=== PATIENT | female | born 1965 | race Two or more races ===

== ENCOUNTER 2024-01-15 12:31 | Inpatient (IN) | payer OTHER, SELFPAY ==
[2024-01-15] VITALS (27 sets, daily range): BP systolic 135–255; BP diastolic 64–137; PULSE 67–133; RESP 14–33; TEMP 35–39; O2SAT 97–100; BMI 29.5
--- NOTE | 2024-01-15 | ECG_ITS ---
Test Reason : Rhythm Change Blood Pressure : / mmHG Vent. Rate : 109 BPM Atrial Rate : 109 BPM P-R Int : 132 ms QRS Dur : 074 ms QT Int : 320 ms P-R-T Axes : 076 -44 078 degrees QTc Int : 430 ms Sinus tachycardia Left axis deviation Minimal voltage criteria for LVH, may be normal variant ( R in aVL ) Inferior infarct , age undetermined Anterolateral infarct , age undetermined Abnormal ECG When compared to the previous EKG of No significant changes seen Referred By: Genoveva Steele Electronically Signed By:Sunny Solorzano
--- NOTE | ~2024-01-15 | CT_ITS ---
EXAMINATION: CT GI BLEED ABDOMEN/PELVIS WITHOUT/WITH IV CONTRAST CLINICAL INFORMATION: Hematemesis. COMPARISON: None. TECHNIQUE: Initially, noncontrast imaging of the abdomen/pelvis is performed. Then, imaging is repeated in arterial and venous phases after intravenous administration of 80 mL Omnipaque 350. Note that no image postprocessing was performed on any three-dimensional workstations. This CT examination was performed using dose optimization techniques as appropriate, variously including the following: *Automated exposure control *Adjustment of mA and/or kV according to patient size (this includes techniques or standardized protocols for targeted exams where dose is matched to indication/reason for exam; i.e. extremities or head) *Use of iterative reconstruction technique DLP: 1636 mGy-cm. FINDINGS: LUNG BASES: Mild centrilobular emphysema. A solid, noncalcified nodule of 0.7 cm average diameter is present in the right lower lobe. 0.4 cm, 0.2 cm and 0.5 cm nodules are present in the left lower lobe. No pleural effusion. LIVER, GALLBLADDER, AND BILIARY TREE: The liver has normal size, shape, and attenuation. No focal hepatic lesion. The gallbladder is grossly normal; no radiopaque gallstones, wall thickening, or pericholecystic fluid. No intrahepatic or extrahepatic bile duct dilatation. PANCREAS: Normal. No evidence of pancreatic mass, edema or ductal dilatation. SPLEEN: Normal. ADRENAL GLANDS: Normal. KIDNEYS AND URETERS: The kidneys have normal size, shape, and attenuation. No hydroureteronephrosis, urolithiasis or perinephric edema. BLADDER: Normal. BOWEL AND PERITONEUM: Small sliding-type hiatal hernia. Immediately distal to the esophagogastric junction and region of proximal lesser curvature of the stomach, there is active extravasation of contrast from the gastric wall into the lumen of the proximal stomach. There is no visible gastric mass or overtly visible ulcerative lesion, although recommend correlation with upper endoscopy. The perigastric fat planes are maintained. No fluid or inflammation in the surrounding perigastric fat. No pneumoperitoneum. There are no dilated loops of bowel. The appendix is normal. Multiple diverticula of the colon without evidence of diverticulitis. An old small focus of circumscribed fat anterior to the proximal sigmoid colon likely represents old fat necrosis or sequela of remote epiploic appendagitis. ABDOMINAL WALL: Unremarkable. LYMPH NODES: No pathologic sized lymph nodes in the abdomen or pelvis. No inguinal lymphadenopathy. VASCULATURE: There is atherosclerotic calcification of the abdominal aorta and iliac arteries without aneurysm or dissection. The celiac trunk and superior mesenteric arteries are widely patent. Calcified atherosclerotic plaque causes mild stenosis at origins of each renal artery. There appears to be moderate stenosis of the origin of the patent inferior mesenteric artery. PELVIC VISCERA: No uterine or adnexal mass. No pelvic free fluid. MUSCULOSKELETAL: Levoscoliosis of lumbar spine. Degenerative disc disease of L3-L4, L4-5 [address] L5-S1. CT/CT gi bleed abd pel wo/w IVcon IMPRESSION: * Small hiatal hernia. * There is active contrast extravasation from the region of the proximal lesser curvature of the stomach and into the lumen of the proximal stomach. Consider correlation with upper endoscopy. * Colonic diverticulosis without evidence of diverticulitis. * A few nonspecific solid, noncalcified nodules are detected within both lower lobes, largest in the right lower lobe 0.7 cm average diameter. If the patient does not have any known malignancy, then the Fleischner Society guidelines would suggest chest CT follow-up at 3-6 months, then at 18-24 months for unknown risk or high risk patient (but for low risk patient, CT at 18-24 months is considered optional).
--- NOTE | ~2024-01-15 | XR_ITS ---
EXAMINATION: XR FOOT, LEFT CLINICAL INFORMATION: Fall, left foot pain COMPARISON: None available. TECHNIQUE: AP, lateral, and oblique views of the left foot. FINDINGS: The bones are intact. No fracture. Alignment is anatomic. Joint spaces are maintained. XR/XR foot LT 2V IMPRESSION: No acute bony abnormality.
--- NOTE | ~2024-01-15 | XR_ITS ---
EXAMINATION: PORTABLE CHEST 1 VIEW CLINICAL INFORMATION: tube placement. COMPARISON: No recent pertinent prior studies are available for comparison. TECHNIQUE: Portable frontal view of the chest was obtained. FINDINGS: Endotracheal tube tip approximately 1 cm above the power. Nasogastric tube below level the diaphragm. Lungs are hypoexpanded with some basilar atelectatic change. The lateralmost left costophrenic sulcus is not included on this film. No significant effusion, edema, or pneumothorax. Cardiac and mediastinal silhouettes within normal limits for size for this technique with vascular calcification seen in the aorta XR/XR chest 1V IMPRESSION: Hypoexpanded with tubes and lines as described. Basilar markings more likely due to atelectasis in this setting.
--- NOTE | 2024-01-15 12:49 | ECG_ITS ---
Test Reason : TACHY Blood Pressure : / mmHG Vent. Rate : 111 BPM Atrial Rate : 111 BPM P-R Int : 152 ms QRS Dur : 070 ms QT Int : 346 ms P-R-T Axes : 073 -09 064 degrees QTc Int : 470 ms Sinus tachycardia Low voltage QRS Cannot rule out Anterior infarct , age undetermined Abnormal ECG No previous ECGs available Referred By: Generic ED Physician Electronically Signed By:Sunny Solorzano
[2024-01-15 13:01] LABS: MANUAL DIFF FLAG NO
[2024-01-15] MEDS: ondansetron HCL 4 MG/2 ML VIAL IVPUSH (13:04)
[2024-01-15] MEDS: Pantoprazole Sodium 40 MG/10 ML VIAL 80 MG IVPUSH (13:04)
[2024-01-15] MEDS: 0.9 % Sodium Chloride 1,000 ML 999 ML IV (13:05)
[2024-01-15 13:23] LABS: Basophils Absolute Auto 0.1 X10*3/uL (0.0-0.2); Basophils Percent Auto 0.4 % (0-2); Eosinophils Absolute Auto 0.2 X10*3/uL (0.0-0.4); Eosinophils Percent Auto 1.1 % (0-4); Hematocrit 30.5 % (37.0-47.0); Imm Gran Abs Auto 0.17 X10*3/uL (0.00-0.03); Imm Gran Pct Auto 0.9 % (0.0-0.4); Lymphocytes Absolute Auto 3.9 X10*3/uL (1.2-4.9); Lymphocytes Percent Auto 21.6 % (20-40); Mean Corpuscular HGB Conc 32.8 g/dl (31.0-35.0); Mean Corpuscular Hemoglobin 28.8 pg (27.0-33.0); Mean Corpuscular Volume 87.9 fL (80.0-98.0); Mean Platelet Volume 9.6 fL (9.4-12.3); Monocytes Absolute Auto 0.9 X10*3/uL (0.1-1.2); Monocytes Percent Auto 5.2 % (2-11); Neutrophils Absolute Auto 12.8 x10*3/uL (2.0-8.3); Neutrophils Percent Auto 70.8 % (45-73); Platelet Count 283 X10*3/uL (160-400); Red Blood Count 3.47 X10*6/uL (4.20-5.50); Red Cell Distribution Width 13.1 % (11.0-16.0); White Blood Count 18.1 X10*3/uL (4.8-10.8)
[2024-01-15] MEDS: iohexoL 350 MG/ML 100 ML INFUS..BTL IV (13:24)
[2024-01-15 13:37] LABS: Alanine Aminotransferase 21 U/L (0-31); Albumin Level 3.5 g/dL (3.5-5.0); Alkaline Phosphatase 96 U/L (39-117); Anion Gap 16 (12-20); Aspartate Amino Transferase 15 U/L (5-31); Bilirubin Total 0.6 mg/dL (0.0-1.0); Blood Urea Nitrogen 43 mg/dL (9-16); Calcium 8.8 mg/dL (8.4-10.2); Carbon Dioxide 21 mmol/L (22-29); Chloride 106 mmol/L (96-108); Creatinine Clr Calc Pharmacy 89.5; Estimated Glomerular Filt Rate > 60; Glucose Random 184 mg/dL (60-115); Sodium 139 mmol/L (135-145); Total Protein 6.2 g/dL (6.5-8.0)
--- NOTE | 2024-01-15 14:01 | ED.GENADULT ---
HPI - General Adult General Chief complaint: General Medical Stated complaint: VOMITING SINCE 2 AM LETHARGIC Time Seen by Provider: 01/15/24 12:52 Source: patient and family () Mode of arrival: ambulatory History of Present Illness HPI narrative: This is a 58-year-old female with significant past medical history of CAD/stent placement and completed a course of anticoagulation July 2023. Patient also has a significant past medical history of brain aneurysm with coiling and presents with repeated hematemesis since 0200 this morning. Patient also has complaints epigastric discomfort, symptoms all started after leaving a restaurant last night where she had initial episode of vomiting and felt dizzy. She denies any melena/bright red blood per rectum. [place]. Related Data Allergies Allergy/AdvReac Type Severity Reaction Status Date / Time amitriptyline Allergy Blurry Verified 01/15/24 12:48 Vision latex Allergy Rash Verified 01/15/24 12:48 Review of Systems Review of Systems: Pertinent positives and negatives as stated in HPI [facility] Past Medical History Source: nursing notes reviewed Social History Social History Advance Directives: No Physical Exam ED Vital Signs: Vital Signs - 24 hr 01/15/24 12:46 01/15/24 13:38 01/15/24 14:00 Temperature 98.8 F 97.8 F Pulse Rate 120 H 113 H 118 H Respiratory Rate 22 H 29 H 22 H Blood Pressure 153/64 H 144/80 H 140/105 H Pulse Oximetry 100 01/15/24 14:20 Temperature 97.8 F Pulse Rate 118 H Respiratory Rate 22 H Blood Pressure 140/105 H Pulse Oximetry BMI result Body Mass Index 29.5 VITAL SIGNS: Reviewed. GENERAL: Well developed, well nourished, in no acute distress. HEAD: Normocephalic/atraumatic, EYES: PERRLA, EOMI, pale conjunctiva EARS: Ext canals without abnormality NOSE: Nares patent bilateral OROPHARYNX: no oral lesions noted, posterior pharynx clear, pale mucosa NECK: Supple, no adenopathy LUNGS: Normal breath sounds. No adventitious sounds or accessory muscle use. SpO2<100> CARDIOVASCULAR: Regular rate and rhythm without noted murmurs, no JVD or lower extremity edema. ABDOMEN: Soft, epigastric discomfort without rebound, non-distended with bowel sounds. MUSCULOSKELETAL: No tenderness, deformities, or effusions noted on gross inspection. EXTREMITIES: No cyanosis, clubbing or edema. SKIN: Inspection of the skin reveals no rashes, +pallor NEUROLOGIC: Alert and oriented x 4. Strength and sensation to light touch were grossly intact x 4. Medications Administered Discontinued Medications Generic Name Dose Route Start Last Admin Trade Name Freq PRN Reason Stop Dose Admin Sodium Chloride 1,000 mls @ 999 mls/hr 01/15/24 13:00 01/15/24 13:05 Ns IV 01/15/24 14:00 999 mls/hr .Q1H1M PUNEET Administration Iohexol 100 ml 01/15/24 13:23 01/15/24 13:24 Iohexol 350 Mg/Ml 100 Ml Infus..Btl IV 01/15/24 13:24 85 ml ONCE ONE Administration Ondansetron HCl 4 mg 01/15/24 12:51 01/15/24 13:04 Ondansetron Hcl 4 Mg/2 Ml Vial IVPUSH 01/15/24 12:52 4 mg ONCE ONE Administration Pantoprazole Sodium 80 mg 01/15/24 12:51 01/15/24 13:04 Pantoprazole Sodium 40 Mg/10 Ml Vial IVPUSH 01/15/24 12:52 80 mg ONCE ONE Administration Procedures Intubation Intubation Type:: Emergency Endotracheal Intubation Intubation Date:: 01/15/24 Intubation Time:: 14:20 Time out performed: No sedative: Etomidate Mg Given: 20 paralytic: Rocuronium Mg Given: 100 Assist Device Used: fiber optic device ET Tube Size: 7.5 ET Tube Uncuffed: No Tube Secured Depth (cm): 25 Tube Secured Location: lips Tube Placement Confirmation: visualized tube passing through cords, equal breath sounds bilaterally, no breath sounds over epigastrium and confirmation by capnometry Patient Tolerated Procedure: well Intubation Complications: none Medical Decision Making Medical Decision Making MDM Narrative: 58-year-old female with history and clinical presentation, DDX: Upper GI bleed, esophageal from vomiting. INTERVENTION: Blood transfusion, IV fluids, antiemetics, Protonix, 2 g of Rocephin, Holloway catheter, NG tube after intubation, intubation I reviewed all investigations and hematologic indices are significant for noninfectious leukocytosis, normocytic anemia and no thrombocytopenia. Chemistry indices are negative for LEONELA/electrolyte or liver enzyme derangements. Patient continues to have hematemesis. 1344: Discussed case with mirror department supervisor. I discussed with the patient concerns for airway protection and that if she begins having uncontrolled vomiting that will become more dangerous to intubate her in that setting, and she is agreeable for intubation for airway protection. 1400: Discussed the case with the motion picture projectionist apprentice regarding the need for intubation for airway protection. 1420: Intubated, Dr. Miller at bedside and requesting NGT lavage as well as 250 mg erythromycin for gastric emptying. Patient successfully intubated. CT scan: There is active contrast extravasation from the region of the proximal lesser curvature of the stomach and into the lumen of the proximal stomach. Consider correlation with upper endoscopy. Differential Diagnosis Differential Diagnoses: The differential diagnosis associated with the presentation includes Please see the discussion above Admission/Observation Consideration of admission/observation: Escalation of care including admission/observation considered Please see the discussion above Consult Healthcare Provider Management of the patient was discussed with: Heat Treatment Technician Please see the discussion above Lab Data MDM Lab Attestation statement: I reviewed the patient's lab results. Please see the discussion above 01/15/24 12:57 01/15/24 12:57 Labs: Lab Results 01/15/24 Range/Units 12:57 WBC 18.1 H (4.8-10.8) X10*3/uL RBC 3.47 L (4.20-5.50) X10*6/uL Hgb 10.0 L (12.0-16.0) g/dl Hct 30.5 L (37.0-47.0) % MCV 87.9 (80.0-98.0) fL MCH 28.8 (27.0-33.0) pg MCHC 32.8 (31.0-35.0) g/dl RDW 13.1 (11.0-16.0) % Plt Count 283 (160-400) X10*3/uL MPV 9.6 (9.4-12.3) fL Immature Gran % (Auto) 0.9 H (0.0-0.4) % Neut % (Auto) 70.8 (45-73) % Lymph % (Auto) 21.6 (20-40) % [place] % (Auto) 5.2 (2-11) % Eos % (Auto) 1.1 (0-4) % Baso % (Auto) 0.4 (0-2) % Lymph # (Auto) 3.9 (1.2-4.9) X10*3/uL [place] # (Auto) 0.9 (0.1-1.2) X10*3/uL Eos # (Auto) 0.2 (0.0-0.4) X10*3/uL Baso # (Auto) 0.1 (0.0-0.2) X10*3/uL Abs Immat Gran (auto) 0.17 H (0.00-0.03) X10*3/uL Absolute Neuts (auto) 12.8 H (2.0-8.3) x10*3/uL Absolute Nucleated RBC 0.000 (0.0-0.012) X10*3/uL Nucleated RBC % (auto) 0.0 (0.0-0.2) /100WBC Sodium 139 (135-145) mmol/L Potassium 4.0 (3.3-5.1) mmol/L Chloride 106 (96-108) mmol/L Carbon Dioxide 21 L (22-29) mmol/L Anion Gap 16 (12-20) BUN 43 H (9-16) mg/dL Creatinine 0.76 (0.5-1.4) mg/dL Estim Creat Clear Calc 89.5 Estimated GFR > 60 Random Glucose 184 H (60-115) mg/dL Calcium 8.8 (8.4-10.2) mg/dL Total Bilirubin 0.6 (0.0-1.0) mg/dL AST 15 (5-31) U/L ALT 21 (0-31) U/L Alkaline Phosphatase 96 (39-117) U/L Total Protein 6.2 L (6.5-8.0) g/dL Albumin 3.5 (3.5-5.0) g/dL Blood Type O Positive Antibody Screen NEGATIVE Crossmatch See Detail Independent Interpretation I performed an independent interpretation of an: EKG Interpretation: Sinus tachycardia, HR-111, no STEMI, AR/QRS/QTC is within normal limits. Radiology Impression Discussion of test interpretation with radiology: I have reviewed the radiologist's reading. Radiologist Impression: Please see the discussion above Chronic Conditions CAD Critical Care Time Critical Care Time Critical Care Time: Yes Total Critical Care Time: 90 Attestation: I personally attest to this time spent taking care of the patient. Discharge Plan Discharge Clinical Impression: Acute blood loss anemia, Acute upper GI bleed Patient Disposition: Admitted As Inpatient Print Language: Danish
[2024-01-15] MEDS: Etomidate 20 MG/10 ML VIAL IVPUSH (14:17)
[2024-01-15] MEDS: Rocuronium Bromide 50 MG/5 ML VIAL 100 MG IVPUSH (14:18)
[2024-01-15] MEDS: propofoL 1,000 MG/100 ML VIAL 15.39 MG IVCONT (14:34)
--- NOTE | 2024-01-15 14:36 | P.HPCC_ITS ---
History of Present Illness Date of Service: 01/15/24 Chief Complaint: Upper GI bleed 58-year-old lady with underlying history of CAD status post stent placement, brain aneurysm with coiling, [place] had hematemesis starting in the evening of the day prior to the admission. On ER evaluation patient with repeat kira hematemesis intubated for airway protection. Started on PPI and received 2 units of packed red blood cells. Gastroenterology service consulted and patient is being planned for an urgent EGD. Review of Systems 2 Review of Systems: Yes unobtainable due to endotracheal tube, Unobtainable due to mental condition and Unobtainable due to mental status [facility] Social History Social History Advance Directives: No Meds Allergies Allergy/AdvReac Type Severity Reaction Status Date / Time amitriptyline Allergy Blurry Verified 01/15/24 12:48 Vision latex Allergy Rash Verified 01/15/24 12:48 Active Medications: Current Medications Chlorhexidine Gluconate (Chlorhexidine Gluc Oral Rinse 15 Ml Mouthwash) 15 ml BUCCAL Q8H [facility] Propofol (Diprivan) 1,000 mg in 100 mls @ 0 mls/hr IVCONT .Q0M [facility]; Protocol Erythromycin Lactobionate 250 (mg/ Sodium Chloride) 100 mls @ 100 mls/hr IV ONCE ONE Stop: 01/15/24 15:21 Pantoprazole Sodium 40 mg/ (Sodium Chloride) 110 mls @ 400 mls/hr IV BID PUNEET Physical Exam 2 Vital Signs: Vital Signs: Last Vital Signs Temp 97.8 F 01/15/24 14:20 Pulse 118 H 01/15/24 14:20 Resp 22 H 01/15/24 14:20 BP 140/105 H 01/15/24 14:20 Pulse Ox 100 01/15/24 12:46 BMI result Body Mass Index 29.5 Const: General: no acute distress and other (Sedated on the vent) Eyes: Sclerae: sclerae normal EOM: EOMs intact bilaterally Neck: Neck: Yes no lymphadenopathy, Yes trachea midline and Yes supple Resp: Effort & Inspection: normal respiratory effort and no respiratory distress Auscultation: clear to auscultation bilaterally Cardio: Rate: tachycardic Rhythm: regular rhythm Heart sounds: no gallops, no murmurs and no rubs GI: Palpation (GI): Soft to palpation and Other GI palpation findings present ( Nontender) Auscultation: normal bowel sounds Extrem: General: Yes no pedal edema, No clubbing and No cyanosis Results Labs 01/15/24 12:57 01/15/24 12:57 Labs: Laboratory Results - last 24 hr 01/15/24 12:57 MCV 87.9 MCH 28.8 MCHC 32.8 RDW 13.1 Plt Count 283 MPV 9.6 Immature Gran % (Auto) 0.9 H Neut % (Auto) 70.8 Lymph % (Auto) 21.6 [place] % (Auto) 5.2 Eos % (Auto) 1.1 Baso % (Auto) 0.4 Lymph # (Auto) 3.9 [place] # (Auto) 0.9 Eos # (Auto) 0.2 Baso # (Auto) 0.1 Abs Immat Gran (auto) 0.17 H Absolute Neuts (auto) 12.8 H Absolute Nucleated RBC 0.000 Nucleated RBC % (auto) 0.0 Anion Gap 16 Estim Creat Clear Calc 89.5 Estimated GFR > 60 Random Glucose 184 H Calcium 8.8 Total Bilirubin 0.6 AST 15 ALT 21 Alkaline Phosphatase 96 Total Protein 6.2 L Albumin 3.5 Blood Type O Positive Antibody Screen NEGATIVE Crossmatch See Detail Imaging Radiologist's Impressions: Impressions Abdomen/Pelvis CT 01/15/24 13:29 IMPRESSION: * Small hiatal hernia. * There is active contrast extravasation from the region of the proximal lesser curvature of the stomach and into the lumen of the proximal stomach. Consider correlation with upper endoscopy. * Colonic diverticulosis without evidence of diverticulitis. * A few nonspecific solid, noncalcified nodules are detected within both lower lobes, largest in the right lower lobe 0.7 cm average diameter. If the patient does not have any known malignancy, then the Fleischner Society guidelines would suggest chest CT follow-up at 3-6 months, then at 18-24 months for unknown risk or high risk patient (but for low risk patient, CT at 18-24 months is considered optional). Assessment and Plan (1) Upper GI bleed: Status: Acute (2) CAD (coronary artery disease): Status: Acute Plan Assessment: 58-year-old lady admitted with acute upper GI bleed requiring intubation for airway protection, now planned for an EGD. Plan: Neuro: No acute issues. Cardiac: No acute issues. Pulmonary: Intubated for airway protection, continue to titrate off as tolerated. Renal: No acute issues. Endo: No acute issues. GI: Upper GI bleed with CT angio showing active extravasation from lesser curvature of the stomach. Gastroenterology service care appreciated. Patient is being planned for an urgent EGD. Continue PPI. ID: No acute issues Heme/Onc: Acute blood loss anemia, status post 2 units of packed red blood cells. Continue to monitor hemoglobin level. Psych: No acute issues. Miscellaneous: No acute issues. Prophylaxis: Pneumatic compression, ppi Diet: NPO Critical care time spent: 60 minutes
[2024-01-15 14:43] LABS: INTERNATIONAL NORM RATIO 1.1 (0.9-1.1); Prothrombin Time 12.8 SEC (11.1-13.3)
[2024-01-15] MEDS: cefTRIAXone sodium 2 GM in 0.9 % Sodium Chloride 50 ML IV (14:44)
--- NOTE | 2024-01-15 14:44 | PC.RT ---
Pt successfully intubated in ER by 7.5 ETT 24 cm @lip line. Tube confirmed with ETCO2 change, colormetric, positive breath sounds, increase in O2 SATs, and X-Ray ordered. Tube secured with ETAD and pt placed on mechanical ventilation with settings appropriate for documented height. No acute complications noted.
--- NOTE | 2024-01-15 14:46 | P.CNGI_ITS ---
History of Present Illness Data of Consult Service Date: 01/15/24 Requesting physician: Mirian Blair Primary Care Provider: Unknown Physician HPI Reason for consult: UGI bleeding 58 YF with history of CAD/stent placement 1.5 years ago and completed a course of anticoagulation July 2023. Patient also has a history of brain aneurysm with coiling (2013) and was brought to [facility] by EMT with repeated episodes of hematemesis since 0200 this morning. Patient complained of epigastric discomfort and denied any melena/bright red blood per rectum. Hx obtained from pt's , Reno [place], unable to provide history after being intubated in the ED. reports symptoms started after leaving a restaurant last night where she had initial episode of vomiting and felt dizzy. She went to her hotel room and woke up at 2 am and felt sweaty with nausea. She vomited a large amount of blood with clots. She went back to sleep, woke up at 11:30 am with nausea, vomiting and dizziness followed by hematemesis. She had a ? syncopal episode after vomiting. called 911. Per , pt has a hiatal hernia and used to take pantoprazole in the past. denies past hx of PUD or GI bleeding. Pt takes a baby aspirin intermittently Pt takes a Thyroid medication, atorvastatin, Renaxa, oxycodone 10 mg prn for ABREU and back pain. She takes an Ambien and Xanax 5 mg at night She had a Toradol injection yesterday for ABREU. Patient does not smoke or drink. She lives in [facility] and is visiting her sister and brother (with advanced cancer) in [place] for Mother's Day ABD/PELVIC CTA SHOWED: Small hiatal hernia. * There is active contrast extravasation from the region of the proximal lesser curvature of the stomach and into the lumen of the proximal stomach. Consider correlation with upper endoscopy. * Colonic diverticulosis without evidence of diverticulitis. Review of Systems 2 Review of Systems: Yes unobtainable due to endotracheal tube, Unobtainable due to mental condition and Unobtainable due to mental status [facility] Past Medical History Medical History (Updated 01/28/24 @ 00:01 by Background Daemlatoya) CAD (coronary artery disease) Meds Allergies Allergy/AdvReac Type Severity Reaction Status Date / Time amitriptyline Allergy Blurry Verified 01/15/24 12:48 Vision latex Allergy Rash Verified 01/15/24 12:48 Active Medications: Current Medications Chlorhexidine Gluconate (Chlorhexidine Gluc Oral Rinse 15 Ml Mouthwash) 15 ml BUCCAL Q8H [facility] Propofol (Diprivan) 1,000 mg in 100 mls @ 0 mls/hr IVCONT .Q0M [facility]; Protocol Erythromycin Lactobionate 250 (mg/ Sodium Chloride) 100 mls @ 100 mls/hr IV ONCE ONE Stop: 01/15/24 15:21 Pantoprazole Sodium 80 mg/ (Sodium Chloride) 100 mls @ 10 mls/hr IV .Q10H [facility] Home Medications ?Medication ?Instructions ?Recorded ?Confirmed ?Last Taken ?Type albuterol sulfate 90 mcg/actuation 2 puff inhalation QID PRN 01/15/24 01/15/24 Unknown History aerosol inhaler Shortness Of Breath Or Wheezing alprazolam 1 mg tablet 1 mg PO QID 01/15/24 01/15/24 Unknown History amlodipine 5 mg tablet 5 mg PO DAILY 01/15/24 01/15/24 Unknown History aspirin 81 mg tablet,delayed 81 mg PO DAILY 01/15/24 01/15/24 Unknown History release atorvastatin 80 mg tablet 80 mg PO DAILY 01/15/24 01/15/24 Unknown History ergocalciferol (vitamin D2) 1,250 1,250 mcg PO QWEEK 01/15/24 01/15/24 Unknown History mcg (50,000 unit) capsule fremanezumab-vfrm 225 mg/1.5 mL 225 mg subcut QMONTH 01/15/24 01/15/24 Unknown History subcutaneous auto-injector (Ajovy) icosapent ethyl 1 gram capsule 2 g PO BID 01/15/24 01/15/24 Unknown History (Vascepa) levothyroxine 112 mcg tablet 112 mcg PO DAILY@0600 01/15/24 01/15/24 Unknown History metoprolol succinate 50 mg 50 mg PO DAILY 01/15/24 01/15/24 Unknown History tablet,extended release 24 hr nystatin 100,000 unit/gram topical 1 appl topical BID 01/15/24 01/15/24 Unknown History powder (Klayesta) ondansetron 4 mg disintegrating 4 mg PO TID PRN Nausea And Vomiting 01/15/24 01/15/24 Unknown History tablet oxycodone 10 mg tablet 10 mg PO BID-TID 01/15/24 01/15/24 Unknown History pregabalin 100 mg capsule 100 mg PO BID-TID 01/15/24 01/15/24 Unknown History ranolazine 1,000 mg 1,000 mg PO BID 01/15/24 01/15/24 Unknown History tablet,extended release,12 hr tizanidine 4 mg tablet 4 mg PO TID PRN Muscle Spasm 01/15/24 01/15/24 Unknown History triamcinolone acetonide 0.1 % 1 appl topical BID PRN Rash 01/15/24 01/15/24 Unknown History topical cream zolpidem 10 mg tablet 10 mg PO BEDTIME 01/15/24 01/15/24 Unknown History Physical Exam 2 Vital Signs: Vital Signs: Last Vital Signs Temp 97.8 F 01/15/24 14:20 Pulse 118 H 01/15/24 14:20 Resp 22 H 01/15/24 14:20 BP 140/105 H 01/15/24 14:20 Pulse Ox 100 01/15/24 12:46 FiO2 100 01/15/24 14:34 BMI result Body Mass Index 29.5 Const: General: no acute distress and other (Sedated on the vent) Eyes: Sclerae: sclerae normal EOM: EOMs intact bilaterally Neck: Neck: Yes no lymphadenopathy, Yes trachea midline and Yes supple Resp: Effort & Inspection: normal respiratory effort and no respiratory distress Auscultation: clear to auscultation bilaterally Cardio: Rate: tachycardic Rhythm: regular rhythm Heart sounds: no gallops, no murmurs and no rubs GI: Palpation (GI): Soft to palpation and Other GI palpation findings present ( Nontender) Auscultation: normal bowel sounds Extrem: General: Yes no pedal edema, No clubbing and No cyanosis Results Labs 01/19/24 06:32 01/19/24 06:32 Labs: Short CBC 01/15/24 Range/Units 12:57 WBC 18.1 H (4.8-10.8) X10*3/uL Hgb 10.0 L (12.0-16.0) g/dl Hct 30.5 L (37.0-47.0) % Plt Count 283 (160-400) X10*3/uL BMP 01/15/24 12:57 Sodium 139 Potassium 4.0 Chloride 106 Carbon Dioxide 21 L BUN 43 H Creatinine 0.76 Calcium 8.8 Liver Function 01/15/24 Range/Units 12:57 Total Bilirubin 0.6 (0.0-1.0) mg/dL AST 15 (5-31) U/L ALT 21 (0-31) U/L Alkaline Phosphatase 96 (39-117) U/L Albumin 3.5 (3.5-5.0) g/dL Assessment and Plan (1) Upper GI bleed: Status: Acute Plan 58 YF with history of CAD/stent placement 1.5 years ago and completed a course of anticoagulation July 2023. PatiENT was brought to [facility] by EMT with repeated episodes of hematemesis since 0200 this morning. CTA showed active contrast extravasation from the region of the proximal lesser curvature of the stomach and into the lumen of the proximal stomach. Pt was intubated for airway protection. 2 Units of PRBC were transfused. UGI bleeding likely from PUD, upper GI AVM or Dieulafoy's. RECOMMENDATIONS: 1. Agree with IV PPI infusion 2. Pass nG tube and lavage with 500 cc of normal saline 3. Erythromycin 250 IV over 30 min to clear the stomach for improved visualization 4. Proceed with urgant EGD today. Procedures Date of Service Date of Service: 02/03/24
[2024-01-15 15:17] LABS: MANUAL DIFF FLAG NO
[2024-01-15 15:25] LABS: Basophils Absolute Auto 0.1 X10*3/uL (0.0-0.2); Basophils Percent Auto 0.3 % (0-2); Eosinophils Absolute Auto 0.1 X10*3/uL (0.0-0.4); Eosinophils Percent Auto 0.3 % (0-4); Hematocrit 34.8 % (37.0-47.0); Hemoglobin 12.1 g/dl (12.0-16.0); Imm Gran Abs Auto 0.28 X10*3/uL (0.00-0.03); Imm Gran Pct Auto 1.4 % (0.0-0.4); Lymphocytes Absolute Auto 3.8 X10*3/uL (1.2-4.9); Lymphocytes Percent Auto 19.2 % (20-40); Mean Corpuscular HGB Conc 34.8 g/dl (31.0-35.0); Mean Corpuscular Hemoglobin 29.5 pg (27.0-33.0); Mean Corpuscular Volume 84.9 fL (80.0-98.0); Mean Platelet Volume 9.8 fL (9.4-12.3); Monocytes Percent Auto 5.1 % (2-11); Neutrophils Absolute Auto 14.5 x10*3/uL (2.0-8.3); Neutrophils Percent Auto 73.7 % (45-73); Platelet Count 218 X10*3/uL (160-400); Red Cell Distribution Width 13.1 % (11.0-16.0); White Blood Count 19.7 X10*3/uL (4.8-10.8)
--- NOTE | 2024-01-15 15:39 | PHA.MEDREC ---
Pharmacy Consult ? Medication Reconciliation Pharmacy has completed the medication reconciliation. spoke with patients over the phone and was able to confirm her medications. The only one he did not recognize was nghia. He reported that her ranolazine was BID however prescription was written for once daily last picked up in July 2023. He said that she has the Ajovy injection at home but has not used it in a while. He reports that she stopped taking pantoprazole.
--- NOTE | 2024-01-15 15:42 | P.CONAN_ITS ---
HPI - Anesthesia Eval Consult details Narrative: GI bleed PMFSH Active Problems Active Problems: All Active Problems CAD (coronary artery disease) (Acute) Upper GI bleed (Acute) Family History Family history of problems with anesthesia: No Surgical History History of Problems with Anesthesia: No Social History Social History Advance Directives: No Meds Allergies Allergy/AdvReac Type Severity Reaction Status Date / Time amitriptyline Allergy Blurry Verified 01/15/24 12:48 Vision latex Allergy Rash Verified 01/15/24 12:48 Active Medications: Current Medications Chlorhexidine Gluconate (Chlorhexidine Gluc Oral Rinse 15 Ml Mouthwash) 15 ml BUCCAL Q8H PUNEET Propofol (Diprivan) 1,000 mg in 100 mls @ 0 mls/hr IVCONT .Q0M PUNEET; Protocol Last Titration: 01/15/24 15:32 Dose: 45 mcg/kg/min, 23.09 mls/hr Pantoprazole Sodium 80 mg/ (Sodium Chloride) 100 mls @ 10 mls/hr IV .Q10H PUNEET Lactated Ringer's (Lr) 1,000 mls @ 999 mls/hr IV .Q1H1M PUNEET Stop: 01/15/24 17:00 Home Medications ?Medication ?Instructions ?Recorded ?Confirmed ?Last Taken ?Type albuterol sulfate 90 mcg/actuation 2 puff inhalation QID PRN 01/15/24 01/15/24 Unknown History aerosol inhaler Shortness Of Breath Or Wheezing alprazolam 1 mg tablet 1 mg PO QID 01/15/24 01/15/24 Unknown History amlodipine 5 mg tablet 5 mg PO DAILY 01/15/24 01/15/24 Unknown History aspirin 81 mg tablet,delayed 81 mg PO DAILY 01/15/24 01/15/24 Unknown History release atorvastatin 80 mg tablet 80 mg PO DAILY 01/15/24 01/15/24 Unknown History ergocalciferol (vitamin D2) 1,250 1,250 mcg PO QWEEK 01/15/24 01/15/24 Unknown History mcg (50,000 unit) capsule fremanezumab-vfrm 225 mg/1.5 mL 225 mg subcut QMONTH 01/15/24 01/15/24 Unknown History subcutaneous auto-injector (Ajovy) icosapent ethyl 1 gram capsule 2 g PO BID 01/15/24 01/15/24 Unknown History (Vascepa) levothyroxine 112 mcg tablet 112 mcg PO QAM 01/15/24 01/15/24 Unknown History metoprolol succinate 50 mg 50 mg PO DAILY 01/15/24 01/15/24 Unknown History tablet,extended release 24 hr nystatin 100,000 unit/gram topical 1 appl topical BID 01/15/24 01/15/24 Unknown History powder (Klayesta) ondansetron 4 mg disintegrating 4 mg PO TID PRN Nausea And Vomiting 01/15/24 01/15/24 Unknown History tablet oxycodone 10 mg tablet 10 mg PO BID-TID 01/15/24 01/15/24 Unknown History pregabalin 100 mg capsule 100 mg PO BID-TID 01/15/24 01/15/24 Unknown History ranolazine 1,000 mg 1,000 mg PO BID 01/15/24 01/15/24 Unknown History tablet,extended release,12 hr tizanidine 4 mg tablet 4 mg PO TID PRN Muscle Spasm 01/15/24 01/15/24 Unknown History triamcinolone acetonide 0.1 % 1 appl topical BID PRN Rash 01/15/24 01/15/24 Unknown History topical cream zolpidem 10 mg tablet 10 mg PO BEDTIME 01/15/24 01/15/24 Unknown History Exam Height,Weight and Vital Signs: Height 5 ft 7 in Weight 85.5 kg Last Vital Signs Temp 98.2 F 01/15/24 14:59 Pulse 110 H 01/15/24 15:32 Resp 16 01/15/24 15:32 BP 135/93 H 01/15/24 15:32 Pulse Ox 100 01/15/24 15:21 O2 Del Method Mechanical Ventilation 01/15/24 14:59 FiO2 100 01/15/24 14:34 Pertinent Lab Results Pertinent Lab Results: Laboratory Tests 01/15/24 01/15/24 12:57 15:11 WBC 18.1 H 19.7 H RBC 3.47 L 4.10 L Hgb 10.0 L 12.1 D Hct 30.5 L 34.8 L MCV 87.9 84.9 MCH 28.8 29.5 MCHC 32.8 34.8 RDW 13.1 13.1 Plt Count 283 218 MPV 9.6 9.8 Immature Gran % (Auto) 0.9 H 1.4 H Neut % (Auto) 70.8 73.7 H Lymph % (Auto) 21.6 19.2 L [place] % (Auto) 5.2 5.1 Eos % (Auto) 1.1 0.3 Baso % (Auto) 0.4 0.3 Lymph # (Auto) 3.9 3.8 [place] # (Auto) 0.9 1.0 Eos # (Auto) 0.2 0.1 Baso # (Auto) 0.1 0.1 Abs Immat Gran (auto) 0.17 H 0.28 H Absolute Neuts (auto) 12.8 H 14.5 H Absolute Nucleated RBC 0.000 0.000 Nucleated RBC % (auto) 0.0 0.0 PT 12.8 INR 1.1 Sodium 139 Potassium 4.0 Chloride 106 Carbon Dioxide 21 L Anion Gap 16 BUN 43 H Creatinine 0.76 Estim Creat Clear Calc 89.5 Estimated GFR > 60 Random Glucose 184 H Calcium 8.8 Total Bilirubin 0.6 AST 15 ALT 21 Alkaline Phosphatase 96 Total Protein 6.2 L Albumin 3.5 Blood Type O Positive Antibody Screen NEGATIVE Crossmatch See Detail Airway Mallampati Class: Patient Non-Cooperative TM Dist: >3cm Heart: RRR Lungs: Ventilated Assessment and Plan Assessment Anesthesia Assessment: Anesthesia Plan Discussed and Chart Reviewed Final Anesthetic Review Family History of Problems with Anesthesia: No History of Problems with Anesthesia: No NPO: No ASA Class: III and Emergency Final Preanesthetic Review: No Changes in Pt Med Stat, Meds/Allgs Chart Reviewed, Consent Obtained/Reviewed and Anes Risks/Benef Reviewed Patient Risk: High Procedure Risk: Low Anesthetic Plan Anesthetic Plan: MAC: Disposition: Inp. Admit - ICU
[2024-01-15 15:57] LABS: Lactic Acid 2.7 mmol/L (0.5-2.0)
--- NOTE | 2024-01-15 16:23 | PC.RT ---
pt was trans to icu 252, placed on ordered vent settings. in for bedside endoscopy, pt placed on 100% fio2 for procedure per Dr. Prieto, RN aware.
--- NOTE | 2024-01-15 16:25 | PC.NURSE ---
late entry: assumed care of pt from COLT Verduzco at 1406. pt prepared for intubation with Dr. Blair. pre intubation vitals at 1410: BP 162/87 HR 115 RR 14 O2 99% on room air pt medicated with: 20mg etomidate at 1417 100mg rocuronium at 1418 started bagging at 1418 adnd sating 100% 7.5 et tube placed at 1420 measuring 24 at the lip propofol drip started at 1434 at 30/hr 16Fr temp sensing burrows placed with immediate output of 400cc clear yellow urine. pt with 18G IV placed to LAC and RAC. 22G IV placed to L hand. 2 units of packed RBCs hung and infused. pt vitals stable and updated in worklist. attempted to draw blood cultures with no success. pt began to get agitated, propofol drip titrated per nov. report given to COLT Devries in ICU. pt transferred to ICU.
[2024-01-15] MEDS: fentaNYL citrate/PF 100 MCG/2 ML VIAL IVPUSH ×2 (16:51→23:58)
--- NOTE | 2024-01-15 17:05 | W.PM.OPN ---
Operative Note Operative Note Date of Service: 01/15/24 Narrative: FLEXIBLE TRANSORAL UPPER GASTROINTESTINAL ENDOSCOPY WITH BIOPSIES, EPINEPHRINE INJECTION AND CAUTERY Pre-op diagnosis: UPPER GI BLEEDING Post-op diagnosis: Gastric ulcer with visible vessel, MW tear with clot and a visible vessel Endoscopist:Aliyah Miller MD Anesthesia: Pt was intubated and on propofol (Dr Chung) UPPER ENDOSCOPY Consent: Indications for the procedure and potential complications of bleeding, perforation, reaction to medications and missed diagnosis were discussed with the patient and informed consent was obtained. Instrument: Olympus GIF H 190 mid size upper endoscope Monitoring: Vital signs and clinical assessment, continuous EKG monitoring, Pulse oximetry, Carbon Dioxide monitoring and blood pressure monitoring were done throughout the procedure. Procedure: The patient was placed in the left lateral decubitis position and pre-procedure medications were administered and a bite block was placed. The endoscope was inserted into the mouth and advanced under direct vision to the third part of duodenum. A careful inspection was made as the upper endoscope was withdrawn including a retroflexed examination of the proximal stomach; Findings and interventions are described below. Findings: Larynx: ET tube in place Esophagus: GE junction at 38 cms. Large clot at GE junction with a MW tear with a nonbleeding visible vessel - treated with cautery with Gold probe Stomach: A 1 cms ulcer with a clot and visible vessel along the lesser curvature at 40 cms. Epinephrine 1: 10,000 was injected and visible vessel was treated with cautery using the heater probe Large clot obscuring the fundus on retroflexed examination of the cardia. Antral biopsies were obtained to check for H pylori Duodenum: Normal bulb and descending duodenum Intervention: Biopsies as noted above Impression and Post Procedure Diagnosis: Endoscopy Findings: ESOPHAGUS: GE junction at 38 cms. Large clot at GE junction with a MW tear with a nonbleeding visible vessel - treated with cautery with Gold probe STOMACH: A 1 cms ulcer with a clot and visible vessel along the lesser curvature at 40 cms. Epinephrine 1: 10,000 was injected and visible vessel was treated with cautery using the heater probe Large clot obscuring the fundus on retroflexed examination of the cardia. No active bleeding seen during EGD. Plan: 1. Continue IV PPI infusion x 72 hours 2. Repeat CBC tonight and tomorrow am 3. 2nd look EGD in case of rebleeding Above findings were reviewed with the patient's , Reno Matamoros ([phone]) ADDENDUM: Hospital course: UGIB: Due to acute blood loss from gastric ulcer with visible vessel, Rachel-Calvert tear with clot and visible vessel. Initially treated with IV PPI drip which was transitioned to oral PPI 40 mg BID. Status post endoscopy 01/15/24. S/p 3 units of PRBC. stable HH. Pt was discharged on 01/20/24 Tolerating regular diet. PT rec home with PT, however patient is visiting from [place]. Will need PCP to order home services. We will need outpatient follow-up with her primary appraiser irrigation tax. Recommended to avoid NSAIDs including ibuprofen, Motrin etc.. Recommend to hold aspirin for 2 weeks. H/H has remained stable, no further bleeding observed. Vital signs have remained stable.
[2024-01-15] MEDS: Pantoprazole Sodium 80 MG in 0.9 % Sodium Chloride 80 ML 10 MG IV (17:15)
[2024-01-15 17:16] LABS: Reflex Lactate? Lactic Acid Added
[2024-01-15] MEDS: Chlorhexidine Gluc Oral Rinse 15 ML MOUTHWASH BUCCAL ×2 (17:17→21:20)
[2024-01-15] MEDS: propofoL 1,000 MG/100 ML VIAL 25.65 MG IVCONT ×2 (17:19→21:02)
--- NOTE | 2024-01-15 17:26 | PC.RT ---
s/p bedside endoscopy. upon arrival, audible cuff leak noted. No Vt return on ventilator. No cuff pressure when checked with monometer. ETT exchanged by MD at bedside with same 7.5 size ETT. Secured at 22 at lip due to low position when intubated and secured at 24 at lip.
[2024-01-15] MEDS: Metoprolol Tartrate 5 MG/5 ML VIAL IVPUSH (17:42)
[2024-01-15 17:58] LABS: VBG Base Excess -2.9 mmol/L; VBG HCO3 19 mmol/L (22-26); VBG pCO2 27 mmHg; VBG pH 7.46 (7.32-7.43); VBG pO2 99 mmHg
[2024-01-15 18:00] LABS: Basophils Percent Auto 0.4 % (0-2); Eosinophils Percent Auto 0.1 % (0-4); Hemoglobin 12.9 g/dl (12.0-16.0); Neutrophils Absolute Auto 13.1 x10*3/uL (2.0-8.3); PLT CLUMP 1; SCAN SMEAR FLAG 1
[2024-01-15 18:02] LABS: Basophils Absolute Auto 0.1 X10*3/uL (0.0-0.2); Hematocrit 36.3 % (37.0-47.0); Imm Gran Abs Auto 0.15 X10*3/uL (0.00-0.03); Imm Gran Pct Auto 0.9 % (0.0-0.4); Lymphocytes Absolute Auto 2.2 X10*3/uL (1.2-4.9); Lymphocytes Percent Auto 13.4 % (20-40); MANUAL DIFF FLAG SCAN; Mean Corpuscular HGB Conc 35.5 g/dl (31.0-35.0); Mean Corpuscular Hemoglobin 30.2 pg (27.0-33.0); Mean Platelet Volume 9.6 fL (9.4-12.3); Monocytes Absolute Auto 0.9 X10*3/uL (0.1-1.2); Monocytes Percent Auto 5.6 % (2-11); NRBC Pct Auto 0.1 /100WBC (0.0-0.2); Neutrophils Percent Auto 79.6 % (45-73); Red Blood Count 4.27 X10*6/uL (4.20-5.50); Red Cell Distribution Width 13.3 % (11.0-16.0)
[2024-01-15 18:03] LABS: White Blood Count 16.5 X10*3/uL (4.8-10.8)
[2024-01-15 18:07] LABS: Venous Blood Gas Refer to POC result
[2024-01-15 18:13] LABS: Anion Gap 16 (12-20); Blood Urea Nitrogen 31 mg/dL (9-16); Calcium 8.8 mg/dL (8.4-10.2); Carbon Dioxide 16 mmol/L (22-29); Chloride 112 mmol/L (96-108); Estimated Glomerular Filt Rate > 60; Glucose Random 163 mg/dL (60-115); Potassium 4.3 mmol/L (3.3-5.1); Sodium 140 mmol/L (135-145)
--- NOTE | 2024-01-15 18:14 | PC.NURSE ---
Upon pt's admission to ICU, Leigh Ann Miller and Juliet performed EGD in patient's room. During the procedure at 1651, Dr Chung requested 100 mcg of fentanyl. This contract writer removed it from the pyxis, rohit it into a syringe and handed it to Dr. Chung, who administered the medication during the procedure. Dr. Chung did document this medication's administration in his paper charting, however this would have left a discrepancy in the Pyxis. Orders were added and the medication was scanned and noted to have been administered by physician.
[2024-01-15 18:27] LABS: ~Lactic Acid-LAB USE ONLY 2.3 mmol/L (0.5-2.0)
[2024-01-15 18:35] LABS: Platelet Count 212 X10*3/uL (160-400)
[2024-01-15 18:36] LABS: SLIDE REVIEW VERIFIED
[2024-01-15] MEDS: cloNIDine 0.1 MG PATCH.TDWK TRANSDERMA (19:03)
[2024-01-15 19:46] LABS: Reflex Lactate? 2 Y
[2024-01-15] MEDS: cefTRIAXone sodium 1 GM in 0.9 % Sodium Chloride 50 ML IV (19:49)
[2024-01-15 20:16] LABS: Cancel Lactic Acid Canceled
[2024-01-15] MEDS: Acetaminophen 1,000 MG/100 ML PIGGYBACK 400 MG IV (21:19)
[2024-01-15 22:25] LABS: Troponin-I High Sensitivity 504.7 ng/L (<3.5-17.0)
[2024-01-16] VITALS (30 sets, daily range): BP systolic 122–177; BP diastolic 67–101; PULSE 108–120; RESP 16–35; TEMP 35–39; O2SAT 94–100
--- NOTE | 2024-01-16 | ECG_ITS ---
Test Reason : tele chanages Blood Pressure : / mmHG Vent. Rate : 118 BPM Atrial Rate : 118 BPM P-R Int : 132 ms QRS Dur : 070 ms QT Int : 320 ms P-R-T Axes : 073 -46 083 degrees QTc Int : 448 ms Sinus tachycardia Left axis deviation Left ventricular hypertrophy with repolarization abnormality ( R in aVL ) Lateral infarct , age undetermined Inferior infarct , age undetermined Abnormal ECG When compared to the previous EKG of No significant changes seen Referred By: Genoveva Steele Electronically Signed By:Sunny Solorzano
[2024-01-16] MEDS: Pantoprazole Sodium 80 MG in 0.9 % Sodium Chloride 80 ML 10 MG IV ×3 (00:12→21:21)
[2024-01-16] MEDS: propofoL 1,000 MG/100 ML VIAL 25.65 MG IVCONT ×3 (00:47→07:38)
[2024-01-16 01:09] LABS: MANUAL DIFF FLAG NO
[2024-01-16 01:10] LABS: Basophils Absolute Auto 0.1 X10*3/uL (0.0-0.2); Basophils Percent Auto 0.3 % (0-2); Hematocrit 31.2 % (37.0-47.0); Hemoglobin 11.2 g/dl (12.0-16.0); Imm Gran Abs Auto 0.17 X10*3/uL (0.00-0.03); Imm Gran Pct Auto 0.8 % (0.0-0.4); Lymphocytes Absolute Auto 2.8 X10*3/uL (1.2-4.9); Lymphocytes Percent Auto 12.7 % (20-40); Mean Corpuscular HGB Conc 35.9 g/dl (31.0-35.0); Mean Corpuscular Hemoglobin 29.8 pg (27.0-33.0); Mean Platelet Volume 9.7 fL (9.4-12.3); Monocytes Absolute Auto 1.2 X10*3/uL (0.1-1.2); Monocytes Percent Auto 5.3 % (2-11); Neutrophils Absolute Auto 17.5 x10*3/uL (2.0-8.3); Neutrophils Percent Auto 80.9 % (45-73); Platelet Count 243 X10*3/uL (160-400); Red Blood Count 3.76 X10*6/uL (4.20-5.50); Red Cell Distribution Width 13.7 % (11.0-16.0); White Blood Count 21.6 X10*3/uL (4.8-10.8)
[2024-01-16 01:34] LABS: B Type Natriuretic Peptide 82 pg/mL (<100)
[2024-01-16 01:38] LABS: Troponin-I High Sensitivity 1014.7 ng/L (<3.5-17.0)
[2024-01-16 01:49] LABS: ABG HCO3 21 mmol/L (22-26); ABG pCO2 30 mmHg (32-45); ABG pH 7.46 (7.35-7.45); ABG pO2 91 mmHg (83-108)
[2024-01-16 02:55] LABS: ABG Refer to POC result
[2024-01-16 04:52] LABS: MANUAL DIFF FLAG NO
[2024-01-16 04:53] LABS: Basophils Absolute Auto 0.1 X10*3/uL (0.0-0.2); Basophils Percent Auto 0.4 % (0-2); Hematocrit 31.7 % (37.0-47.0); Hemoglobin 11.2 g/dl (12.0-16.0); Imm Gran Abs Auto 0.15 X10*3/uL (0.00-0.03); Imm Gran Pct Auto 0.7 % (0.0-0.4); Lymphocytes Absolute Auto 2.3 X10*3/uL (1.2-4.9); Lymphocytes Percent Auto 11.2 % (20-40); Mean Corpuscular HGB Conc 35.3 g/dl (31.0-35.0); Mean Corpuscular Hemoglobin 29.7 pg (27.0-33.0); Mean Corpuscular Volume 84.1 fL (80.0-98.0); Mean Platelet Volume 9.7 fL (9.4-12.3); Monocytes Percent Auto 4.8 % (2-11); Neutrophils Absolute Auto 16.8 x10*3/uL (2.0-8.3); Neutrophils Percent Auto 82.9 % (45-73); Platelet Count 238 X10*3/uL (160-400); Red Blood Count 3.77 X10*6/uL (4.20-5.50); Red Cell Distribution Width 13.9 % (11.0-16.0); White Blood Count 20.3 X10*3/uL (4.8-10.8)
[2024-01-16 04:56] LABS: VBG Base Excess -1.1 mmol/L; VBG HCO3 21 mmol/L (22-26); VBG pCO2 30 mmHg; VBG pH 7.46 (7.32-7.43); VBG pO2 54 mmHg
--- NOTE | 2024-01-16 05:00 | ECG_ITS ---
Test Reason : elevated trop Blood Pressure : / mmHG Vent. Rate : 117 BPM Atrial Rate : 117 BPM P-R Int : 136 ms QRS Dur : 070 ms QT Int : 318 ms P-R-T Axes : 078 -46 071 degrees QTc Int : 443 ms Sinus tachycardia Left axis deviation Inferior infarct , age undetermined Anterolateral infarct , age undetermined Abnormal ECG When compared to the previous EKG of No significant changes seen Referred By: Genoveva Steele Electronically Signed By:Sunny Solorzano
[2024-01-16 05:14] LABS: Venous Blood Gas Refer to POC result
[2024-01-16 05:19] LABS: Alanine Aminotransferase 17 U/L (0-31); Albumin Level 3.3 g/dL (3.5-5.0); Alkaline Phosphatase 86 U/L (39-117); Anion Gap 15 (12-20); Aspartate Amino Transferase 18 U/L (5-31); Bilirubin Total 0.3 mg/dL (0.0-1.0); Blood Urea Nitrogen 25 mg/dL (9-16); Calcium 8.4 mg/dL (8.4-10.2); Carbon Dioxide 19 mmol/L (22-29); Chloride 109 mmol/L (96-108); Creatinine Clr Calc Pharmacy 93.2; Estimated Glomerular Filt Rate > 60; Glucose Random 181 mg/dL (60-115); Magnesium 1.9 mg/dL (1.6-2.6); Phosphorus 3.2 mg/dL (2.7-4.5); Potassium 4.1 mmol/L (3.3-5.1); Sodium 139 mmol/L (135-145); Total Protein 5.9 g/dL (6.5-8.0)
[2024-01-16 05:29] LABS: Troponin-I High Sensitivity 840.8 ng/L (<3.5-17.0)
[2024-01-16] MEDS: Levothyroxine Sodium 100 MCG/5 ML VIAL 75 MCG IVPUSH (05:33)
[2024-01-16] MEDS: Chlorhexidine Gluc Oral Rinse 15 ML MOUTHWASH BUCCAL (05:33)
--- NOTE | 2024-01-16 10:04 | PM.CCPN ---
Subjective Subjective Date of Service: 01/16/24 Interval History: Continues to be on ventilator support this morning Underwent emergent upper GI endoscopy yesterday and bleeding source controlled Hemoglobin remained stable overnight Critical Care Time (minutes): 45 Physical Exam Vital Signs: Vital Signs: Last Vital Signs Temp 101.3 F H 01/16/24 09:49 Pulse 119 H 01/16/24 09:49 Resp 20 01/16/24 09:49 BP 162/89 H 01/16/24 09:49 Pulse Ox 97 01/16/24 09:49 O2 Del Method Mechanical Ventil ation 01/16/24 09:49 FiO2 30 01/16/24 09:49 BMI result Body Mass Index 30.0 Const: General: in distress, anxious, combative and confusion Nutritional Appearance: well nourished Orientation/consciousness: confusion HEENT: Head: Yes normal to inspection and Yes No palpable skull fracture present Eyes: General: appearance normal, both eyes and all related structures Alignment and Position: alignment normal and position normal Chest: Chest palpation & inspection: normal inspection of the chest and normal palpation of entire chest wall Resp: Other: Bilateral air entry equal no added sounds Cardio: Other: S1-S2 normal, no murmur heard GI: Other: Abdomen slightly distended, no organomegaly Neuro: Other: Currently on propofol for sedation, moving all 4 extremities General: confusion Objective Data Labs 01/17/24 05:13 01/17/24 05:13 Labs: Laboratory Results - last 24 hr 01/15/24 01/15/24 01/15/24 12:57 15:11 17:42 WBC 18.1 H 19.7 H 16.5 H RBC 3.47 L 4.10 L 4.27 Hgb 10.0 L 12.1 D 12.9 Hct 30.5 L 34.8 L 36.3 L MCV 87.9 84.9 85.0 MCH 28.8 29.5 30.2 MCHC 32.8 34.8 35.5 H RDW 13.1 13.1 13.3 Plt Count 283 218 212 MPV 9.6 9.8 9.6 Immature Gran % (Auto) 0.9 H 1.4 H 0.9 H Neut % (Auto) 70.8 73.7 H 79.6 H Lymph % (Auto) 21.6 19.2 L 13.4 L [place] % (Auto) 5.2 5.1 5.6 Eos % (Auto) 1.1 0.3 0.1 Baso % (Auto) 0.4 0.3 0.4 Lymph # (Auto) 3.9 3.8 2.2 [place] # (Auto) 0.9 1.0 0.9 Eos # (Auto) 0.2 0.1 0.0 Baso # (Auto) 0.1 0.1 0.1 Abs Immat Gran (auto) 0.17 H 0.28 H 0.15 H Absolute Neuts (auto) 12.8 H 14.5 H 13.1 H Absolute Nucleated RBC 0.000 0.000 0.020 H Nucleated RBC % (auto) 0.0 0.0 0.1 Smear Tech's Comments VERIFIED PT 12.8 INR 1.1 O2 Saturation ABG pH at Pt Temp ABG pCO2 at Pt Temp ABG pO2 at Pt Temp ABG HCO3 ABG Base Excess (Actual) VBG pH VBG pCO2 VBG pO2 VBG HCO3 VBG O2 Saturation VBG Base Excess Sodium 139 140 Potassium 4.0 4.3 Chloride 106 112 H Carbon Dioxide 21 L 16 L Anion Gap 16 16 BUN 43 H 31 H Creatinine 0.76 0.68 Estim Creat Clear Calc 89.5 100.0 Estimated GFR > 60 > 60 Random Glucose 184 H 163 H Lactic Acid 2.7 H* Lactic Acid F/U @ 2Hr 2.3 H* Calcium 8.8 8.8 Phosphorus Magnesium Total Bilirubin 0.6 AST 15 ALT 21 Alkaline Phosphatase 96 Troponin I High Sens B-Natriuretic Peptide Total Protein 6.2 L Albumin 3.5 Blood Type O Positive Antibody Screen NEGATIVE Crossmatch See Detail 01/15/24 01/15/24 01/16/24 17:46 21:29 01:01 WBC RBC Hgb Hct MCV MCH MCHC RDW Plt Count MPV Immature Gran % (Auto) Neut % (Auto) Lymph % (Auto) [place] % (Auto) Eos % (Auto) Baso % (Auto) Lymph # (Auto) [place] # (Auto) Eos # (Auto) Baso # (Auto) Abs Immat Gran (auto) Absolute Neuts (auto) Absolute Nucleated RBC Nucleated RBC % (auto) Smear Tech's Comments PT INR O2 Saturation ABG pH at Pt Temp ABG pCO2 at Pt Temp ABG pO2 at Pt Temp ABG HCO3 ABG Base Excess (Actual) VBG pH 7.46 H VBG pCO2 27 VBG pO2 99 VBG HCO3 19 L VBG O2 Saturation 99.0 VBG Base Excess -2.9 Sodium Potassium Chloride Carbon Dioxide Anion Gap BUN Creatinine Estim Creat Clear Calc Estimated GFR Random Glucose Lactic Acid 2.0 Lactic Acid F/U @ 2Hr Calcium Phosphorus Magnesium Total Bilirubin AST ALT Alkaline Phosphatase Troponin I High Sens 504.7 H* 1014.7 H* D B-Natriuretic Peptide 82 Total Protein Albumin Blood Type Antibody Screen Crossmatch 01/16/24 01/16/24 01/16/24 01:05 01:40 04:42 WBC 21.6 H 20.3 H RBC 3.76 L 3.77 L Hgb 11.2 L 11.2 L Hct 31.2 L 31.7 L MCV 83.0 84.1 MCH 29.8 29.7 MCHC 35.9 H 35.3 H RDW 13.7 13.9 Plt Count 243 238 MPV 9.7 9.7 Immature Gran % (Auto) 0.8 H 0.7 H Neut % (Auto) 80.9 H 82.9 H Lymph % (Auto) 12.7 L 11.2 L [place] % (Auto) 5.3 4.8 Eos % (Auto) 0.0 0.0 Baso % (Auto) 0.3 0.4 Lymph # (Auto) 2.8 2.3 [place] # (Auto) 1.2 1.0 Eos # (Auto) 0.0 0.0 Baso # (Auto) 0.1 0.1 Abs Immat Gran (auto) 0.17 H 0.15 H Absolute Neuts (auto) 17.5 H 16.8 H Absolute Nucleated RBC 0.000 0.000 Nucleated RBC % (auto) 0.0 0.0 Smear Tech's Comments PT INR O2 Saturation 99.0 ABG pH at Pt Temp 7.46 H ABG pCO2 at Pt Temp 30 L ABG pO2 at Pt Temp 91 ABG HCO3 21 L ABG Base Excess (Actual) -1.0 VBG pH VBG pCO2 VBG pO2 VBG HCO3 VBG O2 Saturation VBG Base Excess Sodium 139 Potassium 4.1 Chloride 109 H Carbon Dioxide 19 L Anion Gap 15 BUN 25 H Creatinine 0.73 Estim Creat Clear Calc 93.2 Estimated GFR > 60 Random Glucose 181 H Lactic Acid Lactic Acid F/U @ 2Hr Calcium 8.4 Phosphorus 3.2 Magnesium 1.9 Total Bilirubin 0.3 AST 18 ALT 17 Alkaline Phosphatase 86 Troponin I High Sens 840.8 H* B-Natriuretic Peptide Total Protein 5.9 L Albumin 3.3 L Blood Type Antibody Screen Crossmatch 01/16/24 04:47 WBC RBC Hgb Hct MCV MCH MCHC RDW Plt Count MPV Immature Gran % (Auto) Neut % (Auto) Lymph % (Auto) [place] % (Auto) Eos % (Auto) Baso % (Auto) Lymph # (Auto) [place] # (Auto) Eos # (Auto) Baso # (Auto) Abs Immat Gran (auto) Absolute Neuts (auto) Absolute Nucleated RBC Nucleated RBC % (auto) Smear Tech's Comments PT INR O2 Saturation ABG pH at Pt Temp ABG pCO2 at Pt Temp ABG pO2 at Pt Temp ABG HCO3 ABG Base Excess (Actual) VBG pH 7.46 H VBG pCO2 30 VBG pO2 54 VBG HCO3 21 L VBG O2 Saturation 88.0 VBG Base Excess -1.1 Sodium Potassium Chloride Carbon Dioxide Anion Gap BUN Creatinine Estim Creat Clear Calc Estimated GFR Random Glucose Lactic Acid Lactic Acid F/U @ 2Hr Calcium Phosphorus Magnesium Total Bilirubin AST ALT Alkaline Phosphatase Troponin I High Sens B-Natriuretic Peptide Total Protein Albumin Blood Type Antibody Screen Crossmatch Progress Note: A&P Assessment and plan (1) CAD (coronary artery disease): Status: Acute (2) Upper GI bleed: Status: Acute (3) Acute hypoxemic respiratory failure: Status: Acute (4) Acute blood loss anemia: Status: Acute Plan Genny Matamoros is a 58-year-old lady residing in [facility] with past medical history of coronary artery disease status post stent placement on aspirin, brain aneurysm status post coiling, thyroid cancer status post thyroidectomy, fibromyalgia admitted to the hospital with multiple episodes of upper and lower GI bleeding needing intubation and currently on ventilator support. CTA showed active extravasation through the lesser curvature of the stomach, underwent emergent upper GI endoscopy and bleeding source controlled. Neuro: Acute encephalopathy: Currently on propofol for sedation We will wean propofol and switch to Precedex for weaning from ventilator Has chronic fibromyalgia needing multiple pain medications at home Cardiac: Blood pressure stable, not on pressors Respiratory: Acute hypoxemic respiratory failure secondary to aspiration pneumonia Currently on ventilator support FiO2 30%, peep 5, tidal volume 400, rate 20 We will switch the patient to pressor support for weaning trials Ventilator management bundle, head did not elevation, chlorhexidine mouthwash, daily awakening trials, daily spontaneous breathing trials GI: Upper GI bleeding: Possibly secondary to chronic aspirin, off of anticoagulation since 2022 CTA showed active extravasation in the lesser curvature of stomach underwent emergent upper GI endoscopy and control of the source Hemoglobin remained stable overnight, continue pantoprazole Renal: Normal renal function Closely monitor I's and O's Heme: Acute blood loss anemia: Secondary to massive upper GI bleed needing multiple transfusions Continue to closely monitor hemoglobin ID: No infection Endocrine: Blood sugars under control Possibly needs thyroid supplementation as she has a history of thyroidectomy for thyroid cancer Prophylaxis: SCD, pantoprazole Quality Stroke Does the patient have a stroke diagnosis?: No VTE Prior VTE?: No VTE Risk Level:: Medical - moderate - high VTE Device Contraindication: N/A - Device Ordered VTE Drug Contraindication: Treatment Not Indicated
[2024-01-16] MEDS: dexmedeTOMIDidine HCL/NS 400 MCG/100 ML INFUS..BTL 21.75 MCG IVCONT (10:12)
--- NOTE | 2024-01-16 11:09 | PC.NURSE ---
Sedation vacation initiated at 1015. propofol titrated per NOV. Precedex started per NOV. MD ordered extubation. Performed at 1100 with RT and poem writer at bedside. No complications, oral suction provided. Pt placed on 4L o2 via NC.
--- NOTE | 2024-01-16 11:47 | MHC.CM.PN ---
Pt presently intubated for airway protection following an UGIB: Information obtained from EMR and spouse who is with pt. Pt resides in [place] w/spouse and is in [place] visiting family for the weekend. Pt is independent w/care needs and has no services or DME. HCP w/provider, Dr. Junior (?) in [place]. pouse to transport pt when d/c'd. CM to follow for any changes in d/c plan.
[2024-01-16] MEDS: HYDROmorphone HCl 0.5 MG/0.5 ML SYRINGE IVPUSH ×2 (13:25→20:18)
[2024-01-16] MEDS: ondansetron HCL 4 MG/2 ML VIAL IVPUSH ×2 (14:25→20:18)
[2024-01-16] MEDS: LORazepam 2 MG/ML VIAL 0.5 MG IVPUSH (15:11)
--- NOTE | 2024-01-16 15:25 | HO.POSTANES ---
Post Anesthesia Evaluation Post Anesthesia Evaluation Date of Service: 01/16/24 Vital Signs: Vital Signs Temp Pulse Resp BP Pulse Ox O2 Del Method O2 Flow Rate 01/16/24 14:59 99.3 F 110 H 20 136/85 97 Nasal Cannula 4 01/16/24 14:00 98.1 F 118 H 31 H 160/82 H 97 Nasal Cannula 4 01/16/24 13:25 21 H 01/16/24 13:00 100.4 F 112 H 27 H 127/72 98 Nasal Cannula 4 01/16/24 11:41 101.3 F H 114 H 32 H 146/84 H 97 Nasal Cannula 4 01/16/24 11:00 101.1 F H 112 H 35 H 122/77 96 Nasal Cannula 4 01/16/24 10:37 01/16/24 09:49 101.3 F H 119 H 20 162/89 H 97 Mechanical Ventilation 01/16/24 09:00 101.3 F H 119 H 17 144/70 H 97 Mechanical Ventilation 01/16/24 08:00 101.3 F H 119 H 28 H 149/89 H 97 Mechanical Ventilation 01/16/24 07:40 01/16/24 07:14 01/16/24 07:00 101.5 F H 114 H 17 164/89 H 97 Mechanical Ventilation 01/16/24 06:00 101.5 F H 116 H 19 149/89 H 98 Mechanical Ventilation 01/16/24 05:00 100.4 F 117 H 19 168/86 H 97 Mechanical Ventilation 01/16/24 04:52 01/16/24 04:00 102.0 F H 120 H 21 H 145/91 H 98 Mechanical Ventilation 01/16/24 04:00 FiO2 01/16/24 14:59 01/16/24 14:00 01/16/24 13:25 01/16/24 13:00 01/16/24 11:41 01/16/24 11:00 01/16/24 10:37 30 01/16/24 09:49 30 01/16/24 09:00 30 01/16/24 08:00 30 01/16/24 07:40 30 01/16/24 07:14 30 01/16/24 07:00 30 01/16/24 06:00 30 01/16/24 05:00 30 01/16/24 04:52 30 01/16/24 04:00 30 01/16/24 04:00 30 Anesthesia: Monitored Mental Status: Awake Pain Control: Satisfactory Nausea/Vomiting: None Hydration: Adequate Anesthesia-Related Issues: No Anes. Related Issues
[2024-01-16] MEDS: Prochlorperazine Edisylate 10 MG/2 ML VIAL IM (16:51)
[2024-01-16] MEDS: cefTRIAXone sodium 1 GM in 0.9 % Sodium Chloride 50 ML IV (19:51)
[2024-01-16 20:08] LABS: Hematocrit 27.5 % (37.0-47.0); Hemoglobin 9.6 g/dl (12.0-16.0); Mean Corpuscular HGB Conc 34.9 g/dl (31.0-35.0); Mean Corpuscular Hemoglobin 29.4 pg (27.0-33.0); Mean Corpuscular Volume 84.1 fL (80.0-98.0); Mean Platelet Volume 9.9 fL (9.4-12.3); NRBC Pct Auto 0.1 /100WBC (0.0-0.2); Platelet Count 217 X10*3/uL (160-400); Red Blood Count 3.27 X10*6/uL (4.20-5.50); Red Cell Distribution Width 13.8 % (11.0-16.0)
[2024-01-16] MEDS: LORazepam 2 MG/ML VIAL 1 MG IVPUSH (23:04)
[2024-01-17] VITALS (17 sets, daily range): BP systolic 135–173; BP diastolic 63–85; PULSE 97–115; RESP 15–25; TEMP 36.8–38.2; O2SAT 94–99; BMI 29.2
--- NOTE | 2024-01-17 | ECG_ITS ---
Test Reason : ELEVATED TROPONINS Blood Pressure : / mmHG Vent. Rate : 103 BPM Atrial Rate : 103 BPM P-R Int : 142 ms QRS Dur : 074 ms QT Int : 338 ms P-R-T Axes : 062 -26 035 degrees QTc Int : 442 ms Sinus tachycardia Inferior infarct (cited on or before 15-JAN-2024) Cannot rule out Anterior infarct (cited on or before 15-JAN-2024) Abnormal ECG When compared with ECG of 16-JAN-2024 04:53, Questionable change in initial forces of Lateral leads Nonspecific T wave abnormality now evident in Inferior leads Referred By: Sorin Benites Electronically Signed By:AURELIO CHING MD
[2024-01-17] MEDS: ondansetron HCL 4 MG/2 ML VIAL IVPUSH ×4 (00:35→21:34)
[2024-01-17] MEDS: HYDROmorphone HCl 0.5 MG/0.5 ML SYRINGE IVPUSH ×3 (00:39→09:13)
[2024-01-17] MEDS: Levothyroxine Sodium 100 MCG/5 ML VIAL 75 MCG IVPUSH (05:19)
[2024-01-17 05:27] LABS: VBG Base Excess 4.7 mmol/L; VBG HCO3 28 mmol/L (22-26); VBG pCO2 37 mmHg; VBG pH 7.48 (7.32-7.43); VBG pO2 129 mmHg
[2024-01-17 05:28] LABS: Venous Blood Gas Refer to POC result
[2024-01-17 05:49] LABS: Basophils Absolute Auto 0.1 X10*3/uL (0.0-0.2); Basophils Percent Auto 0.4 % (0-2); Eosinophils Percent Auto 0.1 % (0-4); Hematocrit 25.3 % (37.0-47.0); Hemoglobin 8.7 g/dl (12.0-16.0); Imm Gran Pct Auto 1.2 % (0.0-0.4); Lymphocytes Absolute Auto 3.6 X10*3/uL (1.2-4.9); Lymphocytes Percent Auto 21.5 % (20-40); MANUAL DIFF FLAG SCAN; Mean Corpuscular HGB Conc 34.4 g/dl (31.0-35.0); Mean Corpuscular Hemoglobin 29.7 pg (27.0-33.0); Mean Corpuscular Volume 86.3 fL (80.0-98.0); Monocytes Absolute Auto 1.7 X10*3/uL (0.1-1.2); Monocytes Percent Auto 10.1 % (2-11); NRBC Pct Auto 0.3 /100WBC (0.0-0.2); Neutrophils Absolute Auto 11.2 x10*3/uL (2.0-8.3); Neutrophils Percent Auto 66.7 % (45-73); Platelet Count 211 X10*3/uL (160-400); Red Blood Count 2.93 X10*6/uL (4.20-5.50); Red Cell Distribution Width 13.8 % (11.0-16.0); SCAN SMEAR FLAG 1; White Blood Count 16.8 X10*3/uL (4.8-10.8)
[2024-01-17 06:08] LABS: Albumin Level 3.3 g/dL (3.5-5.0); Anion Gap 17 (12-20); Blood Urea Nitrogen 18 mg/dL (9-16); Calcium 8.8 mg/dL (8.4-10.2); Carbon Dioxide 23 mmol/L (22-29); Chloride 109 mmol/L (96-108); Creatinine Clr Calc Pharmacy 109.1; Estimated Glomerular Filt Rate > 60; Glucose Random 174 mg/dL (60-115); Phosphorus 2.8 mg/dL (2.7-4.5); Potassium 3.8 mmol/L (3.3-5.1); Sodium 145 mmol/L (135-145)
[2024-01-17 06:16] LABS: SLIDE REVIEW VERIFIED
[2024-01-17] MEDS: Pantoprazole Sodium 80 MG in 0.9 % Sodium Chloride 80 ML 10 MG IV ×2 (07:48→16:49)
--- NOTE | 2024-01-17 12:25 | P.PNCC_ITS ---
Subjective Subjective Date of Service: 01/17/24 Critical Care Time (minutes): 32 Comment: Had a stable night overnight, no further episodes of hematemesis Hemoglobin dropped slightly down to 8.7 this morning Physical Exam 2 Vital Signs: Vital Signs: Last Vital Signs Temp 99.3 F 01/17/24 12:00 Pulse 109 H 01/17/24 12:00 Resp 20 01/17/24 12:00 BP 158/73 H 01/17/24 12:00 Pulse Ox 97 01/17/24 12:00 O2 Del Method Nasal Cannula 01/17/24 12:00 O2 Flow Rate 1 01/17/24 12:00 FiO2 30 01/16/24 10:37 BMI result Body Mass Index 29.2 Const: General: awake and lethargic Orientation/consciousness: oriented to person, oriented to place and lethargic HEENT: Head: Yes normal to inspection, Yes No palpable skull fracture present, Yes normocephalic and Yes atraumatic Eyes: Visual Chu: normal visual chu by confrontation Alignment and Position: position normal Periorbital: periorbital findings normal Chest: Chest palpation & inspection: normal inspection of the chest and normal palpation of entire chest wall Resp: Effort & Inspection: normal respiratory effort Auscultation: clear to auscultation bilaterally Cardio: Rate: regular rate Rhythm: regular rhythm Heart sounds: S1 normal heart sound present and S2 normal heart sound present GI: Other: Soft, nontender, no organomegaly : General: Yes bladder normal to inspection and Yes bladder normal to palpation Bimanual exam- vagina & uterus: bladder normal to palpation Skin: General skin exam: no rashes or lesions noted and elasticity normal Neuro: General: oriented to person, oriented to place, moves all extremities and Normal light touch and pain sensation Objective Data Labs 01/17/24 05:13 01/17/24 05:13 Labs: Laboratory Results - last 24 hr 01/15/24 01/16/24 01/17/24 12:57 19:58 05:13 WBC 19.0 H 16.8 H RBC 3.27 L 2.93 L Hgb 9.6 L 8.7 L Hct 27.5 L 25.3 L MCV 84.1 86.3 MCH 29.4 29.7 MCHC 34.9 34.4 RDW 13.8 13.8 Plt Count 217 211 MPV 9.9 10.0 Immature Gran % (Auto) 1.2 H Neut % (Auto) 66.7 Lymph % (Auto) 21.5 [place] % (Auto) 10.1 Eos % (Auto) 0.1 Baso % (Auto) 0.4 Lymph # (Auto) 3.6 [place] # (Auto) 1.7 H Eos # (Auto) 0.0 Baso # (Auto) 0.1 Abs Immat Gran (auto) 0.20 H Absolute Neuts (auto) 11.2 H Absolute Nucleated RBC 0.020 H 0.050 H Nucleated RBC % (auto) 0.1 0.3 H Smear Tech's Comments VERIFIED VBG pH VBG pCO2 VBG pO2 VBG HCO3 VBG O2 Saturation VBG Base Excess Sodium 145 Potassium 3.8 Chloride 109 H Carbon Dioxide 23 Anion Gap 17 BUN 18 H Creatinine 0.62 Estim Creat Clear Calc 109.1 Estimated GFR > 60 Random Glucose 174 H Calcium 8.8 Phosphorus 2.8 Magnesium 2.0 Albumin 3.3 L Crossmatch See Detail 01/17/24 05:18 WBC RBC Hgb Hct MCV MCH MCHC RDW Plt Count MPV Immature Gran % (Auto) Neut % (Auto) Lymph % (Auto) [place] % (Auto) Eos % (Auto) Baso % (Auto) Lymph # (Auto) [place] # (Auto) Eos # (Auto) Baso # (Auto) Abs Immat Gran (auto) Absolute Neuts (auto) Absolute Nucleated RBC Nucleated RBC % (auto) Smear Tech's Comments VBG pH 7.48 H VBG pCO2 37 VBG pO2 129 VBG HCO3 28 H VBG O2 Saturation 100.0 VBG Base Excess 4.7 Sodium Potassium Chloride Carbon Dioxide Anion Gap BUN Creatinine Estim Creat Clear Calc Estimated GFR Random Glucose Calcium Phosphorus Magnesium Albumin Crossmatch Microbiology Microbiology Results: Microbiology 01/15/24 19:31 Blood - Venous Blood Culture - Preliminary No growth after 24 hours. 01/15/24 19:31 Blood - Venous Blood Culture - Preliminary No growth after 24 hours. Progress Note: A&P Assessment and plan (1) Acute blood loss anemia: Status: Acute (2) Upper GI bleed: Status: Acute (3) CAD (coronary artery disease): Status: Acute Plan Genny Matamoros is a 58-year-old lady residing in [facility] with past medical history of coronary artery disease status post stent placement on aspirin, brain aneurysm status post coiling, thyroid cancer status post thyroidectomy, fibromyalgia admitted to the hospital with multiple episodes of upper and lower GI bleeding needing intubation and ventilator support due to aspiration of blood on 01/15/2024. CTA showed active extravasation through the lesser curvature of the stomach, underwent emergent upper GI endoscopy and bleeding source controlled with cauterization. She was extubated on 01/16/2024, postextubation doing okay. Neuro: Doing well, no complaints Cardiac: Blood pressure stable, not on pressors Respiratory: Extubated yesterday, tolerating liberation from ventilator well. Saturations normal. GI: Upper GI bleeding: Possibly secondary to chronic aspirin, off of anticoagulation since 2022 CTA showed active extravasation in the lesser curvature of stomach underwent emergent upper GI endoscopy and cauterization of the bleeding source the lesser curvature Hemoglobin r slightly dropped overnight, 8.7 this morning. continue pantoprazole IV for a total of 72hrs; if the patient rebleeds GI we will do a repeat endoscope Clear liquid diet Renal: Normal renal function Closely monitor I's and O's Heme: Acute blood loss anemia: Secondary to massive upper GI bleed needing multiple transfusions Continue to closely monitor hemoglobin twice today ID: No infection Endocrine: Blood sugars under control On oral levothyroxine, history of thyroidectomy for thyroid cancer Prophylaxis: SCD, pantoprazole Quality Stroke Does the patient have a stroke diagnosis?: No VTE Prior VTE?: No VTE Risk Level:: Medical - moderate - high VTE Device Contraindication: N/A - Device Ordered VTE Drug Contraindication: Treatment Not Indicated
[2024-01-17] MEDS: ALPRAZolam 0.5 MG TABLET 1 MG PO ×3 (13:34→19:54)
[2024-01-17 13:36] LABS: Hematocrit 24.2 % (37.0-47.0); Hemoglobin 8.3 g/dl (12.0-16.0); Mean Corpuscular HGB Conc 34.3 g/dl (31.0-35.0); Mean Corpuscular Volume 87.4 fL (80.0-98.0); Mean Platelet Volume 9.7 fL (9.4-12.3); NRBC Pct Auto 0.3 /100WBC (0.0-0.2); Platelet Count 194 X10*3/uL (160-400); Red Blood Count 2.77 X10*6/uL (4.20-5.50); Red Cell Distribution Width 13.8 % (11.0-16.0); White Blood Count 15.5 X10*3/uL (4.8-10.8)
--- NOTE | 2024-01-17 13:49 | MHC.CM.PN ---
EMR REVIEWED. PT REMAINS IN ICU, EXTUBATED SUCCESSFULLY ON 01/16/24. CM WILL CONTINUE TO FOLLOW FOR DC PLANNING.
--- NOTE | 2024-01-17 13:49 | PM.EVENT ---
Event Note Date of Service: 01/17/24 Event Note: 58-year-old woman admitted to the ICU with upper GI bleed and hematemesis. Patient complained of epigastric pain but denied any bleeding per rectum. She had dinner and then started vomiting and felt dizzy. She went back to her hotel room and around 02:00 woke up diaphoretic and nauseous. Vomited a large amount of blood with clots. Went back to bed and woke up again around 11:30 with nausea vomiting dizziness followed by hematemesis. She had a possible syncopal episode after vomiting. Her called emergency services and she was brought to the ER further evaluation. Of note she is currently visiting from [place]. She was intubated in the ER, had upper endoscopy showing gastric ulcer and Rachel-Calvert tear. Ultimately extubated, not treated with pressors. ICU transfer to medical floor. Discussed with director media UGIB secondary to gastric ulcer with visible vessel, Rachel-Calvert tear with clot and visible vessel Treated with IV PPI Status post endoscopy Monitor H&H Asthma inhalers as needed HTN amlodipine Hypothyroidism Continue levothyroxine Mental health Continue home medications Time Spent With Patient Time: Total time managing care of this patient today ____ minutes.
[2024-01-17] MEDS: oxyCODONE HCl Immed Release 5 MG TABLET 10 MG PO ×3 (14:39→19:53)
[2024-01-17] MEDS: Pregabalin 100 MG CAPSULE PO ×2 (14:40→19:54)
--- NOTE | 2024-01-17 15:08 | PC.NURSE ---
Pt transferred to [facility], [place] cath removed at 1500, due to void at 2100. Report given to COLT Duenas
[2024-01-17] MEDS: cefTRIAXone sodium 1 GM in 0.9 % Sodium Chloride 50 ML IV (17:47)
[2024-01-17 20:27] LABS: MANUAL DIFF FLAG NO
[2024-01-17 20:30] LABS: Basophils Absolute Auto 0.1 X10*3/uL (0.0-0.2); Basophils Percent Auto 0.3 % (0-2); Eosinophils Absolute Auto 0.1 X10*3/uL (0.0-0.4); Eosinophils Percent Auto 0.5 % (0-4); Hematocrit 23.1 % (37.0-47.0); Hemoglobin 7.8 g/dl (12.0-16.0); Imm Gran Abs Auto 0.16 X10*3/uL (0.00-0.03); Imm Gran Pct Auto 0.9 % (0.0-0.4); Lymphocytes Absolute Auto 3.9 X10*3/uL (1.2-4.9); Lymphocytes Percent Auto 22.2 % (20-40); Mean Corpuscular HGB Conc 33.8 g/dl (31.0-35.0); Mean Corpuscular Hemoglobin 29.7 pg (27.0-33.0); Mean Corpuscular Volume 87.8 fL (80.0-98.0); Mean Platelet Volume 9.5 fL (9.4-12.3); Monocytes Absolute Auto 1.3 X10*3/uL (0.1-1.2); Monocytes Percent Auto 7.2 % (2-11); NRBC Pct Auto 0.3 /100WBC (0.0-0.2); Neutrophils Percent Auto 68.9 % (45-73); Platelet Count 183 X10*3/uL (160-400); Red Blood Count 2.63 X10*6/uL (4.20-5.50); Red Cell Distribution Width 13.9 % (11.0-16.0); White Blood Count 17.5 X10*3/uL (4.8-10.8)
[2024-01-17] MEDS: LORazepam 2 MG/ML VIAL 1 MG IVPUSH (21:34)
[2024-01-18] VITALS (9 sets, daily range): BP systolic 117–155; BP diastolic 56–67; PULSE 82–106; RESP 16–20; TEMP 36–37.2; O2SAT 93–100
[2024-01-18] MEDS: Pantoprazole Sodium 80 MG in 0.9 % Sodium Chloride 80 ML 10 MG IV ×3 (01:15→22:51)
[2024-01-18] MEDS: Levothyroxine Sodium 100 MCG/5 ML VIAL 75 MCG IVPUSH (05:30)
[2024-01-18] MEDS: Atorvastatin Calcium 80 MG TABLET PO (07:50)
[2024-01-18] MEDS: amLODIPine Besylate 5 MG TABLET PO (07:50)
[2024-01-18] MEDS: ondansetron HCL 4 MG/2 ML VIAL IVPUSH (07:50)
[2024-01-18] MEDS: oxyCODONE HCl Immed Release 5 MG TABLET 10 MG PO ×3 (07:50→20:11)
[2024-01-18] MEDS: ALPRAZolam 0.5 MG TABLET 1 MG PO ×3 (07:50→20:11)
[2024-01-18] MEDS: Pregabalin 100 MG CAPSULE PO ×3 (07:50→22:51)
--- NOTE | 2024-01-18 08:08 | HO.PM.IMPN ---
Subjective Subjective Date of Service: 01/18/24 Review of Systems Follow up GI bleed nausea and episode of vomiting this morning Physical Exam Vital Signs: Vital Signs: Last Vital Signs Temp 97.9 F 01/18/24 07:21 Pulse 100 01/18/24 07:21 Resp 18 01/18/24 07:21 BP 132/61 01/18/24 07:21 Pulse Ox 98 01/18/24 07:21 O2 Del Method Nasal Cannula 01/18/24 07:21 O2 Flow Rate 2 01/18/24 07:21 FiO2 30 01/16/24 10:37 BMI result Body Mass Index 29.2 Appearing in no acute distress lung sounds are clear to auscultation heart regular rate rhythm, clear S1, S2 positive bowel sounds, abdomen is soft, nontender neuro patient is alert x3, no focal deficits Objective Data Active Medications Alprazolam (Alprazolam 0.5 Mg Tablet) [address] [facility] Last Admin: 01/18/24 07:50 Dose: 1 mg Documented By: KESHAV Amlodipine Besylate (Amlodipine Besylate 5 Mg Tablet) [address] [facility]; Protocol Last Admin: 01/18/24 07:50 Dose: 5 mg Documented By: KESHAV Atorvastatin Calcium (Atorvastatin Calcium 80 Mg Tablet) [address] [facility] Last Admin: 01/18/24 07:50 Dose: 80 mg Documented By: KESHAV Hydromorphone HCl (Hydromorphone Hcl 0.5 Mg/0.5 Ml Syringe) 0.5 mg IVPUSH Q4H PRN; Protocol PRN Reason: Pain, Severe (Pain Scale 7-10) Last Admin: 01/17/24 09:13 Dose: 0.5 mg Documented By: CALEB Ceftriaxone Sodium 1 gm/ (Sodium Chloride) 50 mls @ 100 mls/hr IV Q24H [facility] Last Infusion: 01/17/24 18:25 Dose: Infused Documented By: ADRIAN Dexmedetomidine HCl (Precedex) 400 mcg in 100 mls @ 0 mls/hr IVCONT .Q0M [facility]; Protocol Last Titration: 01/16/24 14:14 Dose: Infused Documented By: MARIA DEL CARMEN Pantoprazole Sodium 80 mg/ (Sodium Chloride) 100 mls @ 10 mls/hr IV .Q10H [facility] Last Admin: 01/18/24 01:15 Dose: 8 mg/hr, 10 mls/hr Documented By: ANTJOEL Levothyroxine Sodium (Levothyroxine Sodium 100 Mcg/5 Ml Vial) 75 mcg IVPUSH DAILY@0600 [facility] Last Admin: 01/18/24 05:30 Dose: 75 mcg Documented By: ANTOIC Lorazepam (Lorazepam 2 Mg/Ml Vial) 1 mg IVPUSH BEDTIME PRN PRN Reason: Insomnia Last Admin: 01/17/24 21:34 Dose: 1 mg Documented By: ADRIAN Ondansetron HCl (Ondansetron Hcl 4 Mg/2 Ml Vial) 4 mg IVPUSH Q4H PRN PRN Reason: Nausea Last Admin: 01/18/24 07:50 Dose: 4 mg Documented By: KESHAV Oxycodone HCl (Oxycodone Hcl Immed Release 5 Mg Tablet) [address] [facility] Last Admin: 01/18/24 07:50 Dose: 10 mg Documented By: KESHAV Pregabalin (Pregabalin 100 Mg Capsule) [address] [facility] Last Admin: 01/18/24 07:50 Dose: 100 mg Documented By: KESHAV Tizanidine HCl (Tizanidine Hcl 4 Mg Tablet) 4 mg PO TID PRN PRN Reason: Muscle Spasm Labs 01/18/24 08:23 01/17/24 05:13 Labs: Laboratory Results - last 24 hr 01/17/24 01/17/24 13:21 20:22 MCV 87.4 87.8 MCH 30.0 29.7 MCHC 34.3 33.8 RDW 13.8 13.9 Plt Count 194 183 MPV 9.7 9.5 Immature Gran % (Auto) 0.9 H Neut % (Auto) 68.9 Lymph % (Auto) 22.2 [place] % (Auto) 7.2 Eos % (Auto) 0.5 Baso % (Auto) 0.3 Lymph # (Auto) 3.9 [place] # (Auto) 1.3 H Eos # (Auto) 0.1 Baso # (Auto) 0.1 Abs Immat Gran (auto) 0.16 H Absolute Neuts (auto) 12.0 H Absolute Nucleated RBC 0.050 H 0.060 H Nucleated RBC % (auto) 0.3 H 0.3 H Troponin I High Sens 323.0 H* D Microbiology Microbiology Results: Microbiology 01/15/24 19:31 Blood Culture - Preliminary Blood - Venous No growth after 48 hours. 01/15/24 19:31 Blood Culture - Preliminary Blood - Venous No growth after 48 hours. Assessment and Plan (1) Acute blood loss anemia: Status: Acute Plan 58-year-old woman admitted to the ICU with upper GI bleed and hematemesis. Patient complained of epigastric pain but denied any bleeding per rectum. She had dinner and then started vomiting and felt dizzy. She went back to her hotel room and around 02:00 woke up diaphoretic and nauseous. Vomited a large amount of blood with clots. Went back to bed and woke up again around 11:30 with nausea vomiting dizziness followed by hematemesis. She had a possible syncopal episode after vomiting. Her called emergency services and she was brought to the ER further evaluation. Of note she is currently visiting from [place]. She was intubated in the ER, had upper endoscopy showing gastric ulcer and Rachel-Calvert tear. Ultimately extubated, not treated with pressors. ICU transfer to medical floor 01/17/24. Discussed with change analyst Nausea and vomiting one episode this morning after taking her pills on an empty stomach no blood noted to vomitus UGIB secondary to gastric ulcer with visible vessel, Rachel-Calvert tear with clot and visible vessel IV PPI drip Status post endoscopy 01/15/24 HH low today, will order 1 unit of PRBC Asthma inhalers as needed HTN amlodipine Hypothyroidism Continue levothyroxine Mental health Continue home medications fibromyalgia continue lyrica HLD statin DVT prophylaxis with Attending Dr. Crane Full code Quality Stroke Does the patient have a stroke diagnosis?: No VTE Prior VTE?: No VTE Risk Level:: Medical - moderate - high VTE Device Contraindication: N/A - Device Ordered VTE Drug Contraindication: Treatment Not Indicated
[2024-01-18 08:34] LABS: Hematocrit 22.8 % (37.0-47.0); Hemoglobin 7.7 g/dl (12.0-16.0); Mean Corpuscular HGB Conc 33.8 g/dl (31.0-35.0); Mean Corpuscular Hemoglobin 29.6 pg (27.0-33.0); Mean Corpuscular Volume 87.7 fL (80.0-98.0); Mean Platelet Volume 9.7 fL (9.4-12.3); NRBC Pct Auto 0.3 /100WBC (0.0-0.2); Platelet Count 193 X10*3/uL (160-400); Red Cell Distribution Width 13.8 % (11.0-16.0); White Blood Count 15.3 X10*3/uL (4.8-10.8)
[2024-01-18] MEDS: HYDROmorphone HCl 0.5 MG/0.5 ML SYRINGE IVPUSH (08:47)
[2024-01-18] MEDS: ALPRAZolam 0.5 MG TABLET PO (11:42)
--- NOTE | 2024-01-18 15:59 | P.CDIM_ITS ---
PROVIDER RESPONSE TEXT: To clarify, the appropriate diagnosis supported by the clinical indicators: Acute on chronic QUERY TEXT: PHYSICIAN'S DOCUMENTATION REQUEST Date of Query: 01/18/2024 09:37 AM EDT Patient Name: Genny Matamoros Admit Date: 01/15/2024 Dear Sofie Hernandez, A review of the medical record indicates additional documentation may be needed. Please review below and update the documentation accordingly. Clinical Indicators: Per Event Note 01/17/24: UGIB secondary to gastric ulcer with visible vessel Treated with IV PPI Clarify which of the following accurately represents the acuity of the Gastric Ulcer. Possible options might include: Acute Acute on chronic Compensated Chronic stable condition Remission Other (explain) Clinically unable to determine (explain) Thank you, Kisha Byrd RN Use of terms such as suspected, likely, concern for, or probable (associated with a specific diagnosi s that is being evaluated, monitored, or treated as if it exists) are acceptable and can be coded in the inpatient se tting, when documented at the time of discharge. Please use your independent medical judgment in providing your response. THIS QUERY IS PART OF THE PERMANENT MEDICAL RECORD
[2024-01-18] MEDS: LORazepam 2 MG/ML VIAL 1 MG IVPUSH (20:12)
[2024-01-18] MEDS: cefTRIAXone sodium 1 GM in 0.9 % Sodium Chloride 50 ML IV (20:12)
[2024-01-19] VITALS (8 sets, daily range): BP systolic 106–132; BP diastolic 56–63; PULSE 86–104; RESP 16–20; TEMP 36.1–37.2; O2SAT 93–99; BMI 30.7
[2024-01-19] MEDS: HYDROmorphone HCl 0.5 MG/0.5 ML SYRINGE IVPUSH ×2 (00:20→16:20)
[2024-01-19] MEDS: Levothyroxine Sodium 100 MCG/5 ML VIAL 75 MCG IVPUSH (05:34)
[2024-01-19 06:48] LABS: Hematocrit 25.5 % (37.0-47.0); Hemoglobin 8.7 g/dl (12.0-16.0); Mean Corpuscular HGB Conc 34.1 g/dl (31.0-35.0); Mean Corpuscular Hemoglobin 30.9 pg (27.0-33.0); Mean Corpuscular Volume 90.4 fL (80.0-98.0); Mean Platelet Volume 9.4 fL (9.4-12.3); NRBC Pct Auto 0.2 /100WBC (0.0-0.2); Platelet Count 190 X10*3/uL (160-400); Red Blood Count 2.82 X10*6/uL (4.20-5.50); Red Cell Distribution Width 13.3 % (11.0-16.0); White Blood Count 12.4 X10*3/uL (4.8-10.8)
[2024-01-19 07:04] LABS: Anion Gap 12 (12-20); Blood Urea Nitrogen 9 mg/dL (9-16); Calcium 8.5 mg/dL (8.4-10.2); Carbon Dioxide 27 mmol/L (22-29); Chloride 104 mmol/L (96-108); Creatinine Clr Calc Pharmacy 106.7; Estimated Glomerular Filt Rate > 60; Glucose Random 127 mg/dL (60-115); Potassium 3.3 mmol/L (3.3-5.1); Sodium 140 mmol/L (135-145)
[2024-01-19] MEDS: Pregabalin 100 MG CAPSULE PO ×3 (09:31→20:42)
[2024-01-19] MEDS: ALPRAZolam 0.5 MG TABLET 1 MG PO ×4 (09:31→20:41)
[2024-01-19] MEDS: oxyCODONE HCl Immed Release 5 MG TABLET 10 MG PO ×3 (09:32→20:41)
[2024-01-19] MEDS: amLODIPine Besylate 5 MG TABLET PO (09:32)
[2024-01-19] MEDS: Pantoprazole Sodium 80 MG in 0.9 % Sodium Chloride 80 ML 10 MG IV (09:33)
--- NOTE | 2024-01-19 11:03 | P.PNIM_ITS ---
Subjective Subjective Date of Service: 01/19/24 Review of Systems Follow up GI bleed nausea and episode of vomiting this morning Physical Exam 2 Vital Signs: Vital Signs: Last Vital Signs Temp 97.8 F 01/19/24 07:21 Pulse 102 H 01/19/24 07:21 Resp 20 01/19/24 07:21 BP 122/58 L 01/19/24 07:21 Pulse Ox 98 01/19/24 07:21 O2 Del Method Nasal Cannula 01/19/24 07:21 O2 Flow Rate 2 01/19/24 07:21 FiO2 30 01/16/24 10:37 BMI result Body Mass Index 30.7 Appearing in no acute distress lung sounds are clear to auscultation heart regular rate rhythm, clear S1, S2 positive bowel sounds, abdomen is soft, nontender neuro patient is alert x3, no focal deficits Objective Data Active Medications Alprazolam (Alprazolam 0.5 Mg Tablet) 1 mg PO QID [facility] Last Admin: 01/19/24 09:31 Dose: 1 mg Documented By: TJ Amlodipine Besylate (Amlodipine Besylate 5 Mg Tablet) 5 mg PO DAILY [facility]; Protocol Last Admin: 01/19/24 09:32 Dose: 5 mg Documented By: TJ Atorvastatin Calcium (Atorvastatin Calcium 80 Mg Tablet) 80 mg PO DAILY [facility] Last Admin: 01/19/24 09:39 Dose: Not Given Documented By: TJ Non-Admin Reason: Patient Refused Hydromorphone HCl (Hydromorphone Hcl 0.5 Mg/0.5 Ml Syringe) 0.5 mg IVPUSH Q4H PRN; Protocol PRN Reason: Pain, Severe (Pain Scale 7-10) Last Admin: 01/19/24 00:20 Dose: 0.5 mg Documented By: DEB Ceftriaxone Sodium 1 gm/ (Sodium Chloride) 50 mls @ 100 mls/hr IV Q24H [facility] Last Infusion: 01/18/24 20:53 Dose: Infused Documented By: DEB Pantoprazole Sodium 80 mg/ (Sodium Chloride) 100 mls @ 10 mls/hr IV .Q10H [facility] Last Admin: 01/19/24 09:33 Dose: 8 mg/hr, 10 mls/hr Documented By: TJ Levothyroxine Sodium (Levothyroxine Sodium 100 Mcg/5 Ml Vial) 75 mcg IVPUSH DAILY@0600 [facility] Last Admin: 01/19/24 05:34 Dose: 75 mcg Documented By: DEB Lorazepam (Lorazepam 2 Mg/Ml Vial) 1 mg IVPUSH BEDTIME PRN PRN Reason: Insomnia Last Admin: 01/18/24 20:12 Dose: 1 mg Documented By: DEB Ondansetron HCl (Ondansetron Hcl 4 Mg/2 Ml Vial) 4 mg IVPUSH Q4H PRN PRN Reason: Nausea Last Admin: 01/18/24 07:50 Dose: 4 mg Documented By: KESHAV Oxycodone HCl (Oxycodone Hcl Immed Release 5 Mg Tablet) 10 mg PO TID [facility] Last Admin: 01/19/24 09:32 Dose: 10 mg Documented By: TJ Pregabalin (Pregabalin 100 Mg Capsule) 100 mg PO TID [facility] Last Admin: 01/19/24 09:31 Dose: 100 mg Documented By: TJ Tizanidine HCl (Tizanidine Hcl 4 Mg Tablet) 4 mg PO TID PRN PRN Reason: Muscle Spasm Labs 01/19/24 06:32 01/19/24 06:32 Labs: Laboratory Results - last 24 hr 01/15/24 01/19/24 12:57 06:32 MCV 90.4 MCH 30.9 MCHC 34.1 RDW 13.3 Plt Count 190 MPV 9.4 Absolute Nucleated RBC 0.020 H Nucleated RBC % (auto) 0.2 Anion Gap 12 Estim Creat Clear Calc 106.7 Estimated GFR > 60 Random Glucose 127 H Calcium 8.5 Blood Type O Positive Antibody Screen NEGATIVE Crossmatch See Detail Assessment and Plan (1) Acute blood loss anemia: Status: Acute Plan 58-year-old woman admitted to the ICU with upper GI bleed and hematemesis. Patient complained of epigastric pain but denied any bleeding per rectum. She had dinner and then started vomiting and felt dizzy. She went back to her hotel room and around 02:00 woke up diaphoretic and nauseous. Vomited a large amount of blood with clots. Went back to bed and woke up again around 11:30 with nausea vomiting dizziness followed by hematemesis. She had a possible syncopal episode after vomiting. Her called emergency services and she was brought to the ER further evaluation. Of note she is currently visiting from [place]. She was intubated in the ER, had upper endoscopy showing gastric ulcer and Rachel-Calvert tear. Ultimately extubated, not treated with pressors. ICU transfer to medical floor 01/17/24. Discussed with public health engineer UGIB secondary to gastric ulcer with visible vessel, Rachel-Calvert tear with clot and visible vessel IV PPI drip> transition to oral PPI BID Status post endoscopy 01/15/24 s/p 1 unit of PRBC 01/18/24, stable HH start regular diet OOB ambulating and to the chair PT rec home with PT Nausea and vomiting. resolved one episode this morning after taking her pills on an empty stomach no blood noted to vomitus Asthma inhalers as needed HTN amlodipine Hypothyroidism Continue levothyroxine Mental health Continue home medications fibromyalgia continue lyrica HLD statin DVT prophylaxis with SCD boots Attending Dr. Crane Full code Quality Stroke Does the patient have a stroke diagnosis?: No VTE Prior VTE?: No VTE Risk Level:: Medical - moderate - high VTE Device Contraindication: N/A - Device Ordered VTE Drug Contraindication: Treatment Not Indicated
[2024-01-19] MEDS: Metoprolol Succinate ER 50 MG TAB.ER.24H PO (12:25)
--- NOTE | 2024-01-19 12:29 | MHC.CM.PN ---
EMR reviewed and per MD rounds, pt is not medically cleared for discharge due to management of GI bleed.
--- NOTE | 2024-01-19 15:47 | MHC.CM.PN ---
Pt and her sister requested to speak to this CM. Pt is concerned about her insurance and worried about getting a bill. This CM advised that they call the health insurance plan to inquire. Pt states she lives in [place] and was visiting here with her sister (to see their brother who is not doing well with stage 4 CA in a nearby fci) when she got sick and was brought to the hospital. Pts sister has invited the pt and her to live with her here in [place]. Referral sent to financial counselors. HCP completed with pt, now on file.
[2024-01-19] MEDS: Omeprazole 40 MG CAPSULE.DR PO (16:20)
[2024-01-19] MEDS: cefTRIAXone sodium 1 GM in 0.9 % Sodium Chloride 50 ML IV (19:45)
[2024-01-19] MEDS: Zolpidem Tartrate 5 MG TABLET 10 MG PO (20:41)
[2024-01-19] MEDS: Ranolazine 500 MG TAB.ER.12H 1000 MG PO (20:41)
[2024-01-20 03:19] VITALS: BP 125/60; PULSE 91; RESP 19; TEMP 36.1; O2SAT 96
[2024-01-20 07:31] VITALS: BP 116/59; PULSE 89; RESP 18; TEMP 36; O2SAT 95
[2024-01-20] MEDS: ondansetron HCL 4 MG/2 ML VIAL IVPUSH ×2 (10:04→14:25)
[2024-01-20] MEDS: Omeprazole 40 MG CAPSULE.DR PO ×2 (10:34→16:45)
[2024-01-20] MEDS: Lidocaine 4 % Patch ADH..PATCH 1 PATCH TRANSDERMA (11:09)
[2024-01-20] MEDS: Levothyroxine Sodium 112 MCG TABLET PO (11:09)
[2024-01-20] MEDS: oxyCODONE HCl Immed Release 5 MG TABLET 10 MG PO ×2 (11:35→14:32)
[2024-01-20 11:37] VITALS: BP 116/59; PULSE 89
[2024-01-20] MEDS: Metoprolol Succinate ER 50 MG TAB.ER.24H PO (11:37)
[2024-01-20] MEDS: Ranolazine 500 MG TAB.ER.12H 1000 MG PO (11:38)
[2024-01-20 11:39] VITALS: BP 116/59
[2024-01-20] MEDS: amLODIPine Besylate 5 MG TABLET PO (11:39)
[2024-01-20] MEDS: ALPRAZolam 0.5 MG TABLET 1 MG PO ×2 (11:40→16:45)
[2024-01-20 11:51] VITALS: BP 128/62; PULSE 90; RESP 18; TEMP 36.2; O2SAT 96
--- NOTE | 2024-01-20 14:21 | P.DS_ITS ---
DS: Providers Provider Date of Service: 01/20/24 Date of admission: 01/15/24 14:24 Date of discharge: 01/20/24 Primary care physician: Unknown Physician Attending physician on discharge: Emory Crane Discharging clinician: Yady Arita DS: Diagnosis Discharge Diagnosis (1) Acute blood loss anemia: Status: Acute DS: Summary Hospital Course Hospital Course: From H&P on the day of admission 58-year-old lady with underlying history of CAD status post stent placement, brain aneurysm with coiling, [place] from [place] of [place] had hematemesis starting in the evening of the day prior to the a dmission. On ER evaluation patient with repeat kira hematemesis intubated for airway protection. Started on PPI and received 2 units of packed red blood cells. Gastroenterology service consulted and patient is being planned for an urgent EGD. UGIB Due to acute blood loss from gastric ulcer with visible vessel, Rachel-Calvert tear with clot and visible vessel. Initially treated with IV PPI drip which was transitioned to oral PPI 40 mg BID. Status post endoscopy 01/15/24 s/p 3 units of PRBC. stable HH. Tolerating regular diet. PT rec home with PT, however patient is visiting from [place]. Will need PCP to order home services. 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 Recommended to avoid NSAIDs including ibuprofen, Motrin etc.. Recommend to hold aspirin for 2 weeks. H/H has remained stable, no further bleeding observed. Vital signs have remained stable. Left foot pain, there was no bruising, swelling appreciated, x-ray of the foot was negative. She was continued on baseline pain medication. Elevated cardiac enzymes likely due to demand in setting of active bleeding and anemia. No chest pain. Continued on all other baseline medications. Will need outpatient follow-up with primary supervisor painting department for follow-up EGD in 4-6 weeks. Time Attestation Discharge Coordination Time (in mins): 40 Quality: Safe Use of Opioids Does Pt have an Active Cancer Diagnosis on the Problem List?: No Quality: Stroke Does the patient have a stroke diagnosis?: No Physical Exam Vital Signs: Vital Signs: Last Vital Signs Temp 97.1 F 01/20/24 11:51 Pulse 90 01/20/24 11:51 Resp 18 01/20/24 11:51 BP 128/62 01/20/24 11:51 Pulse Ox 96 01/20/24 11:51 O2 Del Method Room Air 01/20/24 11:51 O2 Flow Rate 2 01/19/24 07:21 FiO2 30 01/16/24 10:37 BMI result Body Mass Index 30.7 Const: General: cooperative, comfortable, alert and awake Nutritional Appearance: overweight Orientation/consciousness: patient oriented x3 Cardio: Rate: regular rate GI: Inspection: No distended Palpation (GI): Soft to palpation and nontender Neuro: General: patient oriented x3, moves all extremities and CN's II-XI int act bilaterally Extrem: Other: left foot pain, no erythema, no bruising noted DS: Data Data Completed and Pending Completed studies during hospitalization [Text1]: Pending at discharge 01/15/24 17:23 Surgical [PTH] Routine Labs on day of discharge: Preliminary micro results at discharge 01/15/24 19:31 Blood Culture - Preliminary Blood - Venous No growth after 48 hours. 01/15/24 19:31 Blood Culture - Preliminary Blood - Venous No growth after 48 hours. Discharge Plan Discharge Anticipated Discharge Date/Time: 01/20/24 14:29 Patient Disposition: Home, Self-Care Discharge Diagnosis: Upper GI bleeding Referrals: Janey Miller MD [Physician] - 1 Week Physician,Unknown J [Primary Care Provider] - 1 Week Discharge Medications: New omeprazole 40 mg capsule,delayed release(DR/EC) 40 mg PO BID 90 Days Qty: 180 0RF lidocaine [Lidocaine Pain Relief] 4 % Adhesive Patch,Medicated 1 patch transdermal DAILY Qty: 15 0RF Protocol: Apply to: Apply to: left ankle Continued atorvastatin 80 mg tablet 80 mg PO DAILY alprazolam 1 mg tablet 1 mg PO QID tizanidine 4 mg tablet 4 mg PO TID PRN (Reason: Muscle Spasm) metoprolol succinate 50 mg tablet extended release 24 hr 50 mg PO DAILY amlodipine 5 mg tablet 5 mg PO DAILY triamcinolone acetonide 0.1 % cream 1 appl topical BID PRN (Reason: Rash) ergocalciferol (vitamin D2) 1,250 mcg (50,000 unit) capsule 1,250 mcg PO QWEEK nystatin [Klayesta] 100,000 unit/gram powder 1 appl topical BID zolpidem 10 mg tablet 10 mg PO BEDTIME albuterol sulfate 90 mcg/actuation HFA aerosol inhaler 2 puff inhalation QID PRN (Reason: Shortness Of Breath Or Wheezing) ondansetron 4 mg tablet,disintegrating 4 mg PO TID PRN (Reason: Nausea And Vomiting) levothyroxine 112 mcg tablet 112 mcg PO DAILY@0600 pregabalin 100 mg capsule 100 mg PO BID-TID ranolazine 1,000 mg tablet extended release 12 hr 1,000 mg PO BID Patient Comments: says twice daily oxycodone 10 mg tablet 10 mg PO BID-TID icosapent ethyl [Vascepa] 1 gram capsule 2 g PO BID Ajovy Autoinjector 225 mg/1.5 mL auto-injector 225 mg subcut QMONTH Held aspirin 81 mg tablet,delayed release (DR/EC) 81 mg PO DAILY Hold Instructions: do not take for two weeks. discuss with PCP Discharge Orders: Discharge Order (Routine); Ordered 01/20/24 Ordered By: Yady Arita Activity on Discharge: As tolerated Stand Alone Forms: Patient Portal Discharge page Print Language: Dominican Care Plan Goals: See below Health Concerns: Upper GI bleeding due to gastric ulcer with visible vessel, Rachel-Calvert tear with clot and visible vessel Plan of Treatment: Do not take aspirin for 2 weeks avoid other NSAIDs (motrin, ibuprofen etc) take omeprazole as prescribed Call to schedule follow-up appointment with PCP, and your primary supervisor painting department - will need repeat EGD in 4-6 weeks Physical therapy has recommended home physical therapy services however we are unable to set this up as you are out of state. call your PCP to discuss setting up home PT services Assessment: See discharge summary
[2024-01-20] MEDS: Pregabalin 100 MG CAPSULE PO (14:31)
[2024-01-20 15:32] VITALS: BP 136/83; PULSE 88; RESP 18; TEMP 36.7; O2SAT 98
--- NOTE | 2024-01-20 16:10 | MHC.CM.PN ---
Patient medically cleared for dc home self care. Will visit PCP upon return to [place] and request referral to outpatient PT. is at beside to transport. They will return to their local hotel room tonight before returning to [place]. Patient reported to CM and primary RN that she was dx w/ CA by her ENTERPRISE ARCHITECT and has a follow up plan in place with ENTERPRISE ARCHITECT upon return. Patient tearful and expressed anxiety. CM provided emotional support and encouragement.
[2024-01-20] MEDS: oxyCODONE HCl Immed Release 5 MG TABLET PO (16:45)
== END 2024-01-20 17:22 | disposition home or self-care (01) | DRG 377 ==
LOC: HO.ED 14:38 → HO.EDOVER 14:45 → HO.ICU 15:16 → HO.IMC 01-17 14:33 → HO.S3 01-19 13:58
PROVIDERS: Internal Medicine Critical Care Medicine; Internal Medicine Gastroenterology; Nurse Practitioner Acute Care; Registered Nurse Community Health; Admitting Provider Internal Medicine Pulmonary Disease; Emergency Provider Student in an Organized Health Care Education/Training Program; Visit Provider Physician Assistant Medical
PROC: 0DJ08ZZ Inspection of Upper Intestinal Tract, Via Natural or Artificial Opening Endoscopic (ICD-10-PCS; CPT 43235; principal; 2024-01-15 16:00)
DX: K25.0 Acute gastric ulcer with hemorrhage (principal); J69.0 Pneumonitis due to inhalation of food and vomit; J96.02 Acute respiratory failure with hypercapnia; D62 Acute posthemorrhagic anemia; G93.40 Encephalopathy, unspecified; I25.10 Atherosclerotic heart disease of native coronary artery without angina pectoris; K22.6 Gastro-esophageal laceration-hemorrhage syndrome; T39.015A Adverse effect of aspirin, initial encounter; E03.9 Hypothyroidism, unspecified; J45.909 Unspecified asthma, uncomplicated; M79.7 Fibromyalgia; E78.5 Hyperlipidemia, unspecified; K25.4 Chronic or unspecified gastric ulcer with hemorrhage; Z91.040 Latex allergy status; Z95.5 Presence of coronary angioplasty implant and graft; Z79.82 Long term (current) use of aspirin; Z79.890 Hormone replacement therapy; Z79.899 Other long term (current) drug therapy
CPT/HCPCS: 36415; 36600; 71045; 73620; 74178; 80048; 80053; 82040; 82803; 83605; 83735; 83880; 84100; 84484; 85025; 85027; 85610; 86850; 86900; 86901; 86920; 86923; 87040; 88305; 88313; 88342; 93005; 94002; 94003; 94799; 97116; 97162; 97530; 99285; C1758; C9113; J0131; J0651; J0696; J0737; J1170; J2060; J2405; J2704; J3010; P9016; Q9967

== ENCOUNTER → 2024-01-15 12:49 | Outpatient (BNV) | payer OTHER, SELFPAY | PROVIDERS: Admitting Provider Internal Medicine Pulmonary Disease; Emergency Provider Student in an Organized Health Care Education/Training Program; Visit Provider Internal Medicine Cardiovascular Disease | DX: R00.0 Tachycardia, unspecified (principal); I44.4 Left anterior fascicular block | CPT/HCPCS: 93010 ==

== ENCOUNTER → 2024-01-15 13:16 | Outpatient (BNV) | payer OTHER, SELFPAY | PROVIDERS: Emergency Provider Student in an Organized Health Care Education/Training Program; Visit Provider Internal Medicine Pulmonary Disease | DX: K92.2 Gastrointestinal hemorrhage, unspecified (principal); I25.10 Atherosclerotic heart disease of native coronary artery without angina pectoris | CPT/HCPCS: 99291 ==

== ENCOUNTER 2024-01-15 14:24 | Outpatient (BNV) | payer OTHER, SELFPAY | END 2024-01-16 01:01 | PROVIDERS: Admitting Provider Internal Medicine Pulmonary Disease; Emergency Provider Student in an Organized Health Care Education/Training Program; Visit Provider Internal Medicine Cardiovascular Disease | DX: R00.0 Tachycardia, unspecified (principal); I45.9 Conduction disorder, unspecified | CPT/HCPCS: 93010 ==

== ENCOUNTER 2024-01-15 14:24 | Outpatient (BNV) | payer OTHER, SELFPAY | END 2024-01-17 12:26 | PROVIDERS: Admitting Provider Internal Medicine Pulmonary Disease; Emergency Provider Student in an Organized Health Care Education/Training Program; Visit Provider Internal Medicine Cardiovascular Disease | DX: R00.0 Tachycardia, unspecified (principal) | CPT/HCPCS: 93010 ==

== ENCOUNTER → 2024-01-15 14:24 | Outpatient (BNV) | payer OTHER, SELFPAY | PROVIDERS: Admitting Provider Internal Medicine Pulmonary Disease; Emergency Provider Student in an Organized Health Care Education/Training Program; Visit Provider Internal Medicine Critical Care Medicine | DX: I25.10 Atherosclerotic heart disease of native coronary artery without angina pectoris (principal); K92.2 Gastrointestinal hemorrhage, unspecified; J96.01 Acute respiratory failure with hypoxia; D62 Acute posthemorrhagic anemia | CPT/HCPCS: 99291 ==

== ENCOUNTER → 2024-01-15 14:24 | Outpatient (BNV) | payer OTHER, SELFPAY | PROVIDERS: Admitting Provider Internal Medicine Pulmonary Disease; Emergency Provider Student in an Organized Health Care Education/Training Program; Visit Provider Nurse Practitioner Acute Care | DX: D62 Acute posthemorrhagic anemia (principal) | CPT/HCPCS: 99232; 99239; 99499 ==

== ENCOUNTER → 2024-01-15 14:24 | Outpatient (BNV) | payer OTHER, SELFPAY | PROVIDERS: Admitting Provider Internal Medicine Pulmonary Disease; Emergency Provider Student in an Organized Health Care Education/Training Program; Visit Provider Internal Medicine Gastroenterology | DX: K92.2 Gastrointestinal hemorrhage, unspecified (principal); K25.9 Gastric ulcer, unspecified as acute or chronic, without hemorrhage or perforation; K22.6 Gastro-esophageal laceration-hemorrhage syndrome | CPT/HCPCS: 43239; 43270; 99222 ==

== ENCOUNTER 2024-11-11 20:08 | Emergency (ER) | payer OTHER, SELFPAY ==
--- NOTE | ~2024-11-11 | CT_ITS ---
CLINICAL HISTORY: HTNsive, headache CT head without contrast Comparison: None Findings: No intra-axial mass, midline shift, hydrocephalus, or acute hemorrhage. Mild age-appropriate cerebral atrophy. There is a metallic structure in the region of the anterior communicating artery, likely a coil pack from previous aneurysm treatment. There is a stent within the intracranial left internal carotid artery. There is no sinus or mastoid fluid. The orbits are unremarkable. No skull fracture. IMPRESSION: 1. No acute intracranial findings. 2. 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 Stent in the intracranial left internal carotid artery. This document has been electronically signed by: Hugo Miller MD on 11/11/2024 22:05:42
--- NOTE | ~2024-11-11 | XR_ITS ---
CLINICAL HISTORY: chest pain 2 view chest x-ray Comparison: 01/15/2024 03:20 PM EDT: CR Findings: No consolidation or effusion. Normal size heart. No acute fracture. IMPRESSION: 1. No acute findings. This document has been electronically signed by: Hugo Miller MD on 11/11/2024 21:31:06
--- NOTE | 2024-11-11 20:11 | ECG_ITS ---
Test Reason : CHEST PAIN Blood Pressure : */* mmHG Vent. Rate : 57 BPM Atrial Rate : 57 BPM P-R Int : 180 ms QRS Dur : 82 ms QT Int : 408 ms P-R-T Axes : 65 -10 32 degrees QTcB Int : 397 ms Sinus bradycardia Otherwise normal ECG When compared with ECG of 17-Jan-2024 12:26, Vent. rate has decreased by 46 bpm Criteria for Inferior infarct are no longer Present Nonspecific T wave abnormality, improved in Inferior leads Referred By: Generic ED Physician Electronically Signed By: AURELIO CHING MD
[2024-11-11 20:17] VITALS: BP 180/82; PULSE 51; RESP 18; TEMP 36.6; O2SAT 97; BMI 28.5
[2024-11-11 20:37] LABS: MANUAL DIFF FLAG NO
[2024-11-11 20:40] LABS: Basophils Percent Auto 0.3 % (0-2); Eosinophils Absolute Auto 0.2 X10*3/uL (0.0-0.4); Eosinophils Percent Auto 2.1 % (0-4); Hematocrit 37.2 % (37.0-47.0); Hemoglobin 12.1 g/dl (12.0-16.0); Imm Gran Abs Auto 0.04 X10*3/uL (0.00-0.03); Imm Gran Pct Auto 0.4 % (0.0-0.4); Lymphocytes Absolute Auto 2.9 X10*3/uL (1.2-4.9); Lymphocytes Percent Auto 26.9 % (20-40); Mean Corpuscular HGB Conc 32.5 g/dl (31.0-35.0); Mean Corpuscular Hemoglobin 26.7 pg (27.0-33.0); Mean Corpuscular Volume 81.9 fL (80.0-98.0); Mean Platelet Volume 8.8 fL (9.4-12.3); Monocytes Absolute Auto 0.7 X10*3/uL (0.1-1.2); Monocytes Percent Auto 6.2 % (2-11); Neutrophils Percent Auto 64.1 % (45-73); Platelet Count 238 X10*3/uL (160-400); Red Blood Count 4.54 X10*6/uL (4.20-5.50); White Blood Count 10.9 X10*3/uL (4.8-10.8)
[2024-11-11 21:09] LABS: Alanine Aminotransferase 52 U/L (0-31); Albumin Level 4.2 g/dL (3.5-5.0); Alkaline Phosphatase 87 U/L (39-117); Anion Gap 14 (12-20); Aspartate Amino Transferase 40 U/L (5-31); Bilirubin Total 0.3 mg/dL (0.0-1.0); Blood Urea Nitrogen 11 mg/dL (9-16); Calcium 9.6 mg/dL (8.4-10.2); Carbon Dioxide 24 mmol/L (22-29); Chloride 107 mmol/L (96-108); Creatinine Clr Calc Pharmacy 91.7; Estimated Glomerular Filt Rate > 60; Glucose Random 97 mg/dL (60-115); Magnesium 2.2 mg/dL (1.6-2.6); Potassium 3.7 mmol/L (3.3-5.1); Sodium 141 mmol/L (135-145); Total Protein 7.9 g/dL (6.5-8.0)
[2024-11-11 21:17] LABS: Troponin-I High Sensitivity < 2.7 ng/L (<3.5-17.0)
[2024-11-11 21:18] LABS: Influenza A PCR NEGATIVE (Negative); Influenza B PCR NEGATIVE (Negative); Resp Syncy Virus RNA Qual PCR NEGATIVE (Negative); SARS COV2 PCR INHOUSE NEGATIVE (Negative)
[2024-11-11 21:29] LABS: B Type Natriuretic Peptide 22 pg/mL (<100)
--- OUTSIDE RECORDS SUMMARY | 2024-11-11 22:46 | XMS_ITS ---
Author Organization [facility] Address [address] [place] [address] Care Team Providers Care Magnetic Tape Composer Operator Name Role Phone CHRISTINA FAN Primary Care Provider EN HANNAH [phone] REASON FOR VISIT med not covered Encounters Encounter Location Date Provider Diagnosis [facility] [address] [place] [address] 11/10/2024 EN HANNAH Plan Of Treatment Next Appt Details Provider Name:FRANCOIS CANDELARIO, 06/2025 05:30:00 PM, [address], [place], [address], Provider Name:ADINA ISABEL, 11/14/2024 08:00:00 AM, [place], [address], Provider Name:CHRISTINA FAN, 11/14/2024 01:15:00 PM, [address], [place], [address], Provider Name:CHANELLE VERA, 11/15/2024 01:00:00 PM, [address], [place], [address], Provider Name:JESSICA GUEVARA, 11/16/2024 06:30:00 PM, [address], [place], [address], Provider Name:JESSICA GUEVARA, 11/17/2024 08:00:00 AM, [address] [place], [address], Provider Name:CLAUDIA SHERIDAN, 11/17/2024 12:15:00 PM, [address] [place], [address], Provider Name:FRANCOIS CANDELARIO, 04:30:00 PM, [address], [place], [address], Provider Name:RONDA ROLLINS, 11/23/2024 01:15:00 PM, [address] [place], [address], Provider Name:FRANCOIS CANDELARIO, 05:15:00 PM, [address], [place], [address], Provider Name:JESSICA GUEVARA, 12/06/2024 02:00:00 PM, [address] [place], [address], Provider Name:CHRISTINA FAN, 12/08/2024 01:15:00 PM, [address], [place], [address], Provider Name:EN HANNAH, 12/11/2024 12:00:00 PM, [address] [place] [address], [id number], Provider Name:GREER STANLEY, 0 01/16/2025 01:15:00 PM, [address] [place], [place], [phone], Progress Notes * Ej ESCAMILLA:1965 ( 59 yo F)Acc No.[id number]:11/10/2024 Patient:?Genny ESCAMILLA :1965???Age:59 Y???Sex:Female Address:[facility] [address], [place], [address] * * Date:?
--- OUTSIDE RECORDS SUMMARY | 2024-11-11 22:46 | XMS_ITS ---
Author Organization [facility] Address [address] [place] [address] Care Team Providers Care Mechanist Name Role Phone MAURI FAN Primary Care Provider [phone] Allergies Allergen (clinical drug ingredient) Drug/Non Drug Allergy documented on EMR Reaction Allergy Type Onset Date Status nortriptyline Nortriptyline rash Drug Allergy Active Latex Latex rash & coello Allergy Active REASON FOR VISIT results of X-ray scan, Oxycodone, Ambien, Xanax, Lyrica, Lidocaine patches, Symbicort, Synthroid, Tizanidine. [facility], Requesting rebecca boyce for cough, Diabetic: Yes, Patient Summary For Last One Year:, - - - - - - - - - - - - - - - - - - - -, Ophthalmology Visit : Yes (09/11/2024 JAROD BAUGH), Podiatry Visit : No, Cardiology Visit : Yes (10/31/2024 FRANCOIS CANDELARIO), Sleep Study : No Results Found, Hemoglobin A1C : 6.3 BH (09/01/2024), BP : No Results Found, US FATIMAH/PVR Test : Yes (08/01/2024), Imm : Due for pneumonia vaccine, - - - - - - - - - - - - - - - - - - - - Medications Medication SIG (Take, Route, Frequency, Duration) Notes Start Date End Date Status Vitamin D3 1.25 MG (51303 UT) TAKE 1 CAPSULE BY MOUTH WEEKLY for 28 Active Vitamin D (Ergocalciferol) 1.25 MG (52705 UT) take 1 capsule by mouth every week for 90 days 12/13/2024 Active Vitamin B6 50 MG 1 tablet Orally once a day for 90 days 06/09/2024 06/04/2025 Active Ventolin HFA 108 (90 Base) MCG/ACT 2 puffs as needed Inhalation four times a day for 30 days 12/23/2022 Active Xanax 1 MG 1 tablet Orally four times a day for 30 days 11/10/2024 Active Omeprazole 40 MG 1 Orally twice a day for 30 days Active Vascepa 1 GM TAKE 2 CAPSULES BY MOUTH TWICE A DAY WITH MEALS FOR 30 DAYS for 30 Active Repatha 140 MG/ML 1 mL Subcutaneous every two weeks for 90 days 06/06/2024 01/29/2025 Active Ranexa 1000 MG 1 tablet Orally Twice a day for 90 days Active Ondansetron 8 MG 1 tablet on the tongue and allow to dissolve as needed Orally three times a day for 90 days 08/06/2023 Active Nyamyc 784481 UNIT/GM apply to affected area twice a day for 30 days Active Nurtec 75 MG take 1 tablet at the onset of headache Orally once a day prn headache for 30 days 10/09/2024 04/07/2025 Active Nitroglycerin 0.4 MG 1 TABLET BY MOUTH SUBLIGUALLY NEEDED SUBLINGUAL NEEDED FOR CHEST PAIN MAX DOSE 4 TABS 20minutes for 25 days Active Nitro-Dur 0.6 MG/HR 1 patch to skin remove after 12 hours Transdermal Once a day ON AM OFF PM for 90 days Active tiZANidine HCl 4 MG 1 TABLET BY MOUTH THREE TIMES A DAY PRN for 30 days 12/10/2024 Active Naloxone HCl 4 MG/0.1ML as directed Nasally for 30 days Active Mupirocin 2 % 1 application Externally Twice a day for 60 days Active oxyCODONE HCl 10 MG 1 tablet Orally three times a day for 30 days 11/10/2024 12/10/2024 Active Symbicort 160-4.5 MCG/ACT 1 puff as needed Inhalation every 4 hrs for 30 days Active Montelukast Sodium 10 MG TAKE 1 TABLET BY MOUTH ONCE DAILY IN THE EVENING 30 for 30 Active Lasix 20 MG 1 tablet Orally Once a day for 30 day(s) prn 08/05/2022 Active Lancets Ultra Thin - as directed subcutaneous three times a day for 90 days 11/01/2024 Active Lyrica 100 MG 1 capsule Orally Three times a day for 30 days 11/10/2024 12/10/2024 Active Metoprolol Succinate ER 50 MG 1 tablet Orally once a day for 30 days Active Memantine HCl 10 MG 1 tablet Orally Twice a day for 30 day(s) 04/09/2022 Active Ketoconazole 2 % 1 application Externally Twice a day for 14 days 09/25/2024 11/20/2024 Active Isosorbide Mononitrate ER 30 MG take 1 tablet by mouth every morning Orally Once a day for 90 days Active Levothyroxine Sodium 125 MCG TAKE 1 TABLET BY MOUTH EVERY MORNING ON AN EMPTY STOMACH 90 DAYS for 90 Active Lidocaine 5 % apply 1 patch TO THE AFFECTED AREA DAILY. LEAVE ON FOR 12 HOURS AND THEN OFF FOR 12 HOURS. for 30 days Active Isoniazid 300 MG 1 tablet Orally Once a day for 90 days 06/09/2024 Active Ambien 10 MG 1 tablet at bedtime as needed Orally once before bedtime for 30 days 11/10/2024 12/10/2024 Active Iron (Ferrous Sulfate) 325 (65 Fe) MG 1 tablet Orally once a day for 30 days infusion 06/30/2024 Active Folic Acid 1 MG TAKE 1 TABLET BY MOUTH EVERY DAY FOR 90 DAYS for 90 Active Benzonatate 200 MG 1 capsule Orally Three times a day for 7 days 09/18/2024 11/17/2024 Active DULoxetine HCl 60 MG TAKE 1 CAPSULE BY MOUTH TWICE A DAY for 90 Active Blood Glucose Test - as directed In Vitr o three times a day for 90 days 11/01/2024 Active Blood Glucose Meter n/a check sugars for 365 days 11/01/2024 11/01/2025 Active Atorvastatin Calcium 80 MG TAKE 1 TABLET BY MOUTH EVERY DAY for 90 Active Ajovy 225 MG/1.5ML Inject 225 milligrams Subcutaneous once a month for 30 days havent started 10/09/2024 04/07/2025 Active Vital Signs Height 67 in 11/10/2024 Weight 185 lbs 11/10/2024 Weight-kg 83.92 kg 11/10/2024 BMI 28.97 kg/m2 11/10/2024 Encounters Encounter Location Date Provider Diagnosis [facility] [id number] [place] [id number] 11/10/2024 MAURI FAN Insomnia G47.00 ; Acquired hypothyroidism E03.9 ; Lumbago with sciatica, right side M54.41 ; Lumbago with sciatica, left side M54.42 ; Allergic asthma, mild intermittent, with acute exacerbation J45.21 ; Anxiety F41.9 ; Persistent cough R05.3 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 Cautioned about potential drowsiness and sleepwalking.I mportance of adherence: to ensure sleep quality.Non-ph armacological strategies: sleep hygiene, relaxation techniques. This is a 59-year-old female patient presenting via telemedicine for management of multiple chronic conditions, including insomnia, hypothyroidism, lumbago with sciatica, allergic asthma, and anxiety. She requests refills for several medications: Oxycodone for pain management, Ambien for insomnia, Xanax for anxiety, Lyrica for neuropathic pain, Lidocaine patches, Symbicort for asthma, Synthroid for hypothyroidism, and Tizanidine for muscle spasms. She reports effective management with these medications and denies any side effects. The patient also requested Tessalon perles to manage a cough, a symptom not previously noted. A chest X-ray from October 03 showed no acute abnormal findings. She asks for an extension letter for her job due to ongoing musculoskeletal pain. Blood work from 10/03 showed Hgb at 12.0, WBC at 13.2, and elevated platelet count at 504. She offers no other complaint today. Denies any significant complaints of chest pain, palpitation, shortness of breath, or dizziness today. Medical Decision Making and Differential Diagnoses: For insomnia, differential diagnoses include anxiety, depression, and primary insomnia. Current regimen appears effective. Hypothyroidism management is straightforward with Synthroid; differential considerations might involve other endocrine disorders if symptoms were atypical. Lumbago with sciatica could imply other lumbar pathologies like herniated disc or spinal stenosis. Allergic asthma management includes monitoring for exacerbations and controlling triggers; differential diagnoses might consider chronic obstructive pulmonary disease (COPD). Anxiety management continues to involve pharmacotherapy, with differentiation from acute stress reactions. The cough, given the clear chest X-ray, might be due to upper respiratory tract irritation or allergic reaction Treatment Plan: Refills were authorized for all requested medications, having confirmed their efficacy and lack of adverse side effects reported by the patient. Detailed results of the chest X-ray were discussed, confirming the absence of acute abnormalities, alleviating concerns about the cough. The Tessalon perles were also refilled to assist with this symptom. A letter was provided to extend work absence given ongoing pain and functional limitations. The importance of adherence to all prescribed medications was underscored, emphasizing the role in managing chronic conditions effectively. Side effects of controlled substances such as Oxycodone and Xanax were reviewed, noting potential sedation, dependency, and the necessity of regular follow-up for assessing ongoing need and potential tapering. Non-pharmacologi adria support, including cognitive-behavi oral strategies for insomnia and anxiety, as well as physical therapy for lumbago and sciatica, were highlighted as complementary to drug therapy. Advised to see Hematology for elevated WBC Follow-up Discussion: Scheduled follow-up visits were recommended to monitor the efficacy of current treatment, particularly for ongoing pain and asthma management, and to reassess the need for medication adjustments. The patient was advised to promptly report any exacerbation of symptoms or new symptoms arising. Further coordination with specialists was suggested for thyroid management and upcoming procedures. 11/10/2024 Acquired hypothyroidism (ICD-10 - E03.9) Synthroid continued as thyroid hormone replacement.Po tential interactions with certain supplements were reviewed.Impor tance of monitoring thyroid levels regularly. This is a 59-year-old female patient presenting via telemedicine for management of multiple chronic conditions, including insomnia, hypothyroidism, lumbago with sciatica, allergic asthma, and anxiety. She requests refills for several medications: Oxycodone for pain management, Ambien for insomnia, Xanax for anxiety, Lyrica for neuropathic pain, Lidocaine patches, Symbicort for asthma, Synthroid for hypothyroidism, and Tizanidine for muscle spasms. She reports effective management with these medications and denies any side effects. The patient also requested Tessalon perles to manage a cough, a symptom not previously noted. A chest X-ray from October 03 showed no acute abnormal findings. She asks for an extension letter for her job due to ongoing musculoskeletal pain. Blood work from 10/03 showed Hgb at 12.0, WBC at 13.2, and elevated platelet count at 504. She offers no other complaint today. Denies any significant complaints of chest pain, palpitation, shortness of breath, or dizziness today. Medical Decision Making and Differential Diagnoses: For insomnia, differential diagnoses include anxiety, depression, and primary insomnia. Current regimen appears effective. Hypothyroidism management is straightforward with Synthroid; differential considerations might involve other endocrine disorders if symptoms were atypical. Lumbago with sciatica could imply other lumbar pathologies like herniated disc or spinal stenosis. Allergic asthma management includes monitoring for exacerbations and controlling triggers; differential diagnoses might consider chronic obstructive pulmonary disease (COPD). Anxiety management continues to involve pharmacotherapy, with differentiation from acute stress reactions. The cough, given the clear chest X-ray, might be due to upper respiratory tract irritation or allergic reaction Treatment Plan: Refills were authorized for all requested medications, having confirmed their efficacy and lack of adverse side effects reported by the patient. Detailed results of the chest X-ray were discussed, confirming the absence of acute abnormalities, alleviating concerns about the cough. The Tessalon perles were also refilled to assist with this symptom. A letter was provided to extend work absence given ongoing pain and functional limitations. The importance of adherence to all prescribed medications was underscored, emphasizing the role in managing chronic conditions effectively. Side effects of controlled substances such as Oxycodone and Xanax were reviewed, noting potential sedation, dependency, and the necessity of regular follow-up for assessing ongoing need and potential tapering. Non-pharmacologi adria support, including cognitive-behavi oral strategies for insomnia and anxiety, as well as physical therapy for lumbago and sciatica, were highlighted as complementary to drug therapy. Advised to see Hematology for elevated WBC Follow-up Discussion: Scheduled follow-up visits were recommended to monitor the efficacy of current treatment, particularly for ongoing pain and asthma management, and to reassess the need for medication adjustments. The patient was advised to promptly report any exacerbation of symptoms or new symptoms arising. Further coordination with specialists was suggested for thyroid management and upcoming procedures. 11/10/2024 Lumbago with sciatica, right side (ICD-10 - M54.41) Medications like Lyrica, Oxycodone, and Lidocaine patch were continued.Risk s: dependency on opioids.Physic al therapy recommended to support pain management and functional improvement. This is a 59-year-old female patient presenting via telemedicine for management of multiple chronic conditions, including insomnia, hypothyroidism, lumbago with sciatica, allergic asthma, and anxiety. She requests refills for several medications: Oxycodone for pain management, Ambien for insomnia, Xanax for anxiety, Lyrica for neuropathic pain, Lidocaine patches, Symbicort for asthma, Synthroid for hypothyroidism, and Tizanidine for muscle spasms. She reports effective management with these medications and denies any side effects. The patient also requested Tessalon perles to manage a cough, a symptom not previously noted. A chest X-ray from October 03 showed no acute abnormal findings. She asks for an extension letter for her job due to ongoing musculoskeletal pain. Blood work from 10/03 showed Hgb at 12.0, WBC at 13.2, and elevated platelet count at 504. She offers no other complaint today. Denies any significant complaints of chest pain, palpitation, shortness of breath, or dizziness today. Medical Decision Making and Differential Diagnoses: For insomnia, differential diagnoses include anxiety, depression, and primary insomnia. Current regimen appears effective. Hypothyroidism management is straightforward with Synthroid; differential considerations might involve other endocrine disorders if symptoms were atypical. Lumbago with sciatica could imply other lumbar pathologies like herniated disc or spinal stenosis. Allergic asthma management includes monitoring for exacerbations and controlling triggers; differential diagnoses might consider chronic obstructive pulmonary disease (COPD). Anxiety management continues to involve pharmacotherapy, with differentiation from acute stress reactions. The cough, given the clear chest X-ray, might be due to upper respiratory tract irritation or allergic reaction Treatment Plan: Refills were authorized for all requested medications, having confirmed their efficacy and lack of adverse side effects reported by the patient. Detailed results of the chest X-ray were discussed, confirming the absence of acute abnormalities, alleviating concerns about the cough. The Tessalon perles were also refilled to assist with this symptom. A letter was provided to extend work absence given ongoing pain and functional limitations. The importance of adherence to all prescribed medications was underscored, emphasizing the role in managing chronic conditions effectively. Side effects of controlled substances such as Oxycodone and Xanax were reviewed, noting potential sedation, dependency, and the necessity of regular follow-up for assessing ongoing need and potential tapering. Non-pharmacologi adria support, including cognitive-behavi oral strategies for insomnia and anxiety, as well as physical therapy for lumbago and sciatica, were highlighted as complementary to drug therapy. Advised to see Hematology for elevated WBC Follow-up Discussion: Scheduled follow-up visits were recommended to monitor the efficacy of current treatment, particularly for ongoing pain and asthma management, and to reassess the need for medication adjustments. The patient was advised to promptly report any exacerbation of symptoms or new symptoms arising. Further coordination with specialists was suggested for thyroid management and upcoming procedures. 11/10/2024 Lumbago with sciatica, left side (ICD-10 - M54.42) This is a 59-year-old female patient presenting via telemedicine for management of multiple chronic conditions, including insomnia, hypothyroidism, lumbago with sciatica, allergic asthma, and anxiety. She requests refills for several medications: Oxycodone for pain management, Ambien for insomnia, Xanax for anxiety, Lyrica for neuropathic pain, Lidocaine patches, Symbicort for asthma, Synthroid for hypothyroidism, and Tizanidine for muscle spasms. She reports effective management with these medications and denies any side effects. The patient also requested Tessalon perles to manage a cough, a symptom not previously noted. A chest X-ray from October 03 showed no acute abnormal findings. She asks for an extension letter for her job due to ongoing musculoskeletal pain. Blood work from 10/03 showed Hgb at 12.0, WBC at 13.2, and elevated platelet count at 504. She offers no other complaint today. Denies any significant complaints of chest pain, palpitation, shortness of breath, or dizziness today. Medical Decision Making and Differential Diagnoses: For insomnia, differential diagnoses include anxiety, depression, and primary insomnia. Current regimen appears effective. Hypothyroidism management is straightforward with Synthroid; differential considerations might involve other endocrine disorders if symptoms were atypical. Lumbago with sciatica could imply other lumbar pathologies like herniated disc or spinal stenosis. Allergic asthma management includes monitoring for exacerbations and controlling triggers; differential diagnoses might consider chronic obstructive pulmonary disease (COPD). Anxiety management continues to involve pharmacotherapy, with differentiation from acute stress reactions. The cough, given the clear chest X-ray, might be due to upper respiratory tract irritation or allergic reaction Treatment Plan: Refills were authorized for all requested medications, having confirmed their efficacy and lack of adverse side effects reported by the patient. Detailed results of the chest X-ray were discussed, confirming the absence of acute abnormalities, alleviating concerns about the cough. The Tessalon perles were also refilled to assist with this symptom. A letter was provided to extend work absence given ongoing pain and functional limitations. The importance of adherence to all prescribed medications was underscored, emphasizing the role in managing chronic conditions effectively. Side effects of controlled substances such as Oxycodone and Xanax were reviewed, noting potential sedation, dependency, and the necessity of regular follow-up for assessing ongoing need and potential tapering. Non-pharmacologi adria support, including cognitive-behavi oral strategies for insomnia and anxiety, as well as physical therapy for lumbago and sciatica, were highlighted as complementary to drug therapy. Advised to see Hematology for elevated WBC Follow-up Discussion: Scheduled follow-up visits were recommended to monitor the efficacy of current treatment, particularly for ongoing pain and asthma management, and to reassess the need for medication adjustments. The patient was advised to promptly report any exacerbation of symptoms or new symptoms arising. Further coordination with specialists was suggested for thyroid management and upcoming procedures. 11/10/2024 Allergic asthma, mild intermittent, with acute exacerbation (ICD-10 - J45.21) Symbicort inhaler refilled. Regular usage reinforced.Non -pharmacologic al strategies: avoidance of known allergens. This is a 59-year-old female patient presenting via telemedicine for management of multiple chronic conditions, including insomnia, hypothyroidism, lumbago with sciatica, allergic asthma, and anxiety. She requests refills for several medications: Oxycodone for pain management, Ambien for insomnia, Xanax for anxiety, Lyrica for neuropathic pain, Lidocaine patches, Symbicort for asthma, Synthroid for hypothyroidism, and Tizanidine for muscle spasms. She reports effective management with these medications and denies any side effects. The patient also requested Tessalon perles to manage a cough, a symptom not previously noted. A chest X-ray from October 03 showed no acute abnormal findings. She asks for an extension letter for her job due to ongoing musculoskeletal pain. Blood work from 10/03 showed Hgb at 12.0, WBC at 13.2, and elevated platelet count at 504. She offers no other complaint today. Denies any significant complaints of chest pain, palpitation, shortness of breath, or dizziness today. Medical Decision Making and Differential Diagnoses: For insomnia, differential diagnoses include anxiety, depression, and primary insomnia. Current regimen appears effective. Hypothyroidism management is straightforward with Synthroid; differential considerations might involve other endocrine disorders if symptoms were atypical. Lumbago with sciatica could imply other lumbar pathologies like herniated disc or spinal stenosis. Allergic asthma management includes monitoring for exacerbations and controlling triggers; differential diagnoses might consider chronic obstructive pulmonary disease (COPD). Anxiety management continues to involve pharmacotherapy, with differentiation from acute stress reactions. The cough, given the clear chest X-ray, might be due to upper respiratory tract irritation or allergic reaction Treatment Plan: Refills were authorized for all requested medications, having confirmed their efficacy and lack of adverse side effects reported by the patient. Detailed results of the chest X-ray were discussed, confirming the absence of acute abnormalities, alleviating concerns about the cough. The Tessalon perles were also refilled to assist with this symptom. A letter was provided to extend work absence given ongoing pain and functional limitations. The importance of adherence to all prescribed medications was underscored, emphasizing the role in managing chronic conditions effectively. Side effects of controlled substances such as Oxycodone and Xanax were reviewed, noting potential sedation, dependency, and the necessity of regular follow-up for assessing ongoing need and potential tapering. Non-pharmacologi adria support, including cognitive-behavi oral strategies for insomnia and anxiety, as well as physical therapy for lumbago and sciatica, were highlighted as complementary to drug therapy. Advised to see Hematology for elevated WBC Follow-up Discussion: Scheduled follow-up visits were recommended to monitor the efficacy of current treatment, particularly for ongoing pain and asthma management, and to reassess the need for medication adjustments. The patient was advised to promptly report any exacerbation of symptoms or new symptoms arising. Further coordination with specialists was suggested for thyroid management and upcoming procedures. 11/10/2024 Anxiety (ICD-10 - F41.9) Treatment Plan: -Refill prescriptions for Xanax, Ambien, vitamin D, oxycodone, and Symbicort. -Schedule an in-person evaluation with Jessica Fry for the vaginal ulcer. -Continue follow-up with bullet slugs inspector for the chest X-ray findings. -Attend the upcoming neurology appointment to address migraines and facial numbness. -Follow up with an admission specialist as recommended. Follow-up Discussion: The patient will see Jessica Fry on the for an in-person evaluation of the vaginal ulcer. She is encouraged to attend her neurology appointment to further investigate her migraines and facial numbness. Continued follow-up with her bullet slugs inspector is advised to monitor the chest X-ray findings. The patient should maintain her current medication regimen and report any new symptoms or side effects. Coordination with her healthcare team will ensure comprehensive management of her conditions. Xanax refilled. Potential for dependence discussed, with emphasis on adherence to dosing schedule.Compl ementary therapies: cognitive-beha vioral therapy. This is a 59-year-old female patient presenting via telemedicine for management of multiple chronic conditions, including insomnia, hypothyroidism, lumbago with sciatica, allergic asthma, and anxiety. She requests refills for several medications: Oxycodone for pain management, Ambien for insomnia, Xanax for anxiety, Lyrica for neuropathic pain, Lidocaine patches, Symbicort for asthma, Synthroid for hypothyroidism, and Tizanidine for muscle spasms. She reports effective management with these medications and denies any side effects. The patient also requested Tessalon perles to manage a cough, a symptom not previously noted. A chest X-ray from October 03 showed no acute abnormal findings. She asks for an extension letter for her job due to ongoing musculoskeletal pain. Blood work from 10/03 showed Hgb at 12.0, WBC at 13.2, and elevated platelet count at 504. She offers no other complaint today. Denies any significant complaints of chest pain, palpitation, shortness of breath, or dizziness today. Medical Decision Making and Differential Diagnoses: For insomnia, differential diagnoses include anxiety, depression, and primary insomnia. Current regimen appears effective. Hypothyroidism management is straightforward with Synthroid; differential considerations might involve other endocrine disorders if symptoms were atypical. Lumbago with sciatica could imply other lumbar pathologies like herniated disc or spinal stenosis. Allergic asthma management includes monitoring for exacerbations and controlling triggers; differential diagnoses might consider chronic obstructive pulmonary disease (COPD). Anxiety management continues to involve pharmacotherapy, with differentiation from acute stress reactions. The cough, given the clear chest X-ray, might be due to upper respiratory tract irritation or allergic reaction Treatment Plan: Refills were authorized for all requested medications, having confirmed their efficacy and lack of adverse side effects reported by the patient. Detailed results of the chest X-ray were discussed, confirming the absence of acute abnormalities, alleviating concerns about the cough. The Tessalon perles were also refilled to assist with this symptom. A letter was provided to extend work absence given ongoing pain and functional limitations. The importance of adherence to all prescribed medications was underscored, emphasizing the role in managing chronic conditions effectively. Side effects of controlled substances such as Oxycodone and Xanax were reviewed, noting potential sedation, dependency, and the necessity of regular follow-up for assessing ongoing need and potential tapering. Non-pharmacologi adria support, including cognitive-behavi oral strategies for insomnia and anxiety, as well as physical therapy for lumbago and sciatica, were highlighted as complementary to drug therapy. Advised to see Hematology for elevated WBC Follow-up Discussion: Scheduled follow-up visits were recommended to monitor the efficacy of current treatment, particularly for ongoing pain and asthma management, and to reassess the need for medication adjustments. The patient was advised to promptly report any exacerbation of symptoms or new symptoms arising. Further coordination with specialists was suggested for thyroid management and upcoming procedures. 11/10/2024 Persistent cough (ICD-10 - R05.3) Tessalon perles refilled. Instructions given to report persistent coughing.Follo w-up if symptoms change or worsen despite treatment. This is a 59-year-old female patient presenting via telemedicine for management of multiple chronic conditions, including insomnia, hypothyroidism, lumbago with sciatica, allergic asthma, and anxiety. She requests refills for several medications: Oxycodone for pain management, Ambien for insomnia, Xanax for anxiety, Lyrica for neuropathic pain, Lidocaine patches, Symbicort for asthma, Synthroid for hypothyroidism, and Tizanidine for muscle spasms. She reports effective management with these medications and denies any side effects. The patient also requested Tessalon perles to manage a cough, a symptom not previously noted. A chest X-ray from October 03 showed no acute abnormal findings. She asks for an extension letter for her job due to ongoing musculoskeletal pain. Blood work from 10/03 showed Hgb at 12.0, WBC at 13.2, and elevated platelet count at 504. She offers no other complaint today. Denies any significant complaints of chest pain, palpitation, shortness of breath, or dizziness today. Medical Decision Making and Differential Diagnoses: For insomnia, differential diagnoses include anxiety, depression, and primary insomnia. Current regimen appears effective. Hypothyroidism management is straightforward with Synthroid; differential considerations might involve other endocrine disorders if symptoms were atypical. Lumbago with sciatica could imply other lumbar pathologies like herniated disc or spinal stenosis. Allergic asthma management includes monitoring for exacerbations and controlling triggers; differential diagnoses might consider chronic obstructive pulmonary disease (COPD). Anxiety management continues to involve pharmacotherapy, with differentiation from acute stress reactions. The cough, given the clear chest X-ray, might be due to upper respiratory tract irritation or allergic reaction Treatment Plan: Refills were authorized for all requested medications, having confirmed their efficacy and lack of adverse side effects reported by the patient. Detailed results of the chest X-ray were discussed, confirming the absence of acute abnormalities, alleviating concerns about the cough. The Tessalon perles were also refilled to assist with this symptom. A letter was provided to extend work absence given ongoing pain and functional limitations. The importance of adherence to all prescribed medications was underscored, emphasizing the role in managing chronic conditions effectively. Side effects of controlled substances such as Oxycodone and Xanax were reviewed, noting potential sedation, dependency, and the necessity of regular follow-up for assessing ongoing need and potential tapering. Non-pharmacologi adria support, including cognitive-behavi oral strategies for insomnia and anxiety, as well as physical therapy for lumbago and sciatica, were highlighted as complementary to drug therapy. Advised to see Hematology for elevated WBC Follow-up Discussion: Scheduled follow-up visits were recommended to monitor the efficacy of current treatment, particularly for ongoing pain and asthma management, and to reassess the need for medication adjustments. The patient was advised to promptly report any exacerbation of symptoms or new symptoms arising. Further coordination with specialists was suggested for thyroid management and upcoming procedures. 11/10/2024 [facility] current use of opiate analgesic (ICD-10 - Z79.891) Patient made aware of drug addictive potential. Patient advised not to take medication, drink, drive or operate heavy machinery. Advised patient can from respiratory depression. Patient voiced understanding. This is a 59-year-old female patient presenting via telemedicine for management of multiple chronic conditions, including insomnia, hypothyroidism, lumbago with sciatica, allergic asthma, and anxiety. She requests refills for several medications: Oxycodone for pain management, Ambien for insomnia, Xanax for anxiety, Lyrica for neuropathic pain, Lidocaine patches, Symbicort for asthma, Synthroid for hypothyroidism, and Tizanidine for muscle spasms. She reports effective management with these medications and denies any side effects. The patient also requested Tessalon perles to manage a cough, a symptom not previously noted. A chest X-ray from October 03 showed no acute abnormal findings. She asks for an extension letter for her job due to ongoing musculoskeletal pain. Blood work from 10/03 showed Hgb at 12.0, WBC at 13.2, and elevated platelet count at 504. She offers no other complaint today. Denies any significant complaints of chest pain, palpitation, shortness of breath, or dizziness today. Medical Decision Making and Differential Diagnoses: For insomnia, differential diagnoses include anxiety, depression, and primary insomnia. Current regimen appears effective. Hypothyroidism management is straightforward with Synthroid; differential considerations might involve other endocrine disorders if symptoms were atypical. Lumbago with sciatica could imply other lumbar pathologies like herniated disc or spinal stenosis. Allergic asthma management includes monitoring for exacerbations and controlling triggers; differential diagnoses might consider chronic obstructive pulmonary disease (COPD). Anxiety management continues to involve pharmacotherapy, with differentiation from acute stress reactions. The cough, given the clear chest X-ray, might be due to upper respiratory tract irritation or allergic reaction Treatment Plan: Refills were authorized for all requested medications, having confirmed their efficacy and lack of adverse side effects reported by the patient. Detailed results of the chest X-ray were discussed, confirming the absence of acute abnormalities, alleviating concerns about the cough. The Tessalon perles were also refilled to assist with this symptom. A letter was provided to extend work absence given ongoing pain and functional limitations. The importance of adherence to all prescribed medications was underscored, emphasizing the role in managing chronic conditions effectively. Side effects of controlled substances such as Oxycodone and Xanax were reviewed, noting potential sedation, dependency, and the necessity of regular follow-up for assessing ongoing need and potential tapering. Non-pharmacologi adria support, including cognitive-behavi oral strategies for insomnia and anxiety, as well as physical therapy for lumbago and sciatica, were highlighted as complementary to drug therapy. Advised to see Hematology for elevated WBC Follow-up Discussion: Scheduled follow-up visits were recommended to monitor the efficacy of current treatment, particularly for ongoing pain and asthma management, and to reassess the need for medication adjustments. The patient was advised to promptly report any exacerbation of symptoms or new symptoms arising. Further coordination with specialists was suggested for thyroid management and upcoming procedures. 11/10/2024 Other By signing my name below, I, Bess Gan, attest that this documentation has been prepared under the direction and in the presence of Mauri Fan MD IMauri personally performed the services described in this documentation. All medical record entries made by the scribe were at my direction and in my presence. I have reviewed the chart and discharge instructions and agree that the record reflects my personal performance and is accurate and completed. Electronically Signed: Mauri Fan MD By signing my name below, I, Mayra Fish, attest that this documentation has been supervised by me under the direction and in the presence of Mauri Fan MD Electronically Signed: Mayra Fish This is a 59-year-old female patient presenting via telemedicine for management of multiple chronic conditions, including insomnia, hypothyroidism, lumbago with sciatica, allergic asthma, and anxiety. She requests refills for several medications: Oxycodone for pain management, Ambien for insomnia, Xanax for anxiety, Lyrica for neuropathic pain, Lidocaine patches, Symbicort for asthma, Synthroid for hypothyroidism, and Tizanidine for muscle spasms. She reports effective management with these medications and denies any side effects. The patient also requested Tessalon perles to manage a cough, a symptom not previously noted. A chest X-ray from October 03 showed no acute abnormal findings. She asks for an extension letter for her job due to ongoing musculoskeletal pain. Blood work from 10/03 showed Hgb at 12.0, WBC at 13.2, and elevated platelet count at 504. She offers no other complaint today. Denies any significant complaints of chest pain, palpitation, shortness of breath, or dizziness today. Medical Decision Making and Differential Diagnoses: For insomnia, differential diagnoses include anxiety, depression, and primary insomnia. Current regimen appears effective. Hypothyroidism management is straightforward with Synthroid; differential considerations might involve other endocrine disorders if symptoms were atypical. Lumbago with sciatica could imply other lumbar pathologies like herniated disc or spinal stenosis. Allergic asthma management includes monitoring for exacerbations and controlling triggers; differential diagnoses might consider chronic obstructive pulmonary disease (COPD). Anxiety management continues to involve pharmacotherapy, with differentiation from acute stress reactions. The cough, given the clear chest X-ray, might be due to upper respiratory tract irritation or allergic reaction Treatment Plan: Refills were authorized for all requested medications, having confirmed their efficacy and lack of adverse side effects reported by the patient. Detailed results of the chest X-ray were discussed, confirming the absence of acute abnormalities, alleviating concerns about the cough. The Tessalon perles were also refilled to assist with this symptom. A letter was provided to extend work absence given ongoing pain and functional limitations. The importance of adherence to all prescribed medications was underscored, emphasizing the role in managing chronic conditions effectively. Side effects of controlled substances such as Oxycodone and Xanax were reviewed, noting potential sedation, dependency, and the necessity of regular follow-up for assessing ongoing need and potential tapering. Non-pharmacologi adria support, including cognitive-behavi oral strategies for insomnia and anxiety, as well as physical therapy for lumbago and sciatica, were highlighted as complementary to drug therapy. Advised to see Hematology for elevated WBC Follow-up Discussion: Scheduled follow-up visits were recommended to monitor the efficacy of current treatment, particularly for ongoing pain and asthma management, and to reassess the need for medication adjustments. The patient was advised to promptly report any exacerbation of symptoms or new symptoms arising. Further coordination with specialists was suggested for thyroid management and upcoming procedures. Plan Of Treatment Medication Medication Name Sig Start Date Stop Date Notes Xanax 1 MG 1 tablet Orally four times a day for 30 days 11/10/2024 tiZANidine HCl 4 MG 1 TABLET BY MOUTH TH REE TIMES A DAY PRN for 30 days 12/10/2024 oxyCODONE HCl 10 MG 1 tablet Orally thre e times a day for 30 days 11/10/2024 12/10/2024 Symbicort 160-4.5 MCG/ACT 1 puff as need ed Inhalation every 4 hrs for 30 days Lyrica 100 MG 1 capsule Orally Thr ee times a day for 30 days 11/10/2024 12/10/2024 Levothyroxine Sodium 125 MCG TAKE 1 TABL ET BY MOUTH EVERY MORNING ON AN EMPTY STOMACH 90 DAYS for Lidocaine 5 % apply 1 patch TO THE AFFECTED AREA DAILY. LEAVE ON FOR 12 HOURS AND THEN OFF FOR 12 HOURS. for 30 days Ambien 10 MG 1 tablet at bedtime as needed Orally once before bedtime for 30 days 11/10/2024 12/10/2024 Benzonatate 200 MG 1 capsule Orally Thr ee times a day for 7 days 09/18/2024 11/17/2024 Treatment Notes Assessment Notes Insomnia Refills for Ambien m aintained. Cautioned about potential drowsiness and sleepwalking.Importance of adherence: to ensure sleep quality.Non-pharmacological strategies: sleep hygiene, relaxation techniques. Acquired hypothyroidism Synthroid contin ued as thyroid hormone replacement.Potential interactions with certain supplements were reviewed.Importance of monitoring thyroid levels regularly. Lumbago with sciatica, right side Medica tions like Lyrica, Oxycodone, and Lidocaine patch were continued.Risks: dependency on opioids.Physical therapy recommended to support pain management and functional improvement. Allergic asthma, mild interm ittent, with acute exacerbation Symbicort inhaler refilled. Regular usag e reinforced.Non-pharmacological strategies: avoidance of known allergens. Anxiety Xanax refilled. Pote ntial for dependence discussed, with emphasis on adherence to dosing schedule.Complementary therapies: cognitive-behavioral therapy. Persistent cough Tessalon perles refi lled. Instructions given to report persistent coughing.Follow-up if symptoms change or worsen despite treatment. 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 Patient advised not to take medication, drink, drive or operate heavy machinery. Advised patient can from respiratory depression. Patient voiced understanding. Other By signing my name below, I, Bess Gan, attest that this documentation has been prepared under the direction and in the presence of Mauri Fan MD I, Rajan Gulati personally performed the services described in this documentation. All medical record entries made by the scribe were at my direction and in my presence. I have reviewed the chart and discharge instructions and agree that the record reflects my personal performance and is accurate and completed. Electronically Signed: aMuri Fan MD Next Appt Details Follow Up: 1 month, Reason: Provider Name:FRANCOIS CANDELARIO, 06/2025 05:30:00 PM, [address], [place], [address], Provider Name:ADINA ISABEL, 11/14/2024 08:00:00 AM, [place] [place], [address], Provider Name:MAURI FAN, 11/14/2024 01:15:00 PM, [place] [place], [address], Provider Name:CHANELLE VERA, 11/15/2024 01:00:00 PM, [address], [place], [address], Provider Name:JESSICA FRY, 11/16/2024 06:30:00 PM, [address], [place], [address], Provider Name:JESSICA FRY, 11/17/2024 08:00:00 AM, [facility] [place], [address], Provider Name:CLAUDIA SHERIDAN, 11/17/2024 12:15:00 PM, [facility] [place], [address], Provider Name:FRANCOIS CANDELRAIO, 04:30:00 PM, [address], [place], [address], Provider Name:RONDA ROLLINS, 11/23/2024 01:15:00 PM, [facility] [place], [address], Provider Name:FRANCOIS CANDELARIO, 05:15:00 PM, [address], [place], [address], Provider Name:JESSICA FRY, 12/06/2024 02:00:00 PM, [facility] [place], [address], Provider Name:MAURI FAN, 12/08/2024 01:15:00 PM, [address], [place], [address], Provider Name:EN HANNAH, 12/11/2024 12:00:00 PM, [address] [place], [place], [id number], Provider Name:GREER STANLEY, 0 01/16/2025 01:15:00 PM, [address] [place] [address], [id number], Progress Notes * Genny ESCAMILLADOB:1965 ( 59 yo F)Acc No.[id number]:11/10/2024 progress notes Patient:Genny GOLDMAN Provider:?MAURI FAN MD :1965???Age:59 Y???Sex:Female D ate:11/10/2024 Address:[address] [place] [address] [address], [address], [id number] Check Out:02:20 PM EST Subjective: * Chief Complaints: * ???1. results of X-ray scan. 2. Oxycodone, Ambien, Xanax, Lyrica, Lidocaine patches, Symbicort, Synthroid, Tizanidine. [facility]. 3. Requesting tessalon perls for cough. 4. Diabetic: Yes. 5. Patient Summary For Last One Year:. 6. - - - - - - - - - - - - - - - - - - - -. 7. Ophthalmology Visit : Yes (09/11/2024 JAROD BAUGH). 8. Podiatry Visit : No. 9. Cardiology Visit : Yes (10/31/2024 FRANCOIS CANDELARIO). 10. Sleep Study : No Results Found. 11. Hemoglobin A1C : 6.3 BH (09/01/2024). 12. BP : No Results Found. 13. US FATIMAH/PVR Test : Yes (08/01/2024). 14. Imm : Due for pneumonia vaccine. 15. - - - - - - - - - - - - - - - - - - - -. * HPI: ???Today's Visit:? This is a 59-year-old female patient presenting via telemedicine for management of multiple chronic conditions, including insomnia, hypothyroidism, lumbago with sciatica, allergic asthma, and anxiety. She requests refills for several medications: Oxycodone for pain management, Ambien for insomnia, Xanax for anxiety, Lyrica for neuropathic pain, Lidocaine patches, Symbicort for asthma, Synthroid for hypothyroidism, and Tizanidine for muscle spasms. She reports effective management with these medications and denies any side effects. The patient also requested Tessalon perles to manage a cough, a symptom not previously noted. A chest X-ray from October 03 showed no acute abnormal findings. She asks for an extension letter for her job due to ongoing musculoskeletal pain. Blood work from 10/03 showed Hgb at 12.0, WBC at 13.2, and elevated platelet count at 504. She offers no other complaint today. Denies any significant complaints of chest pain, palpitation, shortness of breath, or dizziness today. PLAN: -Refills were authorized for all requested medications, having confirmed their efficacy and lack of adverse side effects reported by the patient. NUMEROLOGIST I-STOP reviewed with the patient during the visit. -Detailed results of the chest X-ray were discussed, confirming the absence of acute abnormalities, alleviating concerns about the cough. The Tessalon perles were also refilled to assist with this symptom. A letter was provided to extend work absence given ongoing pain and functional limitations. -The importance of adherence to all prescribed medications was underscored, emphasizing the role in managing chronic conditions effectively. Side effects of controlled substances such as Oxycodone and Xanax were reviewed, noting potential sedation, dependency, and the necessity of regular follow-up for assessing ongoing need and potential tapering.? -Non-pharmacological support, including cognitive-behavioral strategies for insomnia and anxiety, as well as physical therapy for lumbago and sciatica, were highlighted as complementary to drug therapy. -Advised to see hematology for elevated WBC count. * Medical History:?Migraine, I nsomnia, Anxiety, Depression, GERD (gastroesophageal reflux disease), Vitamin D deficiency, Hypothyroidism, Cerebral aneurysm, nonruptured, Essential hypertension. 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 04/17/2022, [facility] 03/03/24. * Hospitalization/Major Diagno stic Procedure:?[facility], seen in ED for headache and BP 04/10/2016, see above , [facility]- Chest pain 07/13/22, [facility] 01/15/24. * Family History:?Migrated Fam jerrell Hx: Niece maternal: Cancer - Breast ; self: Aneurysm ; Sister: Cancer; Gallbladder ; Sister: Cancer ;.?Siblings: diagnosed with Cancer.?4 brother(s) , 4 sister(s) . 2 son(s) - healthy. .? 2 brothers & sisters Patient Hypertension. * Social History:?non-smoker. * Medications:?Taking Ajovy 22 5 MG/1.5ML Solution Auto-injector Inject 225 milligrams Subcutaneous once a month , stop date 04/07/2025, Notes to Pharmacist: havent started, Taking Ambien 10 MG Tablet 1 tablet at bedtime as needed Orally once before bedtime , stop date 11/15/2024, Taking Atorvastatin Calcium 80 MG Tablet TAKE 1 TABLET BY MOUTH EVERY DAY , Taking Blood Glucose Meter n/a n/a check sugars , stop date 11/01/2025, Taking Blood Glucose Test - Strip as directed In [facility]itro three times a day , Taking DULoxetine HCl 60 MG Capsule Delayed Release Particles TAKE 1 CAPSULE BY MOUTH TWICE A DAY , Taking Folic Acid 1 MG Tablet TAKE 1 TABLET BY MOUTH EVERY DAY FOR 90 DAYS , Taking Iron (Ferrous Sulfate) 325 (65 Fe) MG Tablet 1 tablet Orally once a day , Notes to Pharmacist: infusion, Taking Isoniazid 300 MG Tablet 1 tablet Orally Once a day , Taking Isosorbide Mononitrate ER 30 MG Tablet Extended Release 24 Hour take 1 tablet by mouth every morning Orally Once a day , Taking Ketoconazole 2 % Cream 1 application Externally Twice a day , stop date 11/20/2024, Taking Lancets Ultra Thin - Miscellaneous as directed subcutaneous three times a day , Taking Lasix 20 MG Tablet 1 tablet Orally Once a day , Notes to Pharmacist: prn, Taking Levothyroxine Sodium 125 MCG Tablet TAKE 1 TABLET BY MOUTH EVERY MORNING ON AN EMPTY STOMACH 90 DAYS , Taking Lidocaine 5 % Patch apply 1 patch TO THE AFFECTED AREA DAILY. LEAVE ON FOR 12 HOURS AND THEN OFF FOR 12 HOURS. , Taking Lyrica 100 MG Capsule 1 capsule Orally Three times a day , stop date 11/15/2024, Taking Memantine HCl 10 MG Tablet 1 tablet Orally Twice a day , Taking Metoprolol Succinate ER 50 MG Tablet Extended Release 24 Hour 1 tablet Orally once a day , Taking Montelukast Sodium 10 MG Tablet TAKE 1 TABLET BY MOUTH ONCE DAILY IN THE EVENING 30 , Taking Mupirocin 2 % Ointment 1 application Externally Twice a day , Taking Naloxone HCl 4 MG/0.1ML Liquid as directed Nasally , Taking Nitro-Dur 0.6 MG/HR Patch 24 Hour 1 patch to skin remove after 12 hours Transdermal Once a day ON AM OFF PM , Taking Nitroglycerin 0.4 MG Tablet Sublingual 1 TABLET BY MOUTH SUBLIGUALLY NEEDED SUBLINGUAL NEEDED FOR CHEST PAIN MAX DOSE 4 TABS 20minutes , Taking Nurtec 75 MG Tablet Disintegrating take 1 tablet at the onset of headache Orally once a day prn headache , stop date 04/07/2025, Taking Nyamyc 273657 UNIT/GM Powder apply to affected area twice a day , Taking Omeprazole 40 MG Capsule Delayed Release 1 Orally twice a day , Taking Ondansetron 8 MG Tablet Disintegrating 1 tablet on the tongue and allow to dissolve as needed Orally three times a day , Taking oxyCODONE HCl 10 MG Tablet 1 tablet Orally three times a day , stop date 11/15/2024, Taking Ranexa 1000 MG Tablet Extended Release 12 Hour 1 tablet Orally Twice a day , Taking Repatha 140 MG/ML Solution Prefilled Syringe 1 mL Subcutaneous every two weeks , stop date 01/29/2025, Taking Symbicort 160-4.5 MCG/ACT Aerosol 1 puff as needed Inhalation every 4 hrs , Taking tiZANidine HCl 4 MG Tablet 1 TABLET BY MOUTH THREE TIMES A DAY PRN , Taking Vascepa 1 GM Capsule TAKE 2 CAPSULES BY MOUTH TWICE A DAY WITH MEALS FOR 30 DAYS , Taking Ventolin HFA 108 (90 Base) MCG/ACT Aerosol Solution 2 puffs as needed Inhalation four times a day , Taking Vitamin B6 50 MG Tablet 1 tablet Orally once a day , stop date 06/04/2025, Taking Vitamin D (Ergocalciferol) 1.25 MG (84397 UT) Capsule take 1 capsule by mouth every week , stop date 12/13/2024, Taking Vitamin D3 1.25 MG (86588 UT) Capsule TAKE 1 CAPSULE BY MOUTH WEEKLY , Taking Xanax 1 MG Tablet 1 tablet Orally four times a day * Allergies:?Nortriptyline: ra sh - Allergy, Latex: rash & coello. Objective: * Vitals:?Ht: 67, Wt-lb:185, ( Wt-kg): 83.92, BMI:28.97. Assessment: * Assessment: 1.?Insomnia - G47.00???2.?Ac quired hypothyroidism - E03.9???3.?Lumbago with sciatica, right side - M54.41???4.?Lumbago with sciatica, left side - M54.42???5.?Allergic asthma, mild intermittent, with acute exacerbation - J45.21???6.?Persistent cough - R05.3???7.?Anxiety - F41.9???Notes :Treatment Plan:-Refill prescriptions for Xanax, Ambien, vitamin D, oxycodone, and Symbicort.-Schedule an in-person evaluation with Jessica Fry for the vaginal ulcer.-Continue follow-up with bullet slugs inspector for the chest X-ray findings.-Attend the upcoming neurology appointment to address migraines and facial numbness.-Follow up with an admission specialist as recommended.Follow-up Discussion:The patient will see Jessica Fry on the for an in-person evaluation of the vaginal ulcer.She is encouraged to attend her neurology appointment to further investigate her migraines and facial numbness.Continued follow-up with her bullet slugs inspector is advised to monitor the chest X-ray findings.The patient should maintain her current medication regimen and report any new symptoms or side effects.Coordination with her healthcare team will ensure comprehensive management of her conditions.???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 This is a 59-year-old female patient presenting via telemedicine for management of multiple chronic conditions, including insomnia, hypothyroidism, lumbago with sciatica, allergic asthma, and anxiety. She requests refills for several medications: Oxycodone for pain management, Ambien for insomnia, Xanax for anxiety, Lyrica for neuropathic pain, Lidocaine patches, Symbicort for asthma, Synthroid for hypothyroidism, and Tizanidine for muscle spasms. She reports effective management with these medications and denies any side effects. The patient also requested Tessalon perles to manage a cough, a symptom not previously noted. A chest X-ray from October 03 showed no acute abnormal findings. She asks for an extension letter for her job due to ongoing musculoskeletal pain.? Blood work from 10/03 showed Hgb at 12.0, WBC at 13.2, and elevated platelet count at 504. She offers no other complaint today. Denies any significant complaints of chest pain, palpitation, shortness of breath, or dizziness today. Medical Decision Making and Differential Diagnoses: For insomnia, differential diagnoses include anxiety, depression, and primary insomnia. Current regimen appears effective. Hypothyroidism management is straightforward with Synthroid; differential considerations might involve other endocrine disorders if symptoms were atypical. Lumbago with sciatica could imply other lumbar pathologies like herniated disc or spinal stenosis. Allergic asthma management includes monitoring for exacerbations and controlling triggers; differential diagnoses might consider chronic obstructive pulmonary disease (COPD). Anxiety management continues to involve pharmacotherapy, with differentiation from acute stress reactions. The cough, given the clear chest X-ray, might be due to upper respiratory tract irritation or allergic reaction Treatment Plan: Refills were authorized for all requested medications, having confirmed their efficacy and lack of adverse side effects reported by the patient. Detailed results of the chest X-ray were discussed, confirming the absence of acute abnormalities, alleviating concerns about the cough. The Tessalon perles were also refilled to assist with this symptom. A letter was provided to extend work absence given ongoing pain and functional limitations. The importance of adherence to all prescribed medications was underscored, emphasizing the role in managing chronic conditions effectively. Side effects of controlled substances such as Oxycodone and Xanax were reviewed, noting potential sedation, dependency, and the necessity of regular follow-up for assessing ongoing need and potential tapering. Non-pharmacological support, including cognitive-behavioral strategies for insomnia and anxiety, as well as physical therapy for lumbago and sciatica, were highlighted as complementary to drug therapy. Advised to see Hematology for elevated WBC Follow-up Discussion:? Scheduled follow-up visits were recommended to monitor the efficacy of current treatment, particularly for ongoing pain and asthma management, and to reassess the need for medication adjustments. The patient was advised to promptly report any exacerbation of symptoms or new symptoms arising. Further coordination with specialists was suggested for thyroid management and upcoming procedures. Plan: * Treatment: 2.?Acquired hypothyroidism? Refill Levothyroxine Sodium Tablet, 125 MCG, TAKE 1 TABLET BY MOUTH EVERY MORNING ON AN EMPTY STOMACH 90 DAYS, 90, 90 Tablet, Refills 0.?? Notes: Synthroid continued as thyroid hormone replacement.Potential interactions with certain supplements were reviewed.Importance of monitoring thyroid levels regularly. ?? 3.?Lumbago with sciatica, ri ght side? Refill Lidocaine Patch, 5 %, apply 1 patch TO THE AFFECTED AREA DAILY. LEAVE ON FOR 12 HOURS AND THEN OFF FOR 12 HOURS., 30 days, 30 patch.?? Notes: Medications like Lyrica, Oxycodone, and Lidocaine patch were continued.Risks: dependency on opioids.Physical therapy recommended to support pain management and functional improvement. ?? 4.?Lumbago with sciatica, le ft side? Refill Lyrica Capsule, 100 MG, 1 capsule, Orally, Three times a day, 30 days, 90, Refills 0;?Refill oxyCODONE HCl Tablet, 10 MG, 1 tablet, Orally, three times a day, 30 days, 90, Refills 0;?Refill tiZANidine HCl Tablet, 4 MG, 1 TABLET BY MOUTH THREE TIMES A DAY PRN, 30 days, 90, Refills 0.?? 5.?Allergic asthma, mild int ermittent, with acute exacerbation? Refill Symbicort Aerosol, 160-4.5 MCG/ACT, 1 puff as needed, Inhalation, every 4 hrs, 30 days, 1, Refills 3.?? Notes: Symbicort inhaler refilled. Regular usage reinforced.Non-pharmacological strategies: avoidance of known allergens.?? 6.?Persistent cough? Refill Benzonatate Capsule, 200 MG, 1 capsule, Orally, Three times a day, 7 days, 21 Capsule, Refills 0.?? Notes: Rebecca patterson refilled. Instructions given to report persistent coughing.Follow-up if symptoms change or worsen despite treatment. ?? 7.?Anxiety? Refill Xanax Tablet, 1 MG, 1 tablet, Orally, four times a day, 30 days, 120, Refills 0.?? Notes: Xanax refilled. Potential for dependence discussed, with emphasis on adherence to dosing schedule.Complementary therapies: cognitive-behavioral therapy.?? 8.?penitentiary current use of opiate analgesic? Notes: Patient made aware of drug addictive potential. Patient advised not to take medication, drink, drive or operate heavy machinery. Advised patient can from respiratory depression. Patient voiced understanding.?? 9.?Others? Notes:By signing my name below, IBess, attest that this documentation has been prepared under thedirection and in the presence of Mauri Fan MD I, Rajan Gulatipersonally performed the services described in this documentation. All medicalrecord entries made by the scribe were at my direction and in my presence. Ihave reviewed the chart and discharge instructions and agree that the recordreflects my personal performance and is accurate and completed. Electronically Signed: Mauri Fan MD ?? Clinical Notes: By signing my name below, IMayra, attest that this documentation has been supervised by me under the direction and in the presence of Mauri Fan MD Electronically Signed: Mayra Fish?? * Follow Up:?1 month * * Electronic signature of ES FAN MD, [id number] on 11/11/2024 at 10:46 PM EST Sign off status: Pending * Provider:?MAURI FAN MD Date:? 025 Generated for Seema marshall/Luis Alberto/eTransmitting on:?11/11/2024 10:46 PM EST History and Physical Notes * HPI (History of Present Illness) Category Sub-Category Detail Notes Category Not es Today's Visit This is a 59-year-old female patient presenting via telemedicine for management of multiple chronic conditions, including insomnia, hypothyroidism, lumbago with sciatica, allergic asthma, and anxiety. She requests refills for several medications: Oxycodone for pain management, Ambien for insomnia, Xanax for anxiety, Lyrica for neuropathic pain, Lidocaine patches, Symbicort for asthma, Synthroid for hypothyroidism, and Tizanidine for muscle spasms. She reports effective management with these medications and denies any side effects. The patient also requested Tessalon perles to manage a cough, a symptom not previously noted. A chest X-ray from October 03 showed no acute abnormal findings. She asks for an extension letter for her job due to ongoing musculoskeletal pain. Blood work from 10/03 showed Hgb at 12.0, WBC at 13.2, and elevated platelet count at 504. She offers no other complaint today. Denies any significant complaints of chest pain, palpitation, shortness of breath, or dizziness today. PLAN: -Refills were authorized for all requested medications, having confirmed their efficacy and lack of adverse side effects reported by the patient. NUMEROLOGIST I-STOP reviewed with the patient during the visit. -Detailed results of the chest X-ray were discussed, confirming the absence of acute abnormalities, alleviating concerns about the cough. The Tessalon perles were also refilled to assist with this symptom. A letter was provided to extend work absence given ongoing pain and functional limitations. -The importance of adherence to all prescribed medications was underscored, emphasizing the role in managing chronic conditions effectively. Side effects of controlled substances such as Oxycodone and Xanax were reviewed, noting potential sedation, dependency, and the necessity of regular follow-up for assessing ongoing need and potential tapering. -Non-pharmacological support, including cognitive-behavioral strategies for insomnia and anxiety, as well as physical therapy for lumbago and sciatica, were highlighted as complementary to drug therapy. -Advised to see hematology for elevated WBC count
--- OUTSIDE RECORDS SUMMARY | 2024-11-11 22:46 | XMS_ITS | Encounter Summary ---
Author Organization [facility] Address [address] [place] [address] Care Team Providers Care Coloring Machine Operator Name Role Phone Mauri Singh MD Primary Care Provider [phone] Encounter Details Date Type Department Care Team (Late st Contact Info) Description 02/25/2021 Orders Only [facility] Periopor[facility] [address], [place] [id number] Rich Crane MD [address] [place] [address] [phone] GERD (gastroesophageal reflux disease) (Primary Dx) Social History Tobacco Use Types Packs/Day Years Used Date Smoking Tobacco: Never Smokeless Tobacco: Never Alcohol Use Standard Drinks/Week Comments No 0 (1 standard drink = 0.6 oz pur e alcohol) Comments No Sex and Gender Information Value Date Recorded Sex Assigned at Female 02/24/2021 11:23 AM EDT Legal Sex Female 3:50 AM EST Gender Identity Female 02/24/2021 11:23 AM EDT Sexual Orientation Not on file documented as of this encounter Functional Status * Is the person deaf or does he/she have serious difficulty hearing? Answer Date of Assessment Author Status No 04/10/2016 3:22 PM EDT Shira Andre RN Active * Is this person blind or does he/she have serious difficulty seeing even when wearing glasses? Answer Date of Assessment Author Status No 04/10/2016 3:22 PM EDT Shira Andre RN Active * Does this person have serious difficulty walking or climbing stairs? Answer Date of Assessment Author Status No 04/10/2016 3:22 PM EDT Shira Andre RN Active * Does this person have difficulty dressing or bathing? Answer Date of Assessment Author Status No 04/10/2016 3:22 PM EDT Shira Andre R N Active * Because of a physical, mental, or emotional condition, does this person have difficulty doing errands alone such as visiting a doctor's office or shopping? Answer Date of Assessment Author Status No 04/10/2016 3:22 PM EDT Shira Andre RN Active documented as of this encounter Mental Status * Because of a physical, mental, or emotional condition, does this person have serious difficulty concentrating, remembering, or making decisions? Answer Entry Date Author Status No 04/10/2016 3:22 PM EDT Shira Andre RN Active documented in this encounter Plan of Treatment Upcoming Encounters Date Type Department Care Team (Latest Contact Info) Description 11/22/2024 7:30 AM EDT Hospital Encounter [facility] Endoscopy [address] [place] [address] Michael Fitzgerald MD [address] [place] [phone] 11/22/2024 7:30 AM EDT - 11/22/2024 8:00 AM EDT Surgery [facility] Endoscopy [address] [place] [address] Michael Fitzgerald MD [address] [place] [phone] EGD (ESOPHAGOGASTRODUOD ENOSCOPY) Scheduled Procedures Name Priority Associated Diagnoses Date/Ti me EGD (ESOPHAGOGASTRODUODENOSCOPY ) Abdominal pain Screen for colon cancer 11/22/2024 7:30 AM EDT COLONOSCOPY Abdominal pain Screen for colon cancer 11/22/2024 7:30 AM EDT documented as of this encounter Results * Esophageal Manometry with Impedance (03/04/2021 8:00 AM EDT) Narrative Swati Romero RN - 03/04/2021 8:00 AM Swati Ni RN ? 03/04/2021 ??8:37 AM [facility] High Resolution Esophageal Manometry Procedure Note 03/04/2021 Genny Matamoros 1965 NPO after midnight: ??yes referral: Rich Crane MD ?H & P available: ??yes Allergies: ?? Allergies Allergen Reactions ? ? Nortriptyline Rash ??Allergic to Xylocaine: ??no Vitals: Wt Readings from Last 1 Encounters: 02/20/21 196 lb (88.9 kg) BP Readings from Last 1 Encounters: 03/30/19 126/69 Temp Readings from Last 1 Encounters: 02/27/21 98 ??F (36.7 ??C) Pulse Readings from Last 1 Encounters: 03/30/19 64 Resp Readings from Last 1 Encounters: 03/30/19 14 Time in room: ??0757 Time procedure began: 811 Nare catheter was placed: ??left Time procedure completed: ??0833 Staff in room: ??Swati Romero Any complications: ??none Patient tolerance: ??well Discharge time: ??0837 ??Via ambulatory Discharge instructions received: ??yes Electronically signed Swati Romero Rich Crane MD GI PROCEDURE ORDERABLES Final Result documented in this encounter Visit Diagnoses Diagnosis GERD (gastroesophageal reflux disease)- Primary Esophageal reflux Abdominal pain Screen for colon cancer Special screening for malignant neoplasms, colon documented in this encounter Care Teams Coloring Machine Operator Relationship Specialty Start Date End Date Mauri Singh MD [facility] [place] [address] [place] [phone] PCP - General 11/23/12 documented as of this encounter
--- OUTSIDE RECORDS SUMMARY | 2024-11-11 22:46 | XMS_ITS | Referral Summary ---
Author Organization [facility] Address [address] [place] [address] Care Team Providers Care Bottle Machine Operator Name Role Phone Mauri Singh MD Primary Care Provider [phone] Allergies Active Allergy Reactions Criticality Noted Date Comments Latex Rash Low 04/17/2022 Nortriptyline Rash Low 10/17/2013 Medications vitamin D, ergocalciferol, (DRISDOL) 61471 UNIT CAPS Take 50,000 Units by mouth once a week. On Tuesdays Active zolpidem (AMBIEN) 10 MG tablet Take 10 mg by mouth nightly as needed. Active alprazolam (XANAX) 0.25 MG tablet Take 0.25 mg by mouth 3 (three) times daily as needed. Active butalbital-acet aminophen-caffe ine (FIORICET, ESGIC) per tablet Take 1 tablet by mouth every 8 (eight) hours as needed. Active levothyroxine (SYNTHROID, LEVOTHROID) 125 MCG tablet Take 125 mcg by mouth in the morning. Active tizanidine (ZANAFLEX) 4 MG capsule Take 4 mg by mouth 3 (three) times daily as needed. Active aspirin 81 MG EC tablet Take 81 mg by mouth daily. Active polyethylene glycol (MIRALAX, GLYCOLAX) packet Take 17 g by mouth daily. Active albuterol (PROVENTIL HFA;VENTOLIN HFA) 108 (90 BASE) MCG/ACT inhaler Inhale 2 puffs into the lungs every 6 (six) hours as needed for Wheezing. Active ranolazine (RANEXA) 1000 MG SR tablet Take 1,000 mg by mouth 2 (two) times daily. Active Icosapent Ethyl 1 g CAPS Take 2,000 mg by mouth 2 (two) times daily. Active nitroGLYCERIN (NITRODUR) 0.6 MG/HR Place 1 patch onto the skin daily. Active doxepin (SINEQUAN) 25 MG capsule Take 25 mg by mouth nightly. Active ondansetron (ZOFRAN) 4 MG tablet Take 4 mg by mouth every 8 (eight) hours as needed for Nausea. Active nitroGLYCERIN (NITROSTAT) 0.[address] 0.4 mg under the tongue every 5 (five) minutes as needed for Chest pain. Active duloxetine (CYMBALTA) 30 MG capsule Take 30 mg by mouth 2 (two) times daily. Active lidocaine (LIDODERM) 5 % Place 3 patches onto the skin daily. Apply to back Active CYANOCOBALAMIN PO Take 1 tablet by mouth daily. Pt was not sure of dose Active oxycodone-aceta minophen (LYNOX) 7.5-300 MG per tablet Take 1 tablet by mouth every 4 (four) hours as needed for Pain. Active atorvastatin (LIPITOR) 40 MG tablet Take 40 mg by mouth daily. Active pregabalin (LYRICA) 50 MG capsule Take 50 mg by mouth 2 (two) times daily. Active metoprolol tartrate (LOPRESSOR) 25 MG tablet Take 25 mg by mouth in the morning. 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 Thyroid cancer 05/11/2012 Migraine 05/11/2012 Lung nodules 05/11/2012 Brain aneurysm 05/11/2012 Resolved Problems Problem Noted Date Diagnosed Date Resolved Date Chest pain, unspecified 02/21/2015 11/0 04/2022 Syncope and collapse 04/11/2014 015 Chest pain, unspecified 03/27/2014 11/0 04/2022 Overview (03/29/2014): S/p cardiac cath 03/28/2014:75 % mid LAD obstruction s/p stent,EF=45% Dizziness 07/06/2013 01/08/2014 Palpitations 07/06/2013 01/08/2014 Headache(784.0) 04/03/2013 03/28/2014 Cervical radiculopathy 12/10/201203/28 PMB (postmenopausal bleeding) 06/01/2012 03/28/2014 Thickened endometrium 06/01/20122013 Social History Tobacco Use Types Packs/Day Years Used Date Smoking Tobacco: Never Smokeless Tobacco: Never Alcohol Use Standard Drinks/Week Comments No 0 (1 standard drink = 0.6 oz pur e alcohol) Food Insecurity Answer Date Recorded Worried About Running Out of Food in the Last Ye ar Not on file 04/17/2022 Ran Out of Food in the Last Year Not on file 04/17/2022 Do you have any concerns reg arding your ability to purchase food for yourself and/or your family? Never true 04/17/2022 Comments No Sex and Gender Information Value Date Recorded Sex Assigned at Female 02/24/2021 11:23 AM EDT Legal Sex Female 3:50 AM EST Gender Identity Female 02/24/2021 11:23 AM EDT Sexual Orientation Not on file Last Filed Vital Signs Vital Sign Reading Time Taken Comments Blood Pressure 160/81 07/14/2022 7:59 AM EST Pulse 91 07/14/2022 7:59 AM EST Temperature 36.8 ??C (98.2 ??F) 07/14/2022 7:59 AM ES T Respiratory Rate 16 07/14/2022 7:59 AM EST Oxygen Saturation 95% 07/14/2022 7:59 AM EST Inhaled Oxygen Concentration - - Weight 83.9 kg (185 lb) 07/13/2022 10:58 AM EST Height 170.2 cm (5' 7 ) 07/13/2022 10:58 AM EST Body Mass Index 28.98 07/13/2022 10:58 AM EST Functional Status * Is the person deaf or does he/she have serious difficulty hearing? Answer Date of Assessment Author Status No 07/13/2022 1:52 PM Adeline Allen RN Active * Is this person blind or does he/she have serious difficulty seeing even when wearing glasses? Answer Date of Assessment Author Status No 07/13/2022 1:52 PM Adeline Allen RN Active * Does this person have serious difficulty walking or climbing stairs? Answer Date of Assessment Author Status No 07/13/2022 1:52 PM Adeline Allen RN Active * Does this person have difficulty dressing or bathing? Answer Date of Assessment Author Status No 07/13/2022 1:52 PM Adeline Allen RN Active * Because of a physical, mental, or emotional condition, does this person have difficulty doing errands alone such as visiting a doctor's office or shopping? Answer Date of Assessment Author Status No 07/13/2022 1:52 PM Adeline Allen RN Active Mental Status * Because of a physical, mental, or emotional condition, does this person have serious difficulty concentrating, remembering, or making decisions? Answer Entry Date Author Status No 07/13/2022 1:52 PM Adeline Allen RN Active Plan of Treatment Upcoming Encounters Date Type Department Care Team (Latest Contact Info) Description 11/22/2024 7:30 AM EDT Hospital Encounter [facility] Endoscopy [address] [place] [address] Michael Fitzgerald MD [address] [place] [phone] 11/22/2024 7:30 AM EDT - 11/22/2024 8:[address] [facility] Endoscopy [address] [place] [address] Michael Fitzgerald MD [address] [place] [phone] EGD (ESOPHAGOGASTRODUOD ENOSCOPY) Scheduled Procedures Name Priority Associated Diagnoses Date/Ti me EGD (ESOPHAGOGASTRODUODENOSCOPY ) Abdominal pain Screen for colon cancer 11/22/2024 7:30 AM EDT COLONOSCOPY Abdominal pain Screen for colon cancer 11/22/2024 7:30 AM EDT Procedures Procedure Name Priority Date/Time Associated Diagnosis Comments MA DIGITAL MAMMO PAVITHRA DIAGNOSTIC Routine 12/26/2014 2:44 PM EDT Breast pain from Last 3 Months or Most Recently Relevant to Health Maintenance Results * MA Digital Mammo Pavithra Diagnostic (12/26/2014 2:44 PM EDT) Anatomical Region Laterality Modality Breast Mammography 12/26/2014 Impressions 12/26/2014 3:59 PM EDT IMPRESSION: There is no mammographic or sonographic evidence of malignancy. A return to screening in 1 year is recommended. ??Routine follow-up mammogram in 1 year is recommended. RISK: Based on the information you provided during your exam visit, your lifetime risk of developing Invasive breast carcinoma as determined by the National Cancer [place] is, 7.5%. ??The BRCAPRO risk model, is 11.8%. If your lifetime risk score is over 20% the [place] Cancer Society recommends an annual breast MRI, along with an annual clinical breast exam, mammography and breast ultrasound as needed. In addition, genetic counseling may be recommended. Please discuss your options with your physician. BI-RADS Category 1: Negative Narrative 12/26/2014 3:59 PM EDT HISTORY: Patient is 49 years old and is seen for diagnostic and pain in both breasts. The patient's last clinical breast exam was on 2013. The patient has a history of left stereotactic core biopsy in 2011 - benign. ??The patient has a history of thyroid cancer in June,. ??The patient has the following family history of breast cancer: ??niece, at age 35, breast cancer, premenopausal. FILMS COMPARED: The present examination has been compared to prior imaging studies performed at [place] on 09/30/2012 and 10/17/2013. MAMMOGRAM FINDINGS: The following mammographic views were obtained: bilateral craniocaudal, bilateral mediolateral oblique, left 90 degree lateral. ??Computer-aided detection was utilized by the radiologist in the interpretation of this examination. There are scattered fibroglandular densities. No suspicious masses, microcalcifications or other abnormalities are seen in either breast. There is no mammographic or sonographic correlate to the site of clinical symptoms. As such, management based on clinical findings is suggested. ULTRASOUND FINDINGS: There is no evidence of any solid mass or abnormal cystic elements. Procedure Note Chetan Lopez MD - 12/26/2014 HISTORY: Patient is 49 years old and is seen for diagnostic and pain in bothbreasts. The patient's last clinical breast exam was on 2013. The patient has a history of leftstereotactic core biopsy in 2011 - benign. The patient has a history of thyroid cancer in . The patient has the following family history of breast cancer: niece, at age 35, breastcancer, premenopausal. FILMS COMPARED: The present examination has been compared to prior imaging studiesperformed at [facility] on 09/30/2012 and 10/17/2013. MAMMOGRAM FINDINGS: The following mammographic views were obtained: bilateral craniocaudal,bilateral mediolateral oblique, left 90 degree lateral. Computer-aided detection was utilized bythe radiologist in the interpretation of this examination. There are scattered fibroglandular densities. No suspicious masses, microcalcifications or other abnormalities are seenin either breast. There is no mammographic or sonographic correlate to the site of clinicalsymptoms. As such, management based on clinical findings is suggested. ULTRASOUND FINDINGS: There is no evidence of any solid mass or abnormal cystic elements. IMPRESSION: There is no mammographic or sonographic evidence of malignancy. A return to screening in 1 year is recommended. Routine follow-upmammogram in 1 year is recommended. RISK: Based on the information you provided during your exam visit, yourlifetime risk of developing Invasive breast carcinoma as determined by the National Cancer Instituteis, 7.5%. The BRCAPRO risk model, is 11.8%. If your lifetime risk score is over 20% the AmericanCancer Society recommends an annual breast MRI, along with an annual clinical breastexam, mammography and breast ultrasound as needed. In addition, genetic counseling may be recommended.Please discuss your options with your physician. BI-RADS Category 1: Negative Mauri Singh MD [facility] ORDERABLES Final Result from Last 3 Months or Most Recently Relevant to Health Maintenance Insurance [facility] BLUE [place] [facility] BLUE [facility] Advance Directives For more information, please contact: [phone] * Full Code (Latest Code Status on File) Date Activated Date Inactivated Comments 07/13/2022 1:33 PM 07/14/2022 2:09 PM * Full Code Date Activated Date Inactivated Comments 02/11/2016 7:06 PM 02/11/2016 11:47 PM * Full Code Date Activated Date Inactivated Comments 02/21/2015 8:15 PM 02/22/2015 3:48 PM * Full Code Date Activated Date Inactivated Comments 02/19/2015 10:01 PM 02/20/2015 1:26 AM * Full Code Date Activated Date Inactivated Comments 08/23/2014 11:02 PM 08/24/2014 9:41 PM Healthcare Agents on File Name Relationship Healthcare Agent [facility] Communication Reno Matamoros Spouse Health Care Agent Care Teams Bottle Machine Operator Relationship Specialty Start Date End Date Mauri Singh MD [facility] [place] [phone] PCP - General 11/23/12
--- OUTSIDE RECORDS SUMMARY | 2024-11-11 22:46 | XMS_ITS ---
Author Organization [facility] Address [address] [place] [address] Care Team Providers Care Underwriting Analyst Name Role Phone Mauri Singh MD Primary Care Provider [phone] Active Problems Problem Noted Date Diagnosed Date [...] 05/11/2012 Lung nodules 05/11/2012 Brain aneurysm 05/11/2012 Current Oncology Plans No current plan information found. Past Plans No past plan information found. Radiation Treatments * No radiation treatments are documented for this patient in [facility]. Treatments may have been administered in another system. Lifetime Dose Tracking * Chemical Lifetime Dose Automatic Entry Manual Entr y Fluoro Time 8 Minutes 0 Minutes 8 Minutes Air Kerma 207 mGy 0 mGy 207 mGy Resolved Problems Problem Noted Date Diagnosed Date Resolved Date Chest pain, unspecified 02/21/201504/2022 Syncope and collapse 04/11/201402/22/ 015 Chest pain, unspecified 03/27/201404/2022 Overview (03/29/2014): S/p cardiac cath 03/28/2014:75 % mid LAD obstruction s/p stent,EF=45% Dizziness 07/06/2013 01/08/2014 Palpitations 07/06/2013 01/08/2014 Headache(784.0) 04/03/2013 03/28/2014 Cervical radiculopathy 12/10/201203/28 PMB (postmenopausal bleeding) 06/01/2012 03/28/2014 Thickened endometrium 06/01/20122013
--- OUTSIDE RECORDS SUMMARY | 2024-11-11 22:46 | XMS_ITS | Clinical Summary ---
Author Organization [employer] Address [address] [place] [address] Care Team Providers Care Retort Condenser Attendant Name Role Phone Mauri Singh MD Primary Care Provider [phone] Allergies Active Allergy Reactions Criticality Noted Date Comments Latex Rash Low 04/17/2022 Nortriptyline Rash Low 10/17/2013 Medications vitamin D, ergocalciferol, (DRISDOL) 48730 UNIT CAPS Take 50,000 Units by mouth [...] (postmenopausal bleeding) 06/01/2012 03/28/2014 Thickened endometrium 06/01/20122013 Family History Medical History Relation Comments COPD Father Heart disease Mother Cancer Sister Relation Status Comments Father Mother Sister Alive Social History Tobacco Use Types Packs/Day Years [...] Mass Index 28.98 07/13/2022 10:58 AM EST Plan of Treatment Upcoming Encounters Date Type Department Care Team (Latest Contact Info) Description 11/22/2024 7:30 AM EDT Hospital Encounter [facility] Endoscopy [address] [place], [place] [phone] Michael Fitzgerald MD [address] [place] [phone] 11/22/2024 7:30 AM EDT - 11/22/2024 8:00 AM EDT Surgery [facility] Endoscopy [address] [place], [place] [id number] Michael Fitzgerald MD [address] [place] [phone] EGD (ESOPHAGOGASTRODUOD ENOSCOPY) Scheduled Procedures Name Priority Associated Diagnoses Date/Ti me EGD (ESOPHAGOGASTRODUODENOSCOPY ) Abdominal pain Screen for colon cancer 11/22/2024 7:30 AM EDT COLONOSCOPY Abdominal pain Screen for colon cancer 11/22/2024 7:30 AM EDT Health Maintenance Due Date Last Done Comments Cervical Cancer Screening 5 Year 1965 MMR Vaccines (1 of 1 - Standard series) 1965 DTaP/Tdap/Td Vaccines (1 - Tdap) 1983 Zoster Vaccine (1 of 2) 2014 BREAST CANCER SCREENING EVERY 2 YEARS 12/26/2016 12/26/2014, 10/17/2013, 09/30/2012, Additional history exists Influenza Vaccine (#1) 2024 COLON CANCER SCREENING 10 YEAR COLONOSCOPY 04/17/2032 04/17/2022 RSV Vaccine , or 60 years and older (1 - 1-dose 75+ series) 2039 HIB Vaccines Aged Out No longer eligi ble based on patient's age to complete this topic HPV Vaccines Aged Out No longer eligi ble based on patient's age to complete this topic Hepatitis A Vaccines Aged Out No long er eligible based on patient's age to complete this topic Hepatitis B Vaccines Aged Out No long er eligible based on patient's age to complete this topic IPV Vaccines Aged Out No longer eligi ble based on patient's age to complete this topic Meningococcal B Vaccine Aged Out No l onger eligible based on patient's age to complete this topic Meningococcal Vaccine Aged Out No joann yesenia eligible based on patient's age to complete this topic Pneumococcal Vaccine: Pediatrics (0 to 5 Years) and At-Risk Patients (6 to 64 Years) Aged Out No longer eligible based on patient's age to complete this topic Rotavirus Vaccine Aged Out No longer eligible based on patient's age to complete this topic Procedures Procedure Name Priority Date/Time Associated Diagnosis [...] carcinoma as determined by the National Cancer [place] is, 7.5%. ??The BRCAPRO risk model, is 11.8%. If your lifetime risk score is over 20% the [place] Cancer Society recommends an annual breast MRI, [...] compared to prior imaging studies performed at [place] on 09/30/2012 and 10/17/2013. MAMMOGRAM FINDINGS: The [...] been compared to prior imaging studiesperformed at [place] on 09/30/2012 and 10/17/2013. MAMMOGRAM FINDINGS: The [...] physician. BI-RADS Category 1: Negative Mauri Singh MD, MA IMG ORDERABLES Final Result from Last 3 Months or Most Recently Relevant to Health Maintenance Insurance [facility] Central Desktop [facility] Advance Directives For more information, please contact: [phone] * Full Code (Latest Code Status on [...] Agents on File Name Relationship Healthcare Agent Relationshi p Communication Reno Escamilla Spouse Health Care Agent Care Teams Retort Condenser Attendant Relationship Specialty Start Date End Date Mauri Singh MD [facility] [place] [phone] PCP - General 11/23/12
[2024-11-11 22:52] VITALS: BP 173/81; PULSE 55; RESP 19; TEMP 36.7; O2SAT 97
--- NOTE | 2024-11-11 22:52 | MHC.EDTECH ---
Assumed care of pt at this time, pt changed into hospital attire,placed on the playground monitor,vitals taken, BP is elevated CHG RN aware, warm blanket and pillow given ,call breaux in reach
[2024-11-12 00:55] VITALS: BP 176/76; PULSE 65; RESP 18; TEMP 36.8; O2SAT 95
[2024-11-12] MEDS: Prochlorperazine Edisylate 10 MG/2 ML VIAL IVPUSH (01:49)
[2024-11-12] MEDS: diphenhydrAMINE HCL 50 MG/ML VIAL 25 MG IVPUSH (01:50)
[2024-11-12] MEDS: LORazepam 2 MG/ML VIAL 1 MG IVPUSH (01:51)
[2024-11-12] MEDS: Ketorolac Tromethamine 15 MG/ML VIAL IVPUSH (01:52)
--- NOTE | 2024-11-12 03:34 | ED_ITS ---
HPI - Chest Pain General Chief Complaint: Chest Pain Stated Complaint: chest pain/left side numbness/high blood pressure Time Seen by Provider: 11/12/24 00:10 Source: patient Limitations: no limitations History of Present Illness ED Provider: Bettina Holloway PA-C HPI narrative: 59-year-old female with a history of migraine, asthma, hypertension, hyperlipidemia, hypothyroidism, GERD, who presents with multiple complaints. Patient is complaining of acute onset left anterior chest discomfort that radiates to the left upper extremity and neck. Associated migraine type headache that is generalized. Associated photophobia, nausea, vomiting, dizziness. Lastly patient also complains of full body pain. Denies recent cough or cold symptoms, no fever. Denies abdominal pain. Related Data Home Medications ?Medication ?Instructions ?Recorded ?Confirmed albuterol sulfate 90 mcg/actuation 2 puff inhalation QID PRN 01/15/24 01/15/24 aerosol inhaler Shortness Of Breath Or Wheezing alprazolam 1 mg tablet 1 mg PO QID 01/15/24 01/15/24 amlodipine 5 mg tablet 5 mg PO DAILY 01/15/24 01/15/24 aspirin 81 mg tablet,delayed 81 mg PO DAILY 01/15/24 01/15/24 release atorvastatin 80 mg tablet 80 mg PO DAILY 01/15/24 01/15/24 ergocalciferol (vitamin D2) 1,250 1,250 mcg PO QWEEK 01/15/24 01/15/24 mcg (50,000 unit) capsule fremanezumab-vfrm 225 mg/1.5 mL 225 mg subcut QMONTH 01/15/24 01/15/24 subcutaneous auto-injector (Ajovy) icosapent ethyl 1 gram capsule 2 g PO BID 01/15/24 01/15/24 (Vascepa) levothyroxine 112 mcg tablet 112 mcg PO DAILY@0600 01/15/24 01/15/24 metoprolol succinate 50 mg 50 mg PO DAILY 01/15/24 01/15/24 tablet,extended release 24 hr nystatin 100,000 unit/gram topical 1 appl topical BID 01/15/24 01/15/24 powder (Klayesta) ondansetron 4 mg disintegrating 4 mg PO TID PRN Nausea And Vomiting 01/15/24 01/15/24 tablet oxycodone 10 mg tablet 10 mg PO BID-TID 01/15/24 01/15/24 pregabalin 100 mg capsule 100 mg PO BID-TID 01/15/24 01/15/24 ranolazine 1,000 mg 1,000 mg PO BID 01/15/24 01/15/24 tablet,extended release,12 hr tizanidine 4 mg tablet 4 mg PO TID PRN Muscle Spasm 01/15/24 01/15/24 triamcinolone acetonide 0.1 % 1 appl topical BID PRN Rash 01/15/24 01/15/24 topical cream zolpidem 10 mg tablet 10 mg PO BEDTIME 01/15/24 01/15/24 Previous Rx's ?Medication ?Instructions ?Recorded lidocaine 4 % topical patch 1 patch transdermal DAILY #15 ea 01/20/24 (Lidocaine Pain Relief) omeprazole 40 mg capsule,delayed 40 mg PO BID 90 days #180 caps 01/20/24 release Allergies Allergy/AdvReac Type Severity Reaction Status Date / Time amitriptyline Allergy Blurry Verified 11/11/24 20:23 Vision latex Allergy Rash Verified 11/11/24 20:23 Review of Systems 2 Review of Systems: Yes all other systems are reviewed and are negative Constitutional: Constitutional: Reports fatigue, Denies fever(s), Reports headache(s) and Reports malaise ENT: Reports dizziness and Reports headache(s) Cardiovascular: Cardiovascular: Reports chest pain and Denies dyspnea Respiratory: Respiratory: Denies cough and Denies dyspnea Gastrointestinal: Gastrointestinal: Denies abdominal pain, Reports nausea and Reports vomiting Musculoskeletal: Musculoskeletal: Reports myalgias Neurologic: Reports dizziness and Reports headache(s) Endocrine: Endocrine: Reports fatigue PMFSH Past Medical History Attestation statement: The following information was validated with the patient. Medical History (Updated 11/13/24 @ 00:02 by Brionna Saeed) CAD (coronary artery disease) Social History Social History Advance Directives: No Advance Directives Information Provided: No Do you have a plan to hurt others: No Plan Physical Exam 2 Vital Signs: Vital Signs: Last Vital Signs Temp 98.2 F 11/12/24 04:53 Pulse 65 11/12/24 04:53 Resp 18 11/12/24 04:53 BP 176/76 H 11/12/24 04:53 Pulse Ox 95 11/12/24 04:53 O2 Del Method Room Air 11/12/24 04:53 BMI result Body Mass Index 28.5 Const: Other: Alert Orientation/consciousness: patient oriented x3 Resp: Effort & Inspection: normal respiratory effort Cardio: Other: Normal peripheral perfusion Skin: Other: Warm dry no rash Neuro: General: patient oriented x3, no focal motor deficits and CN's II-XI intact bilaterally Psych: Other: Cooperative, dramatic Course Reevaluation(s) Reevaluation #1: Headache resolved after treatment Medications Administered Discontinued Medications Generic Name Dose Route Start Last Admin Trade Name Freq PRN Reason Stop Dose Admin Diphenhydramine HCl 25 mg 11/12/24 01:37 11/12/24 01:50 Diphenhydramine Hcl 50 Mg/Ml Vial IVPUSH 11/12/24 01:38 25 mg ONCE ONE Administration Ketorolac Tromethamine 15 mg 11/12/24 01:37 11/12/24 01:52 Ketorolac Tromethamine 15 Mg/Ml Vial IVPUSH 11/12/24 01:38 15 mg ONCE ONE Administration Lorazepam 1 mg 11/12/24 01:37 11/12/24 01:51 Lorazepam 2 Mg/Ml Vial IVPUSH 11/12/24 01:38 1 mg STAT STA Administration Prochlorperazine Edisylate 10 mg 11/12/24 01:37 11/12/24 01:49 Prochlorperazine Edisylate 10 Mg/2 Ml Vial IVPUSH 11/12/24 01:38 10 mg ONCE ONE Administration Medical Decision Making Medical Decision Making MDM Narrative: 59-year-old female with a history of migraine, asthma, hypertension, hyperlipidemia, hypothyroidism, GERD, who presents with multiple complaints. Patient is complaining of acute onset left anterior chest discomfort that radiates to the left upper extremity and neck. Associated migraine type headache that is generalized. Associated photophobia, nausea, vomiting, dizziness. Lastly patient also complains of full body pain. Denies recent cough or cold symptoms, no fever. Denies abdominal pain. Problem: Migraine, hypertension, hyperlipidemia, known coronary artery disease History: Per patient and her has been I have considered the following differential diagnoses: Migraine, intracranial hemorrhage, viral syndrome, ACS Plan: In regard to the headache, the patient has no migraines, she has many features of a migraine type headache, we will give a migraine cocktail. CT scan of the brain was ordered from triage, it was normal. Given her complaint of full body pain, considered viral syndrome, a viral panel was ordered. Included in her full body pain, she has chest pain with radiation to the arm, ACS clearly considered given she has known coronary artery disease. Screening labs including an EKG chest x-ray and cardiac enzymes were obtained. I have independently reviewed the following tests: Labs: No leukocytosis, not anemic, no electrolyte abnormality troponin negative viral panel negative EKG: Sinus bradycardia, rate of 57, no ischemic changes no ectopy, QTC 397 Chest x-ray:Findings: No consolidation or effusion. Normal size heart. No acute fracture. IMPRESSION: 1. No acute findings. CT brain:MPRESSION: 1. No acute intracranial findings. 2. 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 Stent in the intracranial left internal carotid artery. Lab Data 11/11/24 20:29 11/11/24 20:29 Labs: Lab Results 11/11/24 11/11/24 Range/Units 20:29 20:32 WBC 10.9 H (4.8-10.8) X10*3/uL RBC 4.54 D (4.20-5.50) X10*6/uL Hgb 12.1 D (12.0-16.0) g/dl Hct 37.2 D (37.0-47.0) % MCV 81.9 (80.0-98.0) fL MCH 26.7 L (27.0-33.0) pg MCHC 32.5 (31.0-35.0) g/dl RDW 19.0 H (11.0-16.0) % Plt Count 238 D (160-400) X10*3/uL MPV 8.8 L (9.4-12.3) fL Immature Gran % (Auto) 0.4 (0.0-0.4) % Neut % (Auto) 64.1 (45-73) % Lymph % (Auto) 26.9 (20-40) % [place] % (Auto) 6.2 (2-11) % Eos % (Auto) 2.1 (0-4) % Baso % (Auto) 0.3 (0-2) % Lymph # (Auto) 2.9 (1.2-4.9) X10*3/uL [place] # (Auto) 0.7 (0.1-1.2) X10*3/uL Eos # (Auto) 0.2 (0.0-0.4) X10*3/uL Baso # (Auto) 0.0 (0.0-0.2) X10*3/uL Abs Immat Gran (auto) 0.04 H (0.00-0.03) X10*3/uL Absolute Neuts (auto) 7.0 (2.0-8.3) x10*3/uL Absolute Nucleated RBC 0.000 (0.0-0.012) X10*3/uL Nucleated RBC % (auto) 0.0 (0.0-0.2) /100WBC Sodium 141 (135-145) mmol/L Potassium 3.7 (3.3-5.1) mmol/L Chloride 107 (96-108) mmol/L Carbon Dioxide 24 (22-29) mmol/L Anion Gap 14 (12-20) BUN 11 (9-16) mg/dL Creatinine 0.72 (0.5-1.4) mg/dL Estim Creat Clear Calc 91.7 Estimated GFR > 60 Random Glucose 97 (60-115) mg/dL Calcium 9.6 D (8.4-10.2) mg/dL Magnesium 2.2 (1.6-2.6) mg/dL Total Bilirubin 0.3 (0.0-1.0) mg/dL AST 40 H (5-31) U/L ALT 52 H (0-31) U/L Alkaline Phosphatase 87 (39-117) U/L Troponin I High Sens < 2.7 D (<3.5-17.0) ng/L B-Natriuretic Peptide 22 (<100) pg/mL Total Protein 7.9 (6.5-8.0) g/dL Albumin 4.2 (3.5-5.0) g/dL Influenza Type A (PCR) NEGATIVE (Negative) Influenza Type B (PCR) NEGATIVE (Negative) RSV RNA Qual (PCR) NEGATIVE (Negative) SARS-CoV-2 RNA (RT-PCR) NEGATIVE (Negative) Discharge Plan Discharge Clinical Impression: Migraine, Chest pain Patient Disposition: Home, Self-Care Instructions: Migraine Headache (ED), Noncardiac Chest Pain (ED) Additional Instructions: You were treated for a migraine type headache that improved prior to discharge. In regard to your chest discomfort, screening labs including a cardiac enzyme and a viral panel were obtained, everything was negative. There were no concerning changes on the EKG and the chest x-ray is clear. The CT scan of your brain was normal. Follow up with your primary care provider as needed. Prescriptions: No Action atorvastatin 80 mg tablet 80 mg PO DAILY alprazolam 1 mg tablet 1 mg PO QID tizanidine 4 mg tablet 4 mg PO TID PRN (Reason: Muscle Spasm) metoprolol succinate 50 mg tablet extended release 24 hr 50 mg PO DAILY amlodipine 5 mg tablet 5 mg PO DAILY aspirin 81 mg tablet,delayed release (DR/EC) 81 mg PO DAILY triamcinolone acetonide 0.1 % cream 1 appl topical BID PRN (Reason: Rash) ergocalciferol (vitamin D2) 1,250 mcg (50,000 unit) capsule 1,250 mcg PO QWEEK nystatin [Klayesta] 100,000 unit/gram powder 1 appl topical BID zolpidem 10 mg tablet 10 mg PO BEDTIME albuterol sulfate 90 mcg/actuation HFA aerosol inhaler 2 puff inhalation QID PRN (Reason: Shortness Of Breath Or Wheezing) ondansetron 4 mg tablet,disintegrating 4 mg PO TID PRN (Reason: Nausea And Vomiting) levothyroxine 112 mcg tablet 112 mcg PO DAILY@0600 pregabalin 100 mg capsule 100 mg PO BID-TID ranolazine 1,000 mg tablet extended release 12 hr 1,000 mg PO BID Patient Comments: says twice daily oxycodone 10 mg tablet 10 mg PO BID-TID icosapent ethyl [Vascepa] 1 gram capsule 2 g PO BID Ajovy Autoinjector 225 mg/1.5 mL auto-injector 225 mg subcut QMONTH omeprazole 40 mg capsule,delayed release(DR/EC) 40 mg PO BID 90 Days Qty: 180 0RF lidocaine [Lidocaine Pain Relief] 4 % Adhesive Patch,Medicated 1 patch transdermal DAILY Qty: 15 0RF Protocol: Apply to: Apply to: left ankle Interventions: ED Discharge Assessment Last Done: 11/12/24 04:53 Discharge Date/Time: 11/12/24 05:11 Print Language: Maltese
[2024-11-12 04:53] VITALS: BP 176/76; PULSE 65; RESP 18; TEMP 36.8; O2SAT 95
== END 2024-11-12 05:11 | disposition home or self-care (01) ==
PROVIDERS: Physician Assistant Medical; Emergency Provider Emergency Medicine Emergency Medical Services
DX: G43.909 Migraine, unspecified, not intractable, without status migrainosus (principal); R07.9 Chest pain, unspecified; R00.1 Bradycardia, unspecified; I10 Essential (primary) hypertension; E78.5 Hyperlipidemia, unspecified; E03.9 Hypothyroidism, unspecified; J45.909 Unspecified asthma, uncomplicated; Z79.899 Other long term (current) drug therapy; Z03.818 Encounter for observation for suspected exposure to other biological agents ruled out
CPT/HCPCS: 0241U; 36415; 70450; 71046; 80053; 83735; 83880; 84484; 85025; 93005; 96374; 96375; 99284; 99285; J0737; J1200; J1885; J2060

== ENCOUNTER → 2024-11-11 20:11 | Outpatient (BNV) | payer OTHER, SELFPAY | PROVIDERS: Emergency Provider Emergency Medicine Emergency Medical Services; Visit Provider Internal Medicine Cardiovascular Disease | DX: R00.1 Bradycardia, unspecified (principal) | CPT/HCPCS: 93010 ==

== ENCOUNTER → 2024-11-11 20:21 | Outpatient (BNV) | payer OTHER, SELFPAY | PROVIDERS: Visit Provider Radiology Diagnostic Radiology | DX: R51.9 Headache, unspecified (principal); I10 Essential (primary) hypertension | CPT/HCPCS: 70450; 71046 ==

== ENCOUNTER 2025-03-20 11:32 | Emergency (ER) | payer MEDICAID, SELFPAY ==
--- OUTSIDE RECORDS SUMMARY | 2025-03-19 16:08 | XMS_ITS | Encounter Summary ---
Author Organization [employer] Address [address] [place] [address] Care Team Providers Care Director Wholesale Name Role Phone Physician, Pcp Unknown Primary Care Provider Ewa vailable Reason for Visit * Reason Comments Knee Pain Chest Pain Encounter Details Date Type Department Care Team (Late st Contact Info) Description 03/19/2025 4:08 PM EDT - 03/19/2025 10:57 PM EDT Emergency [facility] Emergency [address] [place] [address] Discharge Disposition: Home or Self [...] Procedure Name Priority Date/Time Associated Diagnosis Comments TROPONIN I HIGH SENSITIVITY STAT 03/19/2025 7:27 [...] EDT documented in this encounter Results * Troponin I high sensitivity (03/19/2025 7:27 PM EDT) [facility] Signature High Sensitivity Troponin I 3 <=54 ng/L LAB CHEMISTRY METHOD 03/19/2025 8:15 PM EDT [facility] Blood Venous blood specimen / Unknown Venipuncture / Unknown 03/19/2025 7:27 PM EDT 03/19/2025 7:37 PM EDT Narrative [facility] - 03/19/2025 8:15 PM EDT High levels of biotin in samples may falsely decrease hsTroponin values. Use caution when interpreting hsTroponin results in patients taking biotin who exhibit renal impairment (eGFR <60) or in patients taking more than 20 mg/day of biotin. Tello Mercedes MD LAB BLOOD ORDERABLES Final Result [facility] [address] [place] [address], * (ABNORMAL) CBC auto differential (03/19/2025 5:36 PM EDT) WBC 10.3 4.8 - 10.8 K/mcL LAB HEMETOLOGY METHOD 03/19/2025 6:50 PM EDT [facility] RBC 4.70 3.80 - 4.80 M/mcL LAB HEMETOLOGY METHOD 03/19/2025 6:50 PM EDT [facility] Hemoglobin 12.5 11.5 - 16.0 g/dL LAB HEMETOLOGY METHOD 03/19/2025 6:50 PM EDT [facility] Hematocrit 40.2 35.0 - 47.0 % LAB HEMETOLOGY METHOD 03/19/2025 6:50 PM EDT [facility] MCV 86.1 79.0 - 98.0 FL LAB HEMETOLOGY METHOD 03/19/2025 6:50 PM EDT [facility] MCH 26.8(L) 27.0 - 32.0 pcg LAB HEMETOLOGY METHOD 03/19/2025 6:50 PM EDT [facility] MCHC 31.1(L) 32.0 - 37.0 g/dL LAB HEMETOLOGY METHOD 03/19/2025 6:50 PM EDT [facility] RDW 13.4 11.0 - 15.0 % LAB HEMETOLOGY METHOD 03/19/2025 6:50 PM EDT [facility] Platelets 299 130 - 400 K/mcL LAB HEMETOLOGY METHOD 03/19/2025 6:50 PM EDT [facility] MPV 9.9 7.0 - 11.0 FL LAB HEMETOLOGY METHOD 03/19/2025 6:50 PM EDT [facility] NRBC 0.0 <1.0 % LAB HEMETOLOGY METHOD 03/19/2025 6:50 PM EDT [facility] NRBC Absolute 0.00 <0.10 K/mcL LAB HEMETOLOGY METHOD 03/19/2025 6:50 PM EDT [facility] Neutrophils Relative 55.1 % LAB HEMETOLOGY METHOD 03/19/2025 6:50 PM [facility] Lymphocytes Relative 31.5 % LAB HEMETOLOGY METHOD 03/19/2025 6:50 PM EDT [facility] Monocytes Relative 7.9 % LAB HEMETOLOGY METHOD 03/19/2025 6:50 PM EDT [facility] Eosinophils Relative 4.3 % LAB HEMETOLOGY METHOD 03/19/2025 6:50 PM [facility] Basophils Relative 0.9 % LAB HEMETOLOGY METHOD 03/19/2025 6:50 PM EDT [facility] Immature Granulocytes Relative 0.3 % LAB HEMETOLOGY METHOD 03/19/2025 6:50 PM EDT [facility] Neutrophils Absolute 5.69 1.50 - 7.00 K/mcL LAB HEMETOLOGY METHOD 03/19/2025 6:50 PM EDT [facility] Lymphocytes Absolute 3.25 1.00 - 5.00 K/mcL LAB HEMETOLOGY METHOD 03/19/2025 6:50 PM EDT [facility] Monocytes Absolute 0.82 0.20 - 1.00 K/mcL LAB HEMETOLOGY METHOD 03/19/2025 6:50 PM EDT [facility] Eosinophils Absolute 0.44 0.00 - 0.50 K/[facility] LAB HEMETOLOGY METHOD 03/19/2025 6:50 PM EDT [facility] Basophils Absolute 0.09 0.00 - 0.20 K/[facility] LAB HEMETOLOGY METHOD 03/19/2025 6:50 PM EDT [facility] Immature Granulocytes Absolute 0.03 0.00 - 0.03 K/[facility] LAB HEMETOLOGY METHOD 03/19/2025 6:50 PM EDT [facility] Blood Venous blood specimen / Unknown Venipuncture / Unknown 03/19/2025 5:36 PM EDT 03/19/2025 6:41 PM EDT Tello Mercedes MD LAB BLOOD ORDERABLES Final Result Performing Organization Address City/[facility]/ZIP Co de Phone Number [facility] [address] [place] [address], [place] [phone] * B-type natriuretic peptide (03/19/2025 5:36 PM EDT) [facility] BNP 15 <=100 pcg/mL LAB CHEMISTRY METHOD 03/19/2025 7:56 PM EDT [facility] Blood Venous blood specimen / Unknown Venipuncture / Unknown 03/19/2025 5:36 PM EDT 03/19/2025 6:41 PM EDT Tello Mercedes MD LAB BLOOD ORDERABLES Final Result [facility] [address] [place] [address], [place] [phone] * Magnesium (03/19/2025 5:36 PM EDT) Magnesium 2.0 1.9 - 2.6 mg/dL LAB CHEMISTRY METHOD 03/19/2025 7:17 PM EDT [facility] Blood Venous blood specimen / Unknown Venipuncture / Unknown 03/19/2025 5:36 PM EDT 03/19/2025 6:41 PM EDT Tello Mercedes MD LAB BLOOD ORDERABLES Final Result Performing Organization Address City/[facility]/ZIP Co de Phone Number [facility] [address] [place] [address], [place] [phone] * Lipase (03/19/2025 5:36 PM EDT) [facility] Lipase 19 13 - 75 unit/L LAB CHEMISTRY METHOD 03/19/2025 7:17 PM EDT [facility] Blood Venous blood specimen / Unknown Venipuncture / Unknown 03/19/2025 5:36 PM EDT 03/19/2025 6:41 PM EDT Tello Mercedes MD LAB BLOOD ORDERABLES Final Result Performing Organization Address [facility] de Phone Number [facility] [address] [place] [address], [place] [phone] * (ABNORMAL) Comprehensive metabolic panel (03/19/2025 5:36 PM EDT) [facility] Sodium 138 133 - 145 mmol/L LAB CHEMISTRY METHOD 03/19/2025 7:18 PM EDT [facility] Potassium 4.0 3.5 - 5.5 mmol/L LAB CHEMISTRY METHOD 03/19/2025 7:18 PM EDT [facility] Chloride 103 96 - 110 mmol/L LAB CHEMISTRY METHOD 03/19/2025 7:18 PM EDT [facility] CO2 31 21 - 32 mmol/L LAB CHEMISTRY METHOD 03/19/2025 7:18 PM EDT [facility] Anion Gap 4 3 - 11 LAB CHEMISTRY METHOD 03/19/2025 7:18 PM [facility] Glucose 110(H) 70 - 100 mg/dL LAB CHEMISTRY METHOD 03/19/2025 7:18 PM [facility] BUN 11 5 - 25 mg/dL LAB CHEMISTRY METHOD 03/19/2025 7:18 PM [facility] Creatinine 0.67 0.50 - 1.10 mg/dL LAB CHEMISTRY METHOD 03/19/2025 7:18 PM [facility] eGFR 100 >=60 mL/min/1. 73m2 LAB CHEMISTRY METHOD 03/19/2025 7:18 PM [facility] Comment:Calculation based on the Chronic Kidney Disease Epidemiology Collaboration (CKD-EPI) equation refit without adjustment for race. BUN/Creatinine Ratio 16.4 LAB CHEMISTRY METHOD 03/19/2025 7:18 PM [facility] Calcium 9.7 8.5 - 10.5 mg/dL LAB CHEMISTRY METHOD 03/19/2025 7:18 PM [facility] AST (SGOT) 94(H) 10 - 42 unit/L LAB CHEMISTRY METHOD 03/19/2025 7:18 PM [facility] ALT (SGPT) 75(H) 10 - 60 unit/L LAB CHEMISTRY METHOD 03/19/2025 7:18 PM [facility] Alkaline Phosphatase 104 42 - 121 unit/L LAB CHEMISTRY METHOD 03/19/2025 7:18 PM [facility] Total Protein 7.0 6.0 - 8.0 g/dL LAB CHEMISTRY METHOD 03/19/2025 7:18 PM [facility] Albumin 3.5 3.2 - 5.0 g/dL LAB CHEMISTRY METHOD 03/19/2025 7:18 PM [facility] Total Bilirubin 0.3 0.0 - 1.4 mg/dL LAB CHEMISTRY METHOD 03/19/2025 7:18 PM EDT [facility] Blood Venous blood specimen / Unknown Venipuncture / Unknown 03/19/2025 5:36 PM EDT 03/19/2025 6:41 PM EDT Tello Mercedes MD LAB BLOOD ORDERABLES Final Result Performing Organization Address [facility] de Phone Number [facility] [address] [place] [address], [place] [phone] * Troponin I high sensitivity (03/19/2025 5:36 PM EDT) [facility] High Sensitivity Troponin I 3 <=54 ng/L LAB CHEMISTRY METHOD 03/19/2025 7:14 PM EDT [facility] Blood Venous blood specimen / Unknown Venipuncture / Unknown 03/19/2025 5:36 PM EDT 03/19/2025 6:41 PM EDT Narrative [facility] - 03/19/2025 7:14 PM EDT High levels of biotin in samples may falsely decrease hsTroponin values. Use caution when interpreting hsTroponin results in patients taking biotin who exhibit renal impairment (eGFR <60) or in patients taking more than 20 mg/day of biotin. Tello Mercedes MD LAB BLOOD ORDERABLES Final Result Performing Organization Address [facility] de Phone Number [facility] [address] [place] [address], [place] [phone] * ECG 12 lead (03/19/2025 5:25 PM EDT) [facility] Ventricular Rate ECG 90 BPM GEMUSE Atrial Rate 90 BPM GEMUSE P-R Interval 150 ms GEMUSE QRS Duration 78 ms GEMUSE Q-T Interval 366 ms GEMUSE QTc 447 ms GEMUSE P Wave [place] 71 degrees GEMUSE R [place] -35 degrees GEMUSE T [place] 49 degrees GEMUSE ECG Interpretation Normal sinus [...] on filedocumented in this encounter Care Teams Director Wholesale Relationship Specialty Start Date End Date Physician, Pcp Unknown PCP - General 03/19/25 documented as of this encounter
--- NOTE | ~2025-03-20 | US_ITS ---
CLINICAL HISTORY: pain, SWELLING Venous duplex ultrasound left lower extremity Comparison: None provided Findings: The visualized deep veins are fully compressible with normal Doppler color flow and spectral tracings. There is a 4.8 x 1.1 x 2.2 cm complex popliteal cyst. IMPRESSION: 1. Negative for left lower extremity deep vein thrombosis. 2. 4.8 cm complex popliteal cyst. This document has been electronically signed by: Andrew Benoit MD on 03/20/2025 19:51:34
--- NOTE | ~2025-03-20 | XR_ITS ---
EXAMINATION: XR LUMBOSACRAL SPINE CLINICAL INFORMATION: low back pain, LE weakness COMPARISON: None available. TECHNIQUE: Three views of the lumbosacral spine. FINDINGS: There is moderate calcification of the abdominal aorta. There are 5 nonrib-bearing lumbar segments. There is 17 degrees levoscoliosis with apex at L2-3. L2-3 demonstrates mild disc space narrowing and endplate sclerosis. L3-4 demonstrates severe disc space narrowing, endplate sclerosis, left lateral listhesis, and osteophytes. L4-5 demonstrates mild to moderate disc space narrowing with endplate sclerosis and osteophytes. There is mild facet sclerosis. L5-S1 demonstrates mild space narrowing with vacuum phenomena, endplate sclerosis, and osteophytes. XR/XR lumbar spine 2-3V IMPRESSION: Multilevel degenerative disc disease and mild levoscoliosis. Electronically signed by: Filemon Cabrera MD 03/20/2025 12:31 PM EDT
--- NOTE | ~2025-03-20 | XR_ITS ---
CLINICAL HISTORY: pain 4 view left knee Comparison: None provided Findings: No fractures or dislocations. Mild tricompartmental degenerative change. Small joint effusion suggested. No radiopaque foreign body. IMPRESSION: Mild tricompartmental degenerative change. Small joint effusion suggested. This document has been electronically signed by: Andrew Benoit MD on 03/20/2025 19:01:33
[2025-03-20 11:48] VITALS: BP 119/69; PULSE 98; RESP 16; TEMP 36.1; O2SAT 94; BMI 29.0
--- NOTE | 2025-03-20 11:48 | ED.GENADULT ---
HPI - General Adult General Chief complaint: Weakness Stated complaint: leg swelling Time Seen by Provider: 03/20/25 17:45 Source: patient, family, RN notes reviewed and old records reviewed Mode of arrival: ambulatory Limitations: no limitations History of Present Illness ED Provider: Mayelin HPI narrative: 15-year-old female with past medical history significant for coronary artery disease status post stenting, brain aneurysm with coiling, GERD, previous gastric ulcer with Rachel-Calvert tear presenting for evaluation of left knee pain and weakness. Patient reports leg pain behind her left knee into the left calf starting about 2 weeks ago. She reports that she recently relocated to the area a few months ago 3 times over the last 1-2 weeks so and complains of worsening left knee pain in addition to continue to pain to her left posterior lower leg. She also reports weakness to both legs but left greater than right Denies any chest pain, shortness of breath dental pain nausea vomiting Denies any headache, fevers, chills She reports taking oxycodone 10 mg and tizanidine without improvements in her symptoms Related Data Home Medications ?Medication ?Instructions ?Recorded ?Confirmed albuterol sulfate 90 mcg/actuation 2 puff inhalation QID PRN 01/15/24 01/15/24 aerosol inhaler Shortness Of Breath Or Wheezing alprazolam 1 mg tablet 1 mg PO QID 01/15/24 01/15/24 amlodipine 5 mg tablet 5 mg PO DAILY 01/15/24 01/15/24 aspirin 81 mg tablet,delayed 81 mg PO DAILY 01/15/24 01/15/24 release Held on 01/20/24. Instructions: do not take for two weeks. discuss with PCP atorvastatin 80 mg tablet 80 mg PO DAILY 01/15/24 01/15/24 ergocalciferol (vitamin D2) 1,250 1,250 mcg PO QWEEK 01/15/24 01/15/24 mcg (50,000 unit) capsule fremanezumab-vfrm 225 mg/1.5 mL 225 mg subcut QMONTH 01/15/24 01/15/24 subcutaneous auto-injector (Ajovy) icosapent ethyl 1 gram capsule 2 g PO BID 01/15/24 01/15/24 (Vascepa) levothyroxine 112 mcg tablet 112 mcg PO DAILY@0600 01/15/24 01/15/24 metoprolol succinate 50 mg 50 mg PO DAILY 01/15/24 01/15/24 tablet,extended release 24 hr nystatin 100,000 unit/gram topical 1 appl topical BID 01/15/24 01/15/24 powder (Klayesta) ondansetron 4 mg disintegrating 4 mg PO TID PRN Nausea And Vomiting 01/15/24 01/15/24 tablet oxycodone 10 mg tablet 10 mg PO BID-TID 01/15/24 01/15/24 pregabalin 100 mg capsule 100 mg PO BID-TID 01/15/24 01/15/24 ranolazine 1,000 mg 1,000 mg PO BID 01/15/24 01/15/24 tablet,extended release,12 hr tizanidine 4 mg tablet 4 mg PO TID PRN Muscle Spasm 01/15/24 01/15/24 triamcinolone acetonide 0.1 % 1 appl topical BID PRN Rash 01/15/24 01/15/24 topical cream zolpidem 10 mg tablet 10 mg PO BEDTIME 01/15/24 01/15/24 Previous Rx's ?Medication ?Instructions ?Recorded lidocaine 4 % topical patch 1 patch transdermal DAILY #15 ea 01/20/24 (Lidocaine Pain Relief) omeprazole 40 mg capsule,delayed 40 mg PO BID 90 days #180 caps 01/20/24 release Allergies Allergy/AdvReac Type Severity Reaction Status Date / Time amitriptyline Allergy Blurry Verified 03/20/25 11:52 Vision latex Allergy Rash Verified 03/20/25 11:52 Review of Systems Constitutional: Constitutional: Denies body ache(s), Denies chills, Denies fever(s) and Denies headache(s) Eyes: Eyes: Denies blurry vision ENT: Denies dizziness, Denies dry mouth and Denies headache(s) Cardiovascular: Cardiovascular: Denies chest pain and Denies dyspnea on exertion Respiratory: Respiratory: Denies cough and Denies dyspnea on exertion Gastrointestinal: Gastrointestinal: Denies abdominal pain, Denies nausea and Denies vomiting Musculoskeletal: Musculoskeletal: Reports arthralgias, Reports joint swelling and Reports limited range of motion Integumentary/Breasts: Skin/Breast: Denies rash Neurologic: Denies dizziness and Denies headache(s) Psychiatric: Psychiatric: Denies anxiety and Denies panic attacks PMFSH Past Medical History Medical History (Updated 03/20/25 @ 20:01 by Isaac Dick) CAD (coronary artery disease) Social History Social History Advance Directives: No Advance Directives Information Provided: No Do you have a plan to hurt others: No Plan Physical Exam ED Vital Signs: Vital Signs - 24 hr 03/20/25 11:48 03/20/25 14:46 03/20/25 16:29 Temperature 96.9 F 97.6 F 98.2 F Pulse Rate 98 88 91 Respiratory Rate 16 16 20 Blood Pressure 119/69 157/78 H 144/69 H Pulse Oximetry 94 95 96 Oxygen Delivery Method Room Air Room Air Room Air 03/20/25 19:49 Temperature 98.1 F Pulse Rate 82 Respiratory Rate 20 Blood Pressure 150/71 H Pulse Oximetry 98 Oxygen Delivery Method Room Air BMI result Body Mass Index 29.0 Const General: healthy appearing, comfortable, no acute distress, alert and awake Nutritional Appearance: well nourished Orientation/consciousness: patient oriented x3 HENMT Head: Yes normocephalic and Yes atraumatic Eyes Eyelids: Yes eyelids normal Conjunctivae: conjunctivae normal Sclerae: sclerae normal Corneas: corneas normal Pupils: Equal, round and reactive pupils present EOM: EOMs intact bilaterally Neck Neck: Yes full ROM Resp Effort & Inspection: normal respiratory effort, able to speak in complete sentences and not labored GI Inspection: No distended Palpation (GI): Soft to palpation, not firm, nontender, no guarding and not rigid Skin General skin exam: elasticity normal Neuro General: patient oriented x3 Cranial nerves: Yes Equal, round and reactive pupils present and Yes Bilaterally intact EOM present Cognition (Neuro): normal cognition Extrem Other: Left knee is edematous with an apparent small joint effusion. She is able to flex and extend the knee. She does have some posterior knee tenderness and calf tenderness. No palpable cords. DP and PT pulses are 2+ and equal. Course Course Course Narrative: 03/20/25 1148 [address] Rob[place]o This is a Rapid Medical Examination (RME) performed by Yanely Downs PA-C in triage. Full HPI, ROS, assessment and treatment plan per primary provider in the Main ED. Hx: 59 yo F here for increased weakness to b/l LEs w/ associated swelling/pain to legs (L>R) x1.5 wks. reports fall d/t this last week. hit her low back. no head strike or LOC. no thinners. Plan: labs, ekg, UA, xr Medications Administered Discontinued Medications Generic Name Dose Route Start Last Admin Trade Name [place] PRN Reason Stop Dose Admin Ibuprofen 600 mg 03/20/25 14:45 03/20/25 14:48 Ibuprofen 600 Mg Tablet PO 03/20/25 14:46 600 mg ONCE ONE Administration Morphine Sulfate 4 mg 03/20/25 18:02 03/20/25 18:42 Morphine Sulfate 4 Mg/Ml Cartridge IM 03/20/25 18:03 4 mg ONCE ONE Administration Protocol Ondansetron HCl 4 mg 03/20/25 18:38 03/20/25 18:41 Ondansetron Odt 4 Mg Tab.Rapdis TRANSLINGU 03/20/25 18:39 4 mg ONCE ONE Administration Medical Decision Making Medical Decision Making [facility] Narrative: [age] old female presents for evaluation of left knee pain and weakness. Fracture but this happened 1 week to 2 weeks ago, so fractures favored to be less likely. An ultrasound of the left lower extremity will be obtained as the patient reports atraumatic pain prior to her falls last week. No overlying skin changes to suggest infectious process. The patient does have a history of chronic pain syndrome, fibromyalgia. Her left knee pain may just be an exacerbation of chronic pain. She has no leukocytosis or significant anemia. No left shift. Chemistries without any concerning abnormalities warranting intervention. She has a slight elevation of AST and ALT Differential Diagnosis Differential Diagnoses: The differential diagnosis associated with the presentation includes Chronic pain syndrome Osteoarthritis DVT Alfred's cyst Septic joint less likely Radiculopathy Lab Data [facility] Lab Attestation statement: I reviewed the patient's lab results. No leukocytosis or anemia. Normal platelet count. No significant electrolyte abnormalities warranting intervention. Random glucose of 132. No evidence of DKA 03/20/25 12:02 03/20/25 12:02 Labs: Lab Results 03/20/25 03/20/25 Range/Units 12:02 16:58 WBC 7.2 (4.8-10.8) X10*3/uL RBC 4.58 (4.20-5.50) X10*6/uL Hgb 12.6 (12.0-16.0) g/dl Hct 37.9 (37.0-47.0) % MCV 82.8 (80.0-98.0) fL MCH 27.5 (27.0-33.0) pg MCHC 33.2 (31.0-35.0) g/dl RDW 13.4 (11.0-16.0) % Plt Count 242 (160-400) X10*3/uL MPV 8.8 L (9.4-12.3) fL Immature Gran % (Auto) 0.4 (0.0-0.4) % Neut % (Auto) 51.8 (45-73) % Lymph % (Auto) 31.5 (20-40) % Walsh % (Auto) 9.2 (2-11) % Eos % (Auto) 6.5 H (0-4) % Baso % (Auto) 0.6 (0-2) % Lymph # (Auto) 2.3 (1.2-4.9) X10*3/uL Walsh # (Auto) 0.7 (0.1-1.2) X10*3/uL Eos # (Auto) 0.5 H (0.0-0.4) X10*3/uL Baso # (Auto) 0.0 (0.0-0.2) X10*3/uL Abs Immat Gran (auto) 0.03 (0.00-0.03) X10*3/uL Absolute Neuts (auto) 3.7 (2.0-8.3) x10*3/uL Absolute Nucleated RBC 0.000 (0.0-0.012) X10*3/uL Nucleated RBC % (auto) 0.0 (0.0-0.2) /100WBC Sodium 140 (135-145) mmol/L Potassium 3.6 (3.3-5.1) mmol/L Chloride 105 (96-108) mmol/L Carbon Dioxide 29 (22-29) mmol/L Anion Gap 10 L (12-20) BUN 9 (9-16) mg/dL Creatinine 0.58 (0.5-1.4) mg/dL Estim Creat Clear Calc 114.8 Estimated GFR > 60 Random Glucose 132 H (60-115) mg/dL Calcium 9.5 (8.4-10.2) mg/dL Magnesium 1.8 (1.6-2.6) mg/dL Total Bilirubin 0.6 (0.0-1.0) mg/dL AST 84 H (5-31) U/L ALT 70 H (0-31) U/L Alkaline Phosphatase 83 (39-117) U/L Troponin I High Sens < 2.7 (<3.5-17.0) ng/L B-Natriuretic Peptide 11 (<100) pg/mL Total Protein 7.0 (6.5-8.0) g/dL Albumin 3.9 (3.5-5.0) g/dL Urine Color Yellow Urine Appearance Clear Urine pH 7.0 (5.0-9.0) Ur Specific [place] <= 1.005 (1.005-1.025) Urine Protein Negative (Neg-Trace) mg/dL Urine Glucose (UA) Negative (Negative) mg/dL Urine Ketones Negative (Negative) mg/dL Urine Blood Negative (Negative) Urine Nitrite Negative (Negative) Ur Leukocyte Esterase Negative (Negative) Radiology Impression Discussion of test interpretation with radiology: I have reviewed the radiologist's reading. Radiologist Impression: Findings: No fractures or dislocations. Mild tricompartmental degenerative change. Small joint effusion suggested. No radiopaque foreign body. IMPRESSION: Mild tricompartmental degenerative change. Small joint effusion suggested. This document has been electronically signed by: Andrew Benoit MD on 03/20/2025 19:01:33 Discharge Plan Discharge Clinical Impression: Acute pain of left knee, Alfred cyst Patient Disposition: Home, Self-Care Instructions: Alfred Cyst (ED) Additional Instructions: Your x-ray showed arthritis of your left knee. The ultrasound did not show any blood clots but did show a Alfred's cyst behind the left knee also known as a popliteal fossa cyst. You may follow up with Orthopedics at the number provided, call tomorrow to schedule an appointment Prescriptions: No Action atorvastatin 80 mg tablet 80 mg PO DAILY alprazolam 1 mg tablet 1 mg PO QID tizanidine 4 mg tablet 4 mg PO TID PRN (Reason: Muscle Spasm) metoprolol succinate 50 mg tablet extended release 24 hr 50 mg PO DAILY amlodipine 5 mg tablet 5 mg PO DAILY aspirin 81 mg tablet,delayed release (DR/EC) 81 mg PO DAILY triamcinolone acetonide 0.1 % cream 1 appl topical BID PRN (Reason: Rash) ergocalciferol (vitamin D2) 1,250 mcg (50,000 unit) capsule 1,250 mcg PO QWEEK nystatin [Klayesta] 100,000 unit/gram powder 1 appl topical BID zolpidem 10 mg tablet 10 mg PO BEDTIME albuterol sulfate 90 mcg/actuation HFA aerosol inhaler 2 puff inhalation QID PRN (Reason: Shortness Of Breath Or Wheezing) ondansetron 4 mg tablet,disintegrating 4 mg PO TID PRN (Reason: Nausea And Vomiting) levothyroxine 112 mcg tablet 112 mcg PO DAILY@0600 pregabalin 100 mg capsule 100 mg PO BID-TID ranolazine 1,000 mg tablet extended release 12 hr 1,000 mg PO BID Patient Comments: says twice daily oxycodone 10 mg tablet 10 mg PO BID-TID icosapent ethyl [Vascepa] 1 gram capsule 2 g PO BID Ajovy Autoinjector 225 mg/1.5 mL auto-injector 225 mg subcut QMONTH omeprazole 40 mg capsule,delayed release(DR/EC) 40 mg PO BID 90 Days Qty: 180 0RF lidocaine [Lidocaine Pain Relief] 4 % Adhesive Patch,Medicated 1 patch transdermal DAILY Qty: 15 0RF Protocol: Apply to: Apply to: left ankle Referrals: [facility]geons [Provider Group] Referral Note: large 4.8cm alfred's cyst Print Language: Sudanese
--- NOTE | 2025-03-20 11:50 | ECG_ITS ---
Test Reason : cp Blood Pressure : */* mmHG Vent. Rate : 94 BPM Atrial Rate : 94 BPM P-R Int : 154 ms QRS Dur : 82 ms QT Int : 362 ms P-R-T Axes : 57 -32 34 degrees QTcB Int : 452 ms Normal sinus rhythm Left axis deviation Anterolateral infarct , age undetermined Abnormal ECG When compared with ECG of 11-Nov-2024 20:12, Vent. rate has increased by 37 bpm Anterolateral infarct is now Present Referred By: Tiffany Downs Electronically Signed By: PRAKASH COLLADO
[2025-03-20 12:06] LABS: MANUAL DIFF FLAG NO
[2025-03-20 12:08] LABS: Hematocrit 37.9 % (37.0-47.0); Hemoglobin 12.6 g/dl (12.0-16.0); Imm Gran Abs Auto 0.03 X10*3/uL (0.00-0.03); Imm Gran Pct Auto 0.4 % (0.0-0.4); Lymphocytes Absolute Auto 2.3 X10*3/uL (1.2-4.9); Mean Corpuscular HGB Conc 33.2 g/dl (31.0-35.0); Mean Corpuscular Hemoglobin 27.5 pg (27.0-33.0); Mean Corpuscular Volume 82.8 fL (80.0-98.0); NRBC Abs Auto 0.000 X10*3/uL (0.0-0.012); NRBC Pct Auto 0.0 /100WBC (0.0-0.2); Platelet Count 242 X10*3/uL (160-400); Red Blood Count 4.58 X10*6/uL (4.20-5.50); White Blood Count 7.2 X10*3/uL (4.8-10.8)
[2025-03-20 12:22] LABS: Alanine Aminotransferase 70 U/L (0-31); Albumin Level 3.9 g/dL (3.5-5.0); Alkaline Phosphatase 83 U/L (39-117); Anion Gap 10 (12-20); Aspartate Amino Transferase 84 U/L (5-31); Blood Urea Nitrogen 9 mg/dL (9-16); Calcium 9.5 mg/dL (8.4-10.2); Carbon Dioxide 29 mmol/L (22-29); Chloride 105 mmol/L (96-108); Creatinine Clr Calc Pharmacy 114.8; Estimated Glomerular Filt Rate > 60; Magnesium 1.8 mg/dL (1.6-2.6); Potassium 3.6 mmol/L (3.3-5.1); Sodium 140 mmol/L (135-145); Total Protein 7.0 g/dL (6.5-8.0)
[2025-03-20 12:27] LABS: B Type Natriuretic Peptide 11 pg/mL (<100)
[2025-03-20 12:31] LABS: Troponin-I High Sensitivity < 2.7 ng/L (<3.5-17.0)
[2025-03-20 14:46] VITALS: BP 157/78; PULSE 88; RESP 16; TEMP 36.4; O2SAT 95
[2025-03-20 16:29] VITALS: BP 144/69; PULSE 91; RESP 20; TEMP 36.8; O2SAT 96
--- OUTSIDE RECORDS SUMMARY | 2025-03-20 16:50 | XMS_ITS | Clinical Summary ---
Author Organization [employer] Address [address] [place] [address] Care Team Providers Care Bush Hog Operator Name Role Phone Unavailable Primary Care Provider Unavailabl e Encounters Date Type Department Care Team Description 03/02/2025 Telephone [facility] MEDIC[facility] [address] [place] [address] Elmo Frank MD New Patient Request from Last 3 Months Social History Tobacco Use Types Packs/Day Years Used Date Smoking Tobacco: Never Assessed Comments Unknown Sex and Gender Information Value Date Recorded Sex Assigned at Not on file Legal Sex Female 10:54 AM EDT Gender Identity Not on file Sexual Orientation Not on file Plan of Treatment Upcoming Encounters Date Type Department Care Team (Late st Contact Info) Description 04/26/2025 10:45 AM EDT Office Visit [facility] [address] [place] [address] Yolanda Ojeda MD [address] [place] [address] Health Maintenance Due Date Last Done Comments CT Colonography 1964 Colonoscopy 1964 Colorectal Cancer Screening 1964 Depression Screening 1964 FIT DNA/Cologuard 1964 FIT 1964 FOBT 1964 HIV Screening 1964 SDOH Screening 1964 Sigmoidoscopy 1964 Disability Screening 1964 Alcohol/Substance Use Screening 1976 Tobacco Screening 1976 Hepatitis C Screening 1982 DTaP/Tdap/Td Vaccines (1 - Tdap) 1983 Pap Smear 1985 Cervical Cancer Screening 1994 HPV/Cotest 1994 Mammogram 2004 Pneumococcal Vaccine: 50+ Ye ars (1 of 1 - PCV) 2014 Zoster Vaccines (1 of 2) 2014 COVID-19 Vaccine (1 - 2023-2 5 season) 2024 Influenza Vaccine (#1) 2025 RSV Patients and Pa tients Aged 60 years or older (1 - 1-dose 75+ series) 2039 [...] on patient's age to complete this topic RSV under 20 months Aged Out No longe r eligible based on patient's age to complete this topic Rotavirus Vaccines Aged Out No longer eligible based on patient's age to complete this topic Insurance [facility] STANDARD
--- OUTSIDE RECORDS SUMMARY | 2025-03-20 16:50 | XMS_ITS ---
Author Organization [facility] Address [address] [place] [address] Care Team Providers Care Soda Clerk Name Role Phone Mauri Singh MD Primary Care Provider Active Problems Problem Noted Date Diagnosed Date Community acquired bilateral lower lobe pneumoni a 01/02/2025 CAD S/P percutaneous coronary angioplasty 2021 Gastritis [...] Lung nodules 05/11/2012 Brain aneurysm 05/11/2012 Current Treatment and Therapy Plans No current plan information found. Past Treatment and Therapy Plans No past plan information found. Lifetime Dose Tracking * Chemical Lifetime Dose Automatic Entry Manual Entr y Fluoro Time 13.7 Minutes 0 Minutes 13.7 Minutes Air Kerma 476 mGy 0 mGy 476 mGy Resolved Problems Problem Noted Date Diagnosed Date Resolved Date Chest pain, unspecified 02/21/201504/2022 Syncope and collapse 04/11/2014 015 Chest pain, unspecified 03/27/201404/2022 Overview (03/29/2014): S/p cardiac cath 03/28/2014:75 % mid LAD obstruction s/p stent,EF=45% Dizziness 07/06/2013 01/08/2014 Palpitations 07/06/2013 01/08/2014 Headache(784.0) 04/03/2013 03/28/2014 Cervical radiculopathy 12/10/201203/28 PMB (postmenopausal bleeding) 06/01/2012 03/28/2014 Thickened endometrium 06/01/20122013
[2025-03-20 17:18] LABS: Appearance Urine Clear; Glucose Urine UA Negative (Negative); PH 7.0 (5.0-9.0); Specific Gravity - Urine <= 1.005 (1.005-1.025)
[2025-03-20 19:49] VITALS: BP 150/71; PULSE 82; RESP 20; TEMP 36.7; O2SAT 98
[2025-03-20 20:15] VITALS: BP 150/71; PULSE 82; RESP 20; TEMP 36.7; O2SAT 98
== END 2025-03-20 20:16 | disposition home or self-care (01) ==
PROVIDERS: Physician Assistant Medical; Emergency Provider Emergency Medicine; PCP Family Medicine
DX: M71.22 Synovial cyst of popliteal space [Baker], left knee (principal); R60.0 Localized edema; R07.89 Other chest pain; I25.10 Atherosclerotic heart disease of native coronary artery without angina pectoris; M54.50 Low back pain, unspecified; M25.562 Pain in left knee; Z79.899 Other long term (current) drug therapy
CPT/HCPCS: 36415; 72100; 73562; 80053; 81003; 83735; 83880; 84484; 85025; 93005; 93971; 96372; 99284; J2270

== ENCOUNTER → 2025-03-20 11:50 | Outpatient (BNV) | payer MEDICAID, SELFPAY | PROVIDERS: Emergency Provider Emergency Medicine; PCP Family Medicine; Visit Provider Internal Medicine | DX: R94.31 Abnormal electrocardiogram [ECG] [EKG] (principal); R07.9 Chest pain, unspecified | CPT/HCPCS: 93010 ==

== ENCOUNTER → 2025-03-20 11:51 | Outpatient (BNV) | payer OTHER, SELFPAY | PROVIDERS: Visit Provider Radiology Diagnostic Radiology | DX: M71.22 Synovial cyst of popliteal space [Baker], left knee (principal); R22.42 Localized swelling, mass and lump, left lower limb; M79.605 Pain in left leg; M51.370 Other intervertebral disc degeneration, lumbosacral region with discogenic back pain only; M25.562 Pain in left knee | CPT/HCPCS: 72100; 73562; 93971 ==

== ENCOUNTER 2025-03-21 14:52 | Emergency (ER) | payer MEDICAID, SELFPAY ==
--- OUTSIDE RECORDS SUMMARY | 2025-03-19 16:08 | XMS_ITS | Encounter Summary ---
Author Organization [employer] Address [address] [place] [address] Care Team Providers Care Rubber Stamp Dies Inspector Name Role Phone Physician, Pcp Unknown Primary Care Provider Ewa vailable Reason for Visit * Reason Comments Knee Pain Chest Pain Encounter Details Date Type Department Care Team (Late st Contact Info) Description 03/19/2025 4:08 PM EDT - 03/19/2025 10:57 PM EDT Emergency [facility] Emergency [address] [place] [address] Discharge Disposition: Home or Self Care Social History Tobacco Use Types Packs/Day Years Used Date Smoking Tobacco: Never Assessed Comments Unknown Sex and Gender Information Value Date Recorded Sex Assigned at Not on file Legal Sex Female 4:08 PM EDT Gender Identity Not on file Sexual Orientation Not on file documented as of this encounter Last Filed Vital Signs Vital Sign Reading Time Taken Comments Blood Pressure 153/81 03/19/2025 7:40 PM EDT Pulse 92 03/19/2025 7:40 PM EDT Temperature 36.5 C (97.7 F) 03/19/2025 7:40 PM EDT Respiratory Rate 18 03/19/2025 5:18 PM EDT Oxygen Saturation 94% 03/19/2025 7:40 PM EDT Inhaled Oxygen Concentration - - Weight 83.9 kg (185 lb) 03/19/2025 5:18 PM EDT Height 170.2 cm (5' 7 ) 03/19/2025 5:18 PM EDT Body Mass Index 28.98 03/19/2025 5:18 PM EDT documented in this encounter Discharge Disposition Disposition Code Departure Means Destination Home or Self Care documented in this encounter Progress Notes * Kaylin Case RN - 03/19/2025 5:22 PM EDT Following triage, pt reports has been having chest pain more frequently and taking nitro at home * Kaylin Case RN - 03/19/2025 5:14 PM EDT Pt to ed with reports left knee pain, reports fall due to pain in left knee and back pain because of herniated disc. Pain worse with walking. documented in this encounter Plan of Treatment Not on file documented as of this encounter Procedures Procedure Name Priority Date/Time Associated Diagnosis Comments ECG ANNOTATED 03/21/2025 TROPONIN I HIGH SENSITIVITY STAT 03/19/2025 7:27 PM EDT TROPONIN I HIGH SENSITIVITY STAT 03/19/2025 5:36 PM EDT CBC WITH AUTO DIFFERENTIAL STAT 03/19/2025 5:36 PM EDT CBC AND DIFFERENTIAL STAT 03/19/2025 5:36 PM EDT B-TYPE NATRIURETIC PEPTIDE STAT 03/19/2025 5:36 PM EDT MAGNESIUM STAT 03/19/2025 5:36 PM EDT LIPASE STAT 03/19/2025 5:36 PM EDT COMPREHENSIVE METABOLIC PANEL STAT 03/19/2025 5:36 PM EDT ECG 12-LEAD STAT 03/19/2025 5:25 PM EDT documented in this encounter Results * ECG-Annotated (03/21/2025) us Provider Onbase MD ECG ORDERABLES Final Result * Troponin I high sensitivity (03/19/2025 7:27 PM EDT) [facility] High Sensitivity Troponin I 3 <=54 ng/L LAB CHEMISTRY METHOD 03/19/2025 8:15 PM EDT [facility] Blood Venous blood specimen / Unknown Venipuncture / Unknown 03/19/2025 7:27 PM EDT 03/19/2025 7:37 PM EDT Narrative [facility] - 03/19/2025 8:15 PM EDT High levels of biotin in samples may falsely decrease hsTroponin values. Use caution when interpreting hsTroponin results in patients taking biotin who exhibit renal impairment (eGFR <60) or in patients taking more than 20 mg/day of biotin. us Tello Mercedes MD LAB BLOOD ORDERABLES Final Result [facility] [address] [place] [address], [place] [phone] * (ABNORMAL) CBC auto differential (03/19/2025 5:36 PM EDT) WBC 10.3 4.8 - 10.8 K/mcL LAB HEMETOLOGY METHOD 03/19/2025 6:50 PM EDT [facility] RBC 4.70 3.80 - 4.80 M/mcL LAB HEMETOLOGY METHOD 03/19/2025 6:50 PM EDT [facility] Hemoglobin 12.5 11.5 - 16.0 g/dL LAB HEMETOLOGY METHOD 03/19/2025 6:50 PM EDT [facility] Hematocrit 40.2 35.0 - 47.0 % LAB HEMETOLOGY METHOD 03/19/2025 6:50 PM EDT [facility] MCV 86.1 79.0 - 98.0 FL LAB HEMETOLOGY METHOD 03/19/2025 6:50 PM EDT [facility] MCH 26.8(L) 27.0 - 32.0 pcg LAB HEMETOLOGY METHOD 03/19/2025 6:50 PM EDT [facility] MCHC 31.1(L) 32.0 - 37.0 g/dL LAB HEMETOLOGY METHOD 03/19/2025 6:50 PM EDT [facility] RDW 13.4 11.0 - 15.0 % LAB HEMETOLOGY METHOD 03/19/2025 6:50 PM EDT [facility] Platelets 299 130 - 400 K/mcL LAB HEMETOLOGY METHOD 03/19/2025 6:50 PM EDT [facility] MPV 9.9 7.0 - 11.0 FL LAB HEMETOLOGY METHOD 03/19/2025 6:50 PM EDT [facility] NRBC 0.0 <1.0 % [facility] NRBC Absolute 0.00 <0.10 K/mcL LAB HEMETOLOGY METHOD 03/19/2025 6:50 PM EDT [facility] Neutrophils Relative 55.1 % LAB HEMETOLOGY METHOD 03/19/2025 6:50 PM EDT [facility] Lymphocytes Relative 31.5 % LAB [facility]OLOGY [facility] Monocytes Relative 7.9 % LAB HEMETOLOGY METHOD 03/19/2025 6:50 PM [facility] Eosinophils Relative 4.3 % LAB HEMETOLOGY METHOD 03/19/2025 6:50 PM EDT [facility] Basophils Relative 0.9 % LAB HEMETOLOGY METHOD 03/19/2025 6:50 PM EDT [facility] Immature Granulocytes Relative 0.3 % LAB HEMETOLOGY METHOD 03/19/2025 6:50 PM EDT [facility] Neutrophils Absolute 5.69 1.50 - 7.00 K/mcL LAB HEMETOLOGY METHOD 03/19/2025 6:50 PM EDT [facility] Lymphocytes Absolute 3.25 1.00 - 5.00 K/mcL LAB HEMETOLOGY METHOD 03/19/2025 6:50 PM EDT [facility] Monocytes Absolute 0.82 0.20 - 1.00 K/[facility] LAB HEMETOLOGY METHOD 03/19/2025 6:50 PM EDT [facility] Eosinophils Absolute 0.44 0.00 - 0.50 K/[facility] LAB HEMETOLOGY METHOD 03/19/2025 6:50 PM EDT [facility] Basophils Absolute 0.09 0.00 - 0.20 K/[facility] LAB HEMETOLOGY METHOD 03/19/2025 6:50 PM EDT [facility] Immature Granulocytes Absolute 0.03 0.00 - 0.03 K/[facility] LAB HEMETOLOGY METHOD 03/19/2025 6:50 PM EDT [facility] Blood Venous blood specimen / Unknown Venipuncture / Unknown 03/19/2025 5:36 PM EDT 03/19/2025 6:41 PM EDT Tello Mercedes MD LAB BLOOD ORDERABLES Final Result Performing Organization Address City/[facility]/ZIP Co de Phone Number [facility] [address] [place] [address], * B-type natriuretic peptide (03/19/2025 5:36 PM EDT) BNP 15 <=100 pcg/mL LAB CHEMISTRY METHOD 03/19/2025 7:56 PM EDT [facility] Blood Venous blood specimen / Unknown Venipuncture / Unknown 03/19/2025 5:36 PM EDT 03/19/2025 6:41 PM EDT Tello Mercedes MD LAB BLOOD ORDERABLES Final Result [facility] [address] [place] [address], [place] [phone] * Magnesium (03/19/2025 5:36 PM EDT) [facility] Magnesium 2.0 1.9 - 2.6 mg/dL LAB CHEMISTRY METHOD 03/19/2025 7:17 PM EDT [facility] Blood Venous blood specimen / Unknown Venipuncture / Unknown 03/19/2025 5:36 PM EDT 03/19/2025 6:41 PM EDT Tello Mercedes MD LAB BLOOD ORDERABLES Final Result [facility] [address] [place] [address], [place] [phone] * Lipase (03/19/2025 5:36 PM EDT) [facility] Lipase 19 13 - 75 unit/L LAB CHEMISTRY METHOD 03/19/2025 7:17 PM EDT [facility] Blood Venous blood specimen / Unknown Venipuncture / Unknown 03/19/2025 5:36 PM EDT 03/19/2025 6:41 PM EDT Tello Mercedes MD LAB BLOOD ORDERABLES Final Result [facility] [address] [place] [address], [place] [phone] * (ABNORMAL) Comprehensive metabolic panel (03/19/2025 5:36 PM EDT) [facility] Sodium 138 133 - 145 mmol/L LAB CHEMISTRY METHOD 03/19/2025 7:18 PM EDT [facility] Potassium 4.0 3.5 - 5.5 mmol/L LAB CHEMISTRY METHOD 03/19/2025 7:18 PM EDT [facility] Chloride 103 96 - 110 mmol/L LAB CHEMISTRY METHOD 03/19/2025 7:18 PM [facility] CO2 31 21 - 32 mmol/L LAB CHEMISTRY METHOD 03/19/2025 7:18 PM [facility] Anion Gap 4 3 - 11 LAB CHEMISTRY METHOD 03/19/2025 7:18 PM [facility] Glucose 110(H) 70 - 100 mg/dL LAB CHEMISTRY METHOD 03/19/2025 7:18 PM [facility] BUN 11 5 - 25 mg/dL LAB CHEMISTRY METHOD 03/19/2025 7:18 PM [facility] Creatinine 0.67 0.50 - 1.10 mg/dL LAB CHEMISTRY METHOD 03/19/2025 7:18 PM [facility] eGFR 100 >=60 mL/min/1. 73m2 LAB CHEMISTRY METHOD 03/19/2025 7:18 PM [facility] Comment:Calculation based on the Chronic Kidney Disease Epidemiology Collaboration (CKD-EPI) equation refit without adjustment for race. BUN/Creatinine Ratio 16.4 LAB CHEMISTRY METHOD 03/19/2025 7:18 PM [facility] Calcium 9.7 8.5 - 10.5 mg/dL LAB CHEMISTRY METHOD 03/19/2025 7:18 PM [facility] AST (SGOT) 94(H) 10 - 42 unit/L LAB CHEMISTRY METHOD 03/19/2025 7:18 PM [facility] ALT (SGPT) 75(H) 10 - 60 unit/L LAB CHEMISTRY METHOD 03/19/2025 7:18 PM [facility] Alkaline Phosphatase 104 42 - 121 unit/L LAB CHEMISTRY METHOD 03/19/2025 7:18 PM [facility] Total Protein 7.0 6.0 - 8.0 g/dL LAB CHEMISTRY METHOD 03/19/2025 7:18 PM [facility] Albumin 3.5 3.2 - 5.0 g/dL LAB CHEMISTRY METHOD 03/19/2025 7:18 PM EDT [facility] Total Bilirubin 0.3 0.0 - 1.4 mg/dL LAB CHEMISTRY METHOD 03/19/2025 7:18 PM EDT [facility] Blood Venous blood specimen / Unknown Venipuncture / Unknown 03/19/2025 5:36 PM EDT 03/19/2025 6:41 PM EDT Tello Mercedes MD LAB BLOOD ORDERABLES Final Result Performing Organization Address [facility]/ZIP Co de Phone Number [facility] [address] [place] [address], [place] [phone] * Troponin I high sensitivity (03/19/2025 5:36 PM EDT) [facility] High Sensitivity Troponin I 3 <=54 ng/L LAB CHEMISTRY METHOD 03/19/2025 7:14 PM EDT [facility] Blood Venous blood specimen / Unknown Venipuncture / Unknown 03/19/2025 5:36 PM EDT 03/19/2025 6:41 PM EDT Narrative [facility] - 03/19/2025 7:14 PM EDT High levels of biotin in samples may falsely decrease hsTroponin values. Use caution when interpreting hsTroponin results in patients taking biotin who exhibit renal impairment (eGFR <60) or in patients taking more than 20 mg/day of biotin. Tello Mercedes MD LAB BLOOD ORDERABLES Final Result Performing Organization Address City/[facility]/ZIP Co de Phone Number [facility] [address] [place] [address], [place] [phone] * ECG 12 lead (03/19/2025 5:25 PM EDT) Ventricular Rate ECG 90 BPM GEMUSE Atrial Rate 90 BPM GEMUSE P-R Interval 150 ms GEMUSE QRS Duration 78 ms GEMUSE Q-T Interval 366 ms GEMUSE QTc 447 ms GEMUSE P Wave [place] 71 degrees GEMUSE R [place] -35 degrees GEMUSE T [place] 49 degrees GEMUSE ECG Interpretation Normal sinus rhythm Left axis deviation Low voltage QRS Inferior infarct , age undetermined Cannot rule out Anterior infarct , age undetermined No previous ECGs available Confirmed by JAQUELINE LYONS ([id number]) on 03/20/2025 7:16:13 AM GEMUSE 03/19/2025 5:25 PM EDT 03/20/2025 7:16 AM EDT us Tello Mercedes MD ECG ORDERABLES Final Resul t GEMUSE documented in this encounter Visit Diagnoses Not on filedocumented in this encounter Care Teams Rubber Stamp Dies Inspector Relationship Specialty Start Date End Date Physician, Pcp Unknown PCP - General 03/19/25 documented as of this encounter
[2025-03-21 15:15] VITALS: BP 133/67; PULSE 90; RESP 16; TEMP 36.3; O2SAT 95; BMI 29.0
--- OUTSIDE RECORDS SUMMARY | 2025-03-21 21:29 | XMS_ITS ---
Author Organization [employer] Address [address] [place] [address] Care Team Providers Care Ammonia Box Operator Name Role Phone Mauri Singh MD Primary Care Provider [phone] Active Problems Problem Noted Date Diagnosed Date [...]
--- OUTSIDE RECORDS SUMMARY | 2025-03-21 21:29 | XMS_ITS | Clinical Summary ---
Author Organization [employer] Address [address] [facility] [address] [place] [address] Care Team Providers Care Investigation Clerk Name Role Phone Unavailable Primary Care Provider Unavailabl e Encounters Date Type Department Care Team Description 03/02/2025 Telephone [facility] MEDICINE [address] [place] [address] Elmo Frank MD New Patient Request from [...] Description 04/26/2025 10:45 AM EDT Office Visit [facility] & PEDS [address] [place] [address] Yolanda Ojeda MD [address] [place] [address] Health Maintenance Due Date Last Done Comments [...] patient's age to complete this topic Insurance [facility] STANDARD
== END 2025-03-21 21:32 | disposition left against medical advice (07) ==
PROVIDERS: Emergency Provider Emergency Medicine; PCP Family Medicine
DX: M25.562 Pain in left knee (principal)
CPT/HCPCS: 99281

== ENCOUNTER 2025-07-13 12:51 | Outpatient (REF) | payer MEDICAID, SELFPAY ==
--- OUTSIDE RECORDS SUMMARY | 2025-07-13 11:15 | XMS_ITS | Encounter Summary ---
Author Organization [employer] [facility] Address [address] [place] [address] [address] [place] [address] Care Team Providers Care Air Traffic Control Manager Name Role Phone Yolanda Ojeda MD Primary Care Provider [phone] Reason for Referral * Imaging (Routine) - Pending Review Specialty Diagnoses / Procedures Referred By Britt santos Referred To Contact Radiology Diagnoses Dysphagia, unspecified type Procedures FL Esophagus Barium Swallow Yolanda Ojeda MD [address] [place] [address] Phone: tel: fax: [address] Phone: tel: fax: Referral ID Status Reason Start Date Expiration Date Visits Requested Visits Authorized [id number] Pending Review Perform Procedure 07/13/2025 07/13/2026 1 1 * Consultation (Routine) - Pending Review Specialty Diagnoses / Procedures Referred By Britt santos Referred To Contact Ophthalmology Diagnoses Cataract of both eyes, unspecified cataract type Yolanda Ojeda MD [address] [place] [address] Phone: tel: fax: Referral ID Status Reason Start Date Expiration Date Visits Requested Visits Authorized [id number] Pending Review Specialty Services Required 07/13/2025 07/13/2026 1 1 * Consultation (Routine) - Pending Review Specialty Diagnoses / Procedures Referred By Britt santos Referred To Contact Pulmonary Disease Diagnoses Pulmonary nodules Yolanda Ojeda MD [address] [place] [address] Phone: tel: fax: Referral ID Status Reason Start Date Expiration Date Visits Requested Visits Authorized [id number] Pending Review Specialty Services Required 07/13/2025 07/13/2026 1 1 * Consultation (Routine) - Pending Review Specialty Diagnoses / Procedures Referred By Contac t Referred To Contact Endocrinology Diagnoses Hypothyroidism, unspecified type Yolanda Ojeda MD [address] [place] [address] Phone: tel: fax: Referral ID Status Reason Start Date Expiration Date Visits Requested Visits Authorized [id number] Pending Review Specialty Services Required 07/13/2025 07/13/2026 1 1 * Imaging (Routine) - Closed Specialty Diagnoses / Procedures Referred By Conttory t Referred To Contact Radiology Diagnoses Breast cancer screening by mammogram Procedures BI Mammogram Screening Tomosynthesis Bilateral Yolanda Ojeda MD [address] [place] [address] Phone: tel: fax: [address] Phone: tel: fax: Referral ID Status Reason Start Date Expiration Date Visits Re quested Visits Authorized [id number] Closed 07/13/2025 07/13/2026 1 1 * Imaging (Routine) - Pending Review Specialty Diagnoses / Procedures Referred By Conttory t Referred To Contact Radiology Diagnoses Brain aneurysm Procedures MRA Head w/o Contrast Yolanda Ojeda MD [address] [place] [address] Phone: tel: fax: [address] Phone: tel: fax: Referral ID Status Reason Start Date Expiration Date V isits Requested Visits Authorized [id number] Pending Review 07/13/2025 07/13/2026 1 1 Reason for Visit * Reason Comments Follow-up Encounter Details Date Type Department Care Team ([facility] Contact Info) Description 07/13/2025 11:15 AM EST Office Visit [facility] [address] [place] [address] Yolanda Ojeda MD [address] [place] [address] Brain aneurysm (Primary Dx); Hypothyroidism, unspecified type; [...] with others, in a hotel, in a long-term, living outside on the street, on a [...] can proceed. Plan: - Order MRA (code 32380) for aneurysm evaluation - Send to [facility] [place] for aneurysm management - [...] for respiratory depression. Plan: - Refer to [facility] for psychiatry establishment at [address] in [place] - Patient needs both therapy and psychiatry [...] Description 07/19/2025 2:30 PM EST Clinical Support [facility] [address] [place] [address] Crystal Taylor, COLT [address] [place] [address] 07/31/2025 10:15 AM EST Office Visit [facility] [address] [place] [address] Name, MD Wesley [address] [place] [address] Pending Results Name Type Priority Associated Diagnoses Date /Time Urinalysis, Complete, with Reflex to Culture Lab Routine Dysuria 07/13/2025 12:00 AM EST Scheduled Orders Name Type Priority Associated Diagnoses [...] screening by mammogram Expected: 07/13/2025, Expires: 09/12/2026 Culture, Urine, Routine Microbiology Routine Dysuria Expected: 07/13/2025 (Approximate), Expires: 07/13/2026 FL Esophagus Barium Swallow Imaging Routine Dysphagia, [...] CULTURE Routine 07/13/2025 12:00 AM EST Dysuria documented [...] Media Lot # [id number] Lot# Expiration Date [id number] Urine (Urine, Random) 07/13/2025 12:03 PM EST Yolanda Ojeda MD POINT OF CARE TEST ENTER/EDIT ORDERABLES Final Result documented in this encounter [...] documented as of this encounter Care Teams Air Traffic Control Manager Relationship Specialty Start Date End Date Yolanda Ojeda MD [address] [place] [phone] PCP - General Family Medicine 04/26/25 documented as of this encounter
--- OUTSIDE RECORDS SUMMARY | 2025-07-13 13:40 | XMS_ITS | Encounter Summary ---
Author Organization [employer] Address 75 [facility] 7t [place] [address] Care Team Providers Care Autism Teacher Name Role Phone Yolanda Ojeda MD Primary Care Provider [phone] Reason for Referral * Consultation (Urgent) - Pending Review Specialty Diagnoses / Procedures Referred By Britt santos Referred To Contact Neurology Diagnoses Intractable chronic migraine with aura with status migrainosus Ilsa Rosales NP [address] [place] [address] Phone: tel: fax: Referral ID Status Reason Start Date Expiration Date Visits Requested Visits Authorized [id number] Pending Review Specialty Services Required 07/13/2025 07/13/2026 1 1 Reason for Visit * Reason Comments Headache Encounter Details Date Type Department Care Team ([facility] st Contact Info) Description 07/13/2025 1:40 PM EST Office Visit [facility] [address] [place], [place] [phone] Viral upper respiratory tract infection (Primary Dx); Intractable chronic migraine with aura with status migrainosus Social History Tobacco Use Types Packs/Day Years Used Date Smoking Tobacco: Unknown Tobacco Cessation:Counseling Given: Not Answered Depression Answer Date Recorded Patient Health Questionnaire-9 Score 04/26/2025 Patient Health Questionnaire-9 Score 04/26/2025 Last PHQ-9: Questionnaire Data Not on file 0 04/26/2025 Housing Stability Answer Date Recorded What is your housing situation today? I do not have housing (Staying with others, in a hotel, in a half-way, living outside on the street, on a [...] 11:11 AM EST documented in this encounter Plan of Treatment Upcoming Encounters Date Type Department Care Team (Late st Contact Info) Description 07/19/2025 2:30 PM EST Clinical Support [facility] 505 [place] [address] Crystal Taylor, COLT 505 [place] [address] 07/31/2025 10:15 AM EST Office Visit [facility] 230 [place] [address] Name, MD Wesley 230 [place] [address] Scheduled Referrals Name Type Priority Associated Diagnoses [...] NOW Rapid Molecular) (07/13/2025 2:47 PM EST) [facility] Influenza B Negative Negative, Indeterminate [facility] Swab 07/13/2025 2:47 PM EST Ilsa Rosales NP POINT OF CARE TEST ENTER/EDIT OR DERABLES Final Result [facility] [address] [place] [address] [phone] * Influenza A (ID NOW Rapid Molecular) (07/13/2025 2:47 PM EST) [facility] Influenza A Negative Negative, Indeterminate [facility] Swab 07/13/2025 2:47 PM EST Ilsa Rosales STABILIZER OPERATOR POINT OF CARE TEST ENTER/EDIT OR DERABLES Final Result [facility] [address] [place] [address] [phone] * POCT Rapid COVID Ag (07/13/2025 2:21 PM EST) Rapid COVID Ag Negative Swab 07/13/2025 2:21 PM EST us Ilsa Rosales STABILIZER OPERATOR POINT OF CARE TEST ENTER/EDIT OR DERABLES [...] documented as of this encounter Care Teams Autism Teacher Relationship Specialty Start Date End Date Yolanda Ojeda MD 505 [place] [address] PCP - General Family Medicine 04/26/25 documented as of this encounter
[2025-07-13 14:43] LABS: Appearance Urine Clear; Glucose Urine UA Negative (Negative); PH 6.0 (5.0-9.0); Specific Gravity - Urine 1.020 (1.005-1.025); UMIC TRIGGER UACC YES
--- OUTSIDE RECORDS SUMMARY | 2025-07-13 14:59 | XMS_ITS | Encounter Summary ---
Author Organization [employer] Address 75 [facility] 7t [place] [address] Care Team Providers Care Bursar Name Role Phone Yolanda Ojeda MD Primary Care Provider [phone] Reason for Visit * Reason Comments Med Change Request Encounter Details Date Type Department Care Team ([facility] Contact Info) Description 04/30/2025 Refill [facility] 505 [place], [place] [phone] Yolanda Ojeda MD 505 [place] [address] Intractable chronic migraine with aura with status [...] with others, in a hotel, in a senior care, living outside on the street, on a [...] AM EDT documented as of this encounter Plan of Treatment Upcoming Encounters Date Type Department Care Team (Late st Contact Info) Description 07/19/2025 2:30 PM EST Clinical Support [facility] [address] [place] [address] Crystal Taylor, COLT 505 [place] [address] 07/31/2025 10:15 AM EST Office Visit [facility] 230 [place] [address] Name, MD Wesley 230 [place] [address] documented as of this encounter Visit Diagnoses Diagnosis Intractable chronic migraine with aura with status migrainosus documented in this encounter Additional Health Concerns Assessment Noted Time PHQ-9 Depression Total Score: 21 025 10:36 AM EDT documented as of this encounter Care Teams Bursar Relationship Specialty Start Date End Date Yolanda Ojeda MD 505 [place] [address] PCP - General Family Medicine 04/26/25 documented as of this encounter
--- OUTSIDE RECORDS SUMMARY | 2025-07-13 14:59 | XMS_ITS | Encounter Summary ---
Author Organization [employer] Address 75 [facility] 7t [place] [address] Care Team Providers Care Bridge Painter Name Role Phone Yolanda Ojeda MD Primary Care Provider [phone] Reason for Visit * Reason Onset Date Comments Call Back Request 06/11/2025 Encounter Details Date Type Department Care Team ([facility] st Contact Info) Description 06/11/2025 Telephone [facility] 230 [place] [address] Yolanda Ojeda MD 505 [place], [place] [phone] Call Back Request Social History Tobacco Use Types Packs/Day Years Used Date Smoking Tobacco: Unknown Depression Answer Date Recorded Patient Health Questionnaire-9 Score 21 04/26/2025 Patient Health Questionnaire-9 Score 21 04/26/2025 Last PHQ-9: Questionnaire Data Not on file 0 04/26/2025 Housing Stability Answer Date Recorded What is your housing situation today? I do not have housing (Staying with others, in a hotel, in a chcf, living outside on the street, on a [...] AM EDT documented as of this encounter Miscellaneous Notes * Telephone Encounter - Valdemarmercedes Hernandez - 06/11/2025 11:37 AM EDT Tc from pt requesting a call back to discuss home nursing services that were recommended to her. Ptstates at the time she was not in a stable home but now that she is she would like to discuss. Please contact pt at [phone]. (Turkish Speaker) documented in this encounter Plan of Treatment Upcoming Encounters Date Type Department Care Team ([facility] st Contact Info) Description 07/19/2025 2:30 PM EST Clinical Support [facility] 505 [place] [address] Crystal Taylor, COLT 505 [place] [address] 07/31/2025 10:15 AM EST Office Visit [facility] MED[facility] [address] [place] [address] Name, MD Wesley 230 [place] [address] documented as of this encounter Visit Diagnoses Not on filedocumented in this encounter Additional Health Concerns Assessment Noted Time PHQ-9 Depression Total Score: 21 025 10:36 AM EDT documented as of this encounter Care Teams Bridge Painter Relationship Specialty Start Date End Date Yolanda Ojeda MD [address] [place] [address] PCP - General Family Medicine 04/26/25 documented as of this encounter
--- OUTSIDE RECORDS SUMMARY | 2025-07-13 14:59 | XMS_ITS | Encounter Summary ---
Author Organization [employer] Address 75 [facility] 7t [place] [address] Care Team Providers Care Cellophane Casting Machine Repairer Name Role Phone Yolanda Ojeda MD Primary Care Provider [phone] Reason for Visit * Reason Onset Date Comments Med Refill 06/08/2025 Encounter Details Date Type Department Care Team ([facility] st Contact Info) Description 06/08/2025 Telephone [facility] 230 [place] [address] Yolanda Ojeda MD 505 [place], [place] [phone] Med Refill Social History Tobacco Use Types Packs/Day Years [...] encounter Miscellaneous Notes * Telephone Encounter - Giovanna Isabel - 06/08/2025 12:56 PM EDT TC from pt requesting medication refill. Medications needing refill : oxyCODONE (Roxicodone) 10 MG immediate release tablet To be sent to: [facility]/pharmacy #[address] [place] [address] documented in this encounter Plan of Treatment Upcoming Encounters Date Type Department Care Team ([facility] st Contact Info) Description 07/19/2025 2:30 PM EST Clinical Support [facility] 505 [place] [address] Crystal Taylor, COLT 505 [place] [address] 07/31/2025 10:15 AM EST Office Visit [facility] 230 [place] [address] Name, MD Wesley [address] [place] [address] documented as of this encounter Visit Diagnoses Not on filedocumented in this encounter Additional Health Concerns Assessment Noted Time PHQ-9 Depression Total Score: 21 025 10:36 AM EDT documented as of this encounter Care Teams Cellophane Casting Machine Repairer Relationship Specialty Start Date End Date Yolanda Ojeda MD [address] [place] [address] PCP - General Family Medicine 04/26/25 documented as of this encounter
--- OUTSIDE RECORDS SUMMARY | 2025-07-13 14:59 | XMS_ITS | Encounter Summary ---
Author Organization [employer] Address 75 [facility] 7t [place] [address] Care Team Providers Care Plastic Molder Name Role Phone Yolanda Ojeda MD Primary Care Provider [phone] Encounter Details Date Type Department Care Team (Late st Contact Info) Description 05/11/2025 Orders Only [facility] 230 [place] [address] Provider, MD Olive Social History Tobacco Use Types Packs/Day Years [...] the past 12 months, has t he [employer] or [employer] threatened to shut off services in your [...] Description 07/19/2025 2:30 PM EST Clinical Support [facility] & [facility]S 505 [place] [address] Crystal Taylor, COLT 505 [place] [address] 07/31/2025 10:15 AM EST Office Visit [facility] 230 [place] [address] Name, MD Welsey 230 [place] [address] documented as of this encounter Procedures Procedure Name Priority Date/Time Associated Diagnosis Comments XR KNEE 1-2 VIEWS LEFT Routine 05/10/2025 11:42 AM EDT documented in this encounter Results * XR Knee 1-2 Views Left (05/10/2025 11:42 AM EDT) Anatomical Region Laterality Modality Lower Extremities, Knee Left Radiogra phic Imaging us Historical Provider MD MACK XR PROCEDURES Final R esult documented in this encounter Visit Diagnoses Not on filedocumented in this encounter Additional Health Concerns Assessment Noted Time PHQ-9 Depression Total Score: 21 025 10:36 AM EDT documented as of this encounter Care Teams Plastic Molder Relationship Specialty Start Date End Date Yolanda Ojeda MD 505 [place] [address] PCP - General Family Medicine 04/26/25 documented as of this encounter
--- OUTSIDE RECORDS SUMMARY | 2025-07-13 14:59 | XMS_ITS | Encounter Summary ---
Author Organization [employer] Address 75 [facility] 7t [place] [address] Care Team Providers Care Sports Nutritionist Name Role Phone Yolanda Ojeda MD Primary Care Provider Reason for Visit * Reason Comments Med Refill Encounter Details Date Type Department Care Team ([facility] st Contact Info) Description 05/15/2025 Refill [facility] 505 [place], [place] [phone] Yolanda Ojeda MD 505 [place] [address] Generalized anxiety disorder Social History Tobacco Use Types Packs/Day Years Used Date Smoking Tobacco: Unknown Depression Answer Date Recorded Patient Health Questionnaire-9 Score 21 04/26/2025 Patient Health Questionnaire-9 Score 21 04/26/2025 Last PHQ-9: Questionnaire Data Not on file 0 04/26/2025 Housing Stability Answer Date Recorded What is your housing situation today? I do not have housing (Staying with others, in a hotel, in a residential, living outside on the street, on a [...] encounter Miscellaneous Notes * Telephone Encounter - Crystal Taylor RN - 05/24/2025 11:34 AM EDT Tasha. TC to pt via S ID# [id number]. Initial STATISTICIAN APPLIED appt scheduled for 06/07/25 @ 1:30pm. documented in this encounter Plan of Treatment Upcoming Encounters Date Type Department Care Team (Late st Contact Info) Description 07/19/2025 2:30 PM EST Clinical Support [facility] 505 [place] [address] Crystal Taylor, COLT 505 [place] [address] 07/31/2025 10:15 AM EST Office Visit [facility] 230 [place] [address] Name, MD Wesley 230 [place] [address] documented as of this encounter Visit Diagnoses Diagnosis Generalized anxiety disorder documented in this encounter Additional Health Concerns Assessment Noted Time PHQ-9 Depression Total Score: 21 025 10:36 AM EDT documented as of this encounter Care Teams Sports Nutritionist Relationship Specialty Start Date End Date Yolanda Ojeda MD [address] [place] [address] PCP - General Family Medicine 04/26/25 documented as of this encounter
--- OUTSIDE RECORDS SUMMARY | 2025-07-13 14:59 | XMS_ITS | Encounter Summary ---
Author Organization [employer] Address 75 [facility] 7t [place] [address] Care Team Providers Care Information Receptionist Name Role Phone Yolanda Ojeda MD Primary Care Provider [phone] Reason for Visit * Reason Onset Date Comments Appointment Request 04/30/2025 Encounter Details Date Type Department Care Team ([facility] st Contact Info) Description 04/30/2025 Telephone [facility] MEDICINE 230 [place] [address] Yolanda Ojeda MD 505 [place], [place] [phone] Appointment Request Social History Tobacco Use Types Packs/Day [...] encounter Miscellaneous Notes * Telephone Encounter - Valdemar Hernandez - 04/30/2025 11:49 AM EDT Tc from Spouse (On HIPAA) requesting a call back to reschedule OV ext. Assistant Analyst is unable to scheduledue to limited availability. Please contact spouse at [phone]. (Uzbek Speaker) documented in this encounter Plan of Treatment Upcoming Encounters Date Type Department Care Team (Late st Contact Info) Description 07/19/2025 2:30 PM EST Clinical Support [facility] & PEDS 505 [place] [address] Crystal Taylor, RN 505 [place] [address] 07/31/2025 10:15 AM EST Office Visit [facility] 230 [place] [address] Name, MD Wesley 230 [place] [address] documented as of this encounter Visit Diagnoses Not on filedocumented in this encounter Additional Health Concerns Assessment Noted Time PHQ-9 Depression Total Score: 21 025 10:36 AM EDT documented as of this encounter Care Teams Information Receptionist Relationship Specialty Start Date End Date Yolanda Ojeda MD [address] [place] [address] PCP - General Family Medicine 04/26/25 documented as of this encounter
--- OUTSIDE RECORDS SUMMARY | 2025-07-13 15:00 | XMS_ITS | Encounter Summary ---
Author Organization [employer] Address 75 [facility] 7t [place] [address] Care Team Providers Care Printing Roller Handler Name Role Phone Yolanda Ojeda MD Primary Care Provider [phone] Reason for Visit * Reason Onset Date Comments Med Refill 07/04/2025 Encounter Details Date Type Department Care Team ([facility] st Contact Info) Description 07/04/2025 Telephone [facility] MED[facility] 230 [place] [address] Yolanda Ojeda MD 505 [place], [place] [phone] Med Refill Social History Tobacco Use Types Packs/Day Years Used Date Smoking Tobacco: Unknown Depression Answer Date Recorded Patient Health Questionnaire-9 Score 21 04/26/2025 Patient Health Questionnaire-9 Score 21 04/26/2025 Last PHQ-9: Questionnaire Data Not on file 0 04/26/2025 Housing Stability Answer Date Recorded What is your housing situation today? I do not have housing (Staying with others, in a hotel, in a fpc, living outside on the street, on a [...] encounter Miscellaneous Notes * Telephone Encounter - Huber Rey - 07/04/2025 4:33 PM EDT TC from pt requesting medication refill. Medications needing refill : oxyCODONE (Roxicodone) 10 MG immediate release tablet To be sent to: [facility]/pharmacy #[id number] documented in this encounter Plan of Treatment Upcoming Encounters Date Type Department Care Team (Late st Contact Info) Description 07/19/2025 2:30 PM EST Clinical Support [facility] 505 [place] [address] Crystal Taylor, COLT 505 [place] [address] 07/31/2025 10:15 AM EST Office Visit [facility] [address] [place] [address] Name, MD Wesley [address] [place] [address] documented as of this encounter Visit Diagnoses Not on filedocumented in this encounter Additional Health Concerns Assessment Noted Time PHQ-9 Depression Total Score: 21 025 10:36 AM EDT documented as of this encounter Care Teams Printing Roller Handler Relationship Specialty Start Date End Date Yolanda Ojeda MD [address] [place] [address] PCP - General Family Medicine 04/26/25 documented as of this encounter
--- OUTSIDE RECORDS SUMMARY | 2025-07-13 15:00 | XMS_ITS | Encounter Summary ---
Author Organization [email or web address] Address 75 [facility] 7t [place] [address] Care Team Providers Care Assistant Professor Sculpture Name Role Phone Yolanda Ojeda MD Primary Care Provider [phone] Encounter Details Date Type Department Care Team (Late st Contact Info) Description 07/04/2025 Telephone [facility] MEDICINE 230 [place] [address] Yolanda Ojeda MD [address] [place], [place] [phone] Social History Tobacco Use Types Packs/Day Years Used Date Smoking Tobacco: Unknown Depression Answer Date Recorded Patient Health Questionnaire-9 Score 21 04/26/2025 Patient Health Questionnaire-9 Score 21 04/26/2025 Last PHQ-9: Questionnaire Data Not on file 0 04/26/2025 Housing Stability Answer Date Recorded What is your housing situation today? I do not have housing (Staying with others, in a hotel, in a fdc, living outside on the street, on a [...] Upcoming Encounters Date Type Department Care Team ([facility] st Contact Info) Description 07/19/2025 2:30 PM EST Clinical Support [facility] MED & PEDS 505 [place] [address] Crystal Taylor RN 505 [place] [address] 07/31/2025 10:15 AM EST Office Visit [facility] MEDIC[facility] 230 [place] [address] Name, MD Wesley 230 [place] [address] documented as of this encounter Visit Diagnoses Not on filedocumented in this encounter Additional Health Concerns Assessment Noted Time PHQ-9 Depression Total Score: 21 025 10:36 AM EDT documented as of this encounter Care Teams Assistant Professor Sculpture Relationship Specialty Start Date End Date Yolanda Ojeda MD 505 [place] [address] PCP - General Family Medicine 04/26/25 documented as of this encounter
--- OUTSIDE RECORDS SUMMARY | 2025-07-13 15:00 | XMS_ITS | Encounter Summary ---
Author Organization [employer] Address 75 [facility] 7t [place] [address] Care Team Providers Care Motor Vehicles Supervisor Name Role Phone Yolanda Ojeda MD Primary Care Provider Encounter Details Date Type Department Care Team (Latest Contact Info) Description 07/13/2025 Travel Social History Tobacco Use Types Packs/Day Years [...] Description 07/19/2025 2:30 PM EST Clinical Support [facility] MED & PEDS 505 [place] [address] Crystal Taylor, COLT 505 [place] [address] 07/31/2025 10:15 AM EST Office Visit [facility] MEDICINE 230 [place] [address] Name, MD Wesley 230 [place] [address] documented as of this encounter Visit Diagnoses Not on filedocumented in this encounter Additional Health Concerns Assessment Noted Time PHQ-9 Depression Total Score: 21 025 10:36 AM EDT documented as of this encounter Care Teams Motor Vehicles Supervisor Relationship Specialty Start Date End Date Yolanda Ojeda MD 505 [place] [address] PCP - General Family Medicine 04/26/25 documented as of this encounter
--- OUTSIDE RECORDS SUMMARY | 2025-07-13 15:00 | XMS_ITS | Encounter Summary ---
Author Organization [employer] Address 75 [facility] 7t [place] [address] Care Team Providers Care Immunopathologist Name Role Phone Yolanda Ojeda MD Primary Care Provider [phone] Reason for Visit * Reason Onset Date Comments Med Refill 07/09/2025 Encounter Details Date Type Department Care Team ([facility] st Contact Info) Description 07/09/2025 Telephone [facility] MEDICINE 230 [place] [address] Yolanda Ojeda MD 505 [place], [place] [phone] Med Refill Social History Tobacco Use Types [...] others, in a hotel, in a senior living, living outside on the street, on a [...] * Telephone Encounter - Huber Rey - 07/09/2025 11:26 AM EST TC from pt requesting medication refill. Medications needing refill : ALPRAZolam (Xanax) 1 MG tablet oxyCODONE (Roxicodone) 10 MG immediate release tablet To be sent to: [facility]/pharmacy #[id number] documented in this encounter Plan of Treatment Upcoming Encounters Date Type Department Care Team ([facility] st Contact Info) Description 07/19/2025 2:30 PM EST Clinical Support [facility] MED [facility] PEDS 505 [place] [address] Crystal Taylor, COLT 505 [place] [address] 07/31/2025 10:15 AM EST Office Visit [facility] MEDICINE [address] [place] [address] Name, MD Wesley [address] [place] [address] documented as of this encounter Visit Diagnoses Not on filedocumented in this encounter Additional Health Concerns Assessment Noted Time PHQ-9 Depression Total Score: 21 025 10:36 AM EDT documented as of this encounter Care Teams Immunopathologist Relationship Specialty Start Date End Date Yolanda Ojeda MD [address] [place] [address] PCP - General Family Medicine 04/26/25 documented as of this encounter
--- OUTSIDE RECORDS SUMMARY | 2025-07-13 15:00 | XMS_ITS | Encounter Summary ---
Author Organization [employer] Address 75 [facility] 7t [place] [address] Care Team Providers Care Reel Hooker Name Role Phone Yolanda Ojeda MD Primary Care Provider [phone] Reason for Visit * Reason Comments Med Refill Encounter Details Date Type Department Care Team ([facility] st Contact Info) Description 06/11/2025 Refill C [facility] 505 [place], [place] [phone] Yolanda Ojeda MD 505 [place] [address] Generalized anxiety disorder Social History Tobacco Use [...] with others, in a hotel, in a skilled nursing, living outside on the street, on a [...] Upcoming Encounters Date Type Department Care Team ([facility] st Contact Info) Description 07/19/2025 2:30 PM EST Clinical Support [facility] CHC MED & PEDS 505 [place] [address] Crystal Taylor, COLT 505 [place] [address] 07/31/2025 10:15 AM EST Office Visit [facility] MEDICINE [address] [place] [address] Name, MD Wesley 230 [place] [address] documented as of this encounter Visit Diagnoses Diagnosis Generalized anxiety disorder documented in this encounter Additional Health Concerns Assessment Noted Time PHQ-9 Depression Total Score: 21 025 10:36 AM EDT documented as of this encounter Care Teams Reel Hooker Relationship Specialty Start Date End Date Yolanda Ojeda MD 505 [place] [address] PCP - General Family Medicine 04/26/25 documented as of this encounter
--- OUTSIDE RECORDS SUMMARY | 2025-07-13 15:00 | XMS_ITS ---
Author Organization [employer] Address [address] [place] [address] Care Team Providers Care Project Planner Name Role Phone Mauri Singh MD Primary [...]
--- OUTSIDE RECORDS SUMMARY | 2025-07-13 15:00 | XMS_ITS | Encounter Summary ---
Author Organization [facility] Address [address] [place] [address] Care Team Providers Care Fern Cutter Name Role Phone Mauri Singh MD Primary Care Provider [phone] Encounter Details Date Type Department Care Team (Late st Contact Info) Description 02/25/2021 Orders Only [facility] Perioporative Services [address] [place], [place] [phone] Rich Crane MD [address] [place] [address] [phone] GERD (gastroesophageal reflux disease) (Primary Dx) Social [...] as of this encounter Functional Status * Question Answer Date of Assessment Author Status Temp 98 02/27/2021 12:09 PM EDT Eligio Garrison LPN Active * Communicable Disease Screening Question Answer Date of Assessment Author Status Do you have any of the following symptoms? None of these 02/27/2021 11:52 AM EDT Shaye Rey ve * Social Gathering History Question Answer Date of Assessment Author Status Have you attended a social gathering with people outside your immediate household in the last 14 days where people were not wearing masks? No 02/27/2021 11:52 AM EDT Shaye Rey Activ e * Travel History Question Answer Date of Assessment Author Status Have you or anyone you're in contact with traveled out of state or out of the country in the last 14 days No 02/27/2021 11:52 AM EDT Shaye Rey Active * Is the person deaf or does he/she have serious difficulty hearing? Answer Date of Assessment Author Status No 04/10/2016 3:22 PM EDT Shira Andre RN Active * Is this person blind or does he/she have serious difficulty seeing even when wearing glasses? Answer Date of Assessment Author Status No 04/10/2016 3:22 PM SPENCERT Shira Andre RN Active * Does this person have serious difficulty walking or climbing stairs? Answer Date of Assessment Author Status No 04/10/2016 3:22 PM SPENCERT Shira Andre RN Active * Does this person have difficulty dressing or bathing? Answer Date of Assessment Author Status No 04/10/2016 3:22 PM EDT Shira Andre RN Active * Because of a physical, mental, or emotional condition, does this person have difficulty doing errands alone such as visiting a doctor's office or shopping? Answer Date of Assessment Author Status No 04/10/2016 3:22 PM SPENCERT Shira Adnre RN Active documented as of this encounter Mental Status * Question Answer Entry Date Author Status Temp 98 02/27/2021 12:09 PM EDT Eligio Garrison LPN Active * Because of a physical, mental, or emotional condition, does this person have serious difficulty concentrating, remembering, or making decisions? Answer Entry Date Author Status No 04/10/2016 3:22 PM EDT Shira Andre RN Active documented in this encounter Plan of Treatment Not on file documented as of this encounter Results * Esophageal Manometry with Impedance (03/04/2021 8:00 AM EDT) Narrative Swati Romero RN - 03/04/2021 8:00 AM EDT Swati Romero RN 03/04/2021 8:37 AM [facility] High Resolution Esophageal Manometry Procedure Note 03/04/2021 Genny Matamoros 1965 NPO after midnight: yes MD referral: Rich Crane MD H & P available: yes Allergies: Allergies Allergen Reactions Nortriptyline Rash Allergic to Xylocaine: no Vitals: Wt Readings from Last 1 Encounters: 02/20/21 196 lb (88.9 kg) BP Readings from Last 1 Encounters: 03/30/19 126/69 Temp Readings from Last 1 Encounters: 02/27/21 98 F (36.7 C) Pulse Readings from Last 1 Encounters: 03/30/19 64 Resp Readings from Last 1 Encounters: 03/30/19 14 Time in room: 0757 Time procedure began: 811 Nare catheter was placed: left Time procedure completed: 832 Staff in room: Swati Romero Any complications: none Patient tolerance: well Discharge time: 0837 Via ambulatory Discharge instructions received: yes Electronically signed Swati Romero Rich Crane MD GI PROCEDURE ORDERABLES Final Result documented in this encounter Visit Diagnoses Diagnosis GERD (gastroesophageal reflux disease)- Primary Esophageal reflux documented in this encounter Care Teams Fern Cutter Relationship Specialty Start Date End Date Mauri Singh MD [facility] [place] [address] [place] [address] PCP - General 11/23/12 documented as of this encounter
--- OUTSIDE RECORDS SUMMARY | 2025-07-13 15:00 | XMS_ITS | Encounter Summary ---
Author Organization [employer] Address [address] [facility] [address] [place] [address] Care Team Providers Care Cash Shortage Investigator Name Role Phone Yolanda Ojeda MD Primary Care Provider [phone] Reason for Visit * Reason Onset Date Comments Med Refill 06/13/2025 Encounter Details Date Type Department Care Team ([facility] st Contact Info) Description 06/13/2025 Telephone C [facility] [address], [place] [phone] Yolanda Ojeda MD [address] [place] [address] Med Refill Social History Tobacco Use Types Packs/Day Years Used Date Smoking Tobacco: Unknown Depression Answer Date Recorded Patient Health Questionnaire-9 Score 21 04/26/2025 Patient Health Questionnaire-9 Score 21 04/26/2025 Last PHQ-9: Questionnaire Data Not on file 0 04/26/2025 Housing Stability Answer Date Recorded What is your housing situation today? I do not have housing (Staying with others, in a hotel, in a nursing home, living outside on the street, on a [...] encounter Miscellaneous Notes * Telephone Encounter - Mary Lou Gonzales LPN - 06/13/2025 12:45 PM EDT Medication to soon for refill script sent on 04/26/25 90 day supply. * Telephone Encounter - Giovanna Isabel - 06/13/2025 12:36 PM EDT TC from pt requesting medication refill. Medications needing refill : ergocalciferol (Vitamin D2) 1.25 MG (58531 UT) capsule To be sent to: [facility]/pharmacy #[id number] documented in this encounter Plan of Treatment Upcoming Encounters Date Type Department Care Team (Late st Contact Info) Description 07/19/2025 2:30 PM EST Clinical Support [facility] [address] [place] [address] Crystal Taylor, RN [address] [place] [address] 07/31/2025 10:15 AM EST Office Visit [facility] [address] [place] [address] Name, MD Wesley [address] [place] [address] documented as of this encounter Visit Diagnoses Not on filedocumented in this encounter Additional Health Concerns Assessment Noted Time PHQ-9 Depression Total Score: 025 10:36 AM EDT documented as of this encounter Care Teams Cash Shortage Investigator Relationship Specialty Start Date End Date Yolanda Ojeda MD [address] [place] [id number] PCP - General Family Medicine 04/26/25 documented as of this encounter
--- OUTSIDE RECORDS SUMMARY | 2025-07-13 15:00 | XMS_ITS | Encounter Summary ---
Author Organization [employer] Address [address] [facility] [address] [place] [address] Care Team Providers Care Kaiako Kura Tuarua Name Role Phone Yolanda Ojeda MD Primary Care Provider [phone] Reason for Visit * Reason Onset Date Comments Chart Prep 07/12/2025 Encounter Details Date Type Department Care Team ([facility] st Contact Info) Description 07/12/2025 Telephone C [facility] [address] [place], [place] [phone] Yolanda Ojeda MD [address] [place], [place] [phone] Chart Prep Social History Tobacco Use Types Packs/Day Years [...] encounter Miscellaneous Notes * Telephone Encounter - Dary Rosas [place] - 07/12/2025 12:07 PM EST Chart Prep Labs: done Images: done Referrals: complete Vaccines due: Covid, Flu, PCV20, Tdap, RSV, and Zoster Screenings: colonoscopy, mammogram, and STI screening Overdue care gaps: Disability screen documented in this encounter Plan of Treatment Upcoming Encounters Date Type Department Care Team ([facility] st Contact Info) Description 07/19/2025 2:30 PM EST Clinical Support [facility] PEDS [address] [place] [address] Crystal Taylor, COLT [address] [place] [address] 07/31/2025 10:15 AM EST Office Visit [facility] [address] [place] [address] Name, MD Wesley [address] [place] [address] documented as of this encounter Visit Diagnoses Not on filedocumented in this encounter Additional Health Concerns Assessment Noted Time PHQ-9 Depression Total Score: 21 025 10:36 AM EDT documented as of this encounter Care Teams Kaiako Kura Tuarua Relationship Specialty Start Date End Date Yolanda Ojeda MD [address] [place] [address] PCP - General Family Medicine 04/26/25 documented as of this encounter
--- OUTSIDE RECORDS SUMMARY | 2025-07-13 15:00 | XMS_ITS | Clinical Summary ---
Author Organization [employer] Address [address] [place] [address] Support Name Relationship Address Phone Reno Escamilla Agent [address] [place] [address] Care Team Providers Care Boring Machine Set Up Operator Jig Name Role Phone Mauri Singh MD Primary Care Provider [phone] Allergies Active Allergy Reactions Criticality Noted Date Comments Latex Rash Low 04/17/2022 Nortriptyline Rash Low 10/17/2013 Medications zolpidem (AMBIEN) 10 MG tablet Take 10 mg by mouth nightly as needed. Active alprazolam (XANAX) 0.25 MG tablet Take 0.25 mg by mouth as needed in the morning and 0.25 mg as needed at noon and 0.25 mg as needed in the evening. Active levothyroxine (SYNTHROID, LEVOTHROID) 125 MCG tablet Take 125 mcg by mouth in the morning. Active tizanidine (ZANAFLEX) 4 MG capsule Take 4 mg by mouth as needed in the morning and 4 mg as needed at noon and 4 mg as needed in the evening. Active aspirin 81 MG EC tablet Take 81 mg by mouth in the morning. Active polyethylene glycol (MIRALAX, GLYCOLAX) packet Take 17 g by mouth in the morning. Active albuterol (PROVENTIL HFA;VENTOLIN HFA) 108 (90 BASE) MCG/ACT inhaler Inhale 2 puffs into the lungs every 6 (six) hours as needed for Wheezing. Active ranolazine (RANEXA) 1000 MG SR tablet Take 1,000 mg by mouth in the morning and 1,000 mg in the evening. Active ondansetron (ZOFRAN) 4 MG tablet Take 4 mg by mouth every 8 (eight) hours as needed for Nausea. Active nitroGLYCERIN (NITROSTAT) 0.[address] 0.4 mg under the tongue every 5 (five) minutes as needed for Chest pain. Active duloxetine (CYMBALTA) 30 MG capsule Take 60 mg by mouth in the morning and 60 mg in the evening. Active lidocaine (LIDODERM) 5 % Place 3 patches onto the skin in the morning. Apply to back Active atorvastatin (LIPITOR) 40 MG tablet Take 40 mg by mouth in the morning. Active pregabalin (LYRICA) 50 MG capsule Take 50 mg by mouth in the morning and 50 mg in the evening. Active budesonide-formoter ol (SYMBICORT) 160-4.5 MCG/ACT inhaler Inhale 2 puffs into the lungs in the morning and 2 puffs in the evening. Active isoniazid (NYDRAZID) 300 MG tablet Take 300 mg by mouth in the morning. Active furosemide (LASIX) 20 MG tablet Take 20 mg by mouth in the morning. Active rimegepant (NURTEC) [address] 75 mg under the tongue once. Active fremanezumab-vfrm (AJOVY) 225 MG/1.5ML SOAJ Inject 225 mg into the skin every 30 (thirty) days. Active isosorbide mononitrate (IMDUR) 30 MG 24 hr tablet Take 30 mg by mouth in the morning. Active memantine (NAMENDA) 10 MG tablet Take 10 mg by mouth in the morning and 10 mg in the evening. Active labetalol (NORMODYNE) 200 MG tablet Take 200 mg by mouth in the morning and 200 mg in the evening. Active montelukast (SINGULAIR) 10 MG tablet Take 10 mg by mouth nightly. Active oxycodone (OXY-IR) 5 MG capsule Take 10 mg by mouth every 6 (six) hours as needed for Pain. Active Icosapent Ethyl (VASCEPA) 1 g CAPS Take 2 tablets by mouth in the morning and 2 tablets in the evening. Active famotidine (PEPCID) 20 MG tablet Take 1 tablet by mouth in the morning and 1 tablet in the evening. 60 tablet 5 01/09/20 26 Active predniSONE (DELTASONE) 10 MG tablet Take 3 tablets daily for 3 days and then taper by 10 mg every 3 days. 18 tablet Active Active Problems Problem Noted Date Diagnosed [...] collapse 04/11/2014 015 Chest pain, unspecified 03/27/2014 110 04/2022 Overview (03/29/2014): S/p cardiac cath 03/28/2014:75 [...] drink = 0.6 oz pur e alcohol) [facility] Utilities Answer Date Recorded In the past 12 months has th e electric, gas, oil, or water company threatened to shut off services in your home? No 01/02/2025 PRAPARE - Transportation Answer Date Re corded In the past 12 months, has l ack of transportation kept you from medical appointments or from getting medications? No 12/06 In the past 12 months, has l ack of transportation kept you from meetings, work, or from getting things needed for daily living? No 01/02/2025 Housing Stability Vital Sign Answer Prabhakar e Recorded In the last 12 months, was t here a time when you were not able to pay the mortgage or rent on time? No 01/02/2025 In the past 12 months, how m any times have you moved where you were living? 1 01/02/2025 At any time in the past 12 m [place], were you homeless or living in a senior living (including now)? No 01/02/2025 Food Insecurity Answer Date Recorded Worried About [...] Sign Reading Time Taken Comments Blood Pressure 157/82 01/08/2025 4:23 PM EDT Pulse 87 01/08/2025 4:23 PM EDT Temperature 36.8 C (98.2 F) 01/08/2025 4:23 PM EDT Respiratory Rate 14 01/08/2025 4:23 PM EDT Oxygen Saturation 93% 01/08/2025 4:23 PM EDT Inhaled Oxygen Concentration - - Weight 79 kg (174 lb 2.6 oz) 01/08/2025 6:00 AM EDT Height 170.2 cm (5' 7 ) 01/01/2025 6:09 PM EDT Body Mass Index 27.28 01/01/2025 6:09 PM EDT Plan of Treatment Health Maintenance Due Date Last Done Comments Cervical Cancer Screening 5 Year 1965 FIT-DNA 1965 MMR Vaccines (1 of 1 - Standard series) 1965 DTaP/Tdap/Td Vaccines (1 - Tdap) 1983 Zoster Vaccine (1 of 2) 2014 BREAST CANCER SCREENING EVERY 2 YEARS 12/26/2016 12/26/2014, 10/17/2013, 09/30/2012, Additional history exists Influenza Vaccine (#1) 2025 COLON CANCER SCREENING 10 YEAR COLONOSCOPY 04/17/2032 04/17/2022 RSV Vaccine , or 60 years and older (1 - 1-dose 75+ series) 2039 HIB Vaccines Aged Out No longer eligi ble based on patient's age to complete this topic HPV Vaccine (No Doses Required) Completed Hepatitis A Vaccines Aged Out No long [...] screening in 1 year is recommended. Routine follow-up mammogram in 1 year is recommended. RISK: Based on the information you provided during your exam visit, your lifetime risk of developing Invasive breast carcinoma as determined by the National Cancer [place] is, 7.5%. The BRCAPRO risk model, is 11.8%. If your lifetime risk score is over 20% the [place] [employer] recommends an annual breast MRI, [...] stereotactic core biopsy in 2011 - benign. The patient has a history of thyroid cancer in June,. The patient has the following family history of breast cancer: niece, at age 35, breast cancer, premenopausal. FILMS COMPARED: The present examination has been compared to prior imaging studies performed at [place] [facility] on 09/30/2012 and 10/17/2013. MAMMOGRAM FINDINGS: The following mammographic views were obtained: bilateral craniocaudal, bilateral mediolateral oblique, left 90 degree lateral. Computer-aided detection was utilized by the radiologist in [...] been compared to prior imaging studiesperformed at [place] [facility] on 09/30/2012 and 10/17/2013. MAMMOGRAM FINDINGS: The [...] BI-RADS Category 1: Negative Mauri Singh MD ID IM ORDERABLES Final Result from Last 3 Months or Most Recently Relevant to Health Maintenance Insurance [facility] Advance Directives For more information, please contact: [phone] * Full Code (Latest Code Status on File) Date Activated Date Inactivated Comments 01/02/2025 1:02 AM 01/08/2025 8:54 PM * Full Code Date Activated Date Inactivated Comments 07/13/2022 1:33 PM 07/14/2022 2:09 PM * Full Code Date Activated Date Inactivated Comments 02/11/2016 7:06 PM 02/11/2016 11:47 PM * Full Code Date Activated Date Inactivated Comments 02/21/2015 8:15 PM 02/22/2015 3:48 PM * Full Code Date Activated Date Inactivated Comments 02/19/2015 10:01 PM 02/20/2015 1:26 AM Healthcare Agents on File Name Relationship Healthcare Agent Relationssd p Communication Reno Escamilla Spouse Health Care Agent Care Teams Boring Machine Set Up Operator Jig Relationship Specialty Start Date End Date Mauri Singh MD [address] [place] [address] PCP - General 11/23/12
--- OUTSIDE RECORDS SUMMARY | 2025-07-13 15:00 | XMS_ITS | Clinical Summary ---
Author Organization [employer] Address [address] [facility] [address] [place] [address] Care Team Providers Care Personnel Worker Name Role Phone Yolanda Ojeda MD Primary Care Provider [phone] Allergies Active Allergy Reactions Criticality Noted Date Comments Latex Rash Low 10/30/2024 Nortriptyline Other 10/30/2024 Vision problems Medications * This document contains information received from the source organization and may not represent a complete record from that organization. iron sucrose (Venofer) 20 MG/ML injection 20 mL. Active evolocumab (Repatha) 140 MG/ML injection Inject 140 mg under the skin every 14 (fourteen) days. Active fremanezumab (Ajovy) 225 MG/1.5ML auto-injector Active azelastine (Astelin) 0.1 % nasal spray Administer 1 spray into each nostril 2 times daily. Use in each nostril as directed 30 mL 3 025 2025 Active folic acid (Folvite) 1 MG tablet Take 1 tablet (1 mg) by mouth Once per day. 90 tablet 1 Active levothyroxine (Synthroid) 100 MCG tablet Take 1 tablet (100 mcg) by mouth before breakfast. 90 tablet 1 025 Active montelukast (Singulair) 10 MG tablet Take 1 tablet (10 mg) by mouth Once per day. 90 tablet 1 025 Active naloxone (Narcan) 4 mg/0.1 mL nasal spray Administer 1 spray (4 mg) into affected nostril(s) if needed for opioid reversal. May repeat every 2-3 minutes if needed, alternating nostrils, until medical assistance becomes available. 2 each 025 2025 Active nitroglycerin (Nitrostat) 0.[address] 1 tablet (0.4 mg) under the tongue every 5 (five) minutes if needed for chest pain. 30 tablet Active budesonide-formot rachel (Symbicort) 160-4.5 MCG/ACT inhaler Inhale 2 puffs in the morning and at bedtime. Rinse mouth with water after use to reduce aftertaste and incidence of candidiasis. Do not swallow. 1 each 11 025 2025 Active albuterol 108 (90 Base) MCG/ACT inhaler Inhale 2 puffs every 4 (four) hours if needed for wheezing. 18 g 025 2025 Active metoprolol succinate XL (Toprol XL) 50 MG 24 hr tablet Take 1 tablet (50 mg) by mouth Once per day. Do not crush or chew. 90 tablet 1 Active omeprazole (PriLOSEC) [address] capsule Take 1 capsule (40 mg) by mouth before breakfast. Do not crush or chew. 90 capsule 1 Active pregabalin (Lyrica) 100 MG capsule Take 1 capsule (100 mg) by mouth 3 times daily. 90 capsule 2 Active ranolazine (Ranexa) 1000 MG 12 hr tablet Take 1 tablet (1,000 mg) by mouth 2 times daily. Do not crush, chew, or split. 180 tablet 1 Active aspirin 81 MG EC tablet Take 81 mg by mouth Once per day. Active Icosapent Ethyl (Vascepa) 1 g capsule TAKE 2 CAPSULES (2 G) BY MOUTH WITH BREAKFAST AND WITH EVENING MEAL. 120 capsule 11 025 2025 Active zolpidem (Ambien) 10 MG tablet Take 1 tablet (10 mg) by mouth if needed at bedtime for sleep. 28 tablet 025 2024 Active ergocalciferol (Vitamin D2) 1.25 MG (88046 UT) capsuleIndication s:Vitamin D deficiency TAKE 1 CAPSULE BY MOUTH ONE TIME PER WEEK 12 capsule Active oxyCODONE (Roxicodone) 10 MG immediate release tabletIndications :Primary osteoarthritis of left knee,Lumbar disc disease Take 1 tablet (10 mg) by mouth 3 times daily for 14 days. 42 tablet 2024 Active ALPRAZolam (Xanax) 1 MG tabletIndications :Generalized anxiety disorder Take 1 tablet (1 mg) by mouth if needed in the morning, at noon, in the evening, and at bedtime for anxiety for up to 14 days. 56 tablet 2024 Active atorvastatin (Lipitor) 80 MG tablet Take 1 tablet by mouth Once per day. Active cholecalciferol (Vitamin D-3) 1.25 MG (01791 UT) capsule Take 1 capsule by mouth every 7 (seven) days. Active Diclofenac Sodium 1 % gel Apply 4 g topically 4 times daily. Active DULoxetine (Cymbalta) [address] capsule Take 1 capsule by mouth 2 times daily. Active nystatin (Mycostatin) 838040 UNIT/GM powder APPLY DAILY TO SKIN TO AFFECTED AREA TWICE A DAY FOR 2 WEEKS Active Blood Pressure kit 1 Units Once per day. 1 kit Active polyethylene glycol, PEG, 3350 (MiraLax) 17 GM/SCOOP powder Take 17 g by mouth Once per day. 527 g 2 Active amLODIPine (Norvasc) 10 MG tablet Take 1 tablet (10 mg) by mouth Once per day. 90 tablet 1 Active telmisartan (Micardis) 80 MG tablet Take 1 tablet (80 mg) by mouth Once per day. 90 tablet 1 Active cloNIDine (Catapres) 0.1 MG tablet Take 1 tablet (0.1 mg) by mouth at bedtime. 30 tablet 1 Active ondansetron (Zofran) 4 MG tablet Take 1 tablet (4 mg) by mouth if needed each day for nausea or vomiting. 20 tablet 2025 Active Rimegepant Sulfate (Nurtec) 75 MG tablet dispersibleIndica tions:Intractable chronic migraine with aura with status migrainosus Take 1 tablet (75 mg) by mouth if needed each day (Severe headaches). 18 tablet 3 Active nystatin (Mycostatin) 383513 units tablet 2024 Discontinued DULoxetine (Cymbalta) [address] capsule Take 3 capsules (60 mg) by mouth 2 times daily. Do not crush or chew. 60 capsule 2 2024 Discontinued losartan (Cozaar) 50 MG tablet Take 1 tablet (50 mg) by mouth Once per day. 90 tablet 1 2024 Discontinued(T herapy completed) amLODIPine (Norvasc) 5 MG tablet Take 5 mg by mouth Once per day. 2024 Discontinued ergocalciferol (Vitamin D2) 1.25 MG (06800 UT) capsuleIndication s:Vitamin D deficiency Take 1 capsule (1.25 mg) by mouth 1 (one) time per week. 12 capsule 2024 Discontinued Nurtec 75 MG tablet dispersibleIndica tions:Intractable chronic migraine with aura with status migrainosus TAKE 1 TABLET (75 MG) BY MOUTH IF NEEDED EACH DAY (SEVERE HEADACHES). 18 tablet 3 2024 Discontinued(R eorder (will not trigger notification to Pharmacy)) oxyCODONE (Roxicodone) 10 MG immediate release tabletIndications :Primary osteoarthritis of left knee,Lumbar disc disease Take 1 tablet (10 mg) by mouth 3 times daily for 14 days. Do not start before June 12, 2025. 42 tablet 2024 Discontinued(R eorder (will not trigger notification to Pharmacy)) ALPRAZolam (Xanax) 1 MG tabletIndications :Generalized anxiety disorder Take 1 tablet (1 mg) by mouth if needed in the morning, at noon, in the evening, and at bedtime for anxiety for up to 14 days. 56 tablet 025 2024 Discontinued(R eorder (will not trigger notification to Pharmacy)) oxyCODONE (Roxicodone) 10 MG immediate release tabletIndications :Primary osteoarthritis of left knee,Lumbar disc disease Take 1 tablet (10 mg) by mouth 3 times daily for 14 days. 42 tablet 025 2024 Discontinued(R eorder (will not trigger notification to Pharmacy)) ALPRAZolam (Xanax) 1 MG tabletIndications :Generalized anxiety disorder Take 1 tablet (1 mg) by mouth if needed in the morning, at noon, in the evening, and at bedtime for anxiety for up to 14 days. 56 tablet 025 2024 Discontinued(R eorder (will not trigger notification to Pharmacy)) Rimegepant Sulfate (Nurtec) 75 MG tablet dispersibleIndica tions:Intractable chronic migraine with aura with status migrainosus Take 1 tablet (75 mg) by mouth if needed each day (Severe headaches). 18 tablet 3 025 2024 Discontinued Hospital, Clinic, or Other Facility Administered Medication Ordered Dose Route Frequency Start Date End Date Status cloNIDine (Catapres) tablet 0.1 mgIndications:Brain aneurysm 0.1 mg PO Once 07/13/2025 07/13/2025 Ended ketorolac (Toradol) injection 30 mgIndications:Intractable chronic migraine with aura with status migrainosus 30 mg IM Once 07/13/2025 07/13/2025 E nded ondansetron ODT (Zofran-ODT) disintegrating tablet 4 mgIndications:Intractable chronic migraine with aura with status migrainosus 4 mg PO Once 07/13/2025 07/13/2025 E nded Active Problems Problem Noted Date Diagnosed Date Dysphagia 07/13/2025 Long-term current use of opiate analgesic 2024 Long-term current use of benzodiazepine 06/07/20 25 Coronary artery disease stat us post coronary stent insertion 04/26/2025 Brain aneurysm 04/26/2025 Rachel-Calvert tear 04/26/2025 Chronic gastric ulcer 04/26/2025 Lumbar disc disease 04/26/2025 Moderate major depression (CMS/HCC) 04/26/2025 Elevated white blood cell count, unspecified Essential (primary) hypertension 10/02/2024 Gastro-esophageal reflux disease without esophag itis 10/02/2024 Hypothyroidism, unspecified 10/02/2024 Iron deficiency anemia, unspecified 10/02/2024 Generalized anxiety disorder 10/02/2024 Anemia, unspecified 10/02/2024 Encounters * This document contains information received from the source organization and may not represent a complete record from that organization. Date Type Department Care Team Description 07/13/2025 1:40 PM EST Office Visit [facility] [address] [address] Viral upper respiratory tract infection (Primary Dx); Intractable chronic migraine with aura with status migrainosus 07/13/2025 11:15 AM EST Office Visit [facility] [address] [place] [address] Yolanda Ojeda MD Brain aneurysm (Primary Dx); Hypothyroidism, unspecified type; Encounter for health-related screening; Dysuria; Essential (primary) hypertension; Breast cancer screening by mammogram; Pulmonary nodules; Cataract of both eyes, unspecified cataract type; Dysphagia, unspecified type; Dietary counseling; Exercise counseling 07/13/2025 Travel 07/12/[address] [facility] [address] [place] [address] Yolanda Ojeda MD Chart Prep 07/10/[address] [address] Yolanda Ojeda MD call back 07/09/[address] [facility] [address] [place] [address] Yolanda Ojeda MD Generalized anxiety disorder 07/09/[address] [address] Yolanda Ojeda MD Med Refill 07/07/[address] [facility] [address] [place] [address] Yolanda Ojeda MD Generalized anxiety disorder; Primary osteoarthritis of left knee; Lumbar disc disease 07/05/2025 Patient Outreach [address] [address] Yolanda Ojeda MD Pre-visit Planning (SDOH screening completed on 04/26/25) 07/04/[address] [address] Yolanda Ojeda MD 07/04/[address] [facility] [address] [place] [address] Yolanda Ojeda MD Med Refill 07/03/[address] [address] Yolanda Ojeda MD Med Refill 07/03/[address] [address] Yolanda Ojeda MD Nurse Triage 07/02/[address] [facility] [address] [place] [address] Yolanda Ojeda MD Appointment Request 06/26/[address] [facility] [address] [place] [address] Yolanda Ojeda MD Change PCP 06/26/[address] [facility] [address] [place], [place] [phone] Yolanda Ojeda MD Med Refill 06/25/[address] [address] Yolanda Ojeda MD Med Refill 06/25/[address] [address] Yolanda Ojeda MD call back requested; Med Refill 06/23/[address] [facility] [address] [place], [place] [phone] Yolanda Ojeda MD Vitamin D deficiency; Generalized anxiety disorder 06/20/[address] [facility] [address] [place], [place] [phone] Yolanda Ojeda MD Primary osteoarthritis of left knee; Lumbar disc disease 06/20/[address] [facility] [address] [place], [place] [phone] Yolanda Ojeda MD Generalized anxiety disorder 06/13/[address] [facility] [address] [place], [place] [phone] Yolanda Ojeda MD Med Refill 06/13/[address] [facility] [address] [place] [address] Yoalnda Ojeda MD Referral 06/12/[address] [address] Yolanda Ojeda MD Referral 06/11/[address] [facility] [address] [place] [address] Yolanda Ojeda MD Generalized anxiety disorder 06/11/[address] [facility] [address] [place] [address] Yolanda Ojeda MD Generalized anxiety disorder 06/11/[address] [address] Yolanda Ojeda MD Call Back Request 06/08/[address] [address] Yolanda Ojeda MD Med Refill 06/07/2025 1:30 PM EDT Clinical Support [facility] [address] [place] [address] Crystal Taylor RN Primary osteoarthritis of both knees (Primary Dx); Long-term current use of opiate analgesic; Long-term current use of benzodiazepine 06/07/2025 Travel 05/28/[address] [facility] [address] [place] [address] Yolanda Ojeda MD Primary osteoarthritis of left knee; Lumbar disc disease 05/28/[address] [facility] [address] [place] [address] Yolanda Ojeda MD Primary osteoarthritis of left knee; Lumbar disc disease 05/24/[address] [facility] [address] [place] [address] Yolanda Ojeda MD 05/23/[address] [facility] [address] [place] [address] Yolanda Ojeda MD Generalized anxiety disorder 05/21/[address] [place] [address] Yolanda Ojeda MD GSSSI 05/16/[address] [facility] [address] [place] [address] Yolanda Ojeda MD Referral 05/15/[address] [facility] [address] [place], [place] [phone] Yolanda Ojeda MD Generalized anxiety disorder 05/11/2025 [facility] [address] [place] [address] Olive West MD 05/09/[address] [facility] [address] [place], [place] [phone] Yolanda Ojeda MD Primary osteoarthritis of left knee; Lumbar disc disease 05/02/[address] [facility] [address] [place] [address] Yolanda Ojeda MD FYI 04/30/[address] [facility] [address] [place] [address] Yolanda Ojeda MD Medication Question 04/30/[address] [facility] [address] [place] [address] Yolanda Ojeda MD Intractable chronic migraine with aura with status migrainosus 04/30/[address] [facility] [address] [place], [place] [phone] Yolanda Ojeda MD Intractable chronic migraine with aura with status migrainosus 04/30/[address] [facility] [address] [place] [address] Yolanda Ojeda MD Medication Question 04/30/[address] [facility] [address] [place] [phone] Yolanda Ojeda MD Appointment Request 04/28/[address] [facility] [address] [place], [place] [phone] Yolanda Ojeda MD Intractable chronic migraine with aura with status migrainosus 04/26/2025 10:45 AM EDT Office Visit [facility] [address] [place] [address] Yolanda Ojeda MD Coronary artery disease status post coronary stent insertion (Primary Dx); Brain aneurysm; Rachel-Calvert tear; Chronic gastric ulcer, unspecified whether gastric ulcer hemorrhage or perforation present; Transaminitis; Primary osteoarthritis of left knee; Insomnia due to other mental disorder; Intractable chronic migraine with aura and without status migrainosus; Vitamin D deficiency; History of thyroid cancer; Fibromyalgia; Intractable chronic migraine with aura with status migrainosus; Mixed hyperlipidemia; Synovial cyst of left popliteal space; Primary osteoarthritis of both knees; Colon cancer screening; Generalized anxiety disorder; Homelessness; Lumbar disc disease; Chronic pelvic pain in female 04/26/2025 Telephone [employer] [address] [place] [address] Yolanda Ojeda MD 04/26/[address] [facility] [address] [place], [place] [phone] Yolanda Ojeda MD Care Coordination (SDOH) 04/26/2025 Travel 04/18/[address] [facility] [address] [place] [address] Elmo Frank MD Pre-visit Planning (Pre visit planning unable to LVM ) 04/18/[address] [facility] [address] [place] [address] Yolanda Ojeda MD CHART PREP from Last 3 Months Immunizations Immunization Administration Dates Next Due Pfizer Covid-19 Vaccine 12+ Bivalent 12/05/2020 Social History Tobacco Use Types Packs/Day Years [...] with others, in a hotel, in a [facility], living outside on the street, on a [...] Orientation Straight 04/26/2025 9: 16 AM EDT Last Filed Vital Signs Vital Sign Reading Time Taken Comments Blood Pressure 168/90 07/13/2025 2:12 PM EST Pulse 75 07/13/2025 2:12 PM EST Temperature 36.6 C (97.9 F) 07/13/2025 2:12 PM EST Respiratory Rate 16 07/13/2025 2:12 PM EST Oxygen Saturation 97% 07/13/2025 2:12 PM EST Inhaled Oxygen Concentration - - Weight 78 kg (172 lb) 07/13/2025 2:12 PM EST Height 165.1 cm (5' 5 ) 07/13/2025 11:11 AM EST Body Mass Index 28.62 07/13/2025 11:11 AM EST Plan of Treatment Upcoming Encounters Date Type Department Care Team (Late st Contact Info) Description 07/19/2025 2:30 PM EST Clinical Support [facility] [address] [place] [address] Crystal Taylor, COLT [address] [place] [address] 07/31/2025 10:15 AM EST Office Visit [facility] [address] [place] [address] Name, MD Wesley [address] [place] [address] Health Maintenance Due Date Last Done Comments CT Colonography 1964 Colonoscopy 1964 Colorectal Cancer Screening 1964 FIT DNA/Cologuard 1964 FIT 1964 FOBT 1964 HIV Screening 1964 Lipid Panel 1964 Sigmoidoscopy 1964 Disability Screening 1964 Hepatitis C Screening 1982 DTaP/Tdap/Td Vaccines (1 - Tdap) 1983 Pneumococcal Vaccine: 50+ Years (1 of 2 - PCV) 1983 Pap Smear 1985 Cervical Cancer Screening 1994 HPV/Cotest 1994 Zoster Vaccines (1 of 2) 2014 Mammogram 12/26/2016 12/26/2014, 10/17/2013, 09/30/2012 RSV Patients and Patients Aged 60 years or older (1 - Risk 60-74 years 1-dose series) 2024 COVID-19 Vaccine (2 - 2024-2 6 season) 2025 12/05/2020 Influenza Vaccine (#1) 2025 Depression Monitoring 10/27/2025 04/26/2025 , 04/26/2025 Alcohol/Substance Use Screening 04/26/2026 04/26/2025 SDOH Screening 04/26/2026 04/26/2025 Tobacco Screening 07/13/2026 07/13/2025 HIB Vaccines Aged Out No longer eligi [...] EST Viral upper respiratory tract infection POCT URINALYSIS DIPSTICK Routine 07/13/2025 12:03 PM EST Dysuria URINALYSIS, COMPLETE, WITH REFLEX TO CULTURE Routine 07/13/2025 12:00 AM EST Dysuria POCT MANOJ-14 URINE DRUG SCREEN Routine 06/07/2025 1:53 PM EDT Primary osteoarthritis of both knees XR KNEE 1-2 VIEWS LEFT Routine 05/10/2025 11:42 AM EDT AMB REFERRAL TO ORTHOPAEDIC SURGERY Routine 05/10/2025 Synovial cyst of left popliteal space Primary osteoarthritis of both knees from Last 3 Months Results * Influenza B (ID NOW Rapid Molecular) (07/13/2025 2:47 PM EST) Influenza B Negative Negative, Indeterminate [facility] Swab 07/13/2025 2:47 PM EST Ilsa Rosales NP POINT OF CARE TEST ENTER/EDIT OR DERABLES Final Result [facility] [address] [place] [phone] * Influenza A (ID NOW Rapid Molecular) (07/13/2025 2:47 PM EST) Influenza A Negative Negative, Indeterminate [facility] Swab 07/13/2025 2:47 PM EST Result [facility] Ilsa Rosales NP POINT OF CARE TEST ENTER/EDIT OR DERABLES Final Result [facility] [address] [place] [address] [phone] * POCT Rapid COVID Ag (07/13/2025 2:21 PM EST) Pathologist [facility] Rapid COVID Ag Negative Swab 07/13/2025 2:21 PM EST Result [facility] Ilsa Rosales NP POINT OF CARE TEST ENTER/EDIT OR DERABLES Final Result * POCT Urinalysis (07/13/2025 12:03 PM EST) Pathologist [facility] Color, UA Yellow Clarity, UA Clear Glucose, UA Negative Bilirubin, UA Negative Ketones, UA Negative Spec Grav, UA 1.020 Blood, UA Negative Negative, None Detected pH, UA 6.0 Protein, UA Negative Urobilinogen, UA 0.2 Leukocytes, UA Negative Negative, Rare, Trace Nitrite, UA Negative Negative, None Detected Appearance, UA clear QC Media Lot # [id number] Lot# Expiration Date 644 Urine (Urine, Random) 07/13/2025 12:03 PM EST Result [facility] Yolanda Ojeda MD POINT OF CARE TEST ENTER/EDIT ORDERABLES Final Result * (ABNORMAL) POCT MANOJ-14 Urine Drug Screen (06/07/2025 1:53 PM EDT) Pathologist [facility] THC Negative Negative Cocaine Screen, Urine Negative Negative Opiate Screen, Urine Negative Negative Methamphetamine Screen Urine Negative Negative Amphetamine Screen, Urine Negative Negative Benzodiazepines Screen, Urine Positive Negative Barbiturate Screen, Urine Negative Negative Methadone Screen, Urine Negative Negative Buprenophine Screen, Urine Negative Negative TCA, Urine Negative Negative MDMA Urine Negative Negative ng/mL Oxycodone Screen, Urine Positive Negative Phencyclidine (PCP), Urine Negative Negative Propoxyphene, Urine Negative Negative Fentanyl, Urine Negative Negative Urine Urine specimen obtained by clean catch procedure / Unknown 06/07/2025 1:53 PM EDT Narrative Crystal Taylor, COLT - 06/07/2025 1:53 PM EDT . Internal Pass Control Lot# [id number] Exp: 07-06-26 us Yolanda Ojeda MD POINT OF CARE TEST ENTER/EDIT ORDERABLES Final Result * XR Knee 1-2 Views Left (05/10/2025 11:42 AM EDT) Anatomical Region Laterality Modality Lower Extremities, Knee Left Radiogra phic Imaging us Historical Provider IMG XR PROCEDURES Final R esult * Referral to Orthopaedic Surgery (05/10/2025) Yolanda Ojeda MD OUTPATIENT REFERRAL ORDERABLE S Final Result from Last 3 Months Insurance STANDARD Care Teams Personnel Worker Relationship Specialty Start Date End Date Yolanda Ojeda MD [address] [place] [phone] PCP - General Family Medicine 04/26/25
--- OUTSIDE RECORDS SUMMARY | 2025-07-13 15:00 | XMS_ITS | Encounter Summary ---
Author Organization [employer] Address [address] [facility] [address] [place] [address] Care Team Providers Care Cryptographic Technician Name Role Phone Yolanda Ojeda MD Primary Care Provider [phone] Reason for Visit * Reason Onset Date Comments call back 07/10/2025 Encounter Details Date Type Department Care Team ([facility] st Contact Info) Description 07/10/[address] [facility] [address] [place] [address] Yolanda Ojeda MD [address] [place], [place] [phone] call back Social History Tobacco Use Types Packs/Day Years [...] encounter Miscellaneous Notes * Telephone Encounter - Rita Germain - 07/10/2025 2:40 PM EST Tc from pt requesting an call back Contact pt at [phone] documented in this encounter Plan of Treatment Upcoming Encounters Date Type Department Care Team (Late st Contact Info) Description 07/19/2025 2:30 PM EST Clinical Support [facility] [address] [place] [address] Crystal Taylor, COLT [address] [place] [address] 07/31/2025 10:15 AM EST Office Visit [facility] [address] [place] [address] Name, MD Welsey [address] [place] [address] documented as of this encounter Visit Diagnoses Not on filedocumented in this encounter Additional Health Concerns Assessment Noted Time PHQ-9 Depression Total Score: 21 025 10:36 AM EDT documented as of this encounter Care Teams Cryptographic Technician Relationship Specialty Start Date End Date Yolanda Ojeda MD [address] [place] [address] PCP - General Family Medicine 04/26/25 documented as of this encounter
--- OUTSIDE RECORDS SUMMARY | 2025-07-13 15:00 | XMS_ITS | Encounter Summary ---
Author Organization [employer] Address [address] [facility] 7t [place] [address] Care Team Providers Care Academic Department Chair Name Role Phone Yolanda Ojeda MD Primary Care Provider [phone] Reason for Visit * Reason Comments Med Refill Encounter Details Date Type Department Care Team ([facility] st Contact Info) Description 07/09/2025 Refill [facility] MED & PEDS [address] [place], [place] [phone] Yolanda Ojeda MD [address] [place] [address] Generalized anxiety disorder Social History Tobacco Use [...] Upcoming Encounters Date Type Department Care Team ([facility] st Contact Info) Description 07/19/2025 2:30 PM EST Clinical Support [facility] CHC MED & PEDS [address] [place] [address] Crystal Taylor, COLT [address] [place] [address] 07/31/2025 10:15 AM EST Office Visit [facility] MEDICINE [address] [place] [phone] Name, MD Wesley [address] [place] [address] documented as of this encounter Visit Diagnoses Diagnosis Generalized anxiety disorder documented in this encounter Additional Health Concerns Assessment Noted Time PHQ-9 Depression Total Score: 21 025 10:36 AM EDT documented as of this encounter Care Teams Academic Department Chair Relationship Specialty Start Date End Date Yolanda Ojeda MD [address] [place] [address] PCP - General Family Medicine 04/26/25 documented as of this encounter
--- OUTSIDE RECORDS SUMMARY | 2025-07-13 15:00 | XMS_ITS | Encounter Summary ---
Author Organization [employer] Address [address] [facility] 7t [place] [address] Care Team Providers Care Operator Coating Furnace Name Role Phone Yolanda Ojeda MD Primary Care Provider [phone] Reason for Visit * Reason Onset Date Comments Med Refill 07/03/2025 Encounter Details Date Type Department Care Team ([facility] st Contact Info) Description 07/03/2025 Telephone [facility] MEDICINE [address] [place] [address] Yolanda Ojeda MD [address] [place], [place] [phone] Med Refill Social History Tobacco Use Types [...] encounter Miscellaneous Notes * Telephone Encounter - Misty Garirson - 07/03/2025 12:18 PM EDT TC from [place] requesting a refill oxyCODONE (Roxicodone) 10 MG immediate release tablet Pcp DR. Ojeda documented in this encounter Plan of Treatment Upcoming Encounters Date Type Department Care Team (Late st Contact Info) Description 07/19/2025 2:30 PM EST Clinical Support [facility] CHC MED & PEDS [address] [place] [address] Crystal Taylor, COLT [address] [place] [address] 07/31/2025 10:15 AM EST Office Visit [facility] MEDICINE [address] [place] [address] Name, MD Wesley [address] [place] [address] documented as of this encounter Visit Diagnoses Not on filedocumented in this encounter Additional Health Concerns Assessment Noted Time PHQ-9 Depression Total Score: 21 025 10:36 AM EDT documented as of this encounter Care Teams Operator Coating Furnace Relationship Specialty Start Date End Date Yolanda Ojeda MD [address] [place] [address] PCP - General Family Medicine 04/26/25 documented as of this encounter
--- OUTSIDE RECORDS SUMMARY | 2025-07-13 15:00 | XMS_ITS | Encounter Summary ---
Author Organization [employer] Address [address] [facility] 7t [place] [address] Care Team Providers Care Spanish Instructor Name Role Phone Yolanda Ojeda MD Primary Care Provider [phone] Reason for Visit * Reason Onset Date Comments Appointment Request 07/02/2025 Encounter Details Date Type Department Care Team ([facility] st Contact Info) Description 07/02/2025 Telephone [facility] CHC MED & PEDS [address] [place], [place] [phone] Yolanda Ojeda MD [address] [place], [place] [phone] Appointment Request Social History Tobacco Use Types Packs/Day Years Used Date Smoking Tobacco: Unknown Depression Answer Date Recorded Patient Health Questionnaire-9 Score 21 04/26/2025 Patient Health Questionnaire-9 Score 21 04/26/2025 Last PHQ-9: Questionnaire Data Not on file 0 04/26/2025 Housing Stability Answer Date Recorded What is your housing situation today? I do not have housing (Staying with others, in a hotel, in a fci, living outside on the street, on a [...] encounter Miscellaneous Notes * Telephone Encounter - Wesley Rodriguez - 07/02/2025 4:15 PM EDT Tc from spouse requesting a sooner apt than 07/13. Contact pt at [phone] documented in this encounter Plan of Treatment Upcoming Encounters Date Type Department Care Team (Late st Contact Info) Description 07/19/2025 2:30 PM EST Clinical Support [facility] CHC MED & PEDS [address] [place] [address] Crystal Taylor, RN [address] [place] [address] 07/31/2025 10:15 AM EST Office Visit [facility] MEDICINE [address] [place] [address] Name, MD Wesley [address] [place] [address] documented as of this encounter Visit Diagnoses Diagnosis Primary osteoarthritis of left knee Lumbar disc disease Other and unspecified disc disorder of lumbar region documented in this encounter Additional Health Concerns Assessment Noted Time PHQ-9 Depression Total Score: 21 025 10:36 AM EDT documented as of this encounter Care Teams Spanish Instructor Relationship Specialty Start Date End Date Yolanda Ojeda MD [address] [place] [address] PCP - General Family Medicine 04/26/25 documented as of this encounter
--- OUTSIDE RECORDS SUMMARY | 2025-07-13 15:00 | XMS_ITS | Encounter Summary ---
Author Organization [employer] Address [address] [facility] 7t [place] [address] Care Team Providers Care Automobile Body Customizer Name Role Phone Yolanda Ojeda MD Primary Care Provider [phone] Reason for Visit * Reason Comments Med Refill Encounter Details Date Type Department Care Team ([facility] st Contact Info) Description 07/07/2025 Refill C CHC MED & PEDS [address] [place], [place] [phone] Yolanda Ojeda MD [address] [place] [address] Generalized anxiety disorder; Primary osteoarthritis of left knee; Lumbar disc disease Social History Tobacco Use Types Packs/Day Years [...] Description 07/19/2025 2:30 PM EST Clinical Support [facility] CHC MED & PEDS [address] [place] [address] Crystal Taylor, COLT [address] [place] [address] 07/31/2025 10:15 AM EST Office Visit [facility] MEDICINE [address] [place] [address] Name, MD Wesley [address] [place] [address] documented as of this encounter Visit Diagnoses Diagnosis Generalized anxiety disorder Primary osteoarthritis of left knee Lumbar disc disease Other and unspecified disc disorder of lumbar region documented in this encounter Additional Health Concerns Assessment Noted Time PHQ-9 Depression Total Score: 21 025 10:36 AM EDT documented as of this encounter Care Teams Automobile Body Customizer Relationship Specialty Start Date End Date Yolanda Ojeda MD [address] [place] [address] PCP - General Family Medicine 04/26/25 documented as of this encounter
--- OUTSIDE RECORDS SUMMARY | 2025-07-13 15:00 | XMS_ITS | Patient Health Record ---
Author Organization [facility] Address [address] [place] [address] Care Team Providers Care Tariff Publishing Agent Name Role Phone NO, PCP Primary Care Provider Lori Blake Unavailable Reason For Referral No Information Social History Sex Assigned At : Social History Observation Description Sex Assigned At Female Encounters Encounter Location Date Provider Diagnosis [facility] [address] [place], [place] [phone] 03/22/2025 Lori Blake [facility] [address] [place], [place] [phone] 03/26/2025 Lori Blake [facility] [address] [place], [place] [phone] 03/07/2025 Lori Blake Plan Of Treatment No Information Insurance Providers Payer Name Payer Address Payer Phone Subscriber Number Group Number Insured Name Patient Relationship to Insured Coverage Start Date Coverage End Date [place] Standard [address] [place] [address] [id number] KEYLA ESCAMILLA Self - patient is the insured
--- OUTSIDE RECORDS SUMMARY | 2025-07-13 15:00 | XMS_ITS | Encounter Summary ---
Author Organization [employer] Address [address] [facility] 7t [place] [address] Care Team Providers Care Denial Resolution Specialist Name Role Phone Yolanda Ojeda MD Primary Care Provider [phone] Reason for Visit * Reason Onset Date Comments Med Refill 06/25/2025 Encounter Details Date Type Department Care Team ([facility] st Contact Info) Description 06/25/2025 Telephone [facility] MEDICINE [address] [place] [address] Yolanda Ojeda MD [address] [place], [place] [phone] Med Refill Social History Tobacco Use Types Packs/Day Years Used Date Smoking Tobacco: Unknown Depression Answer Date Recorded Patient Health Questionnaire-9 Score 21 04/26/2025 Patient Health Questionnaire-9 Score 21 04/26/2025 Last PHQ-9: Questionnaire Data Not on file 0 04/26/2025 Housing Stability Answer Date Recorded What is your housing situation today? I do not have housing (Staying with others, in a hotel, in a detention, living outside on the street, on a [...] * Telephone Encounter - Valdemar Hernandez - 06/25/2025 2:03 PM EDT TC from pt requesting medication refill. Medications needing refill: ALPRAZolam (Xanax) 1 MG tablet To be sent to: [facility]/pharmacy #[id number] documented in this encounter Plan of Treatment Upcoming Encounters Date Type Department Care Team (Late st Contact Info) Description 07/19/2025 2:30 PM EST Clinical Support [facility] CHC MED & PEDS [address] [place] [address] Crystal Taylor, COLT [address] [place] [address] 07/31/2025 10:15 AM EST Office Visit [facility] MEDICINE [address] [place] [address] Name, MD Wesley [address] [place] [address] documented as of this encounter Visit Diagnoses Not on filedocumented in this encounter Additional Health Concerns Assessment Noted Time PHQ-9 Depression Total Score: 21 025 10:36 AM EDT documented as of this encounter Care Teams Denial Resolution Specialist Relationship Specialty Start Date End Date Yolanda Ojeda MD [address] [place] [address] PCP - General Family Medicine 04/26/25 documented as of this encounter
--- OUTSIDE RECORDS SUMMARY | 2025-07-13 15:00 | XMS_ITS | Encounter Summary ---
Author Organization [employer] Address [address] [facility] 7t [place] [address] Care Team Providers Care Contact Lens Blocker Name Role Phone Yolanda Amin MD Primary Care Provider [phone] Reason for Visit * Reason Onset Date Comments call back requested 06/25/2025 Med Refill 06/25/2025 Encounter Details Date Type Department Care Team ([facility] st Contact Info) Description 06/25/2025 Telephone [facility] MEDICINE [address] [place] [address] Yolanda Amin MD [address] [place] [phone] call back requested; Med Refill Social History Tobacco Use Types Packs/Day Years Used Date Smoking Tobacco: Unknown Depression Answer Date Recorded Patient Health Questionnaire-9 Score 21 04/26/2025 Patient Health Questionnaire-9 Score 21 04/26/2025 Last PHQ-9: Questionnaire Data Not on file 0 04/26/2025 Housing Stability Answer Date Recorded What is your housing situation today? I do not have housing (Staying with others, in a hotel, in a jail, living outside on the street, on a [...] Encounter - Mary Lou Gonzales LPN - 06/25/2025 11:57 AM EDT Vitamin D2 pended to PCP for review. * Telephone Encounter - Misty Garrison - 06/25/2025 11:57 AM EDT TC from [place] requesting medicatin D3 not on med list. * Telephone Encounter - Misty Garrison - 06/25/2025 11:55 AM EDT Pt also requesting med refill on ergocalciferol (Vitamin D2) 1.25 MG (43562 UT) capsule . PCP DR. amin * Telephone Encounter - Misty Garrison - 06/25/2025 11:53 AM EDT TC from [place] requesting a call back regarding Alprazolam. PCP Dr. Amin documented in this encounter Plan of Treatment Upcoming Encounters Date Type Department Care Team (Late st Contact Info) Description 07/19/2025 2:30 PM EST Clinical Support [facility] CHC MED & PEDS [address] [place] [address] Crystal Taylor, RN [address] [place] [address] 07/31/2025 10:15 AM EST Office Visit [facility] MEDICINE [address] [place] [address] Name, MD Wesley [address] [place] [address] documented as of this encounter Visit Diagnoses Not on filedocumented in this encounter Additional Health Concerns Assessment Noted Time PHQ-9 Depression Total Score: 21 025 10:36 AM EDT documented as of this encounter Care Teams Contact Lens Blocker Relationship Specialty Start Date End Date Yolanda Amin MD [address] [place] [address] PCP - General Family Medicine 04/26/25 documented as of this encounter
[2025-07-13 15:03] LABS: UACC Culture Trigger YES
== END 2025-07-13 12:52 | disposition home or self-care (01) ==
LOC: HO.CHCLNP 12:51
PROVIDERS: Visit Provider Family Medicine
DX: R30.0 Dysuria (principal)
CPT/HCPCS: 81001; 87086

== ENCOUNTER 2025-07-15 14:12 | Emergency (ER) | payer MEDICAID, SELFPAY ==
--- OUTSIDE RECORDS SUMMARY | 2025-07-10 13:00 | XMS_ITS | Encounter Summary ---
Author Organization [facility] Address [id number] [place] [id number] Care Team Providers Care Waiter/Waitress Name Role Phone Yolanda Ojeda MD Primary Care Provider [phone] Reason for Referral * Orthopedic (Routine) - Pending Review Specialty Diagnoses / Procedures Referred By Contac t Referred To Contact Orthopedic Surgery / Orthopaedic Surgery Diagnoses Arthritis of both knees Procedures L Inj/Asp: bilateral knee Amber Isbell MD Phone: tel: fax: Referral ID Status Reason Start Date Expiration Date V isits Requested Visits Authorized [id number] Pending Review 07/11/2025 07/11/2026 1 1 Reason for Visit * Reason Comments Follow-up Bilateral knee arthr itis Encounter Details Date Type Department Care Team (Late st Contact Info) Description 07/10/2025 1:00 PM EST Office Visit Orthopedic Surgery - [place] [address] [phone] Amber Isbell MD [address] [address] Arthritis of both knees (Primary Dx) Social History Tobacco Use Types Packs/Day Years Used Date Smoking Tobacco: Never Assessed Comments Unknown Sex and Gender Information Value Date Recorded Sex Assigned at Not on file Legal Sex Female 4:08 PM EDT Gender Identity Not on file Sexual Orientation Not on file documented as of this encounter Last Filed Vital Signs Vital Sign Reading Time Taken Comments Blood Pressure - - Pulse - - Temperature - - Respiratory Rate - - Oxygen Saturation - - Inhaled Oxygen Concentration - - Weight - - Height 170.2 cm (5' 7.01 ) 07/10/2025 1:07 PM ES T Body Mass Index - - documented in this encounter Ordered Prescriptions Prescription Sig Dispense Quantity Refills Last Filled Start Date End Date diclofenac (VOLTAREN) 1 % topical gel Apply 4 g topically 4 (four) times a day. 480 g 3 07/10/2025 documented in this encounter Progress Notes * Amber Isbell MD - 07/10/2025 1:00 PM ESTAssociated Order(s): L Inj/Asp: bilateral knee Post-Procedure Diagnose(s): Arthritis of both knees Genny Matamoros CC: Chief Complaint Patient presents with Follow-up Bilateral knee arthritis HPI: Ms. Matamoros is here to follow-up with her bilateral knee pain. She is tearful as she states her pain is quite bad and she states physical therapy does not help and makes her pain worse. She does take oxycodone 4 times a day through a narcotic contract with her primary care provider. Her states that her neurology appointment is not actually until September. It does not sound like she has had a referral to physiatry or chronic pain management yet. ROS: Constitutional: no fever Eyes: negative for redness, drainage ENT: negative for ear pain or discharge Cardiovascular: negative for pain Respiratory: no cough GI: no vomiting or diarrhea, stomach ache, change in BMs : normal voiding Musculoskeletal: see HPI Skin: no rash Neurologic: negative for headache, dizziness The remainder of the systems is noncontributory PMH: There are no active problems to display for this patient. PSH: Surgical History[1] Medications: Current Medications[2] Allergies: Allergies[3] SHx: Social History Tobacco Use Smoking status: Not on file Smokeless tobacco: Not on file Substance Use Topics Alcohol use: Not on file FHx: Family History[4] Physical Exam: Visit Vitals Ht 1.702 m (67.01 ) BMI 26.93 kg/m?? BSA 1.9 m?? Gen: No acute distress. Pleasant Eyes: PERRL, EOMI ENT: Mucous membranes moist Resp:Normal respiratory effort Lymphatics: No noted lymphadenopathy MSK: Bilateral Inspection: No genu varus or valgus noted. No effusion. Slow unsteady gait with cane gait. Palpations: Pos joint line tenderness to palpation. Patella facets - Pos tenderness to palpation. MCL: nl. LCL: nl. Distal ITB: nl. Patella tendon: nl. Pes Anserine: tendons: nl, bursa: nl. Strength: 4/5. ROM-0-90 . Varus stress at 20 degree and full extension - nl. Valgus stress at at 20 degree and full extension - nl. Special testing: Ant. Drawer - nl. Post. Drawer - nl. Lachmen's - nl. . Quad. Activation - nl. Steve's - nl. Neurovascular: Sensation to light touch: Intact and symmetric. DTR: Intact and symmetric. Peripheral pulses: Intact and symmetric. Cap. Refill: brisk. Radiographic/Imagin bilateral weightbearing and left sunrise view Obtained and reviewed. There is mild to moderate medial and lateral joint space narrowing bilaterally. No evidence of fracture, osteochondral lesion or significant spurring noted All images are stored and permanently retrievable Assessment: 1) Bilateral knee osteoarthritis mild to moderate: Unfortunately she is not really able to toleratephysical therapy due to her diffuse musculoskeletal complaints. I did discuss trial of intra-articular corticosteroid injections for diagnostic and therapeutic purposes. Agrees and wishes to proceed L Inj/Asp: bilateral knee Indications: pain Details: 22 G needle, anterolateral approach Medications (Right): 4 mL lidocaine 1 %; 40 mg triamcinolone acetonide 40 mg/mL Medications (Left): 4 mL lidocaine 1 %; 40 mg triamcinolone acetonide 40 mg/mL Informed Consent: Laterality: Bilateral Relevant images/test results available and reviewed: yes Health status cleared: Yes Procedure/treatment, purpose, treatment alternatives, risks/potential complications and benefits explained: yes Risk/complications/benefits details: Risks include bleeding, infection, increase in pain Patient questions answered: yes Patient agrees, verbalizes understanding, and wants to proceed: yes Consent given by: Patient Informed consent discussion completed by Physician/JOSE with patient: Verbal Pre-procedure timeout performed: yes Plan: 1) Advised to take it easy for the next 24 to 48 hours. 2) May ice and use Tylenol or NSAIDs for postinjection soreness 3) Advised to call the office for any severe increase in pain, redness, swelling or bruising. 4) discussed trial of topical diclofenac cream may use up to 4 times a day as needed 5) discussed trial of viscosupplementation injections we will order Euflexxa for bilateral knee osteoarthritis. If symptoms do not improve with corticosteroid or gel consider obtaining an MRI for further evaluation of meniscus and articular cartilage as changes on x-ray are mild 6) recommend referral to physiatry or pain management for cervical and lumbar pain. Follow-up with neurology. Significant amount of additional work done and reevaluation of this patient including reviewing extensive medical records, discussing differential diagnosis and treatment options and performing bilateral knee corticosteroid injections. All of the patient's questions were answered. The patient understand and feels comfortable with thecurrent care plan. Thanks for allowing me to be a part of the patient's care team! Please feel free to contact me for any reason. Sincerely, Amber Isbell MD. ON 07/11/2025 at 11:21 AM EST [1] Past Surgical History: Procedure Laterality Date THYROIDECTOMY [2] Current Outpatient Medications: albuterol HFA (PROAIR HFA ; PROVENTIL HFA ; VENTOLIN HFA) 90 mcg/actuation inhaler, Inhale 2 puffs by mouth Every 4 hours as needed., Disp: , Rfl: ALPRAZolam (XANAX) 1 mg tablet, Take 1 tablet (1 mg total) by mouth 4 times daily as needed. Max Daily Amount: 4 mg, Disp: , Rfl: aspirin 81 mg EC tablet, Take 1 tablet (81 mg total) by mouth daily., Disp: , Rfl: azelastine (ASTELIN) 137 mcg (0.1 %) nasal spray, Administer 1 spray into each nostril 2 times daily., Disp: , Rfl: budesonide-formoteroL (SYMBICORT) 160-4.5 mcg/actuation inhaler, Inhale 2 puffs by mouth 2 times daily., Disp: , Rfl: DULoxetine (CYMBALTA) [address] capsule, Take 3 capsules (60 mg total) by mouth 2 times daily., Disp: , Rfl: ergocalciferol (VITAMIN D-2) 1,250 mcg (50,000 unit) capsule, Take 1.25 mg by mouth., Disp: , Rfl: evolocumab (Repatha Syringe) 140 mg/mL syringe, Inject 1 mL (140 mg total) under the skin every 14 days., Disp: , Rfl: folic acid (FOLVITE) 1 mg tablet, Take 1 tablet (1 mg total) by mouth daily., Disp: , Rfl: fremanezumab-vfrm (Ajovy Autoinjector) 225 mg/1.5 mL auto-injector, , Disp: , Rfl: icosapent ethyL (VASCEPA) 1 gram capsule, Take 2 capsules (2 g total) by mouth., Disp: , Rfl: levothyroxine (SYNTHROID, LEVOTHROID) 100 mcg tablet, Take 1 tablet (100 mcg total) by mouth., Disp: , Rfl: losartan (COZAAR) 50 mg tablet, Take 1 tablet (50 mg total) by mouth daily., Disp: , Rfl: montelukast (SINGULAIR) 10 mg tablet, Take 1 tablet (10 mg total) by mouth daily., Disp: , Rfl: naloxone (NARCAN) 4 mg/0.1 mL nasal spray, Administer 1 each (4 mg total) into affected nostril(s)., Disp: , Rfl: nitroglycerin (NITROSTAT) 0.4 mg SL tablet, Place 1 tablet (0.4 mg total) under the tongue., Disp: , Rfl: nystatin (MYCOSTATIN) 500,000 unit tablet, , Disp: , Rfl: omeprazole (PriLOSEC) [address] capsule, Take 1 capsule (40 mg total) by mouth., Disp: , Rfl: pregabalin (LYRICA) 100 mg capsule, Take 1 capsule (100 mg total) by mouth 3 times daily. Max DailyAmount: 300 mg, Disp: , Rfl: ranolazine (RANEXA) 1,000 mg 12 hr tablet, Take 1 tablet (1,000 mg total) by mouth 2 times daily., Disp: , Rfl: diclofenac (VOLTAREN) 1 % topical gel, Apply 4 g topically 4 (four) times a day., Disp: 480 g, Rfl:3 [3] Allergies Allergen Reactions Latex Nortriptyline [4] No family history on file. documented in this encounter Plan of Treatment Not on file documented as of this encounter Procedures Procedure Name Priority Date/Time Associated Diagnosis Comments NE ARTHROCENTESIS/ASPI RATION/INJECTION MAJOR JOINT/BURSA W/O U/S GUIDANCE Routine 07/10/2025 1:00 PM EST Arthritis of both knees documented in this encounter Results * NE ARTHROCENTESIS/ASPIRATION/INJECTION MAJOR JOINT/BURSA W/O U/S GUIDANCE (07/10/2025 1:00 PM EST) Amber Evans MD - 07/10/2025 1:00 PM EST Amber Isbell MD 07/11/2025 11:33 AM L Inj/Asp: bilateral knee Indications: pain Details: 22 G needle, anterolateral approach Medications (Right): 4 mL lidocaine 1 %; 40 mg triamcinolone acetonide 40 mg/mL Medications (Left): 4 mL lidocaine 1 %; 40 mg triamcinolone acetonide 40 mg/mL Informed Consent: Laterality: Bilateral Relevant images/test results available and reviewed: yes Health status cleared: Yes Procedure/treatment, purpose, treatment alternatives, risks/potential complications and benefits explained: yes Risk/complications/benefits details: Risks include bleeding, infection, increase in pain Patient questions answered: yes Patient agrees, verbalizes understanding, and wants to proceed: yes Consent given by: Patient Informed consent discussion completed by Physician/JOSE with patient: Verbal Pre-procedure timeout performed: yes us Amber Isbell MD IN CLINIC/BEDSIDE ORDERABLES F inal Result documented in this encounter Visit Diagnoses Diagnosis Arthritis of both knees- Primary documented in this encounter Administered Medications Inactive Administered Medications - up to 3 most recent administrations Medication Order MAR Action Action Date Dose Rate Site lidocaine (XYLOCAINE) 1 % injection 4 mL 4 mL, Once PRN Procedure, Starting on Wed07/10/25 at 1300, For 1 doseIndications:Arthritis of both knees Given 07/10/2025 1:00 PM EST 4 mL lidocaine (XYLOCAINE) 1 % injection 4 mL 4 mL, Once PRN Procedure, Starting on Wed07/10/25 at 1300, For 1 doseIndications:Arthritis of both knees Given 07/10/2025 1:00 PM EST 4 mL triamcinolone acetonide (KENALOG-40) 40 mg/mL injection 40 mg 40 mg, Once PRN Procedure, Starting on Wed07/10/25 at 1300, For 1 doseIndications:Arthritis of both knees Given 07/10/2025 1:00 PM EST 40 mg triamcinolone acetonide (KENALOG-40) 40 mg/mL injection 40 mg 40 mg, Once PRN Procedure, Starting on Wed07/10/25 at 1300, For 1 doseIndications:Arthritis of both knees Given 07/10/2025 1:00 PM EST 40 mg documented in this encounter Care Teams Waiter/Waitress Relationship Specialty Start Date End Date Yolanda Ojeda MD [address] [place] [id number] PCP - General Family Medicine 03/23/25 documented as of this encounter
--- OUTSIDE RECORDS SUMMARY | 2025-07-13 11:15 | XMS_ITS | Encounter Summary ---
Author Organization [facility] Address [address] [place] [address] [address] [place] [address] Care Team Providers Care Legal Archivist Name Role Phone Yolanda Ojeda MD Primary Care Provider [phone] Reason for Referral * Imaging (Routine) - Authorized Specialty Diagnoses / Procedures Referred By Britt santos Referred To Contact Radiology Diagnoses Dysphagia, unspecified type Procedures FL Esophagus Barium Swallow Yolanda Ojeda MD [address] [place] [address] Phone: tel: fax: [address] Phone: tel: fax: Referral ID Status Reason Start Date Expiration Date Visits Requested Visits Authorized [id number] Authorized Perform Procedure 07/13/2025 07/13/2026 1 1 * Consultation (Routine) - Pending Review Specialty Diagnoses / Procedures Referred By Britt santos Referred To Contact Ophthalmology Diagnoses Cataract of both eyes, unspecified cataract type Yolanda Ojeda MD [address] [place] [phone] Phone: tel: fax: Referral ID Status Reason Start Date Expiration Date Visits Requested Visits Authorized [id number] Pending Review Specialty Services Required 07/13/2025 07/13/2026 1 1 * Consultation (Routine) - Pending Review Specialty Diagnoses / Procedures Referred By Britt santos Referred To Contact Pulmonary Disease Diagnoses Pulmonary nodules Yolanda Ojeda MD [address] [place] [address] Phone: tel: fax: Referral ID Status Reason Start Date Expiration Date Visits Requested Visits Authorized [id number] Pending Review Specialty Services Required 07/13/2025 07/13/2026 1 1 * Consultation (Routine) - Pending Review Specialty Diagnoses / Procedures Referred By Conttory t Referred To Contact Endocrinology Diagnoses Hypothyroidism, unspecified type Yolanda Ojeda MD [address] [place] [address] Phone: tel: fax: Referral ID Status Reason Start Date Expiration Date Visits Requested Visits Authorized [id number] Pending Review Specialty Services Required 07/13/2025 07/13/2026 1 1 * Imaging (Routine) - Closed Specialty Diagnoses / Procedures Referred By Britt t Referred To Contact Radiology Diagnoses Breast cancer screening by mammogram Procedures BI Mammogram Screening Tomosynthesis Bilateral Yolanda Ojeda MD [address] [place] [address] Phone: tel: fax: [address] Phone: tel: fax: Referral ID Status Reason Start Date Expiration Date Visits Re quested Visits Authorized [id number] Closed 07/13/2025 07/13/2026 1 1 * Imaging (Routine) - Authorized Specialty Diagnoses / Procedures Referred By Conttory t Referred To Contact Radiology Diagnoses Brain aneurysm Procedures MRA Head w/o Contrast Yolanda Ojeda MD [address] [place] [address] Phone: tel: fax: [address] Phone: tel: fax: Referral ID Status Reason Start Date Expiration Date V isits Requested Visits Authorized [id number] Authorized 07/13/2025 07/13/2026 1 1 Reason for Visit * Reason Comments Follow-up Encounter Details Date Type Department Care Team ([facility] st Contact Info) Description 07/13/2025 11:15 AM EST Office Visit [facility] [address] [place] [address] Yolanda Ojeda MD [address] [place] [address] Brain aneurysm (Primary Dx); Hypothyroidism, unspecified type; Encounter for health-related screening; Dysuria; Essential (primary) hypertension; Breast cancer screening by mammogram; Pulmonary nodules; Cataract of both eyes, unspecified cataract type; Dysphagia, unspecified type; Dietary counseling; Exercise counseling Social History Tobacco Use Types Packs/Day Years Used Date Smoking Tobacco: Unknown Depression Answer Date Recorded Patient Health Questionnaire-9 Score 21 04/26/2025 Patient Health Questionnaire-9 Score 21 04/26/2025 Last PHQ-9: Questionnaire Data Not on file 0 04/26/2025 Housing Stability Answer Date Recorded What is your housing situation today? I do not have housing (Staying with others, in a hotel, in a halfway, living outside on the street, on a beach, in a car, or in a park 04/26/[address] you li ve. Do you have problems with any of the following? I am not sure 04/26/2025 Food Insecurity Answer Date Recorded Within the past 12 months, y ou worried that your food would run out before you got money to buy more: Often true 04/26/2025 Within the past 12 months,th e food you bought just didn't last and you didn't have enough money to get more: Often true Transportation Answer Date Recorded In the past 12 months, has l ack of transportation kept you from medical appts, meetings, work or from getting things needed for daily living? Yes, it has kept me from medical appointments or getting medications. 04/26/2025 Utilities Answer Date Recorded In the past 12 months, has t he electric, gas, oil or water company threatened to shut off services in your home? No 04/26/2025 Depression Answer Date Recorded Patient Health Questionnaire-2 Score 6 04/26/2025 Internet Access Answer Date Recorded Internet Access Q1 Yes 04/26/2025 Internet Access Q2 Not on file 04/26/2025 Comments Unknown Sex and Gender Information Value Date Recorded Sex Assigned at Female 04/26/2025 9:16 AM EDT Legal Sex Female 10:54 AM EDT Gender Identity Female 04/26/2025 9:16 AM EDT Sexual Orientation Straight 04/26/2025 9: 16 AM EDT documented as of this encounter Last Filed Vital Signs Vital Sign Reading Time Taken Comments Blood Pressure 202/108 07/13/2025 11:30 AM EST Pulse 72 07/13/2025 11:11 AM EST Temperature 37.1 C (98.7 F) 07/13/2025 11:11 AM EST Respiratory Rate 20 07/13/2025 11:11 AM EST Oxygen Saturation - - Inhaled Oxygen Concentration - - Weight 77.1 kg (170 lb) 07/13/2025 11:11 AM EST Height 165.1 cm (5' 5 ) 07/13/2025 11:11 AM EST Body Mass Index 28.29 07/13/2025 11:11 AM EST documented in this encounter Progress Notes * Yolanda Ojeda MD - 07/13/2025 11:15 AM EST Subjective Patient ID: Genny Matamoros is a 59 y.o. female who presents for Follow-up. Genny Matamoros is a female patient with a complex medical history including brain aneurysm, chest cancer, hypothyroidism, pulmonary nodules, and multiple chronic conditions who presents with severely elevated blood pressure of 202/108 mmHg and multiple pain complaints. The patient has been experiencing sleep disturbances, reporting being awake for 3 days. She also reports urinary discomfort that has been present for 2 weeks. Additionally, she describes difficulty swallowing both liquids and solids. Regarding her medical history, she mentions having intermittent episodes of chest c and receiving multiple medications. She recalls breaking 3 braces last year and being in a coma the year before. She is currently taking renexa 1000 milligrams and other medications twice daily at 500mg doses. The patient reports recent life stressors, including her mother's , and mentions falling before her mother . She has a brain aneurysm that requires neurosurgical evaluation. She missed a neurologist appointment on June 18, stating she never received notification, explaining she came to the clinic because her mother had . Medical History - Severe anxiety and depression - Brain aneurysm - Chest cancer - Hypothyroidism - Pulmonary nodules - Dysphagia to liquids and solids - Hypertension - History of coma - History of breaking 3 braces Family History - Mother: from brain aneurysm Social History - Living Situation: Lives with spouse, assists with activities of daily living including bathroom assistance - Caregiving: Provides care for spouse who requires assistance with mobility and bathroom needs Review of Systems Cardiovascular: Positive for chest pain. Gastrointestinal: Positive for dysphagia to both liquids and solids. Genitourinary: Positive for urinary discomfort for 2 weeks. Musculoskeletal: Positive for back pain, shoulder pain, neck pain, and right arm pain with difficulty handling right arm. Neurological: Positive for insomnia for 3 days. Review of Systems Objective BP (!) 202/108 (BP Location: Left arm, Patient Position: Sitting, BP Cuff Size: Adult) Pulse 72 Temp 98.7 ??F (37.1 ??C) (Oral) Resp 20 Ht 5' 5 (1.651 m) Wt 170 lb (77.1 kg) BMI 28.29 kg/m?? Physical Exam Constitutional: Appearance: She is ill-appearing. HENT: Head: Normocephalic and atraumatic. Pulmonary: Effort: Pulmonary effort is normal. Psychiatric: Mood and Affect: Mood is anxious and depressed. Affect is labile and tearful. Assessment/Plan Problem List Items Addressed This Visit Essential (primary) hypertension Relevant Medications cloNIDine (Catapres) tablet 0.1 mg (Completed) amLODIPine (Norvasc) 10 MG tablet telmisartan (Micardis) 80 MG tablet cloNIDine (Catapres) 0.1 MG tablet Other Relevant Orders CBC auto differential Comprehensive Metabolic Panel Lipid Panel, Standard Hypothyroidism, unspecified Relevant Medications atorvastatin (Lipitor) 80 MG tablet Other Relevant Orders TSH W/Reflex to FT4 Referral to Endocrinology Brain aneurysm - Primary Relevant Medications atorvastatin (Lipitor) 80 MG tablet cloNIDine (Catapres) tablet 0.1 mg (Completed) amLODIPine (Norvasc) 10 MG tablet telmisartan (Micardis) 80 MG tablet cloNIDine (Catapres) 0.1 MG tablet Other Relevant Orders MRA Head w/o Contrast Dysphagia Relevant Medications amLODIPine (Norvasc) 10 MG tablet Other Relevant Orders FL Esophagus Barium Swallow Other Visit Diagnoses Encounter for health-related screening Relevant Orders HIV-1/2 Antigen and Antibodies, Fourth Generation, with Reflexes Dysuria Relevant Medications DULoxetine (Cymbalta) [address] capsule Other Relevant Orders POCT Urinalysis (Completed) Urinalysis, Complete, with Reflex to Culture Culture, Urine, Routine Breast cancer screening by mammogram Relevant Orders BI Mammogram Screening Tomosynthesis Bilateral Pulmonary nodules Relevant Orders Referral to Pulmonology Cataract of both eyes, unspecified cataract type Relevant Orders Referral to Ophthalmology Dietary counseling Relevant Medications atorvastatin (Lipitor) 80 MG tablet Exercise counseling Relevant Medications atorvastatin (Lipitor) 80 MG tablet Genny Matamoros is a female patient with history of brain aneurysm, cancer, hypothyroidism, pulmonary nodules, and multiple chronic conditions presenting with severe hypertension (202/108), chest pain, dysphagia, urinary discomfort for 2 weeks, and new onset severe back/neck/shoulder pain with right arm weakness following a recent fall. Hypertensive crisis Assessment: Patient presents with severely elevated blood pressure of 202/108 mmHg accompanied by chest pain, representing a hypertensive emergency requiring immediate intervention. Current antihypertensive regimen appears inadequate for blood pressure control. Patient reports taking morning medication but pressure remains dangerously elevated. Plan: - Administer clonidine immediately via nursing - Start clonidine at bedtime tonight to assess blood pressure response - Change amlodipine to 10 mg - Change losartan to telmisartan for longer duration of action . Brain aneurysm Assessment: Patient has known brain aneurysm requiring neurosurgical evaluation. Missed neurology appointment on June 18. Patient reports recent fall prior to mother's , which may have clinical significance given aneurysm history. Requires imaging before neurosurgical consultation can proceed. Plan: - Order MRA (code [id number]) for aneurysm evaluation - [place] [facility] [place] - Neurology will not schedule until MRI completed - Patient needs to be seen by neurosurgeon after imaging . Dysphagia Assessment: Patient reports difficulty swallowing both liquids and solids. This represents a concerning symptom requiring further evaluation given patient's complex medical history including previouscancer. Plan: - Gastroenterology referral for evaluation - Schedule colonoscopy through gastroenterology - The patient expressed interest in nutritional supplementation. Due to the number of concerns raised during the visit, there was limited opportunity to fully discuss this request and assess its appropriateness. As she will soon transition to a new primary care provider, I have recommended that sheaddress this topic further with them. . Urinary discomfort Assessment: Patient reports 2 weeks of urinary discomfort. Rapid urine test was negative, but further urinalysis pending for complete evaluation. Plan: - Check urine analysis - Contact patient if positive findings in urine and prescribe antibiotic if indicated . Anxiety and depression Assessment: Patient has history of severe anxiety and depression. Currently on multiple medications. Concerning combination of opioid medications with Xanax creates risk for respiratory depression. Plan: - Refer to [facility] for psychiatry establishment at [address] in [place] - Patient needs both therapy and psychiatry services - Medication combination requires careful monitoring due to respiratory risk . Hypothyroidism Assessment: Patient has known hypothyroidism requiring endocrinology follow-up for ongoing management. Plan: - Follow up with endocrinology . Pulmonary nodules Assessment: Patient has history of pulmonary nodules requiring ongoing monitoring and follow-up care. Plan: - Continue monitoring . Preventive care needs Assessment: Patient requires routine preventive care including mammography and laboratory studies. Multiple specialist appointments scheduled for comprehensive care coordination. Plan: - Order mammography - Order lipids, CMP, CBC - Order ultrasound and TSH - Laboratory work to be completed before next visit - Follow-up appointment scheduled for the 25th - Patient to bring medication bottles (not list) to next appointment - Call patient with laboratory results when available . documented in this encounter Plan of Treatment Upcoming Encounters Date Type Department Care Team (Late st Contact Info) Description 07/19/2025 2:30 PM EST Clinical Support [facility] [address] [place] [address] Crystal Taylor, COLT [address] [place] [address] 07/31/2025 10:15 AM EST Office Visit [facility] [address] [place] [phone] Name, MD Wesley [address] [place] [address] Scheduled Orders Name Type Priority Associated Diagnoses Orde r Schedule MRA Head w/o Contrast Imaging Routine Brain aneurysm Expected: 07/13/2025, Expires: 07/13/2026 CBC auto differential Lab Routine Essential (primary) hypertension Expected: 07/13/2025 (Approximate), Expires: 07/13/2026 Comprehensive Metabolic Panel Lab Routine Essential (primary) hypertension Expected: 07/13/2025 (Approximate), Expires: 07/13/2026 Lipid Panel, Standard Lab Routine Essential (primary) hypertension Expected: 07/13/2025 (Approximate), Expires: 07/13/2026 HIV-1/2 Antigen and Antibodies, Fourth Generation, with Reflexes Lab Routine Encounter for health-related screening Expected: 07/13/2025 (Approximate), Expires: 07/13/2026 TSH W/Reflex to FT4 Lab Routine Hypothyroidism, unspecified type Expected: 07/13/2025 (Approximate), Expires: 07/13/2026 BI Mammogram Screening Tomosynthesis Bilateral Imaging Routine Breast cancer screening by mammogram Expected: 07/13/2025, Expires: 09/12/2026 FL Esophagus Barium Swallow Imaging Routine Dysphagia, unspecified type Expected: 07/13/2025, Expires: 07/13/2026 Scheduled Referrals Name Type Priority Associated Diagnoses Order Schedule Referral to Endocrinology Outpatient Referral Routine Hypothyroidism, unspecified type Expected: 07/13/2025 (Approximate), Expires: 07/13/2026 Referral to Pulmonology Outpatient Referral Routine Pulmonary nodules Expected: 07/13/2025 (Approximate), Expires: 07/13/2026 Referral to Ophthalmology Outpatient Referral Routine Cataract of both eyes, unspecified cataract type Expected: 07/13/2025 (Approximate), Expires: 07/13/2026 documented as of this encounter Procedures Procedure Name Priority Date/Time Associated Diagnosis Comments POCT URINALYSIS DIPSTICK Routine 07/13/2025 12:03 PM EST Dysuria URINALYSIS, COMPLETE, WITH REFLEX TO CULTURE Routine 07/13/2025 12:00 AM EST Dysuria CULTURE, URINE, ROUTINE Routine 07/13/2025 12:00 AM EST Dysuria documented in this encounter Results * POCT Urinalysis (07/13/2025 12:03 PM EST) Color, UA Yellow Clarity, UA Clear Glucose, UA Negative Bilirubin, UA Negative Ketones, UA Negative Spec Grav, UA 1.020 Blood, UA Negative Negative, None Detected pH, UA 6.0 Protein, UA Negative Urobilinogen, UA 0.2 Leukocytes, UA Negative Negative, Rare, Trace Nitrite, UA Negative Negative, None Detected Appearance, UA clear QC Media Lot # [id number] Lot# Expiration Date [id number] Urine (Urine, Random) 07/13/2025 12:03 PM EST Yolanda Ojeda MD POINT OF CARE TEST ENTER/EDIT ORDERABLES Final Result * Culture, Urine, Routine (07/13/2025 12:00 AM EST) Urine Urine specimen obtained by clean catch procedure / Unknown 07/13/2025 07/13/2025 Comment:UACC Narrative [facility] - 07/14/2025 1:47 PM EST Urine Culture Report Result Urine Culture < 10,000 cfu/ml Specimen Source: Urine clean catch Yolanda Ojeda MD LAB MICROBIOLOGY - GENERAL OR DERABLES Final Result [facility] [address] [place] [phone] * (ABNORMAL) Urinalysis, Complete, with Reflex to Culture (07/13/2025 12:00 AM EST) Color Urine Yellow [facility] Appearance Urine Clear [facility] PH 6.0 5.0 - 9.0 [facility] Glucose Urine UA Negative Negative mg/dL [facility] Urine Blood Negative Negative [facility] Specific [place] - Urine 1.020 1.005 - 1.025 [facility] Urine Protein Negative Neg-Trace mg/dL [facility] Urine Ketones Negative Negative mg/dL [facility] Nitrite Urine Negative Negative [facility] Leukocyte Esterase Urine Small (1+)(A) Negative [facility] RBC Urine 0-2 0 - 2 /HPF [facility] Urine WBC 0-5 0 - 5 /HPF [facility] Urine Squamous Epithelial Cell 0-2 0 - 2 /HPF [facility] Urine Bacteria None Seen None Seen [facility] Hyaline Casts, Urine 0-2 0 - 2 /LPF [facility] Urine 07/13/2025 07/13/2025 Narrative [facility] - 07/13/2025 3:04 PM EST [id number], Clean Catch us Yolanda Ojeda MD LAB URINE ORDERABLES Final Re sult [facility] [address] [place] [address] [phone] documented in this encounter Visit Diagnoses Diagnosis Brain aneurysm- Primary Cerebral aneurysm, nonruptured Hypothyroidism, unspecified type Encounter for health-related screening Dysuria Essential (primary) hypertension Unspecified essential hypertension Breast cancer screening by mammogram Pulmonary nodules Other diseases of lung, not elsewhere classified Cataract of both eyes, unspecified cataract type Dysphagia, unspecified type Dietary counseling Dietary surveillance and counseling Exercise counseling documented in this encounter Administered Medications Inactive Administered Medications - up to 3 most recent administrations Medication Order MAR Action Action Date Dose Rate Site cloNIDine (Catapres) tablet 0.1 mg 0.1 mg, Oral, Once, On Wed07/13/25 at 1145, For 1 doseIndications:Brain aneurysm Given 07/13/2025 11:45 AM EST 0.1 mg documented in this encounter Additional Health Concerns Assessment Noted Time PHQ-9 Depression Total Score: 21 025 10:36 AM EDT documented as of this encounter Care Teams Legal Archivist Relationship Specialty Start Date End Date Yolanda Ojeda MD [address] [place] [address] PCP - General Family Medicine 04/26/25 documented as of this encounter
--- OUTSIDE RECORDS SUMMARY | 2025-07-13 13:40 | XMS_ITS | Encounter Summary ---
Author Organization [employer] Address [address] [facility] [address] [place] [address] Care Team Providers Care Trademark Affixer Name Role Phone Yolanda Ojeda MD Primary Care Provider [phone] Reason for Referral * Consultation (Urgent) - Pending Review Specialty Diagnoses / Procedures Referred By Britt santos Referred To Contact Neurology Diagnoses Intractable chronic migraine with aura with status migrainosus Ilsa Rosales NP [address] [place] [address] Phone: tel: fax: Referral ID Status Reason Start Date Expiration Date Visits Requested Visits Authorized [id number] Pending Review Specialty Services Required 07/13/2025 07/13/2026 1 1 Reason for Visit * Reason Comments Headache Encounter Details Date Type Department Care Team ([facility] st Contact Info) Description 07/13/2025 1:40 PM EST Office Visit [facility] [address] [place], [place] [phone] Ilsa Rosales NP [address] [place] [address] Viral upper respiratory tract infection (Primary Dx); Intractable chronic migraine with aura with status migrainosus Social History Tobacco Use Types Packs/Day Years Used Date Smoking Tobacco: Unknown Tobacco Cessation:Counseling Given: Not Answered Depression Answer Date Recorded Patient Health Questionnaire-9 [...] Sign Reading Time Taken Comments Blood Pressure 168/90 07/13/2025 2:12 PM EST Pulse 75 07/13/2025 2:12 PM EST Temperature 36.6 C (97.9 F) 07/13/2025 2:12 PM EST Respiratory Rate 16 07/13/2025 2:12 PM EST Oxygen Saturation 97% 07/13/2025 2:12 PM EST Inhaled Oxygen Concentration - - Weight 78 kg (172 lb) 07/13/2025 2:12 PM EST Height - - Body Mass Index 28.62 07/13/2025 11:11 AM EST documented in this encounter Progress Notes * Ilsa Rosales NP - 07/13/2025 1:40 PM EST Genny Matamoros is a 59 y.o. female who presents to the office for Chief Complaint Patient presents with Headache Problem List[1] Medical History[2] Allergies[3] Genny Matamoros, 59-year-old female - History of fibromyalgia and chronic migraines - Head pain similar to previous migraines, described as severe - Receives trigger point injections for headache prevention, primarily for the back - Uses Adovia injections and previously tried Nurtec for migraines - Received Toradol injection for migraine three weeks ago, reported it was helpful - Took migraine medication today - Reports vomiting yesterday - Reports elevated blood pressure associated with migraine pain - Denies chest pain Review of Systems Gastrointestinal: Positive for nausea and vomiting. Neurological: Positive for headaches. BP (!) 168/90 (BP Location: Right arm, Patient Position: Sitting, BP Cuff Size: Adult) Pulse 75 Temp 97.9 ??F (36.6 ??C) (Oral) Resp 16 Wt 172 lb (78 kg) SpO2 97% BMI 28.62 kg/m?? Physical Exam Vitals reviewed. Constitutional: General: She is in acute distress. Appearance: She is obese. She is not ill-appearing or toxic-appearing. HENT: Head: Normocephalic and atraumatic. Nose: Nose normal. Eyes: Conjunctiva/sclera: Conjunctivae normal. Cardiovascular: Rate and Rhythm: Normal rate and regular rhythm. Pulmonary: Effort: Pulmonary effort is normal. Breath sounds: Normal breath sounds. Musculoskeletal: Cervical back: Normal range of motion and neck supple. Neurological: General: No focal deficit present. Mental Status: She is alert. - HEENT: Assessment of cranial region for migraine-related symptoms. No new symptoms reported. Results: Office Visit on 07/13/2025 Component Date Value Ref Range Status Influenza A 07/13/2025 Negative Negative, Indeterminate Final Influenza B 07/13/2025 Negative Negative, Indeterminate Final Rapid COVID Ag 07/13/2025 Negative Final Office Visit on 07/13/2025 Component Date Value Ref Range Status Color, UA 07/13/2025 Yellow Final Clarity, UA 07/13/2025 Clear Final Glucose, UA 07/13/2025 Negative Final Bilirubin, UA 07/13/2025 Negative Final Ketones, UA 07/13/2025 Negative Final Spec Grav, UA 07/13/2025 1.020 Final Blood, UA 07/13/2025 Negative Negative, None Detected Final pH, UA 07/13/2025 6.0 Final Protein, UA 07/13/2025 Negative Final Urobilinogen, UA 07/13/2025 0.2 Final Leukocytes, UA 07/13/2025 Negative Negative, Rare, Trace Final Nitrite, UA 07/13/2025 Negative Negative, None Detected Final Appearance, UA 07/13/2025 clear Final QC Media Lot # 07/13/2025 [id number] Final Lot# Expiration Date 07/13/2025 [id number] Final Color Urine 07/13/2025 Yellow Final Appearance Urine 07/13/2025 Clear Final PH 07/13/2025 6.0 5.0 - 9.0 Final Glucose Urine UA 07/13/2025 Negative Negative mg/dL Final Urine Blood 07/13/2025 Negative Negative Final Specific [place] - Urine 07/13/2025 1.020 1.005 - 1.025 Final Urine Protein 07/13/2025 Negative Neg-Trace mg/dL Final Urine Ketones 07/13/2025 Negative Negative mg/dL Final Nitrite Urine 07/13/2025 Negative Negative Final Leukocyte Esterase Urine 07/13/2025 Small (1+) (A) Negative Final Assessment & Plan Viral upper respiratory tract infection Orders: Influenza A (ID NOW Rapid Molecular) Influenza B (ID NOW Rapid Molecular) POCT Rapid COVID Ag Intractable chronic migraine with aura with status migrainosus Orders: ketorolac (Toradol) injection 30 mg ondansetron ODT (Zofran-ODT) disintegrating tablet 4 mg Rimegepant Sulfate (Nurtec) 75 MG tablet dispersible; Take 1 tablet (75 mg) by mouth if needed eachday (Severe headaches). Referral to Neurology; Future Assessment & Plan Intractable chronic migraine with aura with status migrainosus: - Chronic migraine with aura and status migrainosus, currently experiencing severe headache and associated nausea. Breakthrough migraine managed with trigger point injections and Adovia injections. Toradol injection administered three weeks ago (June 22, 2025). No new symptoms reported. Blood pressure elevated due to pain. - Administered 30 mg Ketorolac and 4 mg sublingual Zofran in clinic for acute migraine and nausea. Prescribed sublingual Zofran and Ketorolac tablets for breakthrough migraine. Advised to avoid ibuprofen and Motrin for the rest of the week. Hold aspirin for two days, may resume on Wednesday (July 16, 2025). Recommended increased oral hydration. Offered acupuncture as adjunctive therapy for chronic headache and stress management. Instructed to seek hospital care if symptoms worsen or if headache feels different than usual migraine. Prescription - Ketorolac 30 mg injection in clinic now, prescription for additional doses as needed for breakthrough migraine - Ondansetron (Zofran) 4 mg sublingual tablet now, prescription for nausea related to migraine Current Medications[4] Based on our discussion, I have outlined the following instructions for you: - You have been given medicine in the clinic today for your severe headache and nausea. - You have been given prescriptions for Zofran (to help with nausea) and Ketorolac (for pain) to use if you get another bad migraine. - Do not take ibuprofen or Motrin for the rest of this week. - Do not take aspirin for the next two days. You can start taking aspirin again on Wednesday, 2024. - Drink more water than usual to help your body stay hydrated. - You can try acupuncture to help with your headaches and stress if you are interested. - Go to the hospital if your symptoms get worse or if your headache feels different than your usualmigraine. Thank you again for your visit, and we look forward to supporting you in your journey to better health. This note was drafted using Ambient (AI) technology. The patient/patient's guardian has been informed and has consented to the use of this technology: Yes Visit Conducted in: Jamaican Translation by: Patient is bilingual and declines translation services [1] Patient Active Problem List Diagnosis Elevated white blood cell count, unspecified Essential (primary) hypertension Gastro-esophageal reflux disease without esophagitis Hypothyroidism, unspecified Iron deficiency anemia, unspecified Generalized anxiety disorder Anemia, unspecified Coronary artery disease status post coronary stent insertion Brain aneurysm Rachel-Calvert tear Chronic gastric ulcer Lumbar disc disease Moderate major depression (CMS/HCC) (HCC) Long-term current use of opiate analgesic Long-term current use of benzodiazepine Dysphagia [2] Past Medical History: Diagnosis Date 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 Asthma Brain aneurysm x2 sp coil Cataracts, bilateral Chronic pelvic pain in female COPD (chronic obstructive pulmonary disease) (HCC) Diverticulitis Endometriosis Fibromyalgia Folate deficiency HELENA (generalized anxiety disorder) Hx of thyroid cancer Hyperlipidemia Hypertension Insomnia Latent tuberculosis Compelte 10 month tx in [place] Lung nodules Bilateral Migraine headache Myocardial infarction (HCC) 2014, sp Stent in LAD Osteoarthritis, knee Osteopenia Postnasal drip Vitamin D deficiency [3] Allergies Allergen Reactions Nortriptyline Other Vision problems Latex Rash [4] Current Outpatient Medications: albuterol 108 (90 Base) MCG/ACT inhaler, Inhale 2 puffs every 4 (four) hours if needed for wheezing., Disp: 18 g, Rfl: 0 ALPRAZolam (Xanax) 1 MG tablet, Take 1 tablet (1 mg) by mouth if needed in the morning, at noon, inthe evening, and at bedtime for anxiety for up to 14 days., Disp: 56 tablet, Rfl: 0 amLODIPine (Norvasc) 10 MG tablet, Take 1 tablet (10 mg) by mouth Once per day., Disp: 90 tablet, Rfl: 1 aspirin 81 MG EC tablet, Take 81 mg by mouth Once per day., Disp: , Rfl: atorvastatin (Lipitor) 80 MG tablet, Take 1 tablet by mouth Once per day., Disp: , Rfl: azelastine (Astelin) 0.1 % nasal spray, Administer 1 spray into each nostril 2 times daily. Use in each nostril as directed, Disp: 30 mL, Rfl: 3 Blood Pressure kit, 1 Units Once per day., Disp: 1 kit, Rfl: 0 budesonide-formoterol (Symbicort) 160-4.5 MCG/ACT inhaler, Inhale 2 puffs in the morning and at bedtime. Rinse mouth with water after use to reduce aftertaste and incidence of candidiasis. Do not swallow., Disp: 1 each, Rfl: 11 cholecalciferol (Vitamin D-3) 1.25 MG (94024 UT) capsule, Take 1 capsule by mouth every 7 (seven) days., Disp: , Rfl: cloNIDine (Catapres) 0.1 MG tablet, Take 1 tablet (0.1 mg) by mouth at bedtime., Disp: 30 tablet, Rfl: 1 Diclofenac Sodium 1 % gel, Apply 4 g topically 4 times daily., Disp: , Rfl: DULoxetine (Cymbalta) [address] capsule, Take 1 capsule by mouth 2 times daily., Disp: , Rfl: ergocalciferol (Vitamin D2) 1.25 MG (96491 UT) capsule, TAKE 1 CAPSULE BY MOUTH ONE TIME PER WEEK, Disp: 12 capsule, Rfl: 0 evolocumab (Repatha) 140 MG/ML injection, Inject 140 mg under the skin every 14 (fourteen) days., Disp: , Rfl: folic acid (Folvite) 1 MG tablet, Take 1 tablet (1 mg) by mouth Once per day., Disp: 90 tablet, Rfl: 1 fremanezumab (Ajovy) 225 MG/1.5ML auto-injector, , Disp: , Rfl: Icosapent Ethyl (Vascepa) 1 g capsule, TAKE 2 CAPSULES (2 G) BY MOUTH WITH BREAKFAST AND WITH EVENING MEAL., Disp: 120 capsule, Rfl: 11 iron sucrose (Venofer) 20 MG/ML injection, 20 mL., Disp: , Rfl: levothyroxine (Synthroid) 100 MCG tablet, Take 1 tablet (100 mcg) by mouth before breakfast., Disp:90 tablet, Rfl: 1 metoprolol succinate XL (Toprol XL) 50 MG 24 hr tablet, Take 1 tablet (50 mg) by mouth Once per day. Do not crush or chew., Disp: 90 tablet, Rfl: 1 montelukast (Singulair) 10 MG tablet, Take 1 tablet (10 mg) by mouth Once per day., Disp: 90 tablet, Rfl: 1 naloxone (Narcan) 4 mg/0.1 mL nasal spray, Administer 1 spray (4 mg) into affected nostril(s) if needed for opioid reversal. May repeat every 2-3 minutes if needed, alternating nostrils, until medical assistance becomes available., Disp: 2 each, Rfl: 0 nitroglycerin (Nitrostat) 0.4 MG SL tablet, Place 1 tablet (0.4 mg) under the tongue every 5 (five)minutes if needed for chest pain., Disp: 30 tablet, Rfl: 0 nystatin (Mycostatin) 304719 UNIT/GM powder, APPLY DAILY TO SKIN TO AFFECTED AREA TWICE A DAY FOR 2WEEKS, Disp: , Rfl: omeprazole (PriLOSEC) [address] capsule, Take 1 capsule (40 mg) by mouth before breakfast. Do not crush or chew., Disp: 90 capsule, Rfl: 1 ondansetron (Zofran) 4 MG tablet, Take 1 tablet (4 mg) by mouth if needed each day for nausea or vomiting., Disp: 20 tablet, Rfl: 0 oxyCODONE (Roxicodone) 10 MG immediate release tablet, Take 1 tablet (10 mg) by mouth 3 times dailyfor 14 days., Disp: 42 tablet, Rfl: 0 polyethylene glycol, PEG, 3350 (MiraLax) 17 GM/SCOOP powder, Take 17 g by mouth Once per day., Disp: 527 g, Rfl: 2 pregabalin (Lyrica) 100 MG capsule, Take 1 capsule (100 mg) by mouth 3 times daily., Disp: 90 capsule, Rfl: 2 ranolazine (Ranexa) 1000 MG 12 hr tablet, Take 1 tablet (1,000 mg) by mouth 2 times daily. Do not crush, chew, or split., Disp: 180 tablet, Rfl: 1 Rimegepant Sulfate (Nurtec) 75 MG tablet dispersible, Take 1 tablet (75 mg) by mouth if needed eachday (Severe headaches)., Disp: 18 tablet, Rfl: 3 telmisartan (Micardis) 80 MG tablet, Take 1 tablet (80 mg) by mouth Once per day., Disp: 90 tablet,Rfl: 1 zolpidem (Ambien) 10 MG tablet, Take 1 tablet (10 mg) by mouth if needed at bedtime for sleep., Disp: 28 tablet, Rfl: 0 Current Facility-Administered Medications: ondansetron ODT (Zofran-ODT) disintegrating tablet 4 mg, 4 mg, Oral, Once, Ilsa Rosales NP documented in this encounter Plan of Treatment Upcoming Encounters Date Type Department Care Team (Late st Contact Info) Description 07/19/2025 2:30 PM EST Clinical Support [facility] [address] [place] [address] Crystal Taylor, COLT [address] [place] [address] 07/31/2025 10:15 AM EST Office Visit [facility] [address] [place] [phone] Name, MD Wesley [address] [place] [address] Scheduled Referrals Name Type Priority Associated Diagnoses Orde r Schedule Referral to Neurology Outpatient Referral Urgent Intractable chronic migraine with aura with status migrainosus Expected: 07/13/2025 (Approximate), Expires: 07/13/2026 documented as of this encounter Procedures Procedure Name Priority Date/Time Associated Diagnosis Comments POCT INFLUENZA B (ID NOW RAPID MOLECULAR) Routine 07/13/2025 2:47 PM EST Viral upper respiratory tract infection POCT INFLUENZA A (ID NOW RAPID MOLECULAR) Routine 07/13/2025 2:47 PM EST Viral upper respiratory tract infection POCT RAPID COVID ANTIGEN Routine 07/13/2025 2:21 PM EST Viral upper respiratory tract infection documented in this encounter Results * Influenza B (ID NOW Rapid Molecular) (07/13/2025 2:47 PM EST) Influenza B Negative Negative, Indeterminate [facility] Swab 07/13/2025 2:47 PM EST Ilsa Rosales GENERAL TECHNICIAN POINT OF CARE TEST ENTER/EDIT OR DERABLES Final Result Performing Organization Address City/[facility]/ZIP Co de Phone Number [facility] [address] [place] [phone] * Influenza A (ID NOW Rapid Molecular) (07/13/2025 2:47 PM EST) Influenza A Negative Negative, Indeterminate [facility] Swab 07/13/2025 2:47 PM EST Ilsa Rosales GENERAL TECHNICIAN POINT OF CARE TEST ENTER/EDIT OR DERABLES Final Result Performing Organization Address [facility]/ZIP Co de Phone Number [facility] [address] [place] [phone] * POCT Rapid COVID Ag (07/13/2025 2:21 PM EST) Rapid COVID Ag Negative Swab 07/13/2025 2:21 PM EST Result [facility] Ilsa Rosales GENERAL TECHNICIAN POINT OF CARE TEST ENTER/EDIT OR DERABLES Final Result documented in this encounter Visit Diagnoses Diagnosis Viral upper respiratory tract infection- Primary Acute upper respiratory infections of unspecified site Intractable chronic migraine with aura with status migrainosus documented in this encounter Administered Medications Inactive Administered Medications - up to 3 most recent administrations Medication Order MAR Action Action Date Dose Rate Site ketorolac (Toradol) injection 30 mg 30 mg, Intramuscular, Once, On Wed07/13/25 at 1445, For 1 doseIndications:Intractable chronic migraine with aura with status migrainosus Given 07/13/2025 2:45 PM EST 30 mg Left Deltoid ondansetron ODT (Zofran-ODT) disintegrating tablet 4 mg 4 mg, Oral, Once, On Wed07/13/25 at 1445, For 1 doseIndications:Intractable chronic migraine with aura with status migrainosus Given 07/13/2025 2:45 PM EST 4 mg documented in this encounter Additional Health Concerns Assessment Noted Time PHQ-9 Depression Total Score: 025 10:36 AM EDT documented as of this encounter Care Teams Trademark Affixer Relationship Specialty Start Date End Date Yolanda Ojeda MD [address] [place] [phone] PCP - General Family Medicine 04/26/25 documented as of this encounter
--- NOTE | 2025-07-15 14:14 | ECG_ITS ---
Test Reason : CHEST PAIN Blood Pressure : */* mmHG Vent. Rate : 81 BPM Atrial Rate : 81 BPM P-R Int : 160 ms QRS Dur : 78 ms QT Int : 376 ms P-R-T Axes : 70 -26 54 degrees QTcB Int : 436 ms Normal sinus rhythm Possible Left atrial enlargement Low voltage QRS Cannot rule out Anterior infarct (cited on or before 20-Mar-2025) Abnormal ECG When compared with ECG of 20-Mar-2025 11:54, Questionable change in initial forces of Lateral leads Referred By: Rowdy Borges Electronically Signed By: AURELIO CHING MD
[2025-07-15 14:42] VITALS: BP 156/73; PULSE 79; RESP 18; TEMP 36.6; O2SAT 98; BMI 27.4
--- NOTE | 2025-07-15 14:46 | ED.HA ---
HPI - Headache General Chief Complaint: Headache Stated Complaint: cp, high bp, vomitting, oliva Time Seen by Provider: 07/15/25 14:59 Source: patient and machine hose cutter Mode of arrival: ambulatory Limitations: no limitations History of Present Illness ED Provider: HPI Narrative: 59-year-old woman with a history of migraines, presenting with a migraine as she describes it for the past 3 days, vibratory sensation of the brain, slight nausea, no severe headache of sudden onset, she does have history of reports of brain aneurysm and coiling, and history of ACS with a stent, she states she has been worried about her blood pressure, she is shaky and anxious, information was obtained with the help of the manager hydraulic. States that these symptoms are fairly typical for migraine flare. Related Data Home Medications ?Medication ?Instructions ?Recorded ?Confirmed albuterol sulfate 90 mcg/actuation 2 puff inhalation QID PRN 01/15/24 01/15/24 aerosol inhaler Shortness Of Breath Or Wheezing alprazolam 1 mg tablet 1 mg PO QID 01/15/24 01/15/24 amlodipine 5 mg tablet 5 mg PO DAILY 01/15/24 01/15/24 aspirin 81 mg tablet,delayed 81 mg PO DAILY 01/15/24 01/15/24 release Held on 01/20/24. Instructions: do not take for two weeks. discuss with PCP atorvastatin 80 mg tablet 80 mg PO DAILY 01/15/24 01/15/24 ergocalciferol (vitamin D2) 1,250 1,250 mcg PO QWEEK 01/15/24 01/15/24 mcg (50,000 unit) capsule fremanezumab-vfrm 225 mg/1.5 mL 225 mg subcut QMONTH 01/15/24 01/15/24 subcutaneous auto-injector (Ajovy) icosapent ethyl 1 gram capsule 2 g PO BID 01/15/24 01/15/24 (Vascepa) levothyroxine 112 mcg tablet 112 mcg PO DAILY@0600 01/15/24 01/15/24 metoprolol succinate 50 mg 50 mg PO DAILY 01/15/24 01/15/24 tablet,extended release 24 hr nystatin 100,000 unit/gram topical 1 appl topical BID 01/15/24 01/15/24 powder (Klayesta) ondansetron 4 mg disintegrating 4 mg PO TID PRN Nausea And Vomiting 01/15/24 01/15/24 tablet oxycodone 10 mg tablet 10 mg PO BID-TID 01/15/24 01/15/24 pregabalin 100 mg capsule 100 mg PO BID-TID 01/15/24 01/15/24 ranolazine 1,000 mg 1,000 mg PO BID 01/15/24 01/15/24 tablet,extended release,12 hr tizanidine 4 mg tablet 4 mg PO TID PRN Muscle Spasm 01/15/24 01/15/24 triamcinolone acetonide 0.1 % 1 appl topical BID PRN Rash 01/15/24 01/15/24 topical cream zolpidem 10 mg tablet 10 mg PO BEDTIME 01/15/24 01/15/24 Previous Rx's ?Medication ?Instructions ?Recorded lidocaine 4 % topical patch 1 patch transdermal DAILY #15 ea 01/20/24 (Lidocaine Pain Relief) omeprazole 40 mg capsule,delayed 40 mg PO BID 90 days #180 caps 01/20/24 release Allergies Allergy/AdvReac Type Severity Reaction Status Date / Time amitriptyline Allergy Blurry Verified 07/15/25 14:44 Vision latex Allergy Rash Verified 07/15/25 14:44 Review of Systems Constitutional: Constitutional: Reports as per [facility] Past Medical History Medical History Vulvar cancer Papillary thyroid carcinoma Vitamin D deficiency Hypothyroidism Asthma Chronic stable angina HLD (hyperlipidemia) Endometriosis Osteopenia COPD (chronic obstructive pulmonary disease) Fibromyalgia Migraine CAD (coronary artery disease) Surgical History H/O pelvic surgery History of thyroid surgery History of intravascular stent placement H/O brain surgery Social History Social History Advance Directives Date on File: 01/21/24 Physical Exam Exam: Exam: General: ?Appears of stated age ? ?3 mm reactive bilaterally, extraocular movements intact, visual chu are intact ? Neck: Supple, no LAD ? ?CV: RRR, no obvious murmurs appreciated ? ?Resp: ?No wheezing rales rhonchi no stridor moving air well ? Abd: ?Bowel sounds are present, no tenderness no rebound no rigidity ? ?MSK: FROM, strength 5/5 all extremities ? Skin: Warm, dry, intact, ? ?Neuro: ?Alert and oriented x3, moving upper and lower extremities symmetrically, no obvious facial asymmetry noted, cranial nerves 2-12 intact, patient is somewhat shaky and anxious Vital Signs: Vital Signs: Last Vital Signs Temp 96.9 F 07/15/25 18:55 Pulse 74 07/15/25 18:55 Resp 14 07/15/25 18:55 BP 134/63 07/15/25 18:55 Pulse Ox 95 07/15/25 18:55 O2 Del Method Room Air 07/15/25 18:55 BMI result Body Mass Index 27.4 Course Course Course Narrative: RME: 59-year-old female history of brain aneurysm with stent and also stent in the heart presents to ED headache for the past 3 days relief with the any pain. Patient states also mild chest pain. Patient denies any trauma, neck stiffness or photophobia. Patient to be brought back to the ED immediately for evaluation Medications Administered Discontinued Medications Generic Name Dose Route Start Last Admin Trade Name Timoq PRN Reason Stop Dose Admin Diazepam 2.5 mg 07/15/25 15:30 07/15/25 15:45 Diazepam 10 Mg/2 Ml Cartridge IVPUSH 07/15/25 15:31 2.5 mg STAT STA Administration Diphenhydramine HCl 12.5 mg 07/15/25 15:35 07/15/25 15:45 Diphenhydramine Hcl 50 Mg/Ml Vial IVPUSH 07/15/25 15:36 12.5 mg ONCE ONE Administration Diphenhydramine HCl 25 mg 07/15/25 17:44 07/15/25 17:52 Diphenhydramine Hcl 50 Mg/Ml Vial IVPUSH 07/15/25 17:45 25 mg ONCE ONE Administration Sodium Chloride 1,000 mls @ 999 mls/hr 07/15/25 15:30 07/15/25 18:46 Ns IV 07/15/25 16:30 Infused .Q1H1M PUNEET Infusion Ketorolac Tromethamine 15 mg 07/15/25 17:44 07/15/25 17:53 Ketorolac Tromethamine 15 Mg/Ml Vial IVPUSH 07/15/25 17:45 15 mg ONCE ONE Administration Metoclopramide HCl 10 mg 07/15/25 17:44 07/15/25 17:53 Metoclopramide Hcl 10 Mg/2 Ml Vial IVPUSH 07/15/25 17:45 10 mg ONCE ONE Administration Ondansetron HCl 4 mg 07/15/25 15:30 07/15/25 15:45 Ondansetron Hcl 4 Mg/2 Ml Vial IVPUSH 07/15/25 15:31 4 mg ONCE ONE Administration Medical Decision Making Medical Decision Making MDM Narrative: 3:41 PM 07/15/2025 (Dr. Ayan Peña): Patient has history of aneurysm and coiling, presenting with a headache, I spoke to her at what point patient's require imaging such as CT of the brain especially in the setting of knowing about if had an aneurysm typically patients we would like to have imaging done, and I spoke to her about it and she told me if I do not feel that imaging is indicated she is comfortable with that she did not have the worst headache of the life of sudden onset, she is reporting fairly typical headache she is more concerned that her blood pressure was 177/110 at home currently saw her PCP and amlodipine 10 mg has been added, on exam she is slightly shaky and anxious but conversational, upright with intact neurologic exam, we will medicate for migraine, we will re-evaluate. I also spoke with the patient regarding blood pressure management in the setting of headache, instead I am going to treat her symptoms and her blood pressure was not significantly elevated it was 156/73 without neurologic deficits I do not suspect end-organ damage. 5:44 PM 07/15/2025 (Dr. Ayan Peña): Re-evaluated, states beginning to feel much better at this point I am comfortable to provide Toradol and additional migraine cocktail medications 6:48 PM 07/15/2025 (Dr. Ayan Peña): Patient is re-evaluated, she is feeling much better, comfortable with being discharged her is here with her to pick her up Differential Diagnosis Differential Diagnoses: The differential diagnosis associated with the presentation includes (Subarachnoid hemorrhage, cavernous venous thrombosis, acute angle closure glaucoma, temporal arteritis, meningitis, migraine headache, tension headache) Admission/Observation Consideration of admission/observation: Escalation of care including admission/observation considered Lab Data MDM Lab Attestation statement: I reviewed the patient's lab results. 07/15/25 14:55 07/15/25 14:55 Labs: Lab Results 07/15/25 Range/Units 14:55 WBC 11.7 H (4.8-10.8) X10*3/uL RBC 4.72 (4.20-5.50) X10*6/uL Hgb 12.7 (12.0-16.0) g/dl Hct 40.2 (37.0-47.0) % MCV 85.2 (80.0-98.0) fL MCH 26.9 L (27.0-33.0) pg MCHC 31.6 (31.0-35.0) g/dl RDW 15.2 (11.0-16.0) % Plt Count 288 (160-400) X10*3/uL MPV 9.0 L (9.4-12.3) fL Immature Gran % (Auto) 0.3 (0.0-0.4) % Neut % (Auto) 60.1 (45-73) % Lymph % (Auto) 28.1 (20-40) % Daggett % (Auto) 6.8 (2-11) % Eos % (Auto) 4.0 (0-4) % Baso % (Auto) 0.7 (0-2) % Lymph # (Auto) 3.3 (1.2-4.9) X10*3/uL Daggett # (Auto) 0.8 (0.1-1.2) X10*3/uL Eos # (Auto) 0.5 H (0.0-0.4) X10*3/uL Baso # (Auto) 0.1 (0.0-0.2) X10*3/uL Abs Immat Gran (auto) 0.04 H (0.00-0.03) X10*3/uL Absolute Neuts (auto) 7.0 (2.0-8.3) x10*3/uL Absolute Nucleated RBC 0.000 (0.0-0.012) X10*3/uL Nucleated RBC % (auto) 0.0 (0.0-0.2) /100WBC PT 11.7 (11.2-13.5) SEC INR 1.0 (0.9-1.1) APTT 28.0 (26.7-34.1) SEC Sodium 141 (135-145) mmol/L Potassium 3.3 (3.3-5.1) mmol/L Chloride 106 (96-108) mmol/L Carbon Dioxide 27 (22-29) mmol/L Anion Gap 11 L (12-20) BUN 10 (9-16) mg/dL Creatinine 0.67 (0.5-1.4) mg/dL Estim Creat Clear Calc 93.6 Estimated GFR > 60 Random Glucose 111 (60-115) mg/dL Calcium 9.0 (8.4-10.2) mg/dL Total Bilirubin 0.5 (0.0-1.0) mg/dL AST 19 (5-31) U/L ALT 16 (0-31) U/L Alkaline Phosphatase 105 (39-117) U/L Troponin I High Sens < 2.7 (<3.5-17.0) ng/L Total Protein 7.0 (6.5-8.0) g/dL Albumin 4.2 (3.5-5.0) g/dL Independent Interpretation I performed an independent interpretation of an: EKG (81 beats per minute otherwise normal ECG without dysrhythmia, AV alexia blocks or ST-T changes to suspect underlying ACS, my independent interpretation) Chronic Conditions Patient?s care impacted by: Hypertension Critical Care Time Critical Care Time Critical Care Time: Yes Total Critical Care Time: 35 Attestation: Time is exclusive of separately billable procedures. Time includes: direct patient care, patient reassessment, coordination of patient care, interpretation of data (laboratory data, pulse oximetry, arterial blood gases and chest xrays), review of patient's medical records, medical consultation and documentation of patient care. Procedures excluded from critical care time: central intravenous line placement and electrocardiography. Discharge Plan Discharge Clinical Impression: Recurrent headache Patient Disposition: Home, Self-Care Additional Instructions: Your workup today has been reassuring, your blood pressure came down with resolution of your headache symptoms as discussed that is why do not treat the blood pressure per se, I spoke to you about whether you need a CAT scan as you have history of brain aneurysm but this was not the type of headache that presented with sudden onset and you were not very very sick that is typical when somebody has aneurysmal bleeding, follow up with the PCP, if you have any other concerns do not hesitate to come back to the ER for re-evaluation. Your EKG and cardiac enzymes were reassuring as well Los resultados de torres evaluaci?n de hoy herron sido tranquilizadores. Torres presi?n arterial baj? al resolverse coretta s?ntomas de dolor de julia, leslee ya comentamos; por eso no se trata la presi?n arterial en s?. Le habl? sobre la posibilidad de que necesite joe tomograf?a computarizada, dado que tiene antecedentes de aneurisma cerebral, bennie alexandra no fue el tipo de dolor de julia que se present? de forma repentina y usted no se sinti? muy mal, lo cual es t?andria cuando alguien tiene joe hemorragia aneurism?monica. Isaura un seguimiento con torres m?dico de cabecera. Si tiene alguna otra inquietud, no dude en regresar a urgencias para joe reevaluaci?n. Torres electrocardiograma y enzimas card?acas tambi?n fueron tranquilizadores. Prescriptions: No Action atorvastatin 80 mg tablet 80 mg PO DAILY alprazolam 1 mg tablet 1 mg PO QID tizanidine 4 mg tablet 4 mg PO TID PRN (Reason: Muscle Spasm) metoprolol succinate 50 mg tablet extended release 24 hr 50 mg PO DAILY amlodipine 5 mg tablet 5 mg PO DAILY aspirin 81 mg tablet,delayed release (DR/EC) 81 mg PO DAILY triamcinolone acetonide 0.1 % cream 1 appl topical BID PRN (Reason: Rash) ergocalciferol (vitamin D2) 1,250 mcg (50,000 unit) capsule 1,250 mcg PO QWEEK nystatin [Klayesta] 100,000 unit/gram powder 1 appl topical BID zolpidem 10 mg tablet 10 mg PO BEDTIME albuterol sulfate 90 mcg/actuation HFA aerosol inhaler 2 puff inhalation QID PRN (Reason: Shortness Of Breath Or Wheezing) ondansetron 4 mg tablet,disintegrating 4 mg PO TID PRN (Reason: Nausea And Vomiting) levothyroxine 112 mcg tablet 112 mcg PO DAILY@0600 pregabalin 100 mg capsule 100 mg PO BID-TID ranolazine 1,000 mg tablet extended release 12 hr 1,000 mg PO BID Patient Comments: says twice daily oxycodone 10 mg tablet 10 mg PO BID-TID icosapent ethyl [Vascepa] 1 gram capsule 2 g PO BID Ajovy Autoinjector 225 mg/1.5 mL auto-injector 225 mg subcut QMONTH omeprazole 40 mg capsule,delayed release(DR/EC) 40 mg PO BID 90 Days Qty: 180 0RF lidocaine [Lidocaine Pain Relief] 4 % Adhesive Patch,Medicated 1 patch transdermal DAILY Qty: 15 0RF Protocol: Apply to: Apply to: left ankle Interventions: ED Discharge Assessment Last Done: 07/15/25 18:55 Discharge Date/Time: 07/15/25 18:58 Print Language: Setswana
[2025-07-15 15:00] LABS: MANUAL DIFF FLAG NO
[2025-07-15 15:02] LABS: Hematocrit 40.2 % (37.0-47.0); Hemoglobin 12.7 g/dl (12.0-16.0); Imm Gran Abs Auto 0.04 X10*3/uL (0.00-0.03); Imm Gran Pct Auto 0.3 % (0.0-0.4); Lymphocytes Absolute Auto 3.3 X10*3/uL (1.2-4.9); Mean Corpuscular HGB Conc 31.6 g/dl (31.0-35.0); Mean Corpuscular Hemoglobin 26.9 pg (27.0-33.0); Mean Corpuscular Volume 85.2 fL (80.0-98.0); NRBC Abs Auto 0.000 X10*3/uL (0.0-0.012); NRBC Pct Auto 0.0 /100WBC (0.0-0.2); Platelet Count 288 X10*3/uL (160-400); Red Blood Count 4.72 X10*6/uL (4.20-5.50); White Blood Count 11.7 X10*3/uL (4.8-10.8)
[2025-07-15 15:08] LABS: INTERNATIONAL NORM RATIO 1.0 (0.9-1.1); Prothrombin Time 11.7 SEC (11.2-13.5)
[2025-07-15 15:10] LABS: Partial Thromboplastin Time 28.0 SEC (26.7-34.1)
[2025-07-15 15:17] LABS: Alanine Aminotransferase 16 U/L (0-31); Albumin Level 4.2 g/dL (3.5-5.0); Alkaline Phosphatase 105 U/L (39-117); Anion Gap 11 (12-20); Aspartate Amino Transferase 19 U/L (5-31); Blood Urea Nitrogen 10 mg/dL (9-16); Calcium 9.0 mg/dL (8.4-10.2); Carbon Dioxide 27 mmol/L (22-29); Chloride 106 mmol/L (96-108); Creatinine Clr Calc Pharmacy 93.6; Estimated Glomerular Filt Rate > 60; Potassium 3.3 mmol/L (3.3-5.1); Sodium 141 mmol/L (135-145); Total Protein 7.0 g/dL (6.5-8.0)
[2025-07-15 15:33] LABS: Troponin-I High Sensitivity < 2.7 ng/L (<3.5-17.0)
--- OUTSIDE RECORDS SUMMARY | 2025-07-15 15:37 | XMS_ITS | Encounter Summary ---
Author Organization [employer] Address [address] [facility] [address] [place] [address] Care Team Providers Care Psychiatry Instructor Name Role Phone Yolanda Ojeda MD Primary Care Provider [phone] Reason for Visit * Reason Comments Med Refill Encounter Details Date Type Department Care Team ([facility] st Contact Info) Description 05/15/2025 Refill [facility] [address], [place] [phone] Yolanda Ojeda MD [address] [place] [address] Generalized anxiety disorder Social History Tobacco Use [...] with others, in a hotel, in a care home, living outside on the street, on [...] Tasha. TC to pt via S ID# [id number]. Initial PRODUCTION MANUFACTURING WORKER appt scheduled for 06/07/25 @ 1:30pm. documented in this encounter Plan of Treatment Upcoming Encounters Date Type Department Care Team (Late st Contact Info) Description 07/19/2025 2:30 PM EST Clinical Support [facility] [address] [place] [address] Crystal Taylor, COLT [address] [place] [address] 07/31/2025 10:15 AM EST Office Visit [facility] MED[facility] [address] [place] [address] Name, MD Wesley [address] [place] [address] documented as of this encounter Visit Diagnoses Diagnosis Generalized anxiety disorder documented in this encounter Additional Health Concerns Assessment Noted Time PHQ-9 Depression Total Score: 21 025 10:36 AM EDT documented as of this encounter Care Teams Psychiatry Instructor Relationship Specialty Start Date End Date Yolanda Ojeda MD [address] [place] [id number] PCP - General Family Medicine 04/26/25 documented as of this encounter
--- OUTSIDE RECORDS SUMMARY | 2025-07-15 15:37 | XMS_ITS | Encounter Summary ---
Author Organization [employer] Address [address] [facility] [address] [place] [address] Care Team Providers Care Agricultural Research Engineer Name Role Phone Yolanda Ojeda MD Primary Care Provider [phone] Reason for Visit * Reason Onset Date Comments Appointment Request 04/30/2025 Encounter Details Date Type Department Care Team ([facility] st Contact Info) Description 04/30/2025 Telephone [facility] MED[facility]INE [address] [place] [address] Yolanda Ojeda MD [address], [place] [phone] Appointment Request Social History Tobacco Use Types Packs/Day Years Used Date Smoking Tobacco: Unknown Depression Answer Date Recorded Patient Health Questionnaire-9 Score 21 04/26/2025 Patient Health Questionnaire-9 Score 21 04/26/2025 Last PHQ-9: Questionnaire Data Not on file 0 04/26/2025 Housing Stability Answer Date Recorded What is your housing situation today? I do not have housing (Staying with others, in a hotel, in a correction, living outside on the street, on a [...] a call back to reschedule OV ext. Information Resources Manager is unable to scheduledue to limited availability. Please contact spouse at [phone]. (Hebrew Speaker) documented in this encounter Plan of Treatment Upcoming Encounters Date Type Department Care Team (Late st Contact Info) Description 07/19/2025 2:30 PM EST Clinical Support [facility] PEDS [address] [place] [address] Crystal Taylor, RN [address] [place] [address] 07/31/2025 10:15 AM EST Office Visit [facility] [address] [place] [address] Name, MD Wesley [address] [place] [address] documented as of this encounter Visit Diagnoses Not on filedocumented in this encounter Additional Health Concerns Assessment Noted Time PHQ-9 Depression Total Score: 21 025 10:36 AM EDT documented as of this encounter Care Teams Agricultural Research Engineer Relationship Specialty Start Date End Date Yolanda Ojeda MD [address] [place] [phone] PCP - General Family Medicine 04/26/25 documented as of this encounter
--- OUTSIDE RECORDS SUMMARY | 2025-07-15 15:37 | XMS_ITS | Encounter Summary ---
Author Organization [employer] Address [address] [facility] 7t [place] [address] Care Team Providers Care Detention Attendant Name Role Phone Yolanda Ojeda MD Primary Care Provider [phone] Encounter Details Date Type Department Care Team (Late st Contact Info) Description 05/11/2025 Orders Only [facility] [address] [place] [address] Provider, MD Olive Social History Tobacco Use [...] the past 12 months, has t he [employer], [employer], oil or water [employer] threatened to shut off services in your [...] Description 07/19/2025 2:30 PM EST Clinical Support [facility] MED [facility] PEDS [address] [place] [address] Crystal Taylor, RN [address] [place] [address] 07/31/2025 10:15 AM EST Office Visit [facility] MEDICINE [address] [place] [address] Name, MD Wesley [address] [place] [address] documented as of this encounter Procedures Procedure Name Priority Date/Time Associated Diagnosis Comments HIGH SENSITIVITY TROPONIN I Routine 07/15/2025 2:55 PM EST CBC WITH AUTO DIFFERENTIAL Routine 07/15/2025 2:55 PM EST APTT Routine 07/15/2025 2:55 PM EST PROTHROMBIN TIME-INR Routine 07/15/2025 2:55 PM EST COMPREHENSIVE METABOLIC PANEL Routine 07/15/2025 2:55 PM EST XR KNEE 1-2 VIEWS LEFT Routine 11:42 AM EDT documented in this encounter Results * High Sensitivity Troponin I (07/15/2025 2:55 PM EST) TROPONIN I HIGH SENSITIVITY <2.7 <3.5 - 17.0 ng/L [facility] Comment:The Dominguez high sens itivity Troponin-I results should beused in conjunction with other diagnostic information suchas ECG, clinical observations and information, and patientsymptoms to aid in the diagnosis of AL. 07/15/2025 2:55 PM EST 07/15/2025 2:59 PM EST us Generic External Data Provider LAB BLOOD ORDERAB LES Final Result [facility] [address] [place], [place] [phone] * (ABNORMAL) Comprehensive Metabolic Panel (07/15/2025 2:55 PM EST) Sodium 141 135 - 145 mmol/L [facility] Potassium 3.3 3.3 - 5.1 mmol/L [facility] Chloride 106 96 - 108 mmol/L [facility] Carbon Dioxide 27 22 - 29 mmol/L [facility] Anion Gap 11(L) 12 - 20 [facility] Urea Nitrogen (BUN) 10 9 - 16 mg/dL [facility] Creatinine, Serum 0.67 0.5 - 1.4 mg/dL [facility] Creatinine Clr Calc Pharmacy 93.6 [facility] Comment:Provided height and weight: 167.64 cm,77.111 kg.eGFR (calculated from the MDRD study equation) and eCrCl(calculated from the Cockcroft-Gault equation) are based ondifferent parameters and may not yield comparable results.If eCrCl result is absurd, please check patient'sheight/weight. Estimated Glomerular Filt Rate >60 [facility] Comment:Chronic Kidney Disea se: Estimated GFR < 60 mL/min/[id number] Kidney Disease: Estimated GFR < 15 mL/min/1.73m2 Glucose 111 60 - 115 mg/dL [facility] Calcium 9.0 8.4 - 10.2 mg/dL [facility] Bilirubin, Total 0.5 0.0 - 1.0 mg/dL [facility] Aspartate Amino Transferase 19 5 - 31 U/L [facility] Alanine Aminotransferase 16 0 - 31 U/L [facility] Total Protein 7.0 6.5 - 8.0 g/dL [facility] Albumin Level 4.2 3.5 - 5.0 g/dL [facility] Alkaline Phosphatase 105 39 - 117 U/L [facility] 07/15/2025 2:55 PM EST 07/15/2025 2:59 PM EST Generic External Data Provider LAB BLOOD ORDERAB LES Final Result Performing Organization Address [facility]/ZIP Co de Phone Number [facility] [address] [place] [phone] * Partial Thromboplastin Time, Activated (APTT) (07/15/2025 2:55 PM EST) Partial Thromboplastin Time 28.0 26.7 - 34.1 SEC [facility] 07/15/2025 2:55 PM EST 07/15/2025 2:59 PM EST Chatous External Data Provider LAB BLOOD ORDERAB LES Final Result Performing Organization Address [facility] de Phone Number [facility] [address] [place] [phone] * Prothrombin Time-INR (07/15/2025 2:55 PM EST) Prothrombin Time 11.7 11.2 - 13.5 SEC [facility] INTERNATIONAL NORM RATIO 1.0 0.9 - 1.1 [facility] Comment:INTERNATIONAL NORMAL IZED RATIO (INR) REFERENCE RANGES Reference RangeFor patients not on anticoagulant therapy: 0.9 - 1.1INR ranges for oral anticoagulanttherapy:For prevention and treatment of venous thrombosis and pulmonary embolism: 2.0 - 3.0For acute myocardial infarction with aspirin therapy: 2.0 - 3.0For acute myocardial infarction without aspirin therapy: 3.0 - 4.0For patients with mechanical prosthetic heart valves: 2.5 - 3.5 07/15/2025 2:55 PM EST 07/15/2025 2:59 PM EST us Generic External Data Provider LAB BLOOD ORDERAB LES Final Result [facility] [address] [place] [address] [phone] * (ABNORMAL) CBC auto differential (07/15/2025 2:55 PM EST) White Blood Count 11.7(H) 4.8 - 10.8 X10*3/uL [facility] Red Blood Count 4.72 4.20 - 5.50 X10*6/uL [facility] Hemoglobin 12.7 12.0 - 16.0 g/dl [facility] Hematocrit 40.2 37.0 - 47.0 % [facility] Mean Corpuscular Volume 85.2 80.0 - 98.0 fL [facility] Mean Corpuscular Hemoglobin 26.9(L) 27.0 - 33.0 pg [facility] Mean Corpuscular HGB Conc 31.6 31.0 - 35.0 g/dl [facility] Red Cell Distribution Width 15.2 11.0 - 16.0 % [facility] Platelet Count 288 160 - 400 X10*3/uL [facility] Mean Platelet Volume 9.0(L) 9.4 - 12.3 fL [facility] Neutrophils Percent Auto 60.1 45 - 73 % [facility] Imm Gran Pct Auto 0.3 0.0 - 0.4 % [facility] Lymphocytes Percent Auto 28.1 20 - 40 % [facility] Monocytes Percent Auto 6.8 2 - 11 % [facility] Eosinophils Percent Auto 4.0 0 - 4 % [facility] Basophils Percent Auto 0.7 0 - 2 % [facility] NRBC Pct Auto 0.0 0.0 - 0.2 /100WBC [facility] Neutrophils Absolute Auto 7.0 2.0 - 8.3 x10*3/uL [facility] Imm Gran Abs Auto 0.04(H) 0.00 - 0.03 X10*3/uL [facility] Lymphocytes Absolute Auto 3.3 1.2 - 4.9 X10*3/uL [facility] Monocytes Absolute Auto 0.8 0.1 - 1.2 X10*3/uL [facility] Eosinophils Absolute Auto 0.5(H) 0.0 - 0.4 X10*3/uL [facility] Basophils Absolute Auto 0.1 0.0 - 0.2 X10*3/uL [facility] NRBC Abs Auto 0.000 0.0 - 0.012 X10*3/uL [facility] 07/15/2025 2:55 PM EST 07/15/2025 2:59 PM EST us Generic External Data Provider LAB BLOOD ORDERAB LES Final Result [facility] [address] [place] [address] [phone] * XR Knee 1-2 Views Left (05/10/2025 11:42 AM EDT) Anatomical Region Laterality Modality Lower Extremities, Knee Left Radiogra phic Imaging Historical Provider IMDanyell XR PROCEDURES Final R esult documented in this encounter Visit Diagnoses Not on filedocumented in this encounter Additional Health Concerns Assessment Noted Time PHQ-9 Depression Total Score: 21 025 10:36 AM EDT documented as of this encounter Care Teams Detention Attendant Relationship Specialty Start Date End Date Yolanda Ojeda MD [address] [place] [address] PCP - General Family Medicine 04/26/25 documented as of this encounter
--- OUTSIDE RECORDS SUMMARY | 2025-07-15 15:37 | XMS_ITS | Encounter Summary ---
Author Organization [employer] Address [address] [facility] [address]t [place] [address] Care Team Providers Care Agent Based Modeler Name Role Phone Yolanda Ojeda MD Primary Care Provider [phone] Reason for Visit * Reason Comments Med Change Request Encounter Details Date Type Department Care Team ([facility] Contact Info) Description 04/30/2025 Refill C [facility] PEDS [address] [place], [place] [phone] Yolanda Ojeda MD [address] [place] [address] Intractable chronic migraine with aura with status [...] [facility] PEDS [address] [place] [address] Crystal Taylor, COLT [address] [place] [address] 07/31/2025 10:15 AM EST Office Visit [facility] MEDICINE [address] [place] [address] Name, MD Wesley [address] [place] [address] documented as of this encounter Visit Diagnoses Diagnosis Intractable chronic migraine with aura with status migrainosus documented in this encounter Additional Health Concerns Assessment Noted Time PHQ-9 Depression Total Score: 21 025 10:36 AM EDT documented as of this encounter Care Teams Agent Based Modeler Relationship Specialty Start Date End Date Yolanda Ojeda MD [address] [place] [address] PCP - General Family Medicine 04/26/25 documented as of this encounter
--- OUTSIDE RECORDS SUMMARY | 2025-07-15 15:37 | XMS_ITS | Clinical Summary ---
Author Organization [facility] Address [address] [place] [address] Phone Care Team Providers Care Fisher Terrapin Name Role Phone Yolanda Ojeda MD Primary Care Provider [phone] Allergies Active Allergy Reactions Criticality Noted Date Comments Latex 03/19/2025 Nortriptyline 03/19/2025 Medications albuterol HFA (PROAIR HFA ; PROVENTIL HFA ; VENTOLIN HFA) 90 mcg/actuation inhaler Inhale 2 puffs by mouth Every 4 hours as needed. 5 04/26/20 Active ALPRAZolam (XANAX) 1 mg tablet Take 1 tablet (1 mg total) by mouth 4 times daily as needed. Max Daily Amount: 4 mg Active aspirin 81 mg EC tablet Take 1 tablet (81 mg total) by mouth daily. Active azelastine (ASTELIN) 137 mcg (0.1 %) nasal spray Administer 1 spray into each nostril 2 times daily. 5 04/26/20 Active budesonide-form oteroL (SYMBICORT) 160-4.5 mcg/actuation inhaler Inhale 2 puffs by mouth 2 times daily. 5 04/26/20 Active DULoxetine (CYMBALTA) [address] capsule Take 3 capsules (60 mg total) by mouth 2 times daily. Active ergocalciferol (VITAMIN D-2) 1,250 mcg (50,000 unit) capsule Take 1.25 mg by mouth. Active evolocumab (Repatha Syringe) 140 mg/mL syringe Inject 1 mL (140 mg total) under the skin every 14 days. Active folic acid (FOLVITE) 1 mg tablet Take 1 tablet (1 mg total) by mouth daily. Active fremanezumab-vf rm (Ajovy Autoinjector) 225 mg/1.5 mL auto-injector Active icosapent ethyL (VASCEPA) 1 gram capsule Take 2 capsules (2 g total) by mouth. 5 04/30/20 Active levothyroxine (SYNTHROID, LEVOTHROID) 100 mcg tablet Take 1 tablet (100 mcg total) by mouth. Active losartan (COZAAR) 50 mg tablet Take 1 tablet (50 mg total) by mouth daily. Active montelukast (SINGULAIR) 10 mg tablet Take 1 tablet (10 mg total) by mouth daily. Active naloxone (NARCAN) 4 mg/0.1 mL nasal spray Administer 1 each (4 mg total) into affected nostril(s). 04/26/20 Active nitroglycerin (NITROSTAT) 0.[address] 1 tablet (0.4 mg total) under the tongue. Active nystatin (MYCOSTATIN) 500,000 unit tablet Active omeprazole (PriLOSEC) [address] capsule Take 1 capsule (40 mg total) by mouth. Active pregabalin (LYRICA) 100 mg capsule Take 1 capsule (100 mg total) by mouth 3 times daily. Max Daily Amount: 300 mg Active ranolazine (RANEXA) 1,000 mg 12 hr tablet Take 1 tablet (1,000 mg total) by mouth 2 times daily. Active diclofenac (VOLTAREN) 1 % topical gel Apply 4 g topically 4 (four) times a day. 480 g 3 Active zolpidem (AMBIEN) 10 mg tablet Take 1 tablet (10 mg total) by mouth once daily as needed. Max Daily Amount: 10 mg 5 06/25/20 Hospital, Clinic, or Other Facility Administered Medication Ordered Dose Route Frequency Start Date End Date Status lidocaine (XYLOCAINE) 1 % injection 4 mLIndications:Arthri tis of both knees 4 mL Once PRN Procedure 07/10/2025 07/10/2025 Ended lidocaine (XYLOCAINE) 1 % injection 4 mLIndications:Arthri tis of both knees 4 mL Once PRN Procedure 07/10/2025 07/10/2025 Ended triamcinolone acetonide (KENALOG-40) 40 mg/mL injection 40 mgIndications:Arthri tis of both knees 40 mg Once PRN Procedure 07/10/2025 07/10/2025 Ended triamcinolone acetonide (KENALOG-40) 40 mg/mL injection 40 mgIndications:Arthri tis of both knees 40 mg Once PRN Procedure 07/10/2025 07/10/2025 Ended Encounters Date Type Department Care Team Description 07/10/2025 1:00 PM EST Office Visit [facility] [address] [phone] Amber Isbell MD Arthritis of both knees (Primary Dx) 07/09/2025 2:30 PM EST Treatment [address] [phone] Sigrid Motley, PT Bilateral chronic knee pain (Primary Dx) 07/02/2025 3:00 PM EDT Treatment [address] [address] Pipo Fontana, SABRINA Bilateral chronic knee pain (Primary Dx) 06/11/2025 2:00 PM EDT Evaluation [address] [phone] Sigrid Motlye, PT Bilateral chronic knee pain (Primary Dx) 05/10/2025 1:35 PM EDT Ancillary Procedure [facility] [address] [phone] 05/10/2025 1:00 PM EDT Consult [facility] [address] [phone] Amber Isbell MD Arthritis of both knees (Primary Dx); Alfred's cyst of knee, left from Last 3 Months Surgical History Surgery Date Site/Laterality Comments THYROIDECTOMY Medical History Medical History Date Comments Arthritis COPD (chronic obstructive pulmonary disease) (CM S/HCC V24, CMS/HCC V28) Hypertension Coronary artery disease Fibromyalgia Angina at rest ([facility] V24) Osteoarthritis Osteopenia Social History Tobacco Use Types Packs/Day Years Used Date Smoking Tobacco: Never Assessed Comments Unknown Sex and Gender Information Value Date Recorded Sex Assigned at Not on file Legal Sex Female 4:08 PM EDT Gender Identity Not on file Sexual Orientation Not on file Obstetrics History Last Filed Vital Signs Vital Sign Reading Time Taken Comments Blood Pressure 153/81 03/19/2025 7:40 PM EDT Pulse 92 03/19/2025 7:40 PM EDT Temperature 36.5 C (97.7 F) 03/19/2025 7:40 PM EDT Respiratory Rate 18 03/19/2025 5:18 PM EDT Oxygen Saturation 94% 03/19/2025 7:40 PM EDT Inhaled Oxygen Concentration - - Weight 78 kg (172 lb) 05/10/2025 1:06 PM EDT Height 170.2 cm (5' 7.01 ) 07/10/2025 1:07 PM ES T Body Mass Index 26.93 05/10/2025 1:06 PM EDT Plan of Treatment Health Maintenance Due Date Last Done Comments Breast Cancer Screening 1965 Colorectal Cancer Screening: Colonoscopy 1965 DTaP,Tdap,and Td Vaccines (1 - Tdap) 1983 Cervical Cancer Screening: P ap Smear 1985 Pneumococcal Vaccine: 50+ Ye ars (1 of 1 - PCV) 2014 Zoster Vaccines (1 of 2) 2014 Depression Screening 09/06/2024 Cholesterol Screening (Lipid Panel) 03/20/2025 HIV Screening 03/20/2025 Hepatitis C Screening 03/20/2025 Social Influencers of Health Screening 03/20/2025 COVID-19 Vaccine (2 - 2024-2 6 season) 2025 12/05/2020 Influenza Vaccine (#1) 2025 Hypertension/CHF/CAD Annual BMP Blood Test 03/19/2026 03/19/2025 RSV Immunization Adult Patie nts (1 - 1-dose 75+ series) 2039 HIB [...] on patient's age to complete this topic MMR Vaccines Aged Out No longer eligi ble based on patient's age to complete this topic Meningococcal ACWY Vaccine Aged Out N o longer eligible based on patient's age to complete this topic Meningococcal B Vaccine Aged Out No l onger eligible based on patient's age to complete this topic RSV Immunization Patients Un mariana 20 months Aged Out No longer eligible b ased on patient's age to complete this topic Varicella Vaccines Aged Out No longer eligible based on patient's age to complete this topic Procedures Procedure Name Priority Date/Time Associated Diagnosis Comments PA ARTHROCENTESIS/ASPIRATI ON/INJECTION MAJOR JOINT/BURSA W/O U/S GUIDANCE Routine 07/10/2025 1:00 PM EST Arthritis of both knees US ARTHROCENTESIS ASP INJ JOINT MAJOR RIGHT Routine 05/10/2025 1:32 PM EDT Alfred's cyst of knee, left XR KNEE 1-2 VIEWS LEFT Routine 1:14 PM EDT Pain and swelling of left knee PA ARTHROCENTESIS/ASPIRATI ON/INJECTION MAJOR JOINT/BURSA W/O U/S GUIDANCE Routine 05/10/2025 1:00 PM EDT Arthritis of both knees COMPREHENSIVE METABOLIC PANEL STAT 03/19/2025 5:36 PM EDT from Last 3 Months or Most Recently Relevant to Health Maintenance Results * PA ARTHROCENTESIS/ASPIRATION/INJECTION MAJOR JOINT/BURSA W/O U/S GUIDANCE (07/10/2025 1:00 PM EST) Narrative Amber Isbell MD - 07/10/2025 1:00 PM EST Amber [...] MD IN CLINIC/BEDSIDE ORDERABLES F inal Result * US Arthrocentesis Asp Inj Joint Major Right (05/10/2025 1:32 PM EDT) Anatomical Region Laterality Modality Extremity Right Ultrasound Narrative 05/13/2025 7:33 PM EDT Alfred s cyst aspiration Left knee Alfred's cyst aspiration and injection. Risks, including infection, neurovascular injury, post-injection steriod flare, hypopigmentation, and fat atrophy were thoroughly discussed with the patient. The patient understood the risks and gave verbal consent for the procedure. The patient was positioned prone in the popliteal fossa was prepped with Chloro-Prep after anatomical landmarks where palpated and the Alfred's cyst and vascular structures were visualized on ultrasound.. Ethyle chloride was used as a topical anesthetic. Then a 1-1/2 inch 21-gauge needle was guided into the Alfred's cyst under ultrasound guidance and 0 of straw-colored fluid was aspirated. Unfortunately no fluid was able to be aspirated despite needle confirmation and the Alfred's cyst t using sterile technique without complications. The patient tolerated the procedure well. Aftercare was thoroughly discussed with the patient. Images were obtained and are permanently stored and retrievable in the patient's record. us Amber Isbell MD IMG US PROCEDURES Final Result * XR Knee 1-2 Views Left (05/10/2025 1:14 PM EDT) Anatomical Region Laterality Modality Lower Extremities, Knee Left Computed Radiography 05/10/2025 7:13 PM EDT Impressions 05/10/2025 7:17 PM EDT Mild degenerative changes. POS - [id number] -------- FINAL REPORT -------- Dictated By: Caity Bailey Dictated Date: 05/10/2025 19:13 ET Assigned Physician: Caity Bailey Reviewed and Electronically Signed By: Caity Bailey Signed Date: 05/10/2025 19:17 ET Workstation ID: [id number] Transcribed By: Self Edit Transcribed Date: 05/10/2025 19:13 ET Narrative 05/10/2025 7:17 PM EDT EXAM: Left knee x-ray HISTORY: Pain and swelling of left knee. COMPARISON: None VIEWS: 2 views performed, PA view performed weightbearing. FINDINGS: Mild tricompartment joint space narrowing. No acute fracture or malalignment. No destructive bone lesion. Procedure Note Caity Bailey MD - 05/10/2025 EXAM: Left knee x-ray HISTORY: Pain and swelling of left knee. COMPARISON: None VIEWS: 2 views performed, PA view performed weightbearing. FINDINGS: Mild tricompartment joint space narrowing. No acute fracture ormalalignment. No destructive bone lesion. IMPRESSION: Mild degenerative changes. POS - [id number] -------- FINAL REPORT -------- Dictated By: Caity Bailey Dictated Date: 05/10/2025 19:13 ET Assigned Physician: Caity Bailey Reviewed and Electronically Signed By: Caity Bailey Signed Date: 05/10/2025 19:17 ET Workstation ID: [id number] Transcribed By: Self Edit Transcribed Date: 05/10/2025 19:13 ET Amber Isbell MD IMG XR PROCEDURES Final Result * PA ARTHROCENTESIS/ASPIRATION/INJECTION MAJOR JOINT/BURSA W/O U/S GUIDANCE (05/10/2025 1:00 PM EDT) Narrative Amber Isbell MD - 05/10/2025 1:00 PM EDT Amber Isbell MD 05/13/2025 7:33 PM L Inj/Asp: L knee (Bakers cyst) Indications: pain Details: (guidance: US guided) Aspirate: 0 mL Outcome: tolerated well, no immediate complications Needle was visualized entering the Alfred's cyst in the popliteal fossa. Unfortunately no fluid was able to be aspirated secondary to high viscosity Informed Consent: Site: Bakers cyst Laterality: Left Relevant images/test results available and reviewed: yes [...] MD IN CLINIC/BEDSIDE ORDERABLES F inal Result * (ABNORMAL) Comprehensive metabolic panel (03/19/2025 5:36 PM EDT) Sodium 138 133 - 145 mmol/L LAB CHEMISTRY METHOD 03/19/2025 7:18 PM [facility] Potassium 4.0 3.5 - 5.5 mmol/L LAB CHEMISTRY METHOD 03/19/2025 7:18 PM [facility] Chloride 103 96 - 110 mmol/L LAB CHEMISTRY METHOD 03/19/2025 7:18 PM [facility] CO2 31 21 - 32 mmol/L LAB CHEMISTRY METHOD 03/19/2025 7:18 PM [facility] Anion Gap 4 3 - 11 LAB CHEMISTRY METHOD 03/19/2025 7:18 PM [facility] Glucose 110(H) 70 - 100 mg/dL LAB CHEMISTRY METHOD 03/19/2025 7:18 PM [facility] BUN 11 5 - 25 mg/dL LAB CHEMISTRY METHOD 03/19/2025 7:18 PM [facility] Creatinine 0.67 0.50 - 1.10 mg/dL LAB CHEMISTRY METHOD 03/19/2025 7:18 PM [facility] eGFR 100 >=60 mL/min/1. 73m2 LAB CHEMISTRY METHOD 03/19/2025 7:18 PM [facility] Comment:Calculation based on the Chronic Kidney Disease Epidemiology Collaboration (CKD-EPI) equation refit without adjustment for race. BUN/Creatinine Ratio 16.4 LAB CHEMISTRY METHOD 03/19/2025 7:18 PM [facility] Calcium 9.7 8.5 - 10.5 mg/dL LAB CHEMISTRY METHOD 03/19/2025 7:18 PM [facility] AST (SGOT) 94(H) 10 - 42 unit/L LAB CHEMISTRY METHOD 03/19/2025 7:18 PM [facility] ALT (SGPT) 75(H) 10 - 60 unit/L LAB CHEMISTRY METHOD 03/19/2025 7:18 PM [facility] Alkaline Phosphatase 104 42 - 121 unit/L LAB CHEMISTRY METHOD 03/19/2025 7:18 PM [facility] Total Protein 7.0 6.0 - 8.0 g/dL LAB CHEMISTRY METHOD 03/19/2025 7:18 PM [facility] Albumin 3.5 3.2 - 5.0 g/dL LAB CHEMISTRY METHOD 03/19/2025 7:18 PM [facility] Total Bilirubin 0.3 0.0 - 1.4 mg/dL LAB CHEMISTRY METHOD 03/19/2025 7:18 PM [facility] Blood Venous blood specimen / Unknown Venipuncture / Unknown 03/19/2025 5:36 PM EDT 03/19/2025 6:41 PM EDT us Tello Mercedes MD LAB BLOOD ORDERABLES Final Result [facility] [address] [place] [address], from Last 3 Months or Most Recently Relevant to Health Maintenance Insurance [place]ICA[place] Care Teams Fisher Terrapin Relationship Specialty Start Date End Date Yolanda Ojeda MD [address] [place] [phone] PCP - General Family Medicine 03/23/25
--- OUTSIDE RECORDS SUMMARY | 2025-07-15 15:37 | XMS_ITS | Encounter Summary ---
Author Organization [employer] Address 75 [facility] 7t [place] [address] Care Team Providers Care Lead Dental Assistant Name Role Phone Yolanda Ojeda MD Primary Care Provider Reason for Visit * Reason Onset Date Comments Med Refill 06/08/2025 Encounter Details Date Type Department Care Team ([facility] st Contact Info) Description 06/08/2025 Telephone [facility] MEDICINE 230 [place] [address] Yolanda Ojeda MD 505 [place], [place] [phone] Med Refill Social History Tobacco Use Types [...] immediate release tablet To be sent to: [facility]/pharmacy [address] [place] [address] documented in this encounter Plan of Treatment Upcoming Encounters Date Type Department Care Team ([facility] st Contact Info) Description 07/19/2025 2:30 PM EST Clinical Support [facility] CHC MED & PEDS 505 [place] [address] Crystal Taylor, COLT 505 [place] [address] 07/31/2025 10:15 AM EST Office Visit [facility] MEDICINE 230 [place] [address] Name, MD Wesley 230 [place] [address] documented as of this encounter Visit Diagnoses Not on filedocumented in this encounter Additional Health Concerns Assessment Noted Time PHQ-9 Depression Total Score: 21 025 10:36 AM EDT documented as of this encounter Care Teams Lead Dental Assistant Relationship Specialty Start Date End Date Yolanda Ojeda MD [address] [place] [address] PCP - General Family Medicine 04/26/25 documented as of this encounter
--- OUTSIDE RECORDS SUMMARY | 2025-07-15 15:38 | XMS_ITS | Encounter Summary ---
Author Organization [employer] Address 75 [facility] 7t [place] [address] Care Team Providers Care Dish Washer Name Role Phone Yolanda Ojeda MD Primary Care Provider [phone] Reason for Visit * Reason Onset Date Comments Med Refill 07/03/2025 Encounter Details Date Type Department Care Team ([facility] st Contact Info) Description 07/03/2025 Telephone [facility] MEDICINE 230 [place] [address] Yolanda Ojeda MD 505 [place], [place] [phone] Med Refill Social History Tobacco Use Types [...] Miscellaneous Notes * Telephone Encounter - Misty Garrison - 07/03/2025 12:18 PM EDT TC from [place] requesting a refill oxyCODONE (Roxicodone) 10 MG immediate release tablet Pcp DR. Ojeda documented in this encounter Plan of Treatment Upcoming Encounters Date Type Department Care Team (Late st Contact Info) Description 07/19/2025 2:30 PM EST Clinical Support [facility] CHC MED & PEDS 505 [place] [address] Crystal Taylor, COLT 505 [place] [address] 07/31/2025 10:15 AM EST Office Visit [facility] MEDICINE 230 [place] [address] Name, MD Wesley 230 [place] [address] documented as of this encounter Visit Diagnoses Not on filedocumented in this encounter Additional Health Concerns Assessment Noted Time PHQ-9 Depression Total Score: 21 025 10:36 AM EDT documented as of this encounter Care Teams Dish Washer Relationship Specialty Start Date End Date Yolanda Ojeda MD 505 [place] [address] PCP - General Family Medicine 04/26/25 documented as of this encounter
--- OUTSIDE RECORDS SUMMARY | 2025-07-15 15:38 | XMS_ITS | Patient Health Record ---
Author Organization [facility] Address [address] [place] [address] Care Team Providers Care Clearance Rep Name Role Phone NO, PCP Primary Care Provider [phone] Lori Blake Unavailable [phone] Reason For Referral No Information Social History Sex Assigned At : Social History Observation Description Sex Assigned At Female Encounters Encounter Location Date Provider Diagnosis [facility] [address] [place], [place] [phone] 03/22/2025 Lori Blake [facility] [address] [place], [place] [phone] 03/26/2025 Lori Blake [facility] [address] [place], [place] [phone] 03/07/2025 Lori Blake Plan Of Treatment No Information Insurance Providers Payer Name Payer Address Payer Phone Subscriber Number Group Number Insured Name Patient Relationship to Insured Coverage Start Date Coverage End Date [place] [address] [place] [address] [id number] KEYLA ESCAMILLA Self - patient is the insured
--- OUTSIDE RECORDS SUMMARY | 2025-07-15 15:38 | XMS_ITS | Encounter Summary ---
Author Organization [employer] Address 75 [facility] 7t [place] [address] Care Team Providers Care Director Business Name Role Phone Yolanda Ojeda MD Primary Care Provider [phone] Reason for Visit * Reason Onset Date Comments Med Refill 06/13/2025 Encounter Details Date Type Department Care Team ([facility] st Contact Info) Description 06/13/2025 Telephone [facility] 505 [place], [place] [phone] Yolanda Ojeda MD 505 [place] [address] Med Refill Social History Tobacco Use Types Packs/Day Years Used Date Smoking Tobacco: Unknown Depression Answer Date Recorded Patient Health Questionnaire-9 Score 21 04/26/2025 Patient Health Questionnaire-9 Score 21 04/26/2025 Last PHQ-9: Questionnaire Data Not on file 0 04/26/2025 Housing Stability Answer Date Recorded What is your housing situation today? I do not have housing (Staying with others, in a hotel, in a custodial, living outside on the street, on a [...] refill : ergocalciferol (Vitamin D2) 1.25 MG (649[address] UT) capsule To be sent to: [facility]/pharmacy #[id number] documented in this encounter Plan of Treatment Upcoming Encounters Date Type Department Care Team (Late st Contact Info) Description 07/19/2025 2:30 PM EST Clinical Support [facility] CHC MED & PEDS 505 [place] [address] Crystal Taylor, RN 505 [place] [address] 07/31/2025 10:15 AM EST Office Visit [facility] MEDICINE 230 [place] [address] Name, MD Wesley 230 [place] [address] documented as of this encounter Visit Diagnoses Not on filedocumented in this encounter Additional Health Concerns Assessment Noted Time PHQ-9 Depression Total Score: 025 10:36 AM EDT documented as of this encounter Care Teams Director Business Relationship Specialty Start Date End Date Yolanda Ojeda MD [address] [place] [address] PCP - General Family Medicine 04/26/25 documented as of this encounter
--- OUTSIDE RECORDS SUMMARY | 2025-07-15 15:38 | XMS_ITS | Encounter Summary ---
Author Organization [employer] Address 75 [facility] 7t [place] [address] Care Team Providers Care Power Engineer Name Role Phone Yolanda Ojeda MD Primary Care Provider [phone] Encounter Details Date Type Department Care Team [...] with others, in a hotel, in a mcc, living outside on the street, on a [...] PM EST Clinical Support [facility] CHC MED & PEDS 505 [place] [address] Crystal Taylor, COLT 505 [place] [address] 07/31/2025 10:15 AM EST Office Visit [facility] MEDICINE 230 [place] [address] Name, MD Wesley 230 [place] [address] documented as of this encounter Visit Diagnoses Not on filedocumented in this encounter Additional Health Concerns Assessment Noted Time PHQ-9 Depression Total Score: 21 025 10:36 AM EDT documented as of this encounter Care Teams Power Engineer Relationship Specialty Start Date End Date Yolanda Ojeda MD 505 [place] [address] PCP - General Family Medicine 04/26/25 documented as of this encounter
--- OUTSIDE RECORDS SUMMARY | 2025-07-15 15:38 | XMS_ITS | Encounter Summary ---
Author Organization [employer] Address 75 [facility] 7t [place] [address] Care Team Providers Care Pari Mutual Ticket Checker Name Role Phone Yolanda Ojeda MD Primary Care Provider [phone] Reason for Visit * Reason Onset Date Comments Chart Prep 07/12/2025 Encounter Details Date Type Department Care Team ([facility] st Contact Info) Description 07/12/2025 Telephone C [facility]S 505 [place], [place] [phone] Yolanda Ojeda MD 505 [place], [place] [phone] Chart Prep Social History Tobacco Use Types [...] Upcoming Encounters Date Type Department Care Team ([facility] st Contact Info) Description 07/19/2025 2:30 PM EST Clinical Support [facility] CHC MED & PEDS 505 [place] [address] Crystal Taylor, COLT 505 [place] [address] 07/31/2025 10:15 AM EST Office Visit [facility] MEDICINE 230 [place] [address] Name, MD Wesley 230 [place] [address] documented as of this encounter Visit Diagnoses Not on filedocumented in this encounter Additional Health Concerns Assessment Noted Time PHQ-9 Depression Total Score: 21 025 10:36 AM EDT documented as of this encounter Care Teams Pari Mutual Ticket Checker Relationship Specialty Start Date End Date Yolanda Ojeda MD 505 [place] [address] PCP - General Family Medicine 04/26/25 documented as of this encounter
--- OUTSIDE RECORDS SUMMARY | 2025-07-15 15:38 | XMS_ITS | Encounter Summary ---
Author Organization [employer] Address 75 [facility] 7t [place] [address] Care Team Providers Care Staffing Coordinator Name Role Phone Yolanda Ojeda MD Primary Care Provider [phone] Reason for Visit * Reason Onset Date Comments Med Refill 06/25/2025 Encounter Details Date Type Department Care Team ([facility] st Contact Info) Description 06/25/2025 Telephone [facility] MEDICINE 230 [place] [address] Yolanda Ojeda MD 505 [place], [place] [phone] Med Refill Social History Tobacco Use Types [...] 1 MG tablet To be sent to: [facility]/pharmacy #[id number] documented in this encounter Plan of Treatment Upcoming Encounters Date Type Department Care Team (Late st Contact Info) Description 07/19/2025 2:30 PM EST Clinical Support [facility] CHC MED & PEDS 505 [place] [address] Crystal Taylor, COLT 505 [place] [address] 07/31/2025 10:15 AM EST Office Visit [facility] MEDICINE 230 [place] [address] Name, MD Wesley 230 [place] [address] documented as of this encounter Visit Diagnoses Not on filedocumented in this encounter Additional Health Concerns Assessment Noted Time PHQ-9 Depression Total Score: 21 025 10:36 AM EDT documented as of this encounter Care Teams Staffing Coordinator Relationship Specialty Start Date End Date Yolanda Ojeda MD 505 [place] [address] PCP - General Family Medicine 04/26/25 documented as of this encounter
--- OUTSIDE RECORDS SUMMARY | 2025-07-15 15:38 | XMS_ITS | Encounter Summary ---
Author Organization [employer] Address 75 [facility] 7t [place] [address] Care Team Providers Care Fuel Management Handler Name Role Phone Yolanda Ojeda MD Primary Care Provider [phone] Reason for Visit * Reason Onset Date Comments Med Refill 07/04/2025 Encounter Details Date Type Department Care Team ([facility] st Contact Info) Description 07/04/2025 Telephone [facility] MEDICINE 230 [place] [address] Yolanda Ojeda MD 505 [place], [place] [phone] Med Refill Social History Tobacco Use Types [...] immediate release tablet To be sent to: [facility]/pharmacy #[id number] documented in this encounter Plan of Treatment Upcoming Encounters Date Type Department Care Team (Late st Contact Info) Description 07/19/2025 2:30 PM EST Clinical Support [facility] CHC MED & PEDS 505 [place] [address] Crystal Taylor, COLT 505 [place] [address] 07/31/2025 10:15 AM EST Office Visit [facility] MEDICINE 230 [place] [address] Name, MD Wesley [address] [place] [address] documented as of this encounter Visit Diagnoses Not on filedocumented in this encounter Additional Health Concerns Assessment Noted Time PHQ-9 Depression Total Score: 21 025 10:36 AM EDT documented as of this encounter Care Teams Fuel Management Handler Relationship Specialty Start Date End Date Yolanda Ojeda MD [address] [place] [address] PCP - General Family Medicine 04/26/25 documented as of this encounter
--- OUTSIDE RECORDS SUMMARY | 2025-07-15 15:38 | XMS_ITS | Encounter Summary ---
Author Organization [facility] Address [address] [place] [address] Care Team Providers Care Electrical Engineering Technician Name Role Phone Mauri Singh MD Primary Care Provider [phone] Encounter Details Date Type Department Care Team (Late st Contact Info) Description 02/25/2021 Orders Only [facility] Perioporative Services [address] [place], [place] [phone] Rich Crane MD [address] [place] [address] [phone] GERD (gastroesophageal reflux disease) (Primary Dx) Social [...] 3:22 PM SPENCERT Shira Andre RN Active documented as of [...] EDT Swati Romero RN 03/04/2021 8:37 AM [facility] High Resolution Esophageal Manometry Procedure Note [...] Time procedure completed: 832 Staff in room: wSati Romero Any complications: none Patient tolerance: well Discharge time: 0837 Via ambulatory Discharge instructions received: yes Electronically signed Swati Romero Rich Crane MD GI PROCEDURE ORDERABLES Final Result documented in this encounter Visit Diagnoses Diagnosis GERD (gastroesophageal reflux disease)- Primary Esophageal reflux documented in this encounter Care Teams Electrical Engineering Technician Relationship Specialty Start Date End Date Mauri Singh MD [facility] [place] [address] PCP - General 11/23/12 documented as of this encounter
--- OUTSIDE RECORDS SUMMARY | 2025-07-15 15:38 | XMS_ITS | Encounter Summary ---
Author Organization [employer] Address 75 [facility] 7t [place] [address] Care Team Providers Care Sand Technologist Name Role Phone Yolanda Ojeda MD Primary Care Provider [phone] Encounter Details Date Type Department Care Team (Late st Contact Info) Description 07/04/2025 Telephone [facility] MEDICINE 230 [place] [address] Yolanda Ojeda MD [address] [place], [place] [phone] Social History Tobacco Use Types Packs/Day Years [...] Upcoming Encounters Date Type Department Care Team ([facility] st Contact Info) Description 07/19/2025 2:30 PM EST Clinical Support [facility] CHC MED & PEDS 505 [place] [address] Crystal Taylor RN 505 [place] [address] 07/31/2025 10:15 AM EST Office Visit [facility] MEDICINE 230 [place] [address] Name, MD Wesley 230 [place] [address] documented as of this encounter Visit Diagnoses Not on filedocumented in this encounter Additional Health Concerns Assessment Noted Time PHQ-9 Depression Total Score: 21 025 10:36 AM EDT documented as of this encounter Care Teams Sand Technologist Relationship Specialty Start Date End Date Yolanda Ojeda MD 505 [place] [address] PCP - General Family Medicine 04/26/25 documented as of this encounter
--- OUTSIDE RECORDS SUMMARY | 2025-07-15 15:38 | XMS_ITS | Encounter Summary ---
Author Organization [employer] Address 75 [facility] 7t [place] [address] Care Team Providers Care Stamping Mill Tender Name Role Phone Yolanda Ojeda MD Primary Care Provider [phone] Reason for Visit * Reason Onset Date Comments Appointment Request 07/02/2025 Encounter Details Date Type Department Care Team ([facility] st Contact Info) Description 07/02/2025 Telephone [facility] CHC MED & PEDS 505 [place], [place] [phone] Yolanda Ojeda MD 505 [place], [place] [phone] Appointment Request Social History Tobacco Use Types [...] sooner apt than 07/13. Contact pt at [phone] documented in this encounter Plan of Treatment Upcoming Encounters Date Type Department Care Team (Late st Contact Info) Description 07/19/2025 2:30 PM EST Clinical Support [facility] CHC MED & PEDS 505 [place] [address] Crystal Taylor, RN 505 [place] [address] 07/31/2025 10:15 AM EST Office Visit [facility] MEDICINE 230 [place] [address] Name, MD Wesley 230 [place] [address] documented as of this encounter Visit Diagnoses Diagnosis Primary osteoarthritis of left knee Lumbar disc disease Other and unspecified disc disorder of lumbar region documented in this encounter Additional Health Concerns Assessment Noted Time PHQ-9 Depression Total Score: 21 025 10:36 AM EDT documented as of this encounter Care Teams Stamping Mill Tender Relationship Specialty Start Date End Date Yolanda Ojeda MD 505 [place] [address] PCP - General Family Medicine 04/26/25 documented as of this encounter
--- OUTSIDE RECORDS SUMMARY | 2025-07-15 15:38 | XMS_ITS | Encounter Summary ---
Author Organization [employer] Address 75 [facility] 7t [place] [address] Care Team Providers Care Toe Stapler Name Role Phone Yolanda Ojeda MD Primary Care Provider [phone] Reason for Visit * Reason Onset Date Comments Call Back Request 06/11/2025 Encounter Details Date Type Department Care Team ([facility] st Contact Info) Description 06/11/2025 Telephone [facility] MEDICINE 230 [place] [address] Yolanda Ojeda MD 505 [place], [place] [phone] Call Back Request Social History Tobacco Use [...] like to discuss. Please contact pt at [phone]. (Swedish Speaker) documented in this encounter Plan of Treatment Upcoming Encounters Date Type Department Care Team ([facility] st Contact Info) Description 07/19/2025 2:30 PM EST Clinical Support [facility] CHC MED & PEDS [address] [place] [address] Crystal Taylor, COLT 505 [place] [address] 07/31/2025 10:15 AM EST Office Visit [facility] MEDICINE [address] [place] [address] Name, MD Wesley [address] [place] [address] documented as of this encounter Visit Diagnoses Not on filedocumented in this encounter Additional Health Concerns Assessment Noted Time PHQ-9 Depression Total Score: 21 025 10:36 AM EDT documented as of this encounter Care Teams Toe Stapler Relationship Specialty Start Date End Date Yolanda Ojeda MD [address] [place] [address] PCP - General Family Medicine 04/26/25 documented as of this encounter
--- OUTSIDE RECORDS SUMMARY | 2025-07-15 15:38 | XMS_ITS ---
Author Organization [employer] Address [address] [place] [address] Care Team Providers Care Spray Machine Tender Name Role Phone Mauri Singh MD Primary Care Provider [phone] Active Problems Problem Noted Date Diagnosed Date [...]
--- OUTSIDE RECORDS SUMMARY | 2025-07-15 15:38 | XMS_ITS | Encounter Summary ---
Author Organization [employer] Address 75 [facility] 7t [place] [address] Care Team Providers Care Ribbon Hanking Machine Operator Name Role Phone Yolanda Ojeda MD Primary Care Provider [phone] Reason for Visit * Reason Onset Date Comments Med Refill 07/09/2025 Encounter Details Date Type Department Care Team ([facility] st Contact Info) Description 07/09/[address] [facility] MEDICINE [address] [place] [address] Yolanda Ojeda MD 505 [place], [place] [phone] Med Refill Social History Tobacco Use Types Packs/Day Years Used Date Smoking Tobacco: Unknown Depression Answer Date Recorded Patient Health Questionnaire-9 Score 21 04/26/2025 Patient Health Questionnaire-9 Score 21 04/26/2025 Last PHQ-9: Questionnaire Data Not on file 0 04/26/2025 Housing Stability Answer Date Recorded What is your housing situation today? I do not have housing (Staying with others, in a hotel, in a assisted, living outside on the street, on a [...] be sent to: [facility]/pharmacy #[id number] documented in this encounter Plan of Treatment Upcoming Encounters Date Type Department Care Team ([facility] st Contact Info) Description 07/19/2025 2:30 PM EST Clinical Support [facility] CHC MED & PEDS 505 [place] [address] Crystal Taylor, COLT 505 [place] [address] 07/31/2025 10:15 AM EST Office Visit [facility] MEDICINE [address] [place] [address] Name, MD Wesley [address] [place] [address] documented as of this encounter Visit Diagnoses Not on filedocumented in this encounter Additional Health Concerns Assessment Noted Time PHQ-9 Depression Total Score: 21 025 10:36 AM EDT documented as of this encounter Care Teams Ribbon Hanking Machine Operator Relationship Specialty Start Date End Date Yolanda Ojeda MD [address] [place] [address] PCP - General Family Medicine 04/26/25 documented as of this encounter
--- OUTSIDE RECORDS SUMMARY | 2025-07-15 15:38 | XMS_ITS | Clinical Summary ---
Author Organization [employer] Address [address] [facility] 7t [place] [address] Care Team Providers Care Coal Bagger Name Role Phone Yolanda Ojeda MD Primary Care Provider [phone] Allergies Active Allergy Reactions Criticality Noted Date [...] 2024 Active ergocalciferol (Vitamin D2) 1.25 MG (82013 UT) capsuleIndication s:Vitamin D deficiency TAKE 1 [...] day. Active cholecalciferol (Vitamin D-3) 1.25 MG (67830 UT) capsule Take 1 capsule by mouth every 7 (seven) days. Active Diclofenac Sodium 1 % gel Apply 4 g topically 4 times daily. Active DULoxetine (Cymbalta) [address] capsule Take 1 capsule by mouth 2 times daily. Active nystatin (Mycostatin) 353962 UNIT/GM powder APPLY DAILY TO SKIN TO [...] headaches). 18 tablet 3 Active nystatin (Mycostatin) 898891 units tablet 2024 Discontinued DULoxetine (Cymbalta) 20 [...] 2024 Discontinued ergocalciferol (Vitamin D2) 1.25 MG (02789 UT) capsuleIndication s:Vitamin D deficiency Take 1 [...] Description 07/13/2025 1:40 PM EST Office Visit [facility] [address] [address] Ilsa Rosales NP Viral upper respiratory tract infection (Primary Dx); Intractable chronic migraine with aura with status migrainosus 07/13/2025 11:15 AM EST Office Visit [facility] [address] [place] [address] Yolanda Ojeda MD Brain aneurysm (Primary Dx); Hypothyroidism, unspecified type; Encounter for health-related screening; Dysuria; Essential (primary) hypertension; Breast cancer screening by mammogram; Pulmonary nodules; Cataract of both eyes, unspecified cataract type; Dysphagia, unspecified type; Dietary counseling; Exercise counseling 07/13/2025 Travel 07/12/2025 Telephone [facility] [address] [place] [address] Yolanda Ojeda MD Chart Prep 07/10/[address] [address] Yolanda Ojeda MD call back 07/09/2025 Refill [facility] [address] [place] [address] Yolanda Ojeda MD Generalized anxiety disorder 07/09/[address] [address] Yolanda Ojeda MD Med Refill 07/07/2025 Refill [facility] [address] [place] [address] Yolanda Ojeda MD Generalized anxiety disorder; Primary osteoarthritis of left knee; Lumbar disc disease 07/05/2025 Patient Outreach [address] [address] Yolanda Ojeda MD Pre-visit Planning (SDOH screening completed on 04/26/25) 07/04/[address] [address] Yolanda Ojeda MD 07/04/[address] [address] Yolanda Ojeda MD Med Refill 07/03/[address] [address] Yolanda Ojeda MD Med Refill 07/03/[address] [address] Yolanda Ojeda MD Nurse Triage 07/02/2025 Telephone [facility] [address] [place] [address] Yolanda Ojeda MD Appointment Request 06/26/2025 Telephone [facility] [address] [place] [address] Yolanda Ojeda MD Change PCP 06/26/2025 Telephone [facility] [address] [place] [address] Yolanda Ojeda MD Med Refill 06/25/[address] [address] Yolanda Ojeda MD Med Refill 06/25/[address] [address] Yolanda Ojeda MD call back requested; Med Refill 06/23/2025 Refill [facility] [address] [place] [address] Yolanda Ojeda MD Vitamin D deficiency; Generalized anxiety disorder 06/20/2025 Refill [facility] [address] [place], [place] [phone] Yolanda Ojeda MD Primary osteoarthritis of left knee; Lumbar disc disease 06/20/2025 Refill [facility] [address] [place], [place] [phone] Yolanda Ojeda MD Generalized anxiety disorder 06/13/2025 Telephone [facility] [address] [place], [place] [phone] Yolanda Ojeda MD Med Refill 06/13/2025 Telephone [facility] [address] [place] [address] Yolanda Ojeda MD Referral 06/12/[address] [address] Yolanda Ojeda MD Referral 06/11/2025 Refill [facility] [address] [place] [address] Yolanda Ojeda MD Generalized anxiety disorder 06/11/2025 Refill [facility] [address] [place] [address] Yolanda Ojeda MD Generalized anxiety disorder 06/11/[address] [address] Yolanda Ojeda MD Call Back Request 06/08/[address] [address] Yolanda Ojeda MD Med Refill 06/07/2025 1:30 PM EDT Clinical Support [facility] [address] [place] [address] Crystal Taylor RN Primary osteoarthritis of both knees (Primary Dx); Long-term current use of opiate analgesic; Long-term current use of benzodiazepine 06/07/2025 Travel 05/28/2025 Refill [facility] [address] [place] [address] Yolanda Ojeda MD Primary osteoarthritis of left knee; Lumbar disc disease 05/28/2025 Refill [facility] [address] [place] [address] Yolanda Ojeda MD Primary osteoarthritis of left knee; Lumbar disc disease 05/24/2025 Telephone [facility] [address] [place] [address] Yolanda Ojeda MD 05/23/2025 Refill [facility] [address] [place] [address] Yolanda Ojeda MD Generalized anxiety disorder 05/21/2025 Telephone [facility] [address] [place] [address] Yolanda Ojeda MD GSSSI 05/16/2025 Telephone [facility] [address] [place] [address] Yolanda Ojeda MD Referral 05/15/2025 Refill [facility] [address] [place], [place] [phone] Yolanda Ojeda MD Generalized anxiety disorder 05/11/2025 Orders Only [facility] [address] [place] [address] Olive West MD 05/09/2025 Refill [facility] [address] [place] [address] Yolanda Ojeda MD Primary osteoarthritis of left knee; Lumbar disc disease 05/02/2025 Telephone [facility] [address] [place] [address] Yolanda Ojeda MD FYI 04/30/2025 Telephone [facility] [address] [place] [address] Yolanda Ojeda MD Medication Question 04/30/2025 Refill [facility] [address] [place] [address] Yolanda Ojeda MD Intractable chronic migraine with aura with status migrainosus 04/30/2025 Refill [facility] [address] [place] [address] Yolanda Ojeda MD Intractable chronic migraine with aura with status migrainosus 04/30/2025 Telephone [facility] [address] [place] [address] Yolanda Ojeda MD Medication Question 04/30/2025 Telephone [facility] [address] [place] [address] Yolanda Ojeda MD Appointment Request 04/28/2025 Refill [facility] [address] [place], [place] [phone] Yolanda Ojeda MD Intractable chronic migraine with aura with status migrainosus 04/26/2025 10:45 AM EDT Office Visit [facility] [address] [place] [address] Yolanda Ojeda MD Coronary artery disease status [...] Chronic pelvic pain in female 04/26/2025 Telephone [facility] [address] [place] [phone] Yolanda Ojeda MD 04/26/2025 Patient Outreach [facility] [address] [place] [address] Yolanda Ojeda MD Care Coordination (SDOH) 04/26/2025 Travel 04/18/2025 Patient Outreach [facility] [address] [place] [address] Elmo Frank MD Pre-visit Planning (Pre visit planning unable to LVM ) 04/18/2025 Telephone [facility] [address] [place] [address] Yolanda Ojeda MD CHART PREP from Last [...] with others, in a hotel, in a group home, living outside on the street, on [...] Description 07/19/2025 2:30 PM EST Clinical Support [facility] [address] [place] [address] Crystal Taylor, RN [address] [place] [address] 07/31/2025 10:15 AM EST Office Visit [facility] [address] [place] [address] Name, MD Wesley [address] [place] [address] Health Maintenance Due Date Last Done Comments CT Colonography 1964 Colonoscopy 1964 Colorectal Cancer Screening 1964 FIT DNA/Cologuard 1964 FIT 1964 FOBT 1964 HIV Screening 1964 Lipid Panel 1964 Sigmoidoscopy 1964 Hepatitis C Screening 1982 DTaP/Tdap/Td Vaccines [...] Screening 04/26/2026 04/26/2025 SDOH Screening 04/26/2026 04/26/2025 Disability Screening 07/13/2026 07/13/2025 Tobacco Screening 07/13/2026 07/13/2025 HIB Vaccines Aged [...] TROPONIN I Routine 07/15/2025 2:55 PM EST COMPREHENSIVE METABOLIC PANEL Routine 07/15/2025 2:55 PM EST APTT Routine 07/15/2025 2:55 PM EST PROTHROMBIN TIME-INR Routine 07/15/2025 2:55 PM EST CBC WITH AUTO DIFFERENTIAL Routine 07/15/2025 2:55 PM EST POCT INFLUENZA B (ID NOW RAPID MOLECULAR) [...] ROUTINE Routine 07/13/2025 12:00 AM EST Dysuria POCT MANOJ-14 URINE DRUG SCREEN Routine 06/07/2025 1:53 PM EDT Primary osteoarthritis of both knees XR KNEE 1-2 VIEWS LEFT Routine 05/10/2025 11:42 AM EDT AMB REFERRAL TO ORTHOPAEDIC SURGERY Routine 05/10/2025 Synovial cyst of left popliteal space Primary osteoarthritis of both knees from Last 3 Months Results * High Sensitivity Troponin I (07/15/2025 2:55 PM EST) [facility] TROPONIN I HIGH SENSITIVITY <2.7 <3.5 - 17.0 ng/L [facility] Comment:The Dominguez high sens itivity Troponin-I results should beused in conjunction with other diagnostic information suchas ECG, clinical observations and information, and patientsymptoms to aid in the diagnosis of NE. 07/15/2025 2:55 PM EST 07/15/2025 2:59 PM EST us Generic External Data Provider LAB BLOOD ORDERAB LES Final Result Performing Organization Address City/State/[facility] Co de Phone Number [facility] [address] [place] [phone] * (ABNORMAL) CBC auto differential (07/15/2025 2:55 PM EST) [facility] White Blood Count 11.7(H) 4.8 - 10.8 X10*3/uL [facility] Red Blood Count 4.72 4.20 - 5.50 X10*6/uL [facility] Hemoglobin 12.7 12.0 - 16.0 g/dl [facility] Hematocrit 40.2 37.0 - 47.0 % [facility] Mean Corpuscular Volume 85.2 80.0 - 98.0 fL [facility] Mean Corpuscular Hemoglobin 26.9(L) 27.0 - 33.0 pg [facility] Mean Corpuscular HGB Conc 31.6 31.0 - 35.0 g/dl [facility] Red Cell Distribution Width 15.2 11.0 - 16.0 % [facility] Platelet Count 288 160 - 400 X10*3/uL [facility] Mean Platelet Volume 9.0(L) 9.4 - 12.3 fL [facility] Neutrophils Percent Auto 60.1 45 - 73 % [facility] Imm Gran Pct Auto 0.3 0.0 - 0.4 % [facility] Lymphocytes Percent Auto 28.1 20 - 40 % [facility] Monocytes Percent Auto 6.8 2 - 11 % [facility] Eosinophils Percent Auto 4.0 0 - 4 % [facility] Basophils Percent Auto 0.7 0 - 2 % [facility] NRBC Pct Auto 0.0 0.0 - 0.2 /100WBC [facility] Neutrophils Absolute Auto 7.0 2.0 - 8.3 x10*3/uL [facility] Imm Gran Abs Auto 0.04(H) 0.00 - 0.03 X10*3/uL [facility] Lymphocytes Absolute Auto 3.3 1.2 - 4.9 X10*3/uL [facility] Monocytes Absolute Auto 0.8 0.1 - 1.2 X10*3/uL [facility] Eosinophils Absolute Auto 0.5(H) 0.0 - 0.4 X10*3/uL [facility] Basophils Absolute Auto 0.1 0.0 - 0.2 X10*3/uL [facility] NRBC Abs Auto 0.000 0.0 - 0.012 X10*3/uL [facility] 07/15/2025 2:55 PM EST 07/15/2025 2:59 PM EST us Generic External Data Provider LAB BLOOD ORDERAB LES Final Result [facility] [address] [place] [phone] * Partial Thromboplastin Time, Activated (APTT) (07/15/2025 2:55 PM EST) Partial Thromboplastin Time 28.0 26.7 - 34.1 SEC [facility] 07/15/2025 2:55 PM EST 07/15/2025 2:59 PM EST Generic External Data Provider LAB BLOOD ORDERAB LES Final Result Performing Organization Address [facility]/ZIP Co de Phone Number [facility] [address] [place] [address] [phone] * Prothrombin Time-INR (07/15/2025 2:55 PM EST) Prothrombin Time 11.7 11.2 - 13.5 SEC [facility] INTERNATIONAL NORM RATIO 1.0 0.9 - 1.1 [facility] Comment:INTERNATIONAL NORMAL IZED RATIO (INR) REFERENCE [...] ORDERAB LES Final Result Performing Organization Address [facility] Co de Phone Number [facility] [address] [place] [phone] * (ABNORMAL) Comprehensive Metabolic Panel (07/15/2025 2:55 PM EST) Pathologist [facility] Sodium 141 135 - 145 mmol/L [facility] Potassium 3.3 3.3 - 5.1 mmol/L [facility] Chloride 106 96 - 108 mmol/L [facility] Carbon Dioxide 27 22 - 29 mmol/L [facility] Anion Gap 11(L) 12 - 20 [facility] Urea Nitrogen (BUN) 10 9 - 16 mg/dL [facility] Creatinine, Serum 0.67 0.5 - 1.4 mg/dL [facility] Creatinine Clr Calc Pharmacy 93.6 [facility] Comment:Provided height and weight: 167.64 cm,77.111 kg.eGFR (calculated from the MDRD study equation) and eCrCl(calculated from the Cockcroft-Gault equation) are based ondifferent parameters and may not yield comparable results.If eCrCl result is absurd, please check patient'sheight/weight. Estimated Glomerular Filt Rate >60 [facility] Comment:Chronic Kidney Disea se: Estimated GFR < 60 mL/min/1.25n1Iubvag Kidney Disease: Estimated GFR < 15 mL/min/1.73m2 Glucose 111 60 - 115 mg/dL [facility] Calcium 9.0 8.4 - 10.2 mg/dL [facility] Bilirubin, Total 0.5 0.0 - 1.0 mg/dL [facility] Aspartate Amino Transferase 19 5 - 31 U/L [facility] Alanine Aminotransferase 16 0 - 31 U/L [facility] Total Protein 7.0 6.5 - 8.0 g/dL [facility] Albumin Level 4.2 3.5 - 5.0 g/dL [facility] Alkaline Phosphatase 105 39 - 117 U/L [facility] 07/15/2025 2:55 PM EST 07/15/2025 2:59 PM EST us Generic External Data Provider LAB BLOOD ORDERAB LES Final Result Performing Organization Address [facility]/ZIP Co de Phone Number [facility] [address] [place] [phone] * Influenza B (ID NOW Rapid Molecular) (07/13/2025 2:47 PM EST) Influenza B Negative Negative, Indeterminate [facility] Swab 07/13/2025 2:47 PM EST us Ilsa Rosales NP POINT OF CARE TEST ENTER/EDIT OR DERABLES Final Result Performing Organization Address [facility]/ZIP Co de Phone Number [facility] [address] [place] [address] [phone] * Influenza A (ID NOW Rapid Molecular) (07/13/2025 2:47 PM EST) Influenza A Negative Negative, Indeterminate [facility] Swab 07/13/2025 2:47 PM EST Result [facility] Ilsa Rosales NP POINT OF CARE TEST ENTER/EDIT OR DERABLES Final Result [facility] [address] [place] [phone] * POCT Rapid COVID Ag (07/13/2025 2:21 PM EST) Rapid COVID Ag Negative Swab 07/13/2025 2:21 PM EST Result [facility] Ilsa Rosales NP POINT OF [...] Media Lot # [id number] Lot# Expiration Date 143 Urine (Urine, Random) 07/13/2025 12:03 PM EST Result [facility] Yolanda Ojeda MD POINT OF CARE TEST ENTER/EDIT ORDERABLES Final Result * (ABNORMAL) Urinalysis, Complete, with Reflex to Culture (07/13/2025 12:00 AM EST) Color Urine Yellow [facility] Appearance Urine Clear [facility] PH 6.0 5.0 - 9.0 [facility] Glucose Urine UA Negative Negative mg/dL [facility] Urine Blood Negative Negative [facility] Specific [place] - Urine 1.020 1.005 - 1.025 [facility] Urine Protein Negative Neg-Trace mg/dL [facility] Urine Ketones Negative Negative mg/dL [facility] Nitrite Urine Negative Negative [facility] Leukocyte Esterase Urine Small (1+)(A) Negative [facility] RBC Urine 0-2 0 - 2 /HPF [facility] Urine WBC 0-5 0 - 5 /HPF [facility] Urine Squamous Epithelial Cell 0-2 0 - 2 /HPF [facility] Urine Bacteria None Seen None Seen [facility] Hyaline Casts, Urine 0-2 0 - 2 /LPF [facility] Urine 07/13/2025 07/13/2025 Narrative [facility] - 07/13/2025 3:04 PM EST [id number], Clean Catch us Yolanda Ojeda MD LAB URINE ORDERABLES Final Re sult Performing Organization Address City/[facility]/ZIP Co de Phone Number [facility] [address] [place] [phone] * Culture, Urine, Routine (07/13/2025 12:00 AM EST) Urine Urine specimen obtained by clean catch procedure / Unknown 07/13/2025 07/13/2025 Comment:UACC Narrative [facility] - 07/14/2025 1:47 PM EST Urine Culture Report Result Urine Culture < 10,000 cfu/ml Specimen Source: Urine clean catch us Yolanda Ojeda MD LAB MICROBIOLOGY - GENERAL OR DERABLES Final Result Performing Organization Address [facility]/ZIP Co de Phone Number [facility] [address] [place] [phone] * (ABNORMAL) POCT MANOJ-14 Urine Drug Screen (06/07/2025 1:53 PM EDT) THC Negative Negative Cocaine Screen, Urine Negative [...] Unknown 06/07/2025 1:53 PM EDT Narrative Crystal Taylor RN - 06/07/2025 1:53 PM EDT . Internal Pass Control Lot# [id number] Exp: 07-06-26 Yolanda Ojeda MD POINT OF CARE TEST ENTER/EDIT ORDERABLES Final Result * XR Knee 1-2 Views Left (05/10/2025 11:42 AM EDT) Anatomical Region Laterality Modality Lower Extremities, Knee Left Radiogra phic Imaging Historical Provider IMG XR PROCEDURES Final R esult * Referral to Orthopaedic Surgery (05/10/2025) Yolanda Ojeda MD OUTPATIENT REFERRAL ORDERABLE S Final Result from Last 3 Months Insurance [facility] [address] [address] STANDARD Care Teams Coal Bagger Relationship Specialty Start Date End Date Yolanda Ojeda MD [address] [place] [address] PCP - General Family Medicine 04/26/25
--- OUTSIDE RECORDS SUMMARY | 2025-07-15 15:38 | XMS_ITS | Encounter Summary ---
Author Organization [employer] Address [address] [facility] 7t [place] [address] Care Team Providers Care Resident Medical Officer Name Role Phone Yolanda Ojeda MD Primary Care Provider [phone] Reason for Visit * Reason Onset Date Comments call back 07/10/2025 Encounter Details Date Type Department Care Team ([facility] st Contact Info) Description 07/10/2025 Telephone [facility] [address] [place] [address] Yolanda Ojeda MD [address] [place], [place] [phone] call back Social History Tobacco Use Types [...] requesting an call back Contact pt at [phone] documented in this encounter Plan of Treatment Upcoming Encounters Date Type Department Care Team (Late st Contact Info) Description 07/19/2025 2:30 PM EST Clinical Support [facility] [address] [place] [address] Crystal Taylor, COLT [address] [place] [address] 07/31/2025 10:15 AM EST Office Visit [facility] [address] [place] [address] Name, MD Wesley [address] [place] [address] documented as of this encounter Visit Diagnoses Not on filedocumented in this encounter Additional Health Concerns Assessment Noted Time PHQ-9 Depression Total Score: 21 025 10:36 AM EDT documented as of this encounter Care Teams Resident Medical Officer Relationship Specialty Start Date End Date Yolanda Ojeda MD [address] [place] [address] PCP - General Family Medicine 04/26/25 documented as of this encounter
--- OUTSIDE RECORDS SUMMARY | 2025-07-15 15:38 | XMS_ITS | Encounter Summary ---
Author Organization [employer] Address [address] [facility] 7[address] [place] [address] Care Team Providers Care Physical Therapy Supervisor Name Role Phone Yolanda Amin MD Primary Care Provider [phone] Reason for Visit * Reason Onset Date Comments call back requested 06/25/2025 Med Refill 06/25/2025 Encounter Details Date Type Department Care Team ([facility] st Contact Info) Description 06/25/2025 Telephone [facility] [address] [place] [address] Yolanda Amin MD [address] [place] [phone] call back requested; Med Refill Social History [...] with others, in a hotel, in a retirement, living outside on the street, on a [...] med list. * Telephone Encounter - Misty aGrrison - 06/25/2025 11:55 AM EDT Pt also requesting med refill on ergocalciferol (Vitamin D2) 1.25 MG (41141 UT) capsule . PCP DR. amin * Telephone Encounter - Misty Garrison - 06/25/2025 11:53 AM EDT TC from [place] requesting a call back regarding Alprazolam. PCP Dr. Amin documented in this encounter Plan of Treatment Upcoming Encounters Date Type Department Care Team (Late st Contact Info) Description 07/19/2025 2:30 PM EST Clinical Support [facility] [address] [place] [address] Crystal Taylor, RN [address] [place] [address] 07/31/2025 10:15 AM EST Office Visit [facility] [address] [place] [address] Name, MD Wesley [address] [place] [address] documented as of this encounter Visit Diagnoses Not on filedocumented in this encounter Additional Health Concerns Assessment Noted Time PHQ-9 Depression Total Score: 21 025 10:36 AM EDT documented as of this encounter Care Teams Physical Therapy Supervisor Relationship Specialty Start Date End Date Yolanda Amin MD [address] [place] [address] PCP - General Family Medicine 04/26/25 documented as of this encounter
--- OUTSIDE RECORDS SUMMARY | 2025-07-15 15:38 | XMS_ITS | Clinical Summary ---
Author Organization [employer] Address [address] [place] [address] Care Team Providers Care Geriatric Nurse Assistant Name Role Phone Mauri Singh MD Primary Care Provider [phone] Allergies Active Allergy Reactions Criticality Noted Date [...] drink = 0.6 oz pur e alcohol) [facility] Utilities Answer Date Recorded In the past [...] any time in the past 12 m [facility], were you homeless or living in a long-term (including now)? No 01/02/2025 Food Insecurity Answer [...] carcinoma as determined by the National Cancer [place] is, 7.5%. The BRCAPRO risk model, is 11.8%. If your lifetime risk score is over 20% the [place] [employer] recommends an annual breast MRI, [...] compared to prior imaging studies performed at [facility] on 09/30/2012 and 10/17/2013. MAMMOGRAM FINDINGS: The [...] been compared to prior imaging studiesperformed at [facility] on 09/30/2012 and 10/17/2013. MAMMOGRAM FINDINGS: The [...] BI-RADS Category 1: Negative Mauri Singh MD [place] IM ORDERABLES Final Result from Last 3 Months or Most Recently Relevant to Health Maintenance Insurance [facility] Advance Directives For more information, please contact: [phone] * Full Code (Latest Code Status on [...] Agents on File Name Relationship Healthcare Agent Relationswi p Communication Reno Escamilla Spouse Health Care Agent Care Teams Geriatric Nurse Assistant Relationship Specialty Start Date End Date Mauri Singh MD [address] [place] [address] PCP - General 11/23/12
--- OUTSIDE RECORDS SUMMARY | 2025-07-15 15:38 | XMS_ITS | Encounter Summary ---
Author Organization [employer] Address 75 [facility] 7t [place] [address] Care Team Providers Care Switch Tender Name Role Phone Yolanda Ojeda MD Primary Care Provider [phone] Reason for Visit * Reason Comments Med Refill Encounter Details Date Type Department Care Team ([facility] st Contact Info) Description 07/09/2025 Refill [facility] MED & PEDS [address] [place], [place] [phone] Yolanda Ojeda MD [address] [place] [address] Generalized anxiety disorder Social History Tobacco Use [...] Upcoming Encounters Date Type Department Care Team ([facility] st Contact Info) Description 07/19/2025 2:30 PM EST Clinical Support [facility] MED & PEDS [address] [place] [address] Crystal Taylor, COLT [address] [place] [address] 07/31/2025 10:15 AM EST Office Visit [facility] MEDICINE [address] [place] [address] Name, MD Welsey [address] [place] [address] documented as of this encounter Visit Diagnoses Diagnosis Generalized anxiety disorder documented in this encounter Additional Health Concerns Assessment Noted Time PHQ-9 Depression Total Score: 21 025 10:36 AM EDT documented as of this encounter Care Teams Switch Tender Relationship Specialty Start Date End Date Yolanda Ojeda MD [address] [place] [address] PCP - General Family Medicine 04/26/25 documented as of this encounter
--- OUTSIDE RECORDS SUMMARY | 2025-07-15 15:38 | XMS_ITS | Encounter Summary ---
Author Organization [employer] Address 75 [facility] 7t [place] [address] Care Team Providers Care Certified Alcohol Counselor Name Role Phone Yolanda Ojeda MD Primary Care Provider [phone] Reason for Visit * Reason Comments Med Refill Encounter Details Date Type Department Care Team ([facility] st Contact Info) Description 06/11/2025 Refill C [facility] MED [facility] PEDS [address] [place], [place] [phone] Yolanda Ojeda MD 505 [place] [address] Generalized anxiety disorder Social History Tobacco Use [...] 2:30 PM EST Clinical Support [facility] CHC MED & PEDS [address] [place] [address] Crystal Taylor, COLT [address] [place] [address] 07/31/2025 10:15 AM EST Office Visit [facility] MEDICINE [address] [place] [address] Name, MD Wesley [address] [place] [address] documented as of this encounter Visit Diagnoses Diagnosis Generalized anxiety disorder documented in this encounter Additional Health Concerns Assessment Noted Time PHQ-9 Depression Total Score: 21 025 10:36 AM EDT documented as of this encounter Care Teams Certified Alcohol Counselor Relationship Specialty Start Date End Date Yolanda Ojeda MD [address] [place] [address] PCP - General Family Medicine 04/26/25 documented as of this encounter
[2025-07-15] MEDS: diazePAM 10 MG/2 ML CARTRIDGE 2.5 MG IVPUSH (15:45)
[2025-07-15 17:53] VITALS: BP 134/63; PULSE 74; RESP 14; O2SAT 95
[2025-07-15 18:55] VITALS: BP 134/63; PULSE 74; RESP 14; TEMP 36.1; O2SAT 95
== END 2025-07-15 18:58 | disposition home or self-care (01) ==
PROVIDERS: Physician Assistant; Emergency Provider Emergency Medicine; PCP Family Medicine
DX: R51.9 Headache, unspecified (principal); R11.2 Nausea with vomiting, unspecified; R07.89 Other chest pain; Z79.899 Other long term (current) drug therapy
CPT/HCPCS: 36415; 80053; 84484; 85025; 85610; 85730; 93005; 96361; 96374; 96375; 96376; 99285; J1200; J1885; J2405; J2765; J3360

== ENCOUNTER → 2025-07-15 14:14 | Outpatient (BNV) | payer MEDICAID, SELFPAY | PROVIDERS: Emergency Provider Emergency Medicine; PCP Family Medicine; Visit Provider Internal Medicine Cardiovascular Disease | DX: R94.31 Abnormal electrocardiogram [ECG] [EKG] (principal); R07.9 Chest pain, unspecified | CPT/HCPCS: 93010 ==

== ENCOUNTER 2025-08-29 10:10 | Outpatient (AMB) | payer MEDICAID, SELFPAY ==
--- OUTSIDE RECORDS SUMMARY | 2025-08-28 14:00 | XMS_ITS | Encounter Summary ---
Author Organization [facility] Address [id number] [place] [phone] Care Team Providers Care Assistant Merchandise Manager Name Role Phone Yolanda Ojeda MD Primary Care Provider [phone] Reason for Referral * Orthopedic (Routine) - Pending Review Specialty Diagnoses / Procedures Referred By Contac t Referred To Contact Orthopedic Surgery / Orthopaedic Surgery Diagnoses Arthritis of both knees Procedures L Inj/Asp: bilateral knee Milton Cohn MD [address] [address] Phone: tel: fax: Referral ID Status Reason Start Date Expiration Date V isits Requested Visits Authorized [id number] Pending Review 08/28/2025 08/28/2026 1 1 Encounter Details Date Type Department Care Team (Late st Contact Info) Description 08/28/2025 2:00 PM EST Procedure visit Orthopedic Surgery - [place] [address] [phone] Milton Cohn MD [address] [address] Arthritis of both knees (Primary Dx) Social History Tobacco Use Types Packs/Day Years Used Date Smoking Tobacco: Never Assessed Comments Unknown Sex and Gender Information Value Date Recorded Sex Assigned at Not on file Legal Sex Female 4:08 PM EDT Gender Identity Not on file Sexual Orientation Not on file documented as of this encounter Progress Notes * Milton Cohn MD - 08/28/2025 2:00 PM ESTAssociated Order(s): L Inj/Asp: bilateral knee Post-Procedure Diagnose(s): Arthritis of both knees Reason For Visit: No chief complaint on file. Patient: Genny Matamoros : 1965 VISIT DATE: 08/28/2025 Attestation HPI: Genny Matamoros is a 60 y.o. year old female, patient of Dr. Isbell, who presents for her third of 3 Euflexxa injections for bilateral knee arthritis. Last injection was 7 days ago on 08/21/25. She still feels like her left knee is a little more sore today than the right; right knee does not have muchpain. Se is not sure if she has felt much chanfge or relief from gel injections yet History of Present Illness ROS: GENERAL: negative MUSCULOSKELETAL: See HPI The remainder of the review of systems is noncontributory Allergies: Current Allergies[1] Past Medical History: has a past medical history of Angina at rest ([facility] V24), Arthritis, COPD (chronic obstructive pulmonary disease) ([facility] V24, [facility] V28), Coronary artery disease, Fibromyalgia, Hypertension, Osteoarthritis, and Osteopenia. Social History: Social History Tobacco Use Smoking status: Not on file Smokeless tobacco: Not on file Substance Use Topics Alcohol use: Not on file Past Surgeries: Surgical History[2] Medications: Medications Taking[3] Physical Exam: There were no vitals filed for this visit. APPEARANCE: Alert, oriented, no acute distress Physical Exam Gait: Non-Antalgic gait noted. Right Knee: No effusion noted. ROM 0-100. No Flexion contracture noted. Tender to palpation at medial joint line. Left Knee: No effusion noted. ROM 0-100. No Flexion contracture noted. Tender to palpation at medial joint line Imaging: XR Elbow 3+ Views Right Date of Visit:08/16/2025 Reason for visit: Right elbow pain Views: AP, lateral, oblique of right elbow Comparison: None Findings: There is a chronic appearing deformity of the radial head with a slight step-off and sclerosis. Appears to be an old radial head fracture. There is a faint lucency at the radial head that could be acute. Radiocapitellar and ulnar relationships maintained but there is underlying osteoarthritis and bone spur formation. 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 Procedure: BILATERALKNEE INTRARTICULAR INJECTION was performed under sterile conditions today. Patient tolerated procedure well. No complications encountered. L Inj/Asp: bilateral knee Details: 21 G needle, anterolateral approach Medications (Right): 2 mL sodium hyaluronate (viscosup) 10 mg/mL(mw 2.4 -3.6 million) Medications (Left): 2 mL sodium hyaluronate (viscosup) 10 mg/mL(mw 2.4 -3.6 million) Assessment and Plan: 1. Arthritis of both knees Assessment & Plan 60 yo female with bilateral knee osteoathritis presenting for injection #3 of 3 for bilateral Euflexxa; patient of Dr. Isbell She elected to undergo injection and tolerated injections well. She should plan to follow-up in 6 to 8 weeks with [facility] for clinical re-evaluation. Physical Therapy: No formal PT/OT required at this time Milton Cohn MD [1] Allergies Allergen Reactions Latex Nortriptyline [2] Past Surgical History: Procedure Laterality Date THYROIDECTOMY [3] No outpatient medications have been marked as taking for the 08/28/25 encounter (Procedure visit) with Milton Cohn MD. documented in this encounter Plan of Treatment Upcoming Encounters Date Type Department Care Team (Late st Contact Info) Description 09/13/2025 1:45 PM EST Office Visit Orthopedic Surgery [facility] 175 [facility] [address] [place] [phone] Poppy Ortega PA 175 [facility] [address] [place] [phone] 10/01/2025 1:30 PM EST Office Visit Orthopedic Surgery [facility] 160 175 [facility] 160 [place] [phone] Amber Isbell MD [address] [address] documented as of this encounter Procedures Procedure Name Priority Date/Time Associated Diagnosis Comments CA ARTHROCENTESIS/ASPI RATION/INJECTION MAJOR JOINT/BURSA W/O U/S GUIDANCE Routine 08/28/2025 2:00 PM EST Arthritis of both knees documented in this encounter Results * CA ARTHROCENTESIS/ASPIRATION/INJECTION MAJOR JOINT/BURSA W/O U/S GUIDANCE (08/28/2025 2:00 PM EST) Milton Santos MD - 08/28/2025 2:00 PM EST Milton Cohn MD 08/28/2025 3:30 PM L Inj/Asp: bilateral knee Details: 21 G needle, anterolateral approach Medications (Right): 2 mL sodium hyaluronate (viscosup) 10 mg/mL(mw 2.4 -3.6 million) Medications (Left): 2 mL sodium hyaluronate (viscosup) 10 mg/mL(mw 2.4 -3.6 million) Milton Cohn MD IN CLINIC/BEDSIDE [facility] Final Result documented in this encounter Visit Diagnoses Diagnosis Arthritis of both knees- Primary documented in this encounter Administered Medications Inactive Administered Medications - up to 3 most recent administrations Medication Order MAR Action Action Date Dose Rate Site sodium hyaluronate (viscosup) intra-articular injection 2 mL 2 mL, intra-articular, Once PRN Procedure, Starting on Wed08/28/25 at 1400, For 1 doseIndications:Arthritis of both knees Given 08/28/2025 2:00 PM EST 2 mL sodium hyaluronate (viscosup) intra-articular injection 2 mL 2 mL, intra-articular, Once PRN Procedure, Starting on Wed08/28/25 at 1400, For 1 doseIndications:Arthritis of both knees Given 08/28/2025 2:00 PM EST 2 mL documented in this encounter Care Teams Assistant Merchandise Manager Relationship Specialty Start Date End Date Yolanda Ojeda MD [address] [place] [address] PCP - General Family Medicine 03/23/25 documented as of this encounter
[2025-08-29 10:18] VITALS: BP 136/71; PULSE 64; RESP 16; O2SAT 94; BMI 27.9
--- NOTE | 2025-08-29 10:18 | MHC.OFFVIS ---
Vital Signs 08/29/25 10:18 Height 5 ft 7 in Weight 178 lb BMI 27.9 BP 136/71 Blood Pressure Location Rt brachial Position Sitting Respiration 16 Pulse 64 Pulse Source Pulse Oximeter Pulse Oximetry (%) 94 Oxygen Delivery Method Room Air Intake Visit Reasons: Fibromyalgia Lighting Fixture Installer Required: No Accompanied by: Life Partner Allergies amitriptyline Allergy (Verified 08/29/25 10:21) Blurry Vision latex Allergy (Verified 08/29/25 10:21) Rash HPI Comments Details: Bharti is very pleasant 60 years old female who presents in my office with complains on pain all over the body. She stated that she was diagnose with fibromyalgia when she was 18 years old. The diagnosis was placed at [facility]. She reports pain in bilateral shoulders pain in the posterior neck, reports pain in the lower back with radiation of the pain down to bilateral lower extremities more on the left and less on the right, pain in the left radiates all the way down to her toes, she complains on pain in bilateral knees pain bilateral ankles and pain bilateral elbows. Because of her pain she can not sleep normally can not do activities of daily living can not take care of herself can not function normally. She reports the lower back hurts the most. She is unable to walk unassisted. Use cane for ambulation. Weather changes aggravate her pain. Topical medications and oral medications make her pain slightly better. In terms of tissue damage he describes her pain as pulsing, throbbing, shooting, stabbing, sharp, cramping, crushing, pulling, stinging, hurting, heavy, sickening, suffocating, terrifying sensation. She had multiple images which are not available for me today. The patient can not bring MRI of the cervical and lumbar spine for my consideration in the future. She had physical therapy last time 1.5 years ago with no results. She went for chiropractic manipulations with only minimal results. She had acupuncture with no results. She was under care of [facility] pain management facility and she received trigger point injections medial branch blocks epidural steroid injections radiofrequency ablation of the lumbar spine. She reports radiofrequency ablation procedure worked for her for only 2-3 months. She never had any neuromodulation. Her past medical history is very extensive. She reports hypertension, she has had ruptured aneurysm of the brain, she is suffering from coronary artery disease, she has rheumatoid arthritis, she had thyroid cancer and she now hypothyroid. She had thyroidectomy. She had anemia and asthma, she reports chest pain and angina. Past surgical history is also extensive including back surgery at [facility] thyroid cancer surgery [facility] she was treated for diverticulosis and diverticulitis, she had brain aneurysm surgery in [facility] she admits smoking cigarettes, she admits drinking alcohol, she denies recreational drugs. [facility] Medical History Vulvar cancer Papillary thyroid carcinoma Vitamin D deficiency Hypothyroidism Asthma Chronic stable angina HLD (hyperlipidemia) Endometriosis Osteopenia COPD (chronic obstructive pulmonary disease) Fibromyalgia Migraine CAD (coronary artery disease) Surgical History H/O pelvic surgery History of thyroid surgery History of intravascular stent placement H/O brain surgery Social History Advance Directives Date on File: 01/21/24 Review of Systems Const All systems reviewed & are unremarkable except as noted in HPI and below ENT Reports Normal hearing present Neuro Reports Normal hearing present, Denies Abnormal speech present, Denies confusion and Denies Sensory deficit (Neuro) Psych Denies confusion Physical Exam Vital Signs: Last Vital Signs Pulse 64 08/29/25 10:18 Resp 16 08/29/25 10:18 BP 136/71 08/29/25 10:18 Pulse Ox 94 08/29/25 10:18 Oxygen Delivery Method Room Air 08/29/25 10:18 BMI result Body Mass Index 27.9 Const General: no acute distress; No confusion Orientation/consciousness: patient oriented x3 and No confusion Eyes General: appearance normal, both eyes and all related structures Pupils: Equal, round and reactive pupils present EOM: EOMs intact bilaterally Neck Other: Flexing forward and flexing backwards both aggravate pain in the neck. Unable to flex her head backwards because of the severe pain. Neck: No full ROM Chest Chest palpation & inspection: normal inspection of the chest Resp Effort & Inspection: normal respiratory effort, able to speak in complete sentences, normal respiratory pattern, no audible wheezes and no cough Cardio Jugular venous distension: no JVD GI Inspection: Yes normal to inspection Back/Spine/Pelvis Other: SLR is positive bilaterally, Lasegue test is positive on the left and negative on the right, Dnailo test is positive bilaterally, Gaenslen test is positive bilaterally, thigh thrust test is positive bilaterally, pelvic compression test and pelvic distraction test both positive bilaterally. Flexing backwards aggravates pain in the back. Loading test is positive bilaterally. Neuro General: patient oriented x3, gait normal and No confusion Cranial nerves: Yes CN's II-XII intact bilaterally, Yes Equal, round and reactive pupils present, Yes Normal hearing present and Yes Ability to bilaterally elevate shoulders present Speech: No Abnormal speech present Gait exam (Neuro): Normal gait present Motor exam (neuro): 5/5 motor strength present throughout Sensory Exam: No Sensory deficit (Neuro) Extrem General: No pedal edema Psych Speech and movement: Normal speech and movement present Affect: normal affect Attitude: cooperative Thought process: Normal thought process present Thought content: Normal thought content present Insight: Good insight present (Psych) Judgement: Good judgement present (Psych) Assessment & Plan Assessment & Plan (1) Rheumatoid arthritis: Code(s): M06.9 - Rheumatoid arthritis, unspecified Category: Medical (2) Sacroiliitis: Code(s): M46.1 - Sacroiliitis, not elsewhere classified Category: Medical (3) Somatic dysfunction of both sacroiliac joints: Code(s): M99.04 - Segmental and somatic dysfunction of sacral region Category: Medical (4) Spondylosis of lumbar region without myelopathy or radiculopathy: Code(s): M47.816 - Spondylosis without myelopathy or radiculopathy, lumbar region Category: Medical (5) Radiculopathy, lumbar region: Code(s): M54.16 - Radiculopathy, lumbar region Category: Medical (6) Chronic pain syndrome: Code(s): G89.4 - Chronic pain syndrome Category: Medical Plan This patient suffers from multiple arthritic conditions involving her neck and lower back. Because she complains on more pain in the lower back we will start her treatment with low back pain injections. I offered her to perform diagnostic bilateral sacroiliac joint injections and 2 weeks after that procedure I will perform diagnostic bilateral medial branch blocks. We will assess the results of the injections. I also requested patient to bring me the images and the reports of the MRI of the cervical and lumbar spine she had at [facility]. I will see this patient after each of the injections. Coding Level of Care Code New Pt Level 3 (64111) Diagnoses Rheumatoid arthritis M06.9 Sacroiliitis M46.1 Somatic dysfunction of both sacroiliac joints M99.04 Spondylosis of lumbar region without myelopathy or radiculopathy M47.816 Radiculopathy, lumbar region M54.16 Chronic pain syndrome G89.4
--- OUTSIDE RECORDS SUMMARY | 2025-08-29 10:19 | XMS_ITS | Encounter Summary ---
Author Organization [employer] Address 75 [facility] 7t [place] [address] Care Team Providers Care Framing Mill Operator Helper Name Role Phone Yolanda Ojeda MD Primary Care Provider [phone] Name, Wesley SEVERINO Primary Care Provider [phone] Reason for Visit * Reason Onset Date Comments Med Refill 07/04/2025 Encounter Details Date Type Department Care Team ([facility] st Contact Info) Description 07/04/2025 Telephone [facility] MEDICINE [address] [place] [address] Yolanda Ojeda MD 505 [place] [address] Med Refill Social History Tobacco Use Types [...] immediate release tablet To be sent to: [facility]/pharmacy #[id number] documented in this encounter Plan of Treatment Upcoming Encounters Date Type Department Care Team ([facility] st Contact Info) Description 09/04/2025 11:30 AM EST Office Visit [address] [address] Name, MD Wesley [address] [place] [address] 09/13/2025 11:30 AM EST Medication Management [address] [address] Reanna Mccarthy, PharmD [address] [place] [address] 09/26/2025 8:30 AM EST Clinical Support [address] [address] Yulisa [place], RN documented as of this encounter Visit Diagnoses Not on filedocumented in this encounter Additional Health Concerns Assessment Noted Time PHQ-9 Depression Total Score: 21 025 10:36 AM EDT documented as of this encounter Care Teams Framing Mill Operator Helper Relationship Specialty Start Date End Date Yolanda Ojeda MD [address] [place] [address] PCP - General Family Medicine 04/26/25 07/18/25 Name, MD Wesley [address] [place] [address] PCP - General Internal Medicine 07/19/25 documented as of this encounter
--- OUTSIDE RECORDS SUMMARY | 2025-08-29 10:19 | XMS_ITS | Encounter Summary ---
Author Organization [employer] Address 75 [facility] 7t [place] [address] Care Team Providers Care Coat Cutter Name Role Phone Yolanda Ojeda MD Primary Care Provider [phone] NameWesley MD Primary Care Provider [phone] Reason for Visit * Reason Comments Med Refill Encounter Details Date Type Department Care Team ([facility] st Contact Info) Description 07/09/2025 Refill [facility] CHC MED & PEDS [address] [place], [place] [phone] Yolanda Ojeda MD 505 [place] [address] Generalized anxiety disorder; Primary osteoarthritis of left [...] Care Team (Late st Contact Info) Description 09/04/2025 11:30 AM EST Office Visit [address] [address] Name, MD Wesley [address] [place] [address] 09/13/2025 11:30 AM EST Medication Management [address] [address] Reanna Mccarthy, PharmD [address] [place] [address] 09/26/2025 8:30 AM EST Clinical Support [address] [address] Yulisa Welch RN documented as of this encounter Visit Diagnoses Diagnosis Generalized anxiety disorder Primary osteoarthritis of left knee Lumbar disc disease Other and unspecified disc disorder of lumbar region documented in this encounter Additional Health Concerns Assessment Noted Time PHQ-9 Depression Total Score: 21 025 10:36 AM EDT documented as of this encounter Care Teams Coat Cutter Relationship Specialty Start Date End Date Yolanda Ojeda MD 505 [place] [address] PCP - General Family Medicine 04/26/25 07/18/25 Name, MD Wesley [address] [place] [address] PCP - General Internal Medicine 07/19/25 documented as of this encounter
--- OUTSIDE RECORDS SUMMARY | 2025-08-29 10:19 | XMS_ITS | Encounter Summary ---
Author Organization [employer] Address 75 [facility] 7t [place] [address] Care Team Providers Care Visual Education Teacher Name Role Phone Yolanda Ojeda MD Primary Care Provider [phone] Name, Wesley SEVERINO Primary Care Provider [phone] Reason for Visit * Reason Onset Date Comments Med Refill 07/09/2025 Encounter Details Date Type Department Care Team ([facility] st Contact Info) Description 07/09/2025 Telephone [facility] MEDICINE [address] [place] [address] Yolanda Ojeda MD [address] [place] [address] Med Refill Social History Tobacco Use Types Packs/Day Years Used Date Smoking Tobacco: Unknown Depression Answer Date Recorded Patient Health Questionnaire-9 Score 21 04/26/2025 Patient Health Questionnaire-9 Score 21 04/26/2025 Last PHQ-9: Questionnaire Data Not on file 0 04/26/2025 Housing Stability Answer Date Recorded What is your housing situation today? I do not have housing (Staying with others, in a hotel, in a alf, living outside on the street, on a [...] immediate release tablet To be sent to: [facility]/pharmacy #[id number] documented in this encounter Plan of Treatment Upcoming Encounters Date Type Department Care Team ([facility] st Contact Info) Description 09/04/2025 11:30 AM EST Office Visit [address] [address] Name, MD Wesley [address] [place] [address] 09/13/2025 11:30 AM EST Medication Management [address] [address] Reanna Mccarthy, PharmD [address] [place] [address] 09/26/2025 8:30 AM EST Clinical Support [address] [place] [address] Yulisa Welch, RN documented as of this encounter Visit Diagnoses Not on filedocumented in this encounter Additional Health Concerns Assessment Noted Time PHQ-9 Depression Total Score: 21 025 10:36 AM EDT documented as of this encounter Care Teams Visual Education Teacher Relationship Specialty Start Date End Date Yolanda Ojeda MD [address] [place] [address] PCP - General Family Medicine 04/26/25 07/18/25 Name, MD Wesley [address] [place] [address] PCP - General Internal Medicine 07/19/25 documented as of this encounter
--- OUTSIDE RECORDS SUMMARY | 2025-08-29 10:19 | XMS_ITS | Encounter Summary ---
Author Organization [employer] Address 75 [facility] 7t [place] [address] Care Team Providers Care Scientist Electronics Name Role Phone Name, Wesley SEVERINO Primary Care Provider Reason for Visit * Reason Onset Date Comments ED 07/19/2025 Encounter Details Date Type Department Care Team ([facility] st Contact Info) Description 07/19/2025 Telephone [facility] MEDICINE 230 [place] [address] Yolanda Ojeda MD 505 [place], [place] [phone] ED Social History Tobacco Use Types Packs/Day Years [...] * Telephone Encounter - Misty Garrison - 07/19/2025 1:57 PM EST Patient calling to report ED visit on : Date: 07/15 [place] [facility] [place] for: HIGHBLOOD PRESSURE Symptomatic No *if yes message should go to Triage PORTUGUESE SPEAKER Patient advised will forward to team nurse for follow up PCP Dr. Ojeda documented in this encounter Plan of Treatment Upcoming Encounters Date Type Department Care Team (Late st Contact Info) Description 09/04/2025 11:30 AM EST Office Visit [address] [address] Name, MD Wesley [address] [place] [address] 09/13/2025 11:30 AM EST Medication Management [address] [address] Reanna Mccarthy, PharmD [address] [place] [address] 09/26/2025 8:30 AM EST Clinical Support [address] [address] Yulisa Welch, RN documented as of this encounter Visit Diagnoses Not on filedocumented in this encounter Additional Health Concerns Assessment Noted Time PHQ-9 Depression Total Score: 21 025 10:36 AM EDT documented as of this encounter Care Teams Scientist Electronics Relationship Specialty Start Date End Date Name, MD Wesley [address] [place] [address] PCP - General Internal Medicine 07/19/25 documented as of this encounter
--- OUTSIDE RECORDS SUMMARY | 2025-08-29 10:19 | XMS_ITS | Encounter Summary ---
Author Organization [employer] Address 75 [facility] 7t [place] [address] Care Team Providers Care Emergency Detail Driver Name Role Phone Yolanda Ojeda MD Primary Care Provider [phone] Name, Wesley SEVERINO Primary Care Provider [phone] Reason for Visit * Reason Onset Date Comments Call Back Request 06/11/2025 Encounter Details Date Type Department Care Team ([facility] Contact Info) Description 06/11/2025 Telephone [facility] MEDICINE 230 [place] [address] Yolanda Ojeda MD [address] [place] [address] Call Back Request Social History Tobacco Use [...] with others, in a hotel, in a longterm, living outside on the street, on a [...] * Telephone Encounter - Valdemar Hernandez - 06/11/2025 11:37 AM EDT Tc from pt requesting a call back to discuss home nursing services that were recommended to her. Ptstates at the time she was not in a stable home but now that she is she would like to discuss. Please contact pt at [phone]. (Russian Speaker) documented in this encounter Plan of Treatment Upcoming Encounters Date Type Department Care Team ([facility] st Contact Info) Description 09/04/2025 11:30 AM EST Office Visit [address] [address] Name, MD Wesley [address] [place] [address] 09/13/2025 11:30 AM EST Medication Management [address] [address] Reanna Mccarthy, PharmD [address] [place] [address] 09/26/2025 8:30 AM EST Clinical Support [address] [place] [address] Yulisa Welch, RN documented as of this encounter Visit Diagnoses Not on filedocumented in this encounter Additional Health Concerns Assessment Noted Time PHQ-9 Depression Total Score: 21 025 10:36 AM EDT documented as of this encounter Care Teams Emergency Detail Driver Relationship Specialty Start Date End Date Yolanda Ojeda MD 505 [place] [address] PCP - General Family Medicine 04/26/25 07/18/25 Name, MD Wesley 230 [place] [address] PCP - General Internal Medicine 07/19/25 documented as of this encounter
--- OUTSIDE RECORDS SUMMARY | 2025-08-29 10:19 | XMS_ITS | Encounter Summary ---
Author Organization [employer] Address 75 [facility] 7t [place] [address] Care Team Providers Care Help Desk Agent Name Role Phone Yolanda Ojeda MD Primary Care Provider [phone] Name, Wesley SEVERINO Primary Care Provider [phone] Reason for Visit * Reason Onset Date Comments Med Refill 07/03/2025 Encounter Details Date Type Department Care Team ([facility] st Contact Info) Description 07/03/2025 Telephone [facility] MEDICINE 230 [place] [address] Yolanda Ojeda MD 505 [place] [address] Med Refill Social History Tobacco Use Types [...] Description 09/04/2025 11:30 AM EST Office Visit [address] [address] Name, MD Wesley [address] [place] [address] 09/13/2025 11:30 AM EST Medication Management [address] [address] Reanna Mccarthy, PreetD [address] [place] [address] 09/26/2025 8:30 AM EST Clinical Support [address] [address] Yulisa Welch, COLT documented as of this encounter Visit Diagnoses Not on filedocumented in this encounter Additional Health Concerns Assessment Noted Time PHQ-9 Depression Total Score: 21 025 10:36 AM EDT documented as of this encounter Care Teams Help Desk Agent Relationship Specialty Start Date End Date Yolanda Ojeda MD 505 [place] [address] PCP - General Family Medicine 04/26/25 07/18/25 Chivo, MD Wesley 230 [place] [address] PCP - General Internal Medicine 07/19/25 documented as of this encounter
--- OUTSIDE RECORDS SUMMARY | 2025-08-29 10:19 | XMS_ITS | Encounter Summary ---
Author Organization [employer] Address 75 [facility] 7t [place] [address] Care Team Providers Care Makeup Artist Name Role Phone Yolanda Ojeda MD Primary Care Provider [phone] Name, Wesley SEVERINO Primary Care Provider [phone] Reason for Visit * Reason Onset Date Comments Med Refill 06/25/2025 Encounter Details Date Type Department Care Team ([facility] st Contact Info) Description 06/25/2025 Telephone [facility] MEDICINE 230 [place] [address] Yolanda Ojeda MD [address] [place] [address] Med Refill Social History Tobacco Use Types [...] 1 MG tablet To be sent to: [facility]/pharmacy #[id number] documented in this encounter Plan of Treatment Upcoming Encounters Date Type Department Care Team ([facility] st Contact Info) Description 09/04/2025 11:30 AM EST Office Visit [address] [address] Name, MD Wesley [address] [place] [address] 09/13/2025 11:30 AM EST Medication Management [address] [address] Reanna Mccarthy, PharmD [address] [place] [address] 09/26/2025 8:30 AM EST Clinical Support [address] [address] Yulisa Welch, RN documented as of this encounter Visit Diagnoses Not on filedocumented in this encounter Additional Health Concerns Assessment Noted Time PHQ-9 Depression Total Score: 21 025 10:36 AM EDT documented as of this encounter Care Teams Makeup Artist Relationship Specialty Start Date End Date Yolanda Ojeda MD [address] [place] [address] PCP - General Family Medicine 04/26/25 07/18/25 Name, MD Wesley 230 [place] [address] PCP - General Internal Medicine 07/19/25 documented as of this encounter
--- OUTSIDE RECORDS SUMMARY | 2025-08-29 10:19 | XMS_ITS | Encounter Summary ---
Author Organization [employer] Address 75 [facility] 7t [place] [address] Care Team Providers Care Editing Internship Name Role Phone Yolanda Ojeda MD Primary Care Provider [phone] NameWesley MD Primary Care Provider Reason for Visit * Reason Onset Date Comments Appointment Request 07/02/2025 Encounter Details Date Type Department Care Team ([facility] Contact Info) Description 07/02/2025 Telephone [facility] MED & PEDS 505 [place], [place] [phone] Yolanda Ojeda MD 505 [place] [address] Appointment Request Social History Tobacco Use Types [...] sooner apt than 07/13. Contact pt at [phone] documented in this encounter Plan of Treatment Upcoming Encounters Date Type Department Care Team (Late st Contact Info) Description 09/04/2025 11:30 AM EST Office Visit [address] [address] Name, MD Wesley [address] [place] [address] 09/13/2025 11:30 AM EST Medication Management [address] [address] Reanna Mccarthy, Gabo [address] [place] [address] 09/26/2025 8:30 AM EST Clinical Support [address] [address] Yulisa Welch RN documented as of this encounter Visit Diagnoses Diagnosis Primary osteoarthritis of left knee Lumbar disc disease Other and unspecified disc disorder of lumbar region documented in this encounter Additional Health Concerns Assessment Noted Time PHQ-9 Depression Total Score: 025 10:36 AM EDT documented as of this encounter Care Teams Editing Internship Relationship Specialty Start Date End Date Yolanda Ojeda MD 505 [place] [address] PCP - General Family Medicine 04/26/25 07/18/25 Wesley [place] MD 230 [place] [address] PCP - General Internal Medicine 07/19/25 documented as of this encounter
--- OUTSIDE RECORDS SUMMARY | 2025-08-29 10:19 | XMS_ITS | Encounter Summary ---
Author Organization [employer] Address 75 [facility] 7t [place] [address] Care Team Providers Care Stamp Pad Maker Name Role Phone Yolanda Ojeda MD Primary Care Provider [phone] Name, Wesley SEVERINO Primary Care Provider [phone] Reason for Visit * Reason Onset Date Comments call back 07/10/2025 Encounter Details Date Type Department Care Team ([facility] Contact Info) Description 07/10/2025 Telephone [facility] MEDICINE 230 [place] [address] Yolanda Ojeda MD 505 [place] [address] call back Social History Tobacco Use Types [...] requesting an call back Contact pt at [phone] documented in this encounter Plan of Treatment Upcoming Encounters Date Type Department Care Team (Late st Contact Info) Description 09/04/2025 11:30 AM EST Office Visit [address] [address] Name, MD Wesley [address] [place] [address] 09/13/2025 11:30 AM EST Medication Management [address] [address] Reanna Mccarthy, PreetD [address] [place] [address] 09/26/2025 8:30 AM EST Clinical Support [address] [address] Yulisa Welch RN documented as of this encounter Visit Diagnoses Not on filedocumented in this encounter Additional Health Concerns Assessment Noted Time PHQ-9 Depression Total Score: 21 025 10:36 AM EDT documented as of this encounter Care Teams Stamp Pad Maker Relationship Specialty Start Date End Date Yolanda Ojeda MD 505 [place] [address] PCP - General Family Medicine 04/26/25 07/18/25 Name, MD Wesley 230 [place] [address] PCP - General Internal Medicine 07/19/25 documented as of this encounter
--- OUTSIDE RECORDS SUMMARY | 2025-08-29 10:19 | XMS_ITS | Encounter Summary ---
Author Organization [employer] Address 75 [facility] 7t [place] [address] Care Team Providers Care Elementary School Teacher Name Role Phone Yolanda Ojeda MD Primary Care Provider [phone] Name, Wesley SEVERINO Primary Care Provider [phone] Encounter Details Date Type Department Care Team ([facility] st Contact Info) Description 07/04/2025 Telephone [facility] MEDICINE 230 [place], [place] [phone] Yolanda Ojeda MD 505 [place], [place] [phone] Social History Tobacco Use Types Packs/Day Years [...] Description 09/04/2025 11:30 AM EST Office Visit [address] [address] Wesley [place] MD [address] [place] [address] 09/13/2025 11:30 AM EST Medication Management [address] [address] Reanna Mccarthy, PharmD [address] [place] [address] 09/26/2025 8:30 AM EST Clinical Support [address] [address] Yulisa Welch, COLT documented as of this encounter Visit Diagnoses Not on filedocumented in this encounter Additional Health Concerns Assessment Noted Time PHQ-9 Depression Total Score: 21 025 10:36 AM EDT documented as of this encounter Care Teams Elementary School Teacher Relationship Specialty Start Date End Date Yolanda Ojeda MD 505 [place] [address] PCP - General Family Medicine 04/26/25 07/18/25 Wesley [place] MD 230 [place] [address] PCP - General Internal Medicine 07/19/25 documented as of this encounter
--- OUTSIDE RECORDS SUMMARY | 2025-08-29 10:19 | XMS_ITS | Encounter Summary ---
Author Organization [employer] Address 75 [facility] 7t [place] [address] Care Team Providers Care Radiation Control Health Physicist Name Role Phone Yolanda Amin MD Primary Care Provider [phone] NameWesley MD Primary Care Provider [phone] Reason for Visit * Reason Onset Date Comments call back requested 06/25/2025 Med Refill 06/25/2025 Encounter Details Date Type Department Care Team ([facility] st Contact Info) Description 06/25/2025 Telephone [facility] MEDICINE 230 [place] [address] Yolanda Amin MD 505 [place] [address] call back requested; Med Refill Social History [...] refill on ergocalciferol (Vitamin D2) 1.25 MG (78922 UT) capsule . PCP DR. amin * Telephone Encounter - Misty Garrison - 06/25/2025 11:53 AM EDT TC from [place] requesting a call back regarding Alprazolam. PCP Dr. Amin documented in this encounter Plan of Treatment Upcoming Encounters Date Type Department Care Team (Late st Contact Info) Description 09/04/2025 11:30 AM EST Office Visit [address] [address] Wesley [place] MD [address] [place] [address] 09/13/2025 11:30 AM EST Medication Management [address] [address] Reanna Mccarthy, PharmD [address] [place] [address] 09/26/2025 8:30 AM EST Clinical Support [address] [address] Yulisa Welch, RN documented as of this encounter Visit Diagnoses Not on filedocumented in this encounter Additional Health Concerns Assessment Noted Time PHQ-9 Depression Total Score: 21 025 10:36 AM EDT documented as of this encounter Care Teams Radiation Control Health Physicist Relationship Specialty Start Date End Date Yolanda Amin MD [address] [place] [address] PCP - General Family Medicine 04/26/25 07/18/25 Wesley [place] MD [address] [place] [address] PCP - General Internal Medicine 07/19/25 documented as of this encounter
--- OUTSIDE RECORDS SUMMARY | 2025-08-29 10:19 | XMS_ITS | Encounter Summary ---
Author Organization [employer] Address 75 [facility] 7t [place] [address] Care Team Providers Care Cold Mill Supervisor Name Role Phone Yolanda Ojeda MD Primary Care Provider [phone] NameWesley MD Primary Care Provider [phone] Reason for Visit * Reason Comments Med Refill Encounter Details Date Type Department Care Team ([facility] st Contact Info) Description 06/11/2025 Refill [facility] MED [facility] PEDS 505 [place], [place] [phone] Yolanda Ojeda MD 505 [place] [address] Generalized anxiety disorder Social History Tobacco Use [...] Description 09/04/2025 11:30 AM EST Office Visit [address] [address] Name, MD Wesley [address] [place] [address] 09/13/2025 11:30 AM EST Medication Management [address] [address] Reanna Mccarthy, PharmD [address] [place] [address] 09/26/2025 8:30 AM EST Clinical Support [address] [address] Yulisa Welch, COLT documented as of this encounter Visit Diagnoses Diagnosis Generalized anxiety disorder documented in this encounter Additional Health Concerns Assessment Noted Time PHQ-9 Depression Total Score: 21 025 10:36 AM EDT documented as of this encounter Care Teams Cold Mill Supervisor Relationship Specialty Start Date End Date Yolanda Ojeda MD [address] [place] [address] PCP - General Family Medicine 04/26/25 07/18/25 Name, MD Wesley 230 [place] [address] PCP - General Internal Medicine 07/19/25 documented as of this encounter
--- OUTSIDE RECORDS SUMMARY | 2025-08-29 10:19 | XMS_ITS | Encounter Summary ---
Author Organization [employer] Address 75 [facility] 7t [place] [address] Care Team Providers Care Transport Driver Name Role Phone Yolanda Ojeda MD Primary Care Provider [phone] Name, Wesley SEVERINO Primary Care Provider [phone] Encounter Details Date Type Department Care Team (Late st Contact Info) Description 05/11/2025 Orders Only [facility] 230 [place] [address] Provider, MD Olive Social History Tobacco Use [...] with others, in a hotel, in a intermediate, living outside on the street, on a [...] Description 09/04/2025 11:30 AM EST Office Visit [address] [address] Name, MD Wesley [address] [place] [address] 09/13/2025 11:30 AM EST Medication Management [address] [address] Reanna Mccarthy, PharmD [address] [place] [address] 09/26/2025 8:30 AM EST Clinical Support [address] [address] Yulisa Welch RN documented as of this encounter Procedures Procedure [...] Sensitivity Troponin I (07/15/2025 2:55 PM EST) Pathologist [facility] TROPONIN I HIGH SENSITIVITY <2.7 <3.5 - 17.0 ng/L [facility] Comment:The Dominguez high sens itivity Troponin-I results should beused in conjunction with other diagnostic information suchas ECG, clinical observations and information, and patientsymptoms to aid in the diagnosis of PR. 07/15/2025 2:55 PM EST 07/15/2025 2:59 PM EST us Generic External Data Provider LAB BLOOD ORDERAB LES Final Result [facility] [address] [place], [place] [phone] * (ABNORMAL) Comprehensive Metabolic Panel (07/15/2025 2:55 PM EST) Pathologist [facility] Sodium 141 135 - 145 mmol/L [facility] Potassium 3.3 3.3 - 5.1 mmol/L [facility] Chloride 106 96 - 108 mmol/L [facility] Carbon Dioxide 27 22 - 29 mmol/L [facility] Anion Gap 11(L) 12 - 20 [facility] Urea Nitrogen (BUN) 10 9 - 16 mg/dL [facility] Creatinine, Serum 0.67 0.5 - 1.4 mg/dL [facility] Creatinine Clr Calc Pharmacy 93.6 [facility] Comment:Provided height and weight: 167.64 cm,77.111 kg.eGFR (calculated from the MDRD study equation) and eCrCl(calculated from the Cockcroft-Gault equation) are based ondifferent parameters and may not yield comparable results.If eCrCl result is absurd, please check patient'sheight/weight. Estimated Glomerular Filt Rate >60 [facility] Comment:Chronic Kidney Disea se: Estimated GFR < 60 mL/min/1.38l9Veoodb Kidney Disease: Estimated GFR < 15 mL/min/1.73m2 Glucose 111 60 - 115 mg/dL [facility] Calcium 9.0 8.4 - 10.2 mg/dL [facility] Bilirubin, Total 0.5 0.0 - 1.0 mg/dL [facility] Aspartate Amino Transferase 19 5 - 31 U/L [facility] Alanine Aminotransferase 16 0 - 31 U/L [facility] Total Protein 7.0 6.5 - 8.0 g/dL [facility] Albumin Level 4.2 3.5 - 5.0 g/dL [facility] Alkaline Phosphatase 105 39 - 117 U/L [facility] 07/15/2025 2:55 PM EST 07/15/2025 2:59 PM EST Generic External Data Provider LAB BLOOD ORDERAB LES Final Result Performing Organization Address [facility] de Phone Number [facility] [address] [place] [phone] * Partial Thromboplastin Time, Activated (APTT) (07/15/2025 2:55 PM EST) Partial Thromboplastin Time 28.0 26.7 - 34.1 SEC [facility] 07/15/2025 2:55 PM EST 07/15/2025 2:59 PM EST Generic External Data Provider LAB BLOOD ORDERAB LES Final Result Performing Organization Address [facility] Co de Phone Number [facility] [address] [place] [phone] * Prothrombin Time-INR (07/15/2025 2:55 PM EST) Prothrombin Time 11.7 11.2 - 13.5 SEC [facility] INTERNATIONAL NORM RATIO 1.0 0.9 - 1.1 [facility] Comment:INTERNATIONAL NORMAL IZED RATIO (INR) [...] Provider LAB BLOOD ORDERAB LES Final Result [facility] [address] [place] [address] [phone] * (ABNORMAL) CBC auto differential (07/15/2025 2:55 PM EST) White Blood Count 11.7(H) 4.8 - 10.8 X10*3/uL [facility] Red Blood Count 4.72 4.20 - 5.50 X10*6/uL [facility] Hemoglobin 12.7 12.0 - 16.0 g/dl [facility] Hematocrit 40.2 37.0 - 47.0 % [facility] Mean Corpuscular Volume 85.2 80.0 - 98.0 fL [facility] Mean Corpuscular Hemoglobin 26.9(L) 27.0 - 33.0 pg [facility] Mean Corpuscular HGB Conc 31.6 31.0 - 35.0 g/dl [facility] Red Cell Distribution Width 15.2 11.0 - 16.0 % [facility] Platelet Count 288 160 - 400 X10*3/uL [facility] Mean Platelet Volume 9.0(L) 9.4 - 12.3 fL [facility] Neutrophils Percent Auto 60.1 45 - 73 % [facility] Imm Gran Pct Auto 0.3 0.0 - 0.4 % [facility] Lymphocytes Percent Auto 28.1 20 - 40 % [facility] Monocytes Percent Auto 6.8 2 - 11 % [facility] Eosinophils Percent Auto 4.0 0 - 4 % [facility] Basophils Percent Auto 0.7 0 - 2 % [facility] NRBC Pct Auto 0.0 0.0 - 0.2 /100WBC [facility] Neutrophils Absolute Auto 7.0 2.0 - 8.3 x10*3/uL [facility] Imm Gran Abs Auto 0.04(H) 0.00 - 0.03 X10*3/uL [facility] Lymphocytes Absolute Auto 3.3 1.2 - 4.9 X10*3/uL [facility] Monocytes Absolute Auto 0.8 0.1 - 1.2 X10*3/uL [facility] Eosinophils Absolute Auto 0.5(H) 0.0 - 0.4 X10*3/uL [facility] Basophils Absolute Auto 0.1 0.0 - 0.2 X10*3/uL [facility] NRBC Abs Auto 0.000 0.0 - 0.012 X10*3/uL [facility] 07/15/2025 2:55 PM EST 07/15/2025 2:59 PM EST us Generic External Data Provider LAB BLOOD ORDERAB LES Final Result Performing Organization Address City/State/[facility] Co de Phone Number [facility] [address] [place] [address] [phone] * XR Knee 1-2 Views Left [...] documented as of this encounter Care Teams Transport Driver Relationship Specialty Start Date End Date Yolanda Ojeda MD [address] [place] [phone] PCP - General Family Medicine 04/26/25 07/18/25 Name, MD Wesley [address] [place] [address] PCP - General Internal Medicine 07/19/25 documented as of this encounter
--- OUTSIDE RECORDS SUMMARY | 2025-08-29 10:19 | XMS_ITS | Encounter Summary ---
Author Organization [employer] Address 75 [facility] 7t [place] [address] Care Team Providers Care Body Designer Name Role Phone Yolanda Ojeda MD Primary Care Provider [phone] NameWesley MD Primary Care Provider [phone] Reason for Visit * Reason Comments Med Change Request Encounter Details Date Type Department Care Team ([facility] Contact Info) Description 04/30/2025 Refill [facility] [address] [place], [place] [phone] Yolanda Ojeda MD [address] [place] [address] Intractable chronic migraine with aura with status [...] Description 09/04/2025 11:30 AM EST Office Visit [address] [address] Name, MD Wesley [address] [place] [address] 09/13/2025 11:30 AM EST Medication Management [address] [address] YoiaReanna, PharmD [address] [place] [address] 09/26/2025 8:30 AM EST Clinical Support [address] [address] Yulisa Welch RN documented as of this encounter Visit Diagnoses Diagnosis Intractable chronic migraine with aura with status migrainosus documented in this encounter Additional Health Concerns Assessment Noted Time PHQ-9 Depression Total Score: 21 025 10:36 AM EDT documented as of this encounter Care Teams Body Designer Relationship Specialty Start Date End Date Yolanda Ojeda MD [address] [place] [address] PCP - General Family Medicine 04/26/25 07/18/25 Name, MD Wesley [address] [place] [address] PCP - General Internal Medicine 07/19/25 documented as of this encounter
--- OUTSIDE RECORDS SUMMARY | 2025-08-29 10:19 | XMS_ITS | Encounter Summary ---
Author Organization [email or web address] Address 75 [facility] 7t [place] [address] Care Team Providers Care Cinder Pit Worker Name Role Phone Name, Wesley SEVERINO Primary Care Provider [phone] Reason for Referral * Medications - Closed Specialty Diagnoses / Procedures Referred By Conttory t Referred To Contact Diagnoses Primary osteoarthritis of left knee Lumbar disc disease Nikole Waterman MD [address] [place] [address] Phone: tel: fax: Referral ID Status Reason Start Date Expiration Date Visits Re quested Visits Authorized [id number] Closed 1 1 Reason for Visit * Reason Onset Date Comments Med Refill 08/27/2025 Encounter Details Date Type Department Care Team (Late st Contact Info) Description 08/27/2025 Refill [facility] MEDICINE [address] [place] [address] [phone] Name, MD Wesley [address] [place] [phone] Primary osteoarthritis of left knee; Lumbar disc disease Social History Tobacco Use Types Packs/Day Years Used Date Smoking Tobacco: Former Cigarettes Smokeless Tobacco: Never Depression Answer Date Recorded Patient Health Questionnaire-9 Score 27 07/31/2025 Patient Health Questionnaire-9 Score 27 07/31/2025 Last PHQ-9: Questionnaire Data Not on file 1 09/30/2024 Housing Stability Answer Date Recorded What is your housing situation today? I do not have housing (Staying with others, in a hotel, in a long term, living outside on the street, on a beach, in a car, or in a park 07/31/[address] you li ve. Do you have problems with any of the following? None of the above 07/31/2025 Food Insecurity Answer Date Recorded Within the [...] getting things needed for daily living? No 07/31/2025 Utilities Answer Date Recorded In the past 12 months, has t he electric, gas, oil or water company threatened to shut off services in your home? Yes 07/31/2025 Depression Answer Date Recorded Patient Health Questionnaire-2 Score 6 07/31/2025 Internet Access Answer Date Recorded Internet Access Q1 No 07/31/2025 Internet Access Q2 I cannot afford it 07/31/2025 Comments Unknown Sex and Gender Information Value Date Recorded Sex Assigned at Female 04/26/2025 9:16 AM EDT Legal Sex Female 10:54 AM EDT Gender Identity Female 04/26/2025 9:16 AM EDT Sexual Orientation Straight 04/26/2025 9: 16 AM EDT documented as of this encounter Miscellaneous Notes * Telephone Encounter - Giovanna Isabel - 08/27/2025 1:10 PM EST TC from pt requesting medication refill. Medications needing refill : oxyCODONE (Roxicodone) 10 MG immediate release tablet To be sent to: [facility]/pharmacy #[id number] documented in this encounter Plan of Treatment Upcoming Encounters Date Type Department Care Team (Late st Contact Info) Description 09/04/2025 11:30 AM EST Office Visit [facility] MEDICINE [address] [place] [address] Name, MD Wesley [address] [place] [address] 09/13/2025 11:30 AM EST Medication Management [address] [address] Reanna Mccarthy PharmD [address] [place] [address] 09/26/2025 8:30 AM EST Clinical Support [address] [address] Yulisa Welch, COLT documented as of this encounter Visit Diagnoses Diagnosis Primary osteoarthritis of left knee Lumbar disc disease Other and unspecified disc disorder of lumbar region documented in this encounter Additional Health Concerns Assessment Noted Time PHQ-9 Depression Total Score: 27 07/31/ 025 10:33 AM EST documented as of this encounter Care Teams Cinder Pit Worker Relationship Specialty Start Date End Date Name, MD Wesley [address] [place] [address] PCP - General Internal Medicine 07/19/25 documented as of this encounter
--- OUTSIDE RECORDS SUMMARY | 2025-08-29 10:19 | XMS_ITS | Encounter Summary ---
Author Organization [employer] Address 75 [facility] 7t [place] [address] Care Team Providers Care Irrigationist Name Role Phone Yolanda Ojeda MD Primary Care Provider [phone] Name, Wesley SEVERINO Primary Care Provider [phone] Reason for Visit * Reason Onset Date Comments Appointment Request 04/30/2025 Encounter Details Date Type Department Care Team ([facility] Contact Info) Description 04/30/2025 Telephone [facility] MEDICINE [address] [place] [address] Yolanda Ojeda MD [address] [place] [address] Appointment Request Social History Tobacco Use Types Packs/Day Years Used Date Smoking Tobacco: Unknown Depression Answer Date Recorded Patient Health Questionnaire-9 Score 21 04/26/2025 Patient Health Questionnaire-9 Score 21 04/26/2025 Last PHQ-9: Questionnaire Data Not on file 0 04/26/2025 Housing Stability Answer Date Recorded What is your housing situation today? I do not have housing (Staying with others, in a hotel, in a snf, living outside on the street, on a [...] a call back to reschedule OV ext. Heat Treater Helper is unable to scheduledue to limited availability. Please contact spouse at [phone]. (Qatari Speaker) documented in this encounter Plan of Treatment Upcoming Encounters Date Type Department Care Team ([facility] st Contact Info) Description 09/04/2025 11:30 AM EST Office Visit [address] [address] Name, MD Weslye [address] [place] [address] 09/13/2025 11:30 AM EST Medication Management [address] [address] Reanna Mccarthy, PreetD [address] [place] [address] 09/26/2025 8:30 AM EST Clinical Support [address] [address] Yulisa Welch, RN documented as of this encounter Visit Diagnoses Not on filedocumented in this encounter Additional Health Concerns Assessment Noted Time PHQ-9 Depression Total Score: 21 025 10:36 AM EDT documented as of this encounter Care Teams Irrigationist Relationship Specialty Start Date End Date Yolanda Ojeda MD 505 [place] [address] PCP - General Family Medicine 04/26/25 07/18/25 Name, MD Wesley [address] [place] [address] PCP - General Internal Medicine 07/19/25 documented as of this encounter
--- OUTSIDE RECORDS SUMMARY | 2025-08-29 10:19 | XMS_ITS | Clinical Summary ---
Author Organization [facility] Address [address] [place] [phone] Phone Care Team Providers Care Craniologist Name Role Phone Yolanda Ojeda MD Primary Care Provider [phone] Allergies Active Allergy Reactions Criticality Noted Date [...] by mouth 2 times daily. 5 04/26/20 26 Active DULoxetine (CYMBALTA) [address] capsule [...] times a day. 480 g 3 Active telmisartan-hyd roCHLOROthiazid e (MICARDIS HCT) 80-12.5 mg per tablet Take 1 tablet by mouth daily. 5 07/31/20 Active Hospital, Clinic, or Other Facility Administered Medication Ordered Dose Route Frequency Start Date End Date Status sodium hyaluronate (viscosup) intra-articular injection 2 mgIndications:Arthri tis of both knees 2 mg Once PRN Procedure 08/14/2025 08/14/2025 Ended sodium hyaluronate (viscosup) intra-articular injection 2 mgIndications:Arthri tis of both knees 2 mg Once PRN Procedure 08/14/2025 08/14/2025 Ended sodium hyaluronate (viscosup) intra-articular injection 10 mgIndications:Arthri tis of both knees 10 mg Once PRN Procedure 08/21/2025 08/21/2025 Ended sodium hyaluronate (viscosup) intra-articular injection 10 mgIndications:Arthri tis of both knees 10 mg Once PRN Procedure 08/21/2025 08/21/2025 Ended sodium hyaluronate (viscosup) intra-articular injection 2 mLIndications:Arthri tis of both knees 2 mL IAtc Once PRN Procedure 08/28/2025 08/28/2025 Ended sodium hyaluronate (viscosup) intra-articular injection 2 mLIndications:Arthri tis of both knees 2 mL IAtc Once PRN Procedure 08/28/2025 08/28/2025 Ended Encounters Date Type Department Care Team Description 08/28/2025 2:00 PM EST Procedure visit Orthopedic Surgery [facility] [address] [facility] 160 [place] [phone] Milton Cohn MD Arthritis of both knees (Primary Dx) 08/21/2025 2:00 PM EST Procedure visit Orthopedic [facility] 160 [address] [facility] 160 [place] [phone] Amber Isbell MD Arthritis of both knees (Primary Dx) 08/16/2025 2:30 PM EST Consult Orthopedic Surgery [facility] [address] [place] [phone] Poppy Ortega PA Right elbow pain (Primary Dx); Hand paresthesia 08/14/2025 2:00 PM EST Procedure visit Orthopedic Surgery [facility] 160 [address] [facility] 160 [place] [phone] Amber Isbell MD Arthritis of both knees (Primary Dx) 07/16/2025 Telephone Orthopedic [facility] 250 [address] [facility] 250 [place] [phone] Gissell Merino MA 07/10/2025 1:00 PM EST Office Visit Orthopedic Surgery [facility] 160 [address] [facility] 160 [place] [address] Amber Isbell MD Arthritis of both knees (Primary Dx) 07/09/2025 2:30 PM EST Treatment [facility] 175 [facility] 350 [place] [address] Sigrid Motley, PT Bilateral chronic knee pain (Primary Dx) 07/02/2025 3:00 PM EDT Treatment [facility] 175 [facility] 350 [place] [address] Pipo Fontana PTA Bilateral chronic knee pain (Primary Dx) 06/11/2025 2:00 PM EDT Evaluation [facility] [address] [address] Sigrid Motley, JP Bilateral chronic knee pain (Primary Dx) from Last 3 Months Surgical History Surgery Date Site/Laterality Comments THYROIDECTOMY Medical History Medical History Date Comments Arthritis COPD (chronic obstructive pulmonary disease) (CM S/HCC V24, CMS/HCC V28) Hypertension Coronary artery disease Fibromyalgia Angina at rest (CMS/HCC V24) Osteoarthritis Osteopenia Social History Tobacco Use Types Packs/Day Years Used Date Smoking Tobacco: Never Assessed Comments Unknown Sex and Gender Information Value Date Recorded Sex Assigned at Not on file Legal Sex Female 4:08 PM EDT Gender Identity Not on file Sexual Orientation Not on file Last Filed Vital Signs Vital Sign Reading Time Taken Comments Blood Pressure 153/81 03/19/2025 7:40 PM EDT Pulse 92 03/19/2025 7:40 PM EDT Temperature 36.5 C (97.7 F) 03/19/2025 7:40 PM EDT Respiratory Rate 18 03/19/2025 5:18 PM EDT Oxygen Saturation 94% 03/19/2025 7:40 PM EDT Inhaled Oxygen Concentration - - Weight 79.8 kg (176 lb) 08/21/2025 1:47 PM EST Height 170.2 cm (5' 7.01 ) 08/21/2025 1:47 PM ES T Body Mass Index 27.56 08/21/2025 1:47 PM EST Plan of Treatment Upcoming Encounters Date Type Department Care Team (Late st Contact Info) Description 09/13/2025 1:45 PM EST Office Visit Orthopedic Surgery [facility] [address] [facility] [address] [place] [phone] Poppy Ortega PA 175 [facility] [address] [place] [phone] 10/01/2025 1:30 PM EST Office Visit Orthopedic Surgery [facility] [address] [facility] [address] [place] [phone] Amber Isbell MD 175 [facility] 160 [place] [address] Health Maintenance Due Date Last Done Comments Colorectal Cancer Screening: Colonoscopy 1965 Non-Opioid Controlled Substance Agreement 1964 Opioid Substance Agreement 1964 Pain Assessment 1964 DTaP,Tdap,and Td Vaccines (1 - Tdap) 1983 Pneumococcal Vaccine: 50+ Years (1 of 2 - PCV) 1983 Zoster Vaccines (1 of 2) 1983 Cervical Cancer Screening: Pap Smear 1985 Breast Cancer Screening 12/26/2016 12/26/2014 COVID-19 Vaccine (2 - Pfizer risk series) 12/26/2020 12/05/2020 Depression Screening 09/06/2024 HIV Screening 03/20/2025 Hepatitis C Screening 03/20/2025 Social Influencers of Health Screening 03/20/2025 Influenza Vaccine (#1) 2025 Naloxone Order 05/10/2026 05/10/2025 Hypertension/CHF/CAD Annual BMP Blood Test 07/15/2026 07/15/2025, 03/19/2025, 01/08/2025, Additional history exists Drug Screen 07/19/2026 07/19/2025, 06/07/2025 Cholesterol Screening (Lipid Panel) 01/02/2030 01/02/2025 RSV Immunization Adult Patients (1 - 1-dose 75+ series) 2039 HIB [...] to complete this topic RSV Immunization Patients Under 20 months Aged Out No longer eligible based on patient's age to complete this topic Varicella Vaccines Aged Out No longer eligible based on patient's age to complete this topic Procedures Procedure Name Priority Date/Time Associated Diagnosis Comments [place] ARTHROCENTESIS/ASPIRAT ION/INJECTION MAJOR JOINT/BURSA W/O U/S GUIDANCE Routine 08/28/2025 2:00 PM EST Arthritis of both knees [place] ARTHROCENTESIS/ASPIRAT ION/INJECTION MAJOR JOINT/BURSA W/O U/S GUIDANCE Routine 08/21/2025 2:00 PM EST Arthritis of both knees XR ELBOW 3+ VIEWS RIGHT Routine 08/16/2025 2:39 PM EST Right elbow pain [place] ARTHROCENTESIS/ASPIRAT ION/INJECTION MAJOR JOINT/BURSA W/O U/S GUIDANCE Routine 08/14/2025 2:00 PM EST Arthritis of both knees [place] ARTHROCENTESIS/ASPIRAT ION/INJECTION MAJOR JOINT/BURSA W/O U/S GUIDANCE Routine 07/10/2025 1:00 PM EST Arthritis of both knees COMPREHENSIVE METABOLIC PANEL STAT 03/19/2025 5:36 PM EDT from Last 3 Months or Most Recently Relevant to Health Maintenance Results * [place] ARTHROCENTESIS/ASPIRATION/INJECTION MAJOR JOINT/BURSA W/O U/S GUIDANCE (08/28/2025 2:00 PM EST) Narrative Milton Cohn MD - 08/28/2025 2:00 PM EST Milton Cohn MD 08/28/2025 3:30 PM L Inj/Asp: bilateral knee Details: 21 G needle, anterolateral approach Medications (Right): 2 mL sodium hyaluronate (viscosup) 10 mg/mL(mw 2.4 -3.6 million) Medications (Left): 2 mL sodium hyaluronate (viscosup) 10 mg/mL(mw 2.4 -3.6 million) Milton Cohn MD IN CLINIC/BEDSIDE ORDE DEREK Final Result * [place] ARTHROCENTESIS/ASPIRATION/INJECTION MAJOR JOINT/BURSA W/O U/S GUIDANCE (08/21/2025 2:00 PM EST) Narrative Amber Isbell MD - 08/21/2025 2:00 PM EST Amber Isbell MD 08/21/2025 2:09 PM L Inj/Asp: bilateral knee Indications: pain Details: 22 G needle, anterolateral approach Medications (Right): 10 mg sodium hyaluronate (viscosup) 10 mg/mL(mw 2.4 -3.6 million) Medications (Left): 10 mg sodium hyaluronate (viscosup) 10 mg/mL(mw 2.4 -3.6 million) Outcome: tolerated well, no immediate complications Informed Consent: Laterality: Bilateral Relevant images/test results [...] with patient: Verbal Pre-procedure timeout performed: yes Amber Isbell MD IN CLINIC/BEDSIDE ORDERABLES F inal Result * XR Elbow 3+ Views Right (08/16/2025 2:39 PM EST) Anatomical Region Laterality Modality Upper Extremities, Elbow Right Compute d Radiography Narrative 08/16/2025 4:16 PM EST Date of Visit:08/16/2025 Reason for visit: Right [...] deformity, questionable acute on chronic injury . Poppy NORMAN IMG XR PROCEDURES Final Resul t * [place] ARTHROCENTESIS/ASPIRATION/INJECTION MAJOR JOINT/BURSA W/O U/S GUIDANCE (08/14/2025 2:00 PM EST) Narrative Amber Isbell MD - 08/14/2025 2:00 PM EST Amber Isbell MD 08/14/2025 4:49 PM L Inj/Asp: bilateral knee Indications: pain Details: 22 G needle, anterolateral approach Medications (Right): 2 mg sodium hyaluronate (viscosup) 10 mg/mL(mw 2.4 -3.6 million) Medications (Left): 2 mg sodium hyaluronate (viscosup) 10 mg/mL(mw 2.4 -3.6 million) Informed Consent: Laterality: Bilateral Relevant images/test results available and reviewed: yes Health status cleared: Yes Procedure/treatment, purpose, treatment alternatives, risks/potential complications and benefits explained: yes Risk/complications/benefits details: Risks include bleeding, infection, increase in pain. Rare risk of pseudo septic reaction. Patient questions answered: yes Patient agrees, verbalizes understanding, and wants to proceed: yes Consent given by: Patient Informed consent discussion completed by Physician/JOSE with patient: Verbal Pre-procedure timeout performed: yes us Amber Isbell MD IN CLINIC/BEDSIDE ORDERABLES F inal Result * [place] ARTHROCENTESIS/ASPIRATION/INJECTION MAJOR JOINT/BURSA W/O U/S GUIDANCE (07/10/2025 [...] mmol/L LAB CHEMISTRY METHOD 03/19/2025 7:18 PM [facility] Potassium 4.0 3.5 - 5.5 mmol/L LAB CHEMISTRY METHOD 03/19/2025 7:18 PM [facility] Chloride 103 96 - 110 mmol/L LAB CHEMISTRY METHOD 03/19/2025 7:18 PM [facility] CO2 31 21 - 32 mmol/L LAB CHEMISTRY METHOD 03/19/2025 7:18 PM [facility] Anion Gap 4 3 - 11 LAB CHEMISTRY METHOD 03/19/2025 7:18 PM [facility] Glucose 110(H) 70 - 100 mg/dL LAB CHEMISTRY METHOD 03/19/2025 7:18 PM [facility] BUN 11 5 - 25 mg/dL LAB CHEMISTRY METHOD 03/19/2025 7:18 PM [facility] Creatinine 0.67 0.50 - 1.10 mg/dL LAB CHEMISTRY METHOD 03/19/2025 7:18 PM [facility] eGFR 100 >=60 mL/min/1. 73m2 LAB CHEMISTRY METHOD 03/19/2025 7:18 PM [facility] Comment:Calculation based on the Chronic Kidney Disease Epidemiology Collaboration (CKD-EPI) equation refit without adjustment for race. BUN/Creatinine Ratio 16.4 LAB CHEMISTRY METHOD 03/19/2025 7:18 PM [facility] Calcium 9.7 8.5 - 10.5 mg/dL LAB CHEMISTRY METHOD 03/19/2025 7:18 PM [facility] AST (SGOT) 94(H) 10 - 42 unit/L LAB CHEMISTRY METHOD 03/19/2025 7:18 PM [facility] ALT (SGPT) 75(H) 10 - 60 unit/L LAB CHEMISTRY METHOD 03/19/2025 7:18 PM [facility] Alkaline Phosphatase 104 42 - 121 unit/L LAB CHEMISTRY METHOD 03/19/2025 7:18 PM [facility] Total Protein 7.0 6.0 - 8.0 g/dL LAB CHEMISTRY METHOD 03/19/2025 7:18 PM [facility] Albumin 3.5 3.2 - 5.0 g/dL LAB CHEMISTRY METHOD 03/19/2025 7:18 PM [facility] Total Bilirubin 0.3 0.0 - 1.4 mg/dL LAB CHEMISTRY METHOD 03/19/2025 7:18 PM [facility] Blood Venous blood specimen / Unknown Venipuncture / Unknown 03/19/2025 5:36 PM EDT 03/19/2025 6:41 PM EDT us Tello Mercedes MD LAB BLOOD ORDERABLES Final Result [facility] [address] [place] [address], from Last 3 Months or Most Recently Relevant to Health Maintenance Insurance MEDICAID - [place] Care Teams Craniologist Relationship Specialty Start Date End Date Yolanda Ojeda MD [address] [place] [id number] PCP - General Family Medicine 03/23/25
--- OUTSIDE RECORDS SUMMARY | 2025-08-29 10:19 | XMS_ITS | Encounter Summary ---
Author Organization [employer] Address 75 [facility] 7t [place] [address] Care Team Providers Care Womens Health Nurse Practitioner Name Role Phone Name, Wesley SEVERINO Primary Care Provider [phone] Reason for Visit * Reason Onset Date Comments Med Refill 07/23/2025 Encounter Details Date Type Department Care Team ([facility] st Contact Info) Description 07/23/2025 Telephone [facility] MEDICINE [address] [place] [address] Name, MD Wesley [address] [place], [place] [phone] Med Refill Social History Tobacco Use Types [...] * Telephone Encounter - Rita Germain - 07/23/2025 12:37 PM EST TC from pt requesting medication refill. Medications needing refill : - oxyCODONE (Roxicodone) 10 MG immediate release tablet To be sent to: - [facility]/pharmacy #[id number] documented in this encounter Plan of Treatment Upcoming Encounters Date Type Department Care Team (Late st Contact Info) Description 09/04/2025 11:30 AM EST Office Visit [address] [address] Name, MD Wesley [address] [place] [address] 09/13/2025 11:30 AM EST Medication Management [address] [address] Reanna Mccarthy PharmD [address] [place] [address] 09/26/2025 8:30 AM EST Clinical Support [address] [address] Yulisa Welch, RN documented as of this encounter Visit Diagnoses Not on filedocumented in this encounter Additional Health Concerns Assessment Noted Time PHQ-9 Depression Total Score: 21 025 10:36 AM EDT documented as of this encounter Care Teams Womens Health Nurse Practitioner Relationship Specialty Start Date End Date Name, MD Wesley [address] [place] [address] PCP - General Internal Medicine 07/19/25 documented as of this encounter
--- OUTSIDE RECORDS SUMMARY | 2025-08-29 10:19 | XMS_ITS | Encounter Summary ---
Author Organization [employer] Address 75 [facility] 7t [place] [address] Care Team Providers Care Rag Willow Operator Name Role Phone Name, Wesley SEVERINO Primary Care Provider [phone] Reason for Visit * Reason Onset Date Comments Med Refill 08/16/2025 Encounter Details Date Type Department Care Team ([facility] st Contact Info) Description 08/16/[address] [facility] MEDICINE [address] [place] [address] Name, MD Wesley [address] [place], [place] [phone] Med Refill Social History Tobacco Use Types [...] with others, in a hotel, in a prison, living outside on the street, on a [...] Encounter - Mary Lou Gonzales LPN - 08/16/2025 12:25 PM EST Medication was sent to [facility] #[id number] on 07/24/25 with 1 refill. MECHANICAL MAINTENANCE SUPERVISOR checked on 08/16/25 last sold on 07/24/25 with 1 refill left. * Telephone Encounter - Elham Hernandez - 08/16/2025 12:22 PM EST TC from pt requesting medication refill. Medications needing refill : zolpidem (Ambien) 10 MG tablet To be sent to: [facility]/pharmacy #[id number] documented in this encounter Plan of Treatment Upcoming Encounters Date Type Department Care Team (Late st Contact Info) Description 09/04/2025 11:30 AM EST Office Visit [facility] MEDICINE [address] [place] [address] Name, MD Wesley [address] [place] [address] 09/13/2025 11:30 AM EST Medication Management [facility] MEDICINE [address] [place] [address] Reanna Mccarthy, PreetD [address] [place] [address] 09/26/2025 8:30 AM EST Clinical Support [facility] MEDICINE [address] [place] [address] Yulisa Welch, RN documented as of this encounter Visit Diagnoses Not on filedocumented in this encounter Additional Health Concerns Assessment Noted Time PHQ-9 Depression Total Score: 27 07/31/ 025 10:33 AM EST documented as of this encounter Care Teams Rag Willow Operator Relationship Specialty Start Date End Date Name, MD Wesley [address] [place] [address] PCP - General Internal Medicine 07/19/25 documented as of this encounter
--- OUTSIDE RECORDS SUMMARY | 2025-08-29 10:19 | XMS_ITS | Encounter Summary ---
Author Organization [employer] Address [address] [place] [address] Care Team Providers Care Mathematics Department Chair Name Role Phone Yolanda Ojeda MD Primary Care Provider [phone] NameWesley MD Primary Care Provider [phone] Reason for Visit * Reason Comments Med Refill Encounter Details Date Type Department Care Team ([facility] st Contact Info) Description 05/15/2025 Refill [facility] [address], [place] [phone] Yolanda Ojeda MD [address] [place] [address] Generalized anxiety disorder Social History Tobacco Use [...] Tasha. TC to pt via S ID# [id number]. Initial SWITCHBOARD OPERATOR SUPERVISOR appt scheduled for 06/07/25 @ 1:30pm. documented in this encounter Plan of Treatment Upcoming Encounters Date Type Department Care Team (Late st Contact Info) Description 09/04/2025 11:30 AM EST Office Visit [address] [address] Name, MD Wesley [address] [place] [phone] 09/13/2025 11:30 AM EST Medication Management [address] [address] Reanna Mccarthy PharmD [address] [place] [phone] 09/26/2025 8:30 AM EST Clinical Support [address] [address] Yulisa Welch, RN documented as of this encounter Visit Diagnoses Diagnosis Generalized anxiety disorder documented in this encounter Additional Health Concerns Assessment Noted Time PHQ-9 Depression Total Score: 025 10:36 AM EDT documented as of this encounter Care Teams Mathematics Department Chair Relationship Specialty Start Date End Date Yolanda Ojeda MD [address] [place] [address] PCP - General Family Medicine 04/26/25 07/18/25 Wesley Waldron MD [address] [place] [address] PCP - General Internal Medicine 07/19/25 documented as of this encounter
--- OUTSIDE RECORDS SUMMARY | 2025-08-29 10:20 | XMS_ITS | Patient Health Record ---
Author Organization [facility] Address [address] [place] [address] Care Team Providers Care Mannequin Molder Name Role Phone NO, PCP Primary Care Provider Lori Blake Unavailable [phone] Reason For Referral No Information Social History Sex Assigned At : Social History Observation Description Sex Assigned At Female Encounters Encounter Location Date Provider Diagnosis [facility] [address] [place], [place] [phone] 03/22/2025 Lori Blake [facility] [address] [place], [place] [phone] 03/26/2025 Lori Blake [facility] [address] [place], [place] [phone] 03/07/2025 Lori Blake Plan Of Treatment No Information Insurance Providers Payer Name Payer Address Payer Phone Subscriber Number Group Number Insured Name Patient Relationship to Insured Coverage Start Date Coverage End Date [place] Medicaid Standard [address] [place] [address] [phone] [id number] KEYLA ESCAMILLA Self - patient is the insured
--- OUTSIDE RECORDS SUMMARY | 2025-08-29 10:20 | XMS_ITS | Clinical Summary ---
Author Organization [employer] Address [address] [facility] [address] [place] [address] Care Team Providers Care Head Girls Golf Coach Name Role Phone Name, Wesley SEVERINO Primary Care Provider [phone] Allergies Active Allergy Reactions Criticality Noted Date [...] per day. 90 tablet 1 025 Active levothyroxine (Synthroid) 100 MCG tablet Take [...] MEAL. 120 capsule 11 025 2025 Active ergocalciferol (Vitamin D2) 1.25 MG (28692 UT) capsuleIndication s:Vitamin D deficiency TAKE 1 CAPSULE BY MOUTH ONE TIME PER WEEK 12 capsule Active atorvastatin (Lipitor) 80 MG tablet Take 1 tablet by mouth Once per day. Active cholecalciferol (Vitamin D-3) 1.25 MG (13657 UT) capsule Take 1 capsule by mouth every 7 (seven) days. Active Diclofenac Sodium 1 % gel Apply 4 g topically 4 times daily. Active DULoxetine (Cymbalta) [address] capsule Take 1 capsule by mouth 2 times daily. Active nystatin (Mycostatin) 217744 UNIT/GM powder APPLY DAILY TO SKIN TO [...] Once per day. 90 tablet 1 Active ondansetron (Zofran) 4 MG tablet Take 1 tablet (4 mg) by mouth if needed each day for nausea or vomiting. 20 tablet 2025 Active Rimegepant Sulfate (Nurtec) 75 MG tablet dispersibleIndica tions:Intractable chronic migraine with aura with status migrainosus Take 1 tablet (75 mg) by mouth if needed each day (Severe headaches). 18 tablet 3 07/26/20 25 3:22 PM EST Active zolpidem (Ambien) 10 MG tablet TAKE 1 TABLET BY MOUTH EVERY DAY AT BEDTIME NEEDED FOR SLEEP 28 tablet 1 Active telmisartan-hydro CHLOROthiazide (Micardis HCT) 80-12.5 MG tablet Take 1 tablet by mouth Once per day. 30 tablet 11 025 2025 Active cloNIDine (Catapres) 0.1 MG tablet TAKE 1 TABLET (0.1 MG) BY MOUTH AT BEDTIME 90 tablet Active ALPRAZolam (Xanax) 1 MG tabletIndications :Generalized anxiety disorder Take 1 tablet (1 mg) by mouth if needed in the morning, at noon, in the evening, and at bedtime for anxiety. Do not start before August 21, 2025. 56 tablet 2024 Active oxyCODONE (Roxicodone) 10 MG immediate release tabletIndications :Primary osteoarthritis of left knee,Lumbar disc disease Take 1 tablet (10 mg) by mouth every 6 (six) hours if needed for severe pain for up to 28 days. Do not start before August 28, 2025. 112 tablet 025 2025 Active telmisartan (Micardis) 80 MG tablet Take 1 tablet (80 mg) by mouth Once per day. 90 tablet 1 025 2024 Discontinued(D ose adjustment) cloNIDine (Catapres) 0.1 MG tablet Take 1 tablet (0.1 mg) by mouth at bedtime. 30 tablet 1 025 2024 Discontinued ALPRAZolam (Xanax) 1 MG tabletIndications :Generalized anxiety disorder Take 1 tablet (1 mg) by mouth if needed in the morning, at noon, in the evening, and at bedtime for anxiety. 56 tablet 2024 Discontinued(R eorder (will not trigger [...] in the evening, and at bedtime for anxiety. Do not start before August 06, 2025. 56 tablet 025 2024 Discontinued(R eorder (will not trigger notification to Pharmacy)) oxyCODONE (Roxicodone) 10 MG immediate release tabletIndications :Primary osteoarthritis of left knee,Lumbar disc disease Take 1 tablet (10 mg) by mouth 4 times daily for 14 days. Do not start before August 06, 2025. 56 tablet 025 2024 Discontinued(R eorder (will not trigger notification to Pharmacy)) oxyCODONE (Roxicodone) 10 MG immediate release tabletIndications :Primary osteoarthritis of left knee,Lumbar disc disease Take 1 tablet (10 mg) by mouth every 6 (six) hours if needed for severe pain for up to 7 days. NEED TO CALL FOR APPOINTMENT. Do not start before August 21, 2025. 28 tablet 025 2024 Discontinued(R eorder (will not trigger notification to Pharmacy)) Active Problems Problem Noted Date Diagnosed Date Homeless family 07/31/2025 Chronic pain syndrome 07/31/2025 Major depressive disorder, r ecurrent episode, moderate with anxious distress (CMS/HCC) 07/26/2025 Psychosocial stressors 07/26/2025 Dysphagia 07/13/2025 Long-term current use of opiate analgesic 2024 Long-term current use of benzodiazepine 06/07/20 Coronary artery disease stat us post coronary [...] organization. Date Type Department Care Team Description 08/27/2025 Refill [facility] [address] [place] [address] NameWesley MD Primary osteoarthritis of left knee; Lumbar disc disease 08/20/2025 Refill [facility] [address] [place] [address] NameWesley MD Generalized anxiety disorder 08/16/2025 Telephone [facility] [address] [place], [place] [phone] Wesley Waldron MD Med Refill 08/16/2025 Refill [facility] [address] [place] [address] NameWesley MD Primary osteoarthritis of left knee; Lumbar disc disease 08/04/2025 Refill [facility] [address] [place] [address] Yolanda Ojeda MD 08/01/2025 Refill [facility] [address] [place] [phone] Wesley Waldron MD Generalized anxiety disorder; Primary osteoarthritis of left knee; Lumbar disc disease 07/31/2025 10:15 AM EST Office Visit [facility] [address] [place] [phone] Wesley Waldron MD Essential (primary) hypertension (Primary Dx); Major depressive disorder, recurrent episode, moderate with anxious distress (CMS/HCC) (HCC); Chronic pain syndrome; Vaccine refused by patient; Coronary artery disease status post coronary stent insertion; Homeless family 07/31/2025 Patient Outreach [facility] [address] [place] [phone] Wesley Waldron MD Care Coordination (CHW outreach for SDOH housing search-referral completed ) 07/31/2025 Travel 07/30/2025 Telephone [facility] [address] [place] [phone] Wesley Waldron MD Chart Prep 07/24/2025 Patient Outreach [facility] [address] [place] [address] Wesley Waldron MD Pre-visit Planning (SDOH was already completed ) 07/23/2025 Telephone [facility] [address] [place] [phone] Wesley Waldron MD Med Refill 07/23/2025 Refill [facility] [address] [place] [phone] Yolanda Ojeda MD 07/23/2025 Refill [facility] [address] [place] [phone] Wesley Waldron MD Primary osteoarthritis of left knee; Lumbar disc disease; Generalized anxiety disorder 07/23/2025 Telephone [facility] [address] [place] [phone] Wesley Waldron MD Med Refill 07/19/2025 2:30 PM EST Clinical Support [facility] [address] [place] [address] Crystal Taylor RN Long-term current use of opiate analgesic (Primary Dx) 07/19/[address] [address] Yolanda Ojeda MD Nurse Triage 07/19/[address] [address] Yolanda Ojeda MD ED 07/19/2025 Travel 07/18/[address] [address] Yolanda Ojeda MD Prior Authorization 07/18/2025 Results Follow-Up [facility] [address] [place] [address] Yolanda Ojeda MD POCT Urinalysis, Urinalysis, Complete, with Reflex to Culture, Culture, Urine, Routine 07/13/2025 1:40 PM EST Office Visit [facility] [address] [place] [phone] Ilsa Rosales NP Viral upper respiratory tract infection (Primary Dx); Intractable chronic migraine with aura with status migrainosus 07/13/2025 11:15 AM EST Office Visit [facility] [address] [place] [address] Yolanda Ojeda MD Brain aneurysm (Primary Dx); Hypothyroidism, unspecified type; Encounter for health-related screening; Dysuria; Essential (primary) hypertension; Breast cancer screening by mammogram; Pulmonary nodules; Cataract of both eyes, unspecified cataract type; Dysphagia, unspecified type; Dietary counseling; Exercise counseling 07/13/2025 Travel 07/12/2025 Telephone [facility] [address] [place] [address] Yolanda Ojeda MD Chart Prep 07/10/[address] [address] Yolanda Ojeda MD call back 07/09/2025 Refill [facility] [address] [place] [address] Yolanda Ojeda MD Generalized anxiety disorder; Primary osteoarthritis of left knee; Lumbar disc disease 07/09/[address] [address] Yolanda Ojeda MD Med Refill 07/07/2025 Refill [facility] [address] [place] [address] Yolanda Ojeda MD Generalized anxiety disorder; Primary osteoarthritis of left knee; Lumbar disc disease 07/05/2025 Patient Outreach [address] [address] Yolanda Ojeda MD Pre-visit Planning ([facility] screening completed on 04/26/25) 07/04/[address] [address] Yolanda Ojeda MD 07/04/[address] [address] Yolanda Ojeda MD Med Refill 07/03/[address] [address] Yolanda Ojeda MD Med Refill 07/03/[address] [address] Yolanda Ojeda MD Nurse Triage 07/02/2025 [facility] [address] [place] [phone] Yolanda Ojeda MD Appointment Request 06/26/2025 Telephone [facility] [address] [place] [phone] Yolanda Ojeda MD Change PCP 06/26/2025 Telephone [facility] [address] [place] [phone] Yolanda Ojeda MD Med Refill 06/25/[address] [address] Yolanda Ojeda MD Med Refill 06/25/[address] [address] Yolanda Ojeda MD call back requested; Med Refill 06/23/2025 Refill [facility] [address] [place] [address] Yolanda Ojeda MD Vitamin D deficiency; Generalized anxiety disorder 06/20/2025 Refill [facility] [address] [place] [address] Yolanda Ojeda MD Primary osteoarthritis of left knee; Lumbar disc disease 06/20/2025 Refill [facility] [address] [place] [address] Yolanda Ojeda MD Generalized anxiety disorder 06/13/2025 Telephone [facility] [address] [place] [address] Yolanda Ojeda MD Med Refill 06/13/2025 Telephone [facility] [address] [place] [address] Yolanda Ojeda MD Referral 06/12/[address] [address] Yolanda Ojeda MD Referral 06/11/2025 Refill [facility] [address] [place] [address] Yolanda Ojeda MD Generalized anxiety disorder 06/11/2025 Refill [facility] [address] [place] [address] Yolanda Ojeda MD Generalized anxiety disorder 06/11/[address] [address] Yolanda Ojeda MD Call Back Request 06/08/[address] [address] Yolanda Ojeda MD Med Refill 06/07/2025 1:30 PM EDT Clinical Support [facility] [address] [place] [address] Crystal Taylor RN Primary osteoarthritis of both knees (Primary Dx); Long-term current use of opiate analgesic; Long-term current use of benzodiazepine 06/07/2025 Travel from Last 3 Months Immunizations Immunization Administration Dates Next Due Pfizer Covid-19 Vaccine 12+ Bivalent 12/05/2020 Social History Tobacco Use Types Packs/Day Years Used Date Smoking Tobacco: Former Cigarettes Smokeless Tobacco: Never Tobacco Cessation:Counseling Given: Not Answered Depression Answer [...] Sign Reading Time Taken Comments Blood Pressure 162/84 07/31/2025 10:31 AM EST Pulse 82 07/31/2025 10:31 AM EST Temperature 35.9 C (96.6 F) 07/31/2025 10:31 AM EST Respiratory Rate 18 07/31/2025 10:31 AM EST Oxygen Saturation 96% 07/31/2025 10:31 AM EST Inhaled Oxygen Concentration - - Weight 81.4 kg (179 lb 6.4 oz) 07/31/2025 10:31 AM EST Height 170.2 cm (5' 7 ) 07/31/2025 10:31 AM EST Body Mass Index 28.1 07/31/2025 10:31 AM EST Plan of Treatment Upcoming Encounters Date Type Department Care Team (Late st Contact Info) Description 09/04/2025 11:30 AM EST Office Visit [facility] [address] [place] [phone] Name, MD Wesley [address] [place] [phone] 09/13/2025 11:30 AM EST Medication Management [address] [address] Reanna Mccarthy, PharmD [address] [place] [phone] 09/26/2025 8:30 AM EST Clinical Support [address] [address] Yulisa Welch, COLT Health Maintenance Due Date Last Done Comments CT Colonography 1964 FIT DNA/Cologuard 1964 FIT 1964 FOBT 1964 HIV Screening 1964 Lipid Panel 1964 Sigmoidoscopy 1964 Hepatitis C Screening 1982 DTaP/Tdap/Td Vaccines (1 - Tdap) 1983 Pneumococcal Vaccine: 50+ Years (1 of 2 - PCV) 1983 Pap Smear 1985 Cervical Cancer Screening 1994 HPV/Cotest 1994 RSV Patients and Patients Aged 60 years or older (1 - Risk 50-74 years 1-dose series) 2014 Zoster Vaccines (1 of 2) 2014 Mammogram 12/26/2016 12/26/2014, 10/17/2013, 09/30/2012 COVID-19 Vaccine (2 - 2024-2 6 season) 2025 12/05/2020 Influenza Vaccine (#1) 2025 Depression Monitoring 01/28/2026 07/31/2025 , 07/31/2025 Alcohol/Substance Use Screening 07/31/2026 07/31/2025 Disability Screening 07/31/2026 07/31/2025 SDOH Screening 07/31/2026 07/31/2025 Tobacco Screening 07/31/2026 07/31/2025 Colonoscopy 04/17/2032 04/17/2022 Colorectal Cancer Screening 04/17/2032 HIB Vaccines Aged Out No longer eligi [...] Name Priority Date/Time Associated Diagnosis Comments POCT MANOJ-14 URINE DRUG SCREEN Routine 07/19/2025 1:50 PM EST Long-term current use of opiate analgesic HIGH SENSITIVITY TROPONIN I Routine 07/15/2025 2:55 [...] PM EDT Primary osteoarthritis of both knees from Last 3 Months Results * (ABNORMAL) POCT MANOJ-14 Urine Drug Screen (07/19/2025 1:50 PM EST) Only the most recent of2 resultswithin the time period is included. THC Negative Negative Cocaine Screen, Urine Negative Negative Opiate Screen, Urine Negative Negative Methamphetamine Screen Urine Negative Negative Amphetamine Screen, Urine Negative Negative Benzodiazepines Screen, Urine Positive(A) Negative Comment:Rx Barbiturate Screen, Urine Negative Negative Methadone Screen, Urine Negative Negative Buprenophine Screen, Urine Negative Negative TCA, Urine Negative Negative MDMA Urine Negative Negative ng/mL Oxycodone Screen, Urine Positive(A) Negative Comment:Rx Phencyclidine (PCP), Urine Negative Negative Propoxyphene, Urine Negative Negative Fentanyl, Urine Negative Negative Urine Urine specimen obtained by clean catch procedure / Unknown 07/19/2025 1:50 PM EST Narrative Crystal Taylor RN - 07/19/2025 1:50 PM EST . Internal Pass Control Lot# [id number] Exp: 06-12-26 Yolanda Ojeda MD POINT OF CARE TEST ENTER/EDIT ORDERABLES Final Result * High Sensitivity Troponin I (07/15/2025 2:55 PM EST) [facility] TROPONIN I HIGH SENSITIVITY <2.7 <3.5 - 17.0 ng/L [facility] Comment:The Dominguez high sens itivity Troponin-I results should beused in conjunction with other diagnostic information suchas ECG, clinical observations and information, and patientsymptoms to aid in the diagnosis of NH. 07/15/2025 2:55 PM EST 07/15/2025 2:59 PM EST Generic External Data Provider LAB BLOOD ORDERAB LES Final Result [facility] [address] [place] [phone] * (ABNORMAL) CBC auto differential (07/15/2025 2:55 PM EST) [facility] White Blood Count 11.7(H) 4.8 - 10.8 X10*3/uL [facility] Red Blood Count 4.72 4.20 - 5.50 X10*6/uL [facility] Hemoglobin 12.7 12.0 - 16.0 g/dl [facility] Hematocrit 40.2 37.0 - 47.0 % [facility] Mean Corpuscular Volume 85.2 80.0 - 98.0 fL [facility] Mean Corpuscular Hemoglobin 26.9(L) 27.0 - 33.0 pg [facility] Mean Corpuscular HGB Conc 31.6 31.0 - 35.0 g/dl [facility] Red Cell Distribution Width 15.2 11.0 - 16.0 % [facility] Platelet Count 288 160 - 400 X10*3/uL [facility] Mean Platelet Volume 9.0(L) 9.4 - 12.3 fL [facility] Neutrophils Percent Auto 60.1 45 - 73 % [facility] Imm Gran Pct Auto 0.3 0.0 - 0.4 % [facility] Lymphocytes Percent Auto 28.1 20 - 40 % [facility] Monocytes Percent Auto 6.8 2 - 11 % [facility] Eosinophils Percent Auto 4.0 0 - 4 % [facility] Basophils Percent Auto 0.7 0 - 2 % [facility] NRBC Pct Auto 0.0 0.0 - 0.2 /100WBC [facility] Neutrophils Absolute Auto 7.0 2.0 - 8.3 x10*3/uL [facility] Imm Gran Abs Auto 0.04(H) 0.00 - 0.03 X10*3/uL [facility] Lymphocytes Absolute Auto 3.3 1.2 - 4.9 X10*3/uL [facility] Monocytes Absolute Auto 0.8 0.1 - 1.2 X10*3/uL [facility] Eosinophils Absolute Auto 0.5(H) 0.0 - 0.4 X10*3/uL [facility] Basophils Absolute Auto 0.1 0.0 - 0.2 X10*3/uL [facility] NRBC Abs Auto 0.000 0.0 - 0.012 X10*3/uL [facility] 07/15/2025 2:55 PM EST 07/15/2025 2:59 PM EST us Generic External Data Provider LAB BLOOD ORDERAB LES Final Result Performing Organization Address [facility] Co de Phone Number [facility] [address] [place] [phone] * Partial Thromboplastin Time, Activated (APTT) (07/15/2025 2:55 PM EST) Partial Thromboplastin Time 28.0 26.7 - 34.1 SEC [facility] 07/15/2025 2:55 PM EST 07/15/2025 2:59 PM EST us Generic External Data Provider LAB BLOOD ORDERAB LES Final Result Performing Organization Address City/[facility] Co de Phone Number [facility] [address] [place] [phone] * Prothrombin Time-INR (07/15/2025 2:55 PM EST) Prothrombin Time 11.7 11.2 - 13.5 SEC [facility] INTERNATIONAL NORM RATIO 1.0 0.9 - 1.1 [facility] Comment:INTERNATIONAL NORMAL IZED RATIO (INR) [...] ORDERAB LES Final Result Performing Organization Address [facility] de Phone Number [facility] [address] [place] [phone] * (ABNORMAL) Comprehensive Metabolic Panel (07/15/2025 2:55 PM EST) Pathologist [facility] Sodium 141 135 - 145 mmol/L [facility] Potassium 3.3 3.3 - 5.1 mmol/L [facility] Chloride 106 96 - 108 mmol/L [facility] Carbon Dioxide 27 22 - 29 mmol/L [facility] Anion Gap 11(L) 12 - 20 [facility] Urea Nitrogen (BUN) 10 9 - 16 mg/dL [facility] Creatinine, Serum 0.67 0.5 - 1.4 mg/dL [facility] Creatinine Clr Calc Pharmacy 93.6 [facility] Comment:Provided height and weight: 167.64 cm,77.111 kg.eGFR (calculated from the MDRD study equation) and eCrCl(calculated from the Cockcroft-Gault equation) are based ondifferent parameters and may not yield comparable results.If eCrCl result is absurd, please check patient'sheight/weight. Estimated Glomerular Filt Rate >60 [facility] Comment:Chronic Kidney Disea se: Estimated GFR < 60 mL/min/[id number] Kidney Disease: Estimated GFR < 15 mL/min/1.73m2 Glucose 111 60 - 115 mg/dL [facility] Calcium 9.0 8.4 - 10.2 mg/dL [facility] Bilirubin, Total 0.5 0.0 - 1.0 mg/dL [facility] Aspartate Amino Transferase 19 5 - 31 U/L [facility] Alanine Aminotransferase 16 0 - 31 U/L [facility] Total Protein 7.0 6.5 - 8.0 g/dL [facility] Albumin Level 4.2 3.5 - 5.0 g/dL [facility] Alkaline Phosphatase 105 39 - 117 U/L [facility] 07/15/2025 2:55 PM EST 07/15/2025 2:59 PM EST us Generic External Data Provider LAB BLOOD ORDERAB LES Final Result Performing Organization Address [facility] Co de Phone Number [facility] [address] [place] [phone] * Influenza B (ID NOW Rapid Molecular) (07/13/2025 2:47 PM EST) [facility] Influenza B Negative Negative, Indeterminate [facility] Swab 07/13/2025 2:47 PM EST us Ilsa Rosales NP POINT OF CARE TEST ENTER/EDIT OR DERABLES Final Result Performing Organization Address [facility] Co de Phone Number [facility] [address] [place] [phone] * Influenza A (ID NOW Rapid Molecular) (07/13/2025 2:47 PM EST) [facility] Influenza A Negative Negative, Indeterminate [facility] Swab 07/13/2025 2:47 PM EST Result [facility] Ilsa Rosales NP POINT OF CARE TEST ENTER/EDIT OR DERABLES Final Result [facility] [address] [place] [phone] * POCT Rapid COVID Ag (07/13/2025 2:21 PM EST) [facility] Rapid COVID Ag Negative Swab 07/13/2025 2:21 PM EST Result [facility] Ilsa Rosales PLATFORM ARCHITECT POINT OF CARE TEST ENTER/EDIT OR DERABLES Final Result * POCT Urinalysis (07/13/2025 12:03 PM EST) Pathologist [facility] Color, UA Yellow Clarity, UA Clear Glucose, UA Negative Bilirubin, UA Negative Ketones, UA Negative Spec Grav, UA 1.020 Blood, UA Negative Negative, None Detected pH, UA 6.0 Protein, UA Negative Urobilinogen, UA 0.2 Leukocytes, UA Negative Negative, Rare, Trace Nitrite, UA Negative Negative, None Detected Appearance, UA clear QC Media Lot # [id number] Lot# Expiration Date [id number] Urine (Urine, Random) 07/13/2025 12:03 PM EST Result [facility] Yolanda Ojeda MD POINT OF CARE TEST ENTER/EDIT ORDERABLES Final Result * (ABNORMAL) Urinalysis, Complete, with Reflex to Culture (07/13/2025 12:00 AM EST) Pathologist [facility] Color Urine Yellow [facility] Appearance Urine Clear [facility] PH 6.0 5.0 - 9.0 [facility] Glucose Urine UA Negative Negative mg/dL [facility] Urine Blood Negative Negative [facility] Specific [place] - Urine 1.020 1.005 - 1.025 [facility] Urine Protein Negative Neg-Trace mg/dL [facility] Urine Ketones Negative Negative mg/dL [facility] Nitrite Urine Negative Negative [facility] Leukocyte Esterase Urine Small (1+)(A) Negative [facility] RBC Urine 0-2 0 - 2 /HPF [facility] Urine WBC 0-5 0 - 5 /HPF [facility] Urine Squamous Epithelial Cell 0-2 0 - 2 /HPF [facility] Urine Bacteria None Seen None Seen [facility] Hyaline Casts, Urine 0-2 0 - 2 /LPF [facility] Urine 07/13/2025 07/13/2025 Narrative [facility] - 07/13/2025 3:04 PM EST [id number], Clean Catch Yolanda Ojeda MD LAB URINE ORDERABLES Final Re sult Performing Organization Address City/[facility]/ZIP Co de Phone Number [facility] [address] [place] [phone] [phone] Culture, Urine, Routine (07/13/2025 12:00 AM EST) Urine Urine specimen obtained by clean catch procedure / Unknown 07/13/2025 07/13/2025 Comment:[facility] Narrative [facility] - 07/14/2025 1:47 PM EST Urine Culture Report Result Urine Culture < 10,000 cfu/ml Specimen Source: Urine clean catch Yolanda Ojeda MD LAB MICROBIOLOGY - GENERAL OR DERABLES Final Result Performing Organization Address City/[facility]/ZIP Co de Phone Number [facility] [address] [place] [address] [phone] from Last 3 Months Insurance [facility] STANDARD Care Teams Head Girls Golf Coach Relationship Specialty Start Date End Date Name, MD [address] [place] [address] PCP - General Internal Medicine 07/19/25
--- OUTSIDE RECORDS SUMMARY | 2025-08-29 10:20 | XMS_ITS ---
Author Organization [employer] Address [address] [place] [address] Care Team Providers Care Instrument Inspector Name Role Phone Mauri Singh MD Primary Care Provider [phone] Active Problems Problem Noted Date Diagnosed Date [...] Kerma 476 mGy 0 mGy 476 mGy DAP 2,571 Gy-cm2 0 Gy-cm2 2,571 Gy-cm2 Resolved Problems Problem Noted Date Diagnosed Date Resolved Date Chest pain, unspecified 02/21/201504/2022 Syncope and collapse 04/11/2014 015 Chest pain, unspecified 03/27/201404/2022 Overview (03/29/2014): S/p cardiac cath 03/28/2014:75 % mid LAD obstruction s/p stent,EF=45% Dizziness 07/06/2013 01/08/2014 Palpitations 07/06/2013 01/08/2014 Headache(784.0) 04/03/2013 03/28/2014 Cervical radiculopathy 12/10/201203/28 PMB (postmenopausal bleeding) 06/01/2012 03/28/2014 Thickened endometrium 06/01/20122013
--- OUTSIDE RECORDS SUMMARY | 2025-08-29 10:20 | XMS_ITS | Clinical Summary ---
Author Organization [facility] Address [address] [place] [address] Care Team Providers Care Sugar Controller Name Role Phone Mauri Singh MD Primary Care Provider [phone] Allergies Active Allergy Reactions Criticality Noted Date [...] drink = 0.6 oz pur e alcohol) [facility] Utilities Answer Date Recorded In the [...] any time in the past 12 m [facility], were you homeless or living in a jail (including now)? No 01/02/2025 Food Insecurity Answer [...] carcinoma as determined by the National Cancer [place] is, 7.5%. The BRCAPRO risk model, is 11.8%. If your lifetime risk score is over 20% the [employer] recommends an annual breast MRI, [...] compared to prior imaging studies performed at [facility] on 09/30/2012 and 10/17/2013. MAMMOGRAM FINDINGS: The [...] been compared to prior imaging studiesperformed at [facility] on 09/30/2012 and 10/17/2013. MAMMOGRAM FINDINGS: The [...] BI-RADS Category 1: Negative Mauri Singh MD [place] IM ORDERABLES Final Result from Last 3 Months or Most Recently Relevant to Health Maintenance Insurance [facility] Advance Directives For more information, please contact: [phone] * Full Code (Latest Code Status on [...] Agents on File Name Relationship Healthcare Agent Relationswv p Communication Reno Escamilla Spouse Health Care Agent Care Teams Sugar Controller Relationship Specialty Start Date End Date Mauri Singh MD [address] [place] [address] PCP - General 11/23/12
--- OUTSIDE RECORDS SUMMARY | 2025-08-29 10:20 | XMS_ITS | Encounter Summary ---
Author Organization [facility] Address [address] [place] [address] Care Team Providers Care Clinical Statistical Programmer Name Role Phone Mauri Singh MD Primary Care Provider [phone] Encounter Details Date Type Department Care Team (Late st Contact Info) Description 02/25/2021 Orders Only [facility] Perioporative Services [address] [place], [place] [id number] Rich Crane MD [address] [place] [address] [phone] GERD (gastroesophageal reflux disease) (Primary Dx) Social [...] EDT Swati Romero RN 03/04/2021 8:37 AM [facility] High Resolution Esophageal Manometry Procedure Note 03/04/2021 Genny Matamoros 1965 NPO after midnight: yes referral: Rich Crane MD H & P [...] 1 Encounters: 03/30/19 14 Time in room: 756 Time procedure began: 811 Nare catheter was placed: left Time procedure completed: 832 Staff in room: Swati Romero Any complications: none Patient tolerance: well Discharge time: 0837 Via ambulatory Discharge instructions received: yes Electronically signed Swati Romero us Rich Crane MD GI PROCEDURE ORDERABLES Final Result documented in this encounter Visit Diagnoses Diagnosis GERD (gastroesophageal reflux disease)- Primary Esophageal reflux documented in this encounter Care Teams Clinical Statistical Programmer Relationship Specialty Start Date End Date Mauri Singh MD [address] [place] [address] PCP - General 11/23/12 documented as of this encounter
== END 2025-08-29 11:04 | disposition home or self-care (01) ==
LOC: HO.PMC 10:11
PROVIDERS: PCP Family Medicine; Visit Provider Anesthesiology
DX: M06.9 Rheumatoid arthritis, unspecified (principal); M46.1 Sacroiliitis, not elsewhere classified; M99.04 Segmental and somatic dysfunction of sacral region; M47.816 Spondylosis without myelopathy or radiculopathy, lumbar region; M54.16 Radiculopathy, lumbar region; G89.4 Chronic pain syndrome
CPT/HCPCS: 99203

== ENCOUNTER → 2025-08-29 10:10 | Outpatient (BNVA) | payer MEDICAID, SELFPAY | PROVIDERS: PCP Family Medicine; Visit Provider Anesthesiology | DX: M47.26 Other spondylosis with radiculopathy, lumbar region (principal); M06.9 Rheumatoid arthritis, unspecified; M46.1 Sacroiliitis, not elsewhere classified; M99.04 Segmental and somatic dysfunction of sacral region; G89.4 Chronic pain syndrome | CPT/HCPCS: 99202 ==